=== PATIENT | male | born 1955 | race Caucasian/White ===

== ENCOUNTER 2016-11-02 09:16 | Emergency (ER) | payer BC, MEDICARE ==
[2016-11-02 09:35] VITALS: BP 202/107
[2016-11-02] MEDS ORDERED: Ondansetron 4 MG/2 ML SDV IVPUSH ONE (09:54)
[2016-11-02] MEDS ORDERED: HYDROmorphone 1 MG/ML Syringe IVPUSH ONE ×2 (09:54→10:55)
--- NOTE | 2016-11-02 09:55 | EDM.PDOC ---
ED HPI GENERAL MEDICAL PROBLEM - General Chief Complaint: Abdominal Pain Stated Complaint: PANCREATITIS Time Seen by Provider: 11/02/16 09:55 Source of Information: Reports: Patient, Family History Limitations: Reports: No Limitations - History of Present Illness INITIAL COMMENTS - FREE TEXT/NARRATIVE: 60-year-old male with chronic pancreatitis for the past 33 years just had a cholecystectomy 2 weeks ago and is still having persistent recurring abdominal pain and nausea. No fevers or chills. Location: Reports: Abdomen Severity: Moderate Worsens with: Reports: Other (Worsens when trying to eat) Associated Symptoms: Reports: Malaise, Nausea/Vomiting, Weakness, Other (Gets hypertensive when in pain) Abdomen Pain Score (Numeric/FACES): 10 - Related Data Allergies Allergy/AdvReac Type Severity Reaction Status Date / Time acetaminophen [From Tylenol] Allergy Rash Verified 11/02/16 09:59 erythromycin base Allergy Hives Verified 11/02/16 09:59 Home Meds: Home Meds Amylase/Lipase/Protease [Genia SANCHEZ 24,000 Unit] 1 tab PO TID 11/02/16 [History] Aspirin [Halfprin] 81 mg PO DAILY 11/02/16 [History] Dronabinol [Marinol] 2.5 mg PO QID 11/02/16 [History] Meperidine HCl [Meperidine] 50 mg PO Q6H PRN 11/02/16 [History] Ondansetron [Zofran ODT] 4 mg PO Q4H PRN 11/02/16 [History] Promethazine [Phenergan] 50 mg PO Q6H PRN 11/02/16 [History] Ranitidine HCl [Zantac] 150 mg PO BID 11/02/16 [History] ED ROS GENERAL - Review of Systems Review Of Systems: See Below Constitutional: Reports: Chills, Malaise. Denies: Fever HEENT: Reports: No Symptoms Respiratory: Denies: Shortness of Breath Cardiovascular: Denies: Chest Pain GI/Abdominal: Reports: Abdominal Pain, Nausea, Vomiting : Reports: No Symptoms Skin: Reports: No Symptoms Neurological: Denies: Headache ED EXAM, GI/ABD - Physical Exam Exam: See Below Exam Limited By: No Limitations General Appearance: Alert, Moderate Distress (Looks uncomfortable) Eyes: Bilateral: Normal Appearance ( no jaundice, hydration normal) Respiratory/Chest: No Respiratory Distress, Lungs Clear Cardiovascular: Regular Rate, Rhythm. No: Tachycardia GI/Abdominal: Tenderness (Diffusely tender across the upper abdomen) Course - Vital Signs Last Recorded V/S: Last Vital Signs Temp 97.7 F 11/02/16 10:07 Pulse 87 11/02/16 10:07 Resp 14 11/02/16 10:07 BP 202/107 H 11/02/16 10:07 Pulse Ox 97 11/02/16 10:07 - Orders/Labs/Meds Labs: Laboratory Tests 11/02/16 11/02/16 Range/Units 09:55 09:55 WBC 8.5 (4.5-11.0) K/uL RBC 5.05 (4.30-5.90) M/uL Hgb 15.8 H (12.0-15.0) g/dL Hct 44.9 (40.0-54.0) % MCV 89 (80-98) fL MCH 31 (27-31) pg MCHC 35 (32-36) % Plt Count 425 H (150-400) K/uL Neut % (Auto) 75 H (36-66) % Lymph % (Auto) 17 L (24-44) % Stewart % (Auto) 5 (2-6) % Eos % (Auto) 2 (2-4) % Baso % (Auto) 0 (0-1) % Sodium 136 L (140-148) mmol/L Potassium 3.4 L (3.6-5.2) mmol/L Chloride 99 L (100-108) mmol/L Carbon Dioxide 30 (21-32) mmol/L Anion Gap 10.4 (5.0-14.0) mmol/L BUN 20 H (7-18) mg/dL Creatinine 1.1 (0.8-1.3) mg/dL Est Cr Clr Drug Dosing 50.13 mL/min Estimated GFR (MDRD) > 60 (>60) Glucose 102 (74-106) mg/dL Calcium 8.8 (8.5-10.1) mg/dL Total Bilirubin 0.5 (0.2-1.0) mg/dL AST 24 (15-37) U/L ALT 26 (12-78) U/L Alkaline Phosphatase 87 (46-116) U/L Total Protein 7.5 (6.4-8.2) g/dL Albumin 3.8 (3.4-5.0) g/dL Globulin 3.7 H (2.3-3.5) g/dL Albumin/Globulin Ratio 1.0 L (1.2-2.2) Amylase 137 H (25-115) U/L Lipase 374 (73-393) U/L Meds: Medications Discontinued Medications Generic Name Dose Route Start Last Admin Trade Name Jasonq PRN Reason Stop Dose Admin Hydromorphone HCl 1 mg 11/02/16 09:54 11/02/16 10:02 Dilaudid IVPUSH 11/02/16 09:55 1 mg ONETIME ONE Administration Hydromorphone HCl 1 mg 11/02/16 10:55 11/02/16 11:02 Dilaudid IVPUSH 11/02/16 10:56 1 mg ONETIME ONE Administration Lactated Ringer's 1,000 mls @ 500 mls/hr 11/02/16 10:00 11/02/16 10:02 Ringers, Lactated IV 500 mls/hr ASDIRECTED CHARLES Administration Ondansetron HCl 4 mg 11/02/16 09:54 11/02/16 10:01 Zofran IVPUSH 11/02/16 09:55 4 mg ONETIME ONE Administration - Re-Assessments/Exams Free Text/Narrative Re-Assessment/Exam: 11/02/16 10:57 Lactated Ringer bolus of 1 L was given, 1 mg of Dilaudid IV and 4 mg of Zofran IV. CBC and CMP were obtained which were reassuring, amylase was slightly elevated. I discussed his condition and labs with his pancreatic surgeon and nurse practitioner, and they had no other recommendations other than moving his recheck appointment up. They will be calling him with the time. Patient will continue his regular medications. Departure - Departure Time of Disposition: 12:00 Disposition: Home, Self-Care 01 Condition: good Clinical Impression: Abdominal pain Qualifiers: Abdominal location: upper abdomen, unspecified Qualified Code(s): R10.10 - Upper abdominal pain, unspecified Pancreatitis Qualifiers: Chronicity: chronic Pancreatitis type: unspecified pancreatitis type Qualified Code(s): K86.1 - Other chronic pancreatitis - Discharge Information Instructions: Acute Pancreatitis, [id number], Abdominal Pain, Adult, Easy-to- Read Referrals: Wilson Melgoza PA [Primary Care Provider] - Forms: ED Department Discharge Care Plan Goals: Advance fluids and diet as tolerated and continue your regular medications. Return if needed.
[2016-11-02] MEDS ORDERED: Lactated Ringers 1,000 ML IV SCH (10:00)
== END 2016-11-02 12:00 | disposition home or self-care (01) ==
LOC: JP.ED 09:16
DX: K86.1 Other chronic pancreatitis (principal); K86.81 Exocrine pancreatic insufficiency; Z79.82 Long term (current) use of aspirin; Z88.8 Allergy status to other drugs, medicaments and biological substances; Z88.1 Allergy status to other antibiotic agents
CPT/HCPCS: 36415; 80053; 82150; 83690; 85025; 96361; 96374; 96375; 96376; 99284; J1170; J2405; J7120

== ENCOUNTER 2016-11-07 11:44 | Emergency (ER) | payer BC, MEDICARE ==
[2016-11-07] MEDS ORDERED: Sodium Chloride 0.9% 10 ML Syringe FLUSH PRN (12:12)
[2016-11-07] MEDS ORDERED: Morphine 4 MG/ML Syringe IVPUSH PRN (12:12)
[2016-11-07] MEDS: Nitroglycerin 0.4 MG Tab.SL SL PRN ×3 (12:24→12:39)
[2016-11-07] MEDS ORDERED: Prochlorperazine 10 MG/2 ML SDV IVPUSH ONE (12:25)
--- NOTE | 2016-11-07 12:28 | EDM.PDOC ---
ED HPI GENERAL MEDICAL PROBLEM - General Chief Complaint: Cardiovascular Problem Stated Complaint: BLOOD PRESSURE Time Seen by Provider: 11/07/16 11:57 Source of Information: Reports: Patient, Family, Old Records, RN Notes Reviewed History Limitations: Reports: No Limitations - History of Present Illness INITIAL COMMENTS - FREE TEXT/NARRATIVE: 60-year-old gentleman presents emergency department today with complaint of elevated blood pressure he states he's been feeling poorly over the last week does have a known history of hypertension however it is not been as high as this last week he does have a blood pressure cuff at home he has been measuring up systolic leak 200s on multiple occasions. Also has a known history of chronic pancreatitis which usually controls his pain with Demerol was recently admitted the hospital for combination pancreatitis cholecystitis underwent cholecystectomy. He states he still is having some ongoing abdominal pain which may be contributing to his blood pressure denies any fevers Upper Abdominal Pain Score (Numeric/FACES): 9 - Related Data Allergies Allergy/AdvReac Type Severity Reaction Status Date / Time acetaminophen [From Tylenol] Allergy Rash Verified 11/07/16 11:53 erythromycin base Allergy Hives Verified 11/07/16 11:53 Home Meds: Home Meds Aspirin [Halfprin] 81 mg PO DAILY 11/02/16 [History] Meperidine HCl [Meperidine] 50 mg PO Q6H PRN 11/02/16 [History] Ondansetron [Zofran ODT] 4 mg PO Q4H PRN 11/02/16 [History] Promethazine [Phenergan] 50 mg PO Q6H PRN 11/02/16 [History] Ranitidine HCl [Zantac] 150 mg PO BID 11/02/16 [History] Past Medical History HEENT History: Reports: Impaired Vision Cardiovascular History: Reports: Blood Clots/VTE/DVT, CAD, Hypertension, GA, Other (See Below) Other Cardiovascular History: iliac stents for possible clots Gastrointestinal History: Reports: Cholelithiasis, GERD, Pancreatitis Musculoskeletal History: Reports: Fracture Oncologic (Cancer) History: Reports: Other (See Below) Other Oncologic History: skin ca Dermatologic History: Reports: Other (See Below) Other Dermatologic History: basal cell ca - Infectious Disease History Infectious Disease History: Reports: Mumps - Past Surgical History GI Surgical History: Reports: Appendectomy, Cholecystectomy, Other (See Below) Other GI Surgeries/Procedures: exploratory lap for pancrease possilbe fruy procedure Social & Family History - Tobacco Use Smoking Status *Q: Never Smoker Second Hand Smoke Exposure: No - Caffeine Use Caffeine Use: Reports: Coffee - Recreational Drug Use Recreational Drug Use: No ED ROS GENERAL - Review of Systems Review Of Systems: See Below Constitutional: Reports: Decreased Appetite. Denies: Fever, Chills HEENT: Reports: No Symptoms Respiratory: Reports: No Symptoms Cardiovascular: Reports: Chest Pain GI/Abdominal: Reports: Abdominal Pain, Nausea : Reports: No Symptoms Musculoskeletal: Reports: No Symptoms Skin: Reports: No Symptoms ED EXAM, GENERAL - Physical Exam Exam: See Below Exam Limited By: No Limitations General Appearance: Alert, Mild Distress Eye Exam: Bilateral Eye: Normal Inspection Head: Atraumatic, Normocephalic Neck: Normal Inspection, Supple, Non-Tender, Full Range of Motion Respiratory/Chest: No Respiratory Distress, Lungs Clear, Normal Breath Sounds, No Accessory Muscle Use Cardiovascular: Normal Peripheral Pulses, Regular Rate, Rhythm, No Murmur GI/Abdominal: Normal Bowel Sounds, Tender (Generalized), Other (Surgical wounds clean dry and intact) Back Exam: Normal Inspection, Full Range of Motion. No: CVA Tenderness (R), CVA Tenderness (L) Extremities: Normal Inspection, Normal Range of Motion, Non-Tender, No Pedal Edema Course - Vital Signs Last Recorded V/S: Last Vital Signs Temp 98.2 F 11/07/16 12:09 Pulse 88 11/07/16 13:59 Resp 13 11/07/16 13:59 BP 138/82 11/07/16 13:59 Pulse Ox 93 L 11/07/16 13:59 - Orders/Labs/Meds Orders: Active Orders 24 hr Category Date Time Status Cardiac Monitoring [RC] .As Directed Care 11/07/16 12:13 Active EKG Documentation Completion [RC] ASDIRECTED Care 11/07/16 12:13 Active Peripheral IV Care [RC] . DIRECTED Care 11/07/16 12:13 Active Chest 2V [CR] Stat Exams 11/07/16 12:13 Taken UA W/MICROSCOPIC [URIN] Stat Lab 11/07/16 12:12 Uncollected Lactated Ringers [Ringers, Lactated] 1,000 ml Med 11/07/16 13:00 Active IV ASDIRECTED Morphine Med 11/07/16 12:12 Active 4 mg IVPUSH Q10M PRN Nitroglycerin [Nitrostat] Med 11/07/16 12:12 Active 0.4 mg SL Q5M PRN Sodium Chloride 0.9% [Saline Flush] Med 11/07/16 12:12 Active 10 ml FLUSH ASDIRECTED PRN Peripheral IV Insertion Adult [OM.PC] Stat Oth 11/07/16 12:12 Ordered Saline Lock Insert [OM.PC] Stat Oth 11/07/16 12:12 Ordered EKG 12 Lead [EK] Stat Ther 11/07/16 12:13 Ordered Medication Orders Lactated Ringer's (Ringers, Lactated) 1,000 mls @ 0 mls/hr IV ASDIRECTED CHARLES PRN Reason: KVO Last Admin: 11/07/16 13:34 Dose: 25 mls/hr Morphine Sulfate (Morphine) 4 mg IVPUSH Q10M PRN PRN Reason: Chest Pain Stop: 11/08/16 12:13 Last Admin: 11/07/16 12:24 Dose: 4 mg Nitroglycerin (Nitrostat) 0.4 mg SL Q5M PRN PRN Reason: Chest Pain Stop: 11/08/16 12:13 Last Admin: 11/07/16 12:39 Dose: 0.4 mg Admin: 11/07/16 12:33 Dose: 0.4 mg Admin: 11/07/16 12:24 Dose: 0.4 mg Sodium Chloride (Saline Flush) 10 ml FLUSH ASDIRECTED PRN PRN Reason: Keep Vein Open Last Admin: 11/07/16 12:28 Dose: 10 ml Labs: Laboratory Tests 11/07/16 11/07/16 Range/Units 11:23 11:23 WBC 9.7 (4.5-11.0) K/uL RBC 5.16 (4.30-5.90) M/uL Hgb 16.3 H (12.0-15.0) g/dL Hct 45.8 (40.0-54.0) % MCV 89 (80-98) fL MCH 32 H (27-31) pg MCHC 36 (32-36) % Plt Count 380 (150-400) K/uL Neut % (Auto) 77 H (36-66) % Lymph % (Auto) 16 L (24-44) % Howell % (Auto) 5 (2-6) % Eos % (Auto) 2 (2-4) % Baso % (Auto) 0 (0-1) % Sodium 139 L (140-148) mmol/L Potassium 3.8 (3.6-5.2) mmol/L Chloride 102 (100-108) mmol/L Carbon Dioxide 27 (21-32) mmol/L Anion Gap 13.8 (5.0-14.0) mmol/L BUN 11 (7-18) mg/dL Creatinine 0.9 (0.8-1.3) mg/dL Est Cr Clr Drug Dosing TNP Estimated GFR (MDRD) > 60 (>60) Glucose 101 (74-106) mg/dL Calcium 9.0 (8.5-10.1) mg/dL Total Bilirubin 0.4 (0.2-1.0) mg/dL AST 23 (15-37) U/L ALT 24 (12-78) U/L Alkaline Phosphatase 87 (46-116) U/L Troponin I < 0.017 (0.000-0.056) ng/mL Total Protein 7.5 (6.4-8.2) g/dL Albumin 3.7 (3.4-5.0) g/dL Globulin 3.8 H (2.3-3.5) g/dL Albumin/Globulin Ratio 1.0 L (1.2-2.2) Lipase 240 (73-393) U/L Meds: Medications Generic Name Dose Route Start Last Admin Trade Name Freq PRN Reason Stop Dose Admin Lactated Ringer's 1,000 mls @ 0 mls/hr 11/07/16 13:00 11/07/16 13:34 Ringers, Lactated IV 25 mls/hr ASDIRECTED CHARLES Administration KVO Morphine Sulfate 4 mg 11/07/16 12:12 11/07/16 12:24 Morphine IVPUSH 11/08/16 12:13 4 mg Q10M PRN Administration Chest Pain Nitroglycerin 0.4 mg 11/07/16 12:12 11/07/16 12:39 Nitrostat SL 11/08/16 12:13 0.4 mg Q5M PRN Administration Chest Pain Sodium Chloride 10 ml 11/07/16 12:12 11/07/16 12:28 Saline Flush FLUSH 10 ml ASDIRECTED PRN Administration Keep Vein Open Discontinued Medications Generic Name Dose Route Start Last Admin Trade Name Freq PRN Reason Stop Dose Admin Hydromorphone HCl 1 mg 11/07/16 12:51 11/07/16 13:08 Dilaudid IVPUSH 11/07/16 12:52 1 mg ONETIME ONE Administration Lorazepam 1 mg 11/07/16 12:51 11/07/16 13:08 Ativan IVPUSH 11/07/16 12:52 1 mg ONETIME ONE Administration Naloxone HCl 0.1 mg 11/07/16 12:54 Narcan IVPUSH 11/07/16 12:55 ONETIME PRN Sedation Prochlorperazine Edisylate 10 mg 11/07/16 12:25 11/07/16 12:30 Compazine IVPUSH 11/07/16 12:26 10 mg ONETIME ONE Administration Departure - Departure Time of Disposition: 14:30 Disposition: Home, Self-Care 01 Condition: Good Clinical Impression: Hypertensive urgency Forms: ED Department Discharge Additional Instructions: continue with regular medication use Ativan as needed, follow up with your regular Dr. in 5 to 7 days - My Orders Last 24 Hours: My Active Orders 11/07/16 12:12 UA W/MICROSCOPIC [URIN] Stat Morphine 4 mg IVPUSH Q10M PRN Nitroglycerin [Nitrostat] 0.4 mg SL Q5M PRN Sodium Chloride 0.9% [Saline Flush] 10 ml FLUSH ASDIRECTED PRN Peripheral IV Insertion Adult [OM.PC] Stat Saline Lock Insert [OM.PC] Stat 11/07/16 12:13 Cardiac Monitoring [RC] .As Directed EKG Documentation Completion [RC] ASDIRECTED Peripheral IV Care [RC] . DIRECTED Chest 2V [CR] Stat EKG 12 Lead [EK] Stat 11/07/16 13:00 Lactated Ringers [Ringers, Lactated] 1,000 ml IV ASDIRECTED - Assessment/Plan Last 24 Hours: My Active Orders 11/07/16 12:12 UA W/MICROSCOPIC [URIN] Stat Morphine 4 mg IVPUSH Q10M PRN Nitroglycerin [Nitrostat] 0.4 mg SL Q5M PRN Sodium Chloride 0.9% [Saline Flush] 10 ml FLUSH ASDIRECTED PRN Peripheral IV Insertion Adult [OM.PC] Stat Saline Lock Insert [OM.PC] Stat 11/07/16 12:13 Cardiac Monitoring [RC] .As Directed EKG Documentation Completion [RC] ASDIRECTED Peripheral IV Care [RC] . DIRECTED Chest 2V [CR] Stat EKG 12 Lead [EK] Stat 11/07/16 13:00 Lactated Ringers [Ringers, Lactated] 1,000 ml IV ASDIRECTED Plan: Assessment Acuity = acute Site and laterality = hypertensive urgency complicated patient with chronic pancreatitis and chronic pain Etiology = suspicious for anxiety, pain issues Manifestations = chest pressure now resolved Location of injury = home Lab values = CBC, CMP, troponin, chest x-ray , EKG all within normal limits Plan Initially tried combination of morphine and nitroglycerin no effect on his blood pressure second try combination Dilaudid and Ativan this did bring his blood pressure down systolic 1:30 range, plan is to follow-up with his primary care provider next week he will be discharged with the 10 Ativan to use as needed in combination with his Demerol democrat prescribed Patient was in agreement with the plan all questions were answered, they were instructed to return to the emergency department or call for worsening symptoms. This note was dictated using [employer] voice recognition software please call with any questions.
[2016-11-07] MEDS ORDERED: HYDROmorphone 1 MG/ML Syringe IVPUSH ONE (12:51)
[2016-11-07] MEDS ORDERED: LORazepam 2 MG/ML MDV IVPUSH ONE (12:51)
[2016-11-07] MEDS ORDERED: Naloxone 0.4 MG/ML SDV IVPUSH PRN (12:54)
[2016-11-07] MEDS ORDERED: Lactated Ringers 1,000 ML IV SCH (13:00)
[2016-11-07 14:52] VITALS: BP 146/80
--- NOTE | 2016-11-08 08:55 | CR ---
Chest 2V HISTORY: Chest Pain COMPARISON: None FINDINGS: Lungs appear clear and mildly hyperinflated. Cardiomediastinal silhouette is within normal limits. N o vascular redistribution or pleural fluid can be seen. Bony structures and soft tissues are unremar kable. IMPRESSION: Mild hyperinflation. No acute chest abnormality is identified.
== END 2016-11-07 14:55 | disposition home or self-care (01) ==
LOC: JP.ED 11:44
DX: I16.0 Hypertensive urgency (principal); H54.7 Unspecified visual loss; I10 Essential (primary) hypertension; I25.2 Old myocardial infarction; I25.10 Atherosclerotic heart disease of native coronary artery without angina pectoris; K21.9 Gastro-esophageal reflux disease without esophagitis; Z90.49 Acquired absence of other specified parts of digestive tract; Z88.8 Allergy status to other drugs, medicaments and biological substances; Z79.82 Long term (current) use of aspirin
CPT/HCPCS: 36415; 71020; 80053; 83690; 84484; 85025; 93005; 96374; 96375; 99284; A9270; J0780; J1170; J2060; J2270; J7050; J7120

== ENCOUNTER 2016-11-10 08:10 | Emergency (ER) | payer BC ==
[2016-11-10] MEDS ORDERED: Ondansetron 4 MG/2 ML SDV IVPUSH ONE (08:42)
[2016-11-10] MEDS ORDERED: HYDROmorphone 1 MG/ML Syringe IVPUSH ONE ×2 (08:42→09:40)
[2016-11-10] MEDS ORDERED: Sodium Chloride 0.9% 1,000 ML IV SCH ×2 (08:45→09:45)
--- NOTE | 2016-11-10 09:43 | EDM.PDOC ---
[id number]: PANCREATITIS Time Seen by Provider: 11/10/16 09:42 Source of Information: Reports: Patient, Family History Limitations: Reports: No Limitations - History of Present Illness INITIAL COMMENTS - FREE TEXT/NARRATIVE: pt arrived with a history of chronic pancreatitis. He has severe upper abdomnal pain. Onset: Gradual Duration: Day(s):, Other ( worse last 2 nites. ) Location: Reports: Abdomen Quality: Reports: Sharp, Stabbing Associated Symptoms: Reports: No Other Symptoms - Related Data Allergies Allergy/AdvReac Type Severity Reaction Status Date / Time acetaminophen [From Tylenol] Allergy Rash Verified 11/07/16 11:53 erythromycin base Allergy Hives Verified 11/07/16 11:53 Home Meds: Home Meds Aspirin [Halfprin] 81 mg PO DAILY 11/02/16 [History] Meperidine HCl [Meperidine] 50 mg PO Q6H PRN 11/02/16 [History] Ondansetron [Zofran ODT] 4 mg PO Q4H PRN 11/02/16 [History] Promethazine [Phenergan] 50 mg PO Q6H PRN 11/02/16 [History] Ranitidine HCl [Zantac] 150 mg PO BID 11/02/16 [History] LORazepam [Ativan] 1 mg PO ASDIRECTED PRN 11/10/16 [History] Past Medical History HEENT History: Reports: Impaired Vision Cardiovascular History: Reports: Blood Clots/VTE/DVT, CAD, Hypertension, [place], Other (See Below) Other Cardiovascular History: iliac stents for possible clots Gastrointestinal History: Reports: Cholelithiasis, GERD, Pancreatitis Musculoskeletal History: Reports: Fracture Oncologic (Cancer) History: Reports: Other (See Below) Other Oncologic History: skin ca Dermatologic History: Reports: Other (See Below) Other Dermatologic History: basal cell ca - Infectious Disease History Infectious Disease History: Reports: Mumps - Past Surgical History GI Surgical History: Reports: Appendectomy, Cholecystectomy, Other (See Below) Other GI Surgeries/Procedures: exploratory lap for pancrease possilbe fruy procedure Social & Family History - Tobacco Use Smoking Status *Q: Former Smoker Years of Tobacco use: 20 Used Tobacco, but Quit: No Tobacco Use Comment: quit 20 years ago Second Hand Smoke Exposure: No - Caffeine Use Caffeine Use: Reports: Coffee Other Caffeine Use: 4 cups - Recreational Drug Use Recreational Drug Use: No ED ROS GENERAL - Review of Systems Review Of Systems: See Below Constitutional: Reports: Decreased Appetite HEENT: Reports: No Symptoms Respiratory: Reports: No Symptoms Cardiovascular: Reports: No Symptoms Endocrine: Reports: No Symptoms GI/Abdominal: Reports: Abdominal Pain, Decreased Appetite, Nausea, Vomiting : Reports: No Symptoms Musculoskeletal: Reports: No Symptoms Skin: Reports: No Symptoms Neurological: Reports: No Symptoms ED EXAM, GI/ABD - Physical Exam Exam: See Below Text/Narrative:: pt arrived with pain in the epigastric area going to her back. Exam Limited By: No Limitations General Appearance: Alert, Anxious Eyes: Bilateral: Normal Appearance, EOMI Ears: Normal TMs Nose: Normal Inspection Throat/Mouth: Normal Inspection Head: Atraumatic Neck: Normal Inspection Respiratory/Chest: No Respiratory Distress Cardiovascular: Regular Rate, Rhythm GI/Abdominal: Other ( tender in the epigastric area. ) (Male) Exam: Deferred Rectal (Males) Exam: Deferred Back Exam: Normal Inspection Extremities: Normal Inspection Neurological: Alert, Oriented, Normal Cognition Psychiatric: Anxious Course - Vital Signs Last Recorded V/S: Last Vital Signs Temp 36.1 C 11/10/16 10:55 Pulse 77 11/10/16 10:55 Resp 14 11/10/16 10:55 BP 153/89 H 11/10/16 10:55 Pulse Ox 98 11/10/16 10:55 - Orders/Labs/Meds Labs: Laboratory Tests 11/10/16 11/10/16 11/10/16 Range/Units 08:52 08:52 08:52 WBC 10.4 (4.5-11.0) K/uL RBC 4.87 (4.30-5.90) M/uL Hgb 15.0 (12.0-15.0) g/dL Hct 43.6 (40.0-54.0) % MCV 90 (80-98) fL MCH 31 (27-31) pg MCHC 34 (32-36) % Plt Count 307 (150-400) K/uL Neut % (Auto) 78 H (36-66) % Lymph % (Auto) 16 L (24-44) % Collier % (Auto) 4 (2-6) % Eos % (Auto) 2 (2-4) % Baso % (Auto) 0 (0-1) % Sodium 137 L (140-148) mmol/L Potassium 3.7 (3.6-5.2) mmol/L Chloride 101 (100-108) mmol/L Carbon Dioxide 27 (21-32) mmol/L Anion Gap 12.7 (5.0-14.0) mmol/L BUN 13 (7-18) mg/dL Creatinine 0.9 (0.8-1.3) mg/dL Est Cr Clr Drug Dosing TNP Estimated GFR (MDRD) > 60 (>60) Glucose 96 (74-106) mg/dL Calcium 8.6 (8.5-10.1) mg/dL Total Bilirubin 0.2 (0.2-1.0) mg/dL AST 23 (15-37) U/L ALT 24 (12-78) U/L Alkaline Phosphatase 84 (46-116) U/L C-Reactive Protein 0.15 (0.0-0.3) mg/dL Total Protein 7.2 (6.4-8.2) g/dL Albumin 3.7 (3.4-5.0) g/dL Globulin 3.5 (2.3-3.5) g/dL Albumin/Globulin Ratio 1.1 L (1.2-2.2) Amylase 110 (25-115) U/L Lipase 259 (73-393) U/L Urine Color Urine Appearance Urine pH (4.5-8.0) Ur Specific Kell (1.008-1.030) Urine Protein (NEGATIVE) mg/dL Urine Glucose (UA) (NEGATIVE) mg/dL Urine Ketones (NEGATIVE) mg/dL Urine Occult Blood (NEGATIVE) Urine Nitrite (NEGAITVE) Urine Bilirubin (NEGATIVE) Urine Urobilinogen (NORMAL) mg/dL Ur Leukocyte Esterase (NEGATIVE) Urine RBC (0-5) Urine WBC (0-5) Ur Epithelial Cells Amorphous Sediment Urine Bacteria Urine Mucus 11/10/16 Range/Units 09:57 WBC (4.5-11.0) K/uL RBC (4.30-5.90) M/uL Hgb (12.0-15.0) g/dL Hct (40.0-54.0) % MCV (80-98) fL MCH (27-31) pg MCHC (32-36) % Plt Count (150-400) K/uL Neut % (Auto) (36-66) % Lymph % (Auto) (24-44) % Collier % (Auto) (2-6) % Eos % (Auto) (2-4) % Baso % (Auto) (0-1) % Sodium (140-148) mmol/L Potassium (3.6-5.2) mmol/L Chloride (100-108) mmol/L Carbon Dioxide (21-32) mmol/L Anion Gap (5.0-14.0) mmol/L BUN (7-18) mg/dL Creatinine (0.8-1.3) mg/dL Est Cr Clr Drug Dosing Estimated GFR (MDRD) (>60) Glucose (74-106) mg/dL Calcium (8.5-10.1) mg/dL Total Bilirubin (0.2-1.0) mg/dL AST (15-37) U/L ALT (12-78) U/L Alkaline Phosphatase (46-116) U/L C-Reactive Protein (0.0-0.3) mg/dL Total Protein (6.4-8.2) g/dL Albumin (3.4-5.0) g/dL Globulin (2.3-3.5) g/dL Albumin/Globulin Ratio (1.2-2.2) Amylase (25-115) U/L Lipase (73-393) U/L Urine Color Yellow Urine Appearance Clear Urine pH 7.0 (4.5-8.0) Ur Specific Kell 1.010 (1.008-1.030) Urine Protein Negative (NEGATIVE) mg/dL Urine Glucose (UA) Normal (NEGATIVE) mg/dL Urine Ketones Negative (NEGATIVE) mg/dL Urine Occult Blood Moderate (NEGATIVE) Urine Nitrite Negative (NEGAITVE) Urine Bilirubin Negative (NEGATIVE) Urine Urobilinogen Normal (NORMAL) mg/dL Ur Leukocyte Esterase Negative (NEGATIVE) Urine RBC 0-5 (0-5) Urine WBC Not seen (0-5) Ur Epithelial Cells Not seen Amorphous Sediment Rare Urine Bacteria Not seen Urine Mucus Not seen Meds: Medications Discontinued Medications Generic Name Dose Route Start Last Admin Trade Name Freq PRN Reason Stop Dose Admin Hydromorphone HCl 1 mg 11/10/16 08:42 11/10/16 09:00 Dilaudid IVPUSH 11/10/16 08:43 1 mg ONETIME ONE Administration Hydromorphone HCl 1 mg 11/10/16 09:40 11/10/16 09:44 Dilaudid IVPUSH 11/10/16 09:41 1 mg ONETIME ONE Administration Hydromorphone HCl 0.5 mg 11/10/16 12:10 11/10/16 12:21 Dilaudid IVPUSH 11/10/16 12:11 0.5 mg ONETIME ONE Administration Sodium Chloride 1,000 mls @ 999 mls/hr 11/10/16 08:45 11/10/16 09:08 Normal Saline IV 999 mls/hr ASDIRECTED CHARLES Administration Sodium Chloride 1,000 mls @ 400 mls/hr 11/10/16 09:45 11/10/16 10:53 Normal Saline IV 400 mls/hr ASDIRECTED CHARLES Administration Sodium Chloride 70 mls @ 3 mls/sec 11/10/16 09:48 11/10/16 10:07 Normal Saline IV 11/10/16 09:49 3 mls/sec ONETIME ONE Administration Iopamidol 100 ml 11/10/16 09:48 11/10/16 10:07 Isovue-300 (61%) IV 11/10/16 09:49 100 ml . DIRECTED PRN Administration RADIOLOGY EXAM Ondansetron HCl 4 mg 11/10/16 08:42 11/10/16 09:05 Zofran IVPUSH 11/10/16 08:43 4 mg ONETIME ONE Administration Sodium Chloride 10 ml 11/10/16 09:48 11/10/16 10:38 Normal Saline FLUSH 11/10/16 09:49 Not Given ONETIME ONE - Re-Assessments/Exams Free Text/Narrative Re-Assessment/Exam: 11/10/16 10:50 pt is having mid upper abdomanal pain. His lipase nd amylase were normal. His cat scan of the abdoman did not show acute findings. 11/10/16 12:06 pt will be iven 2 liters of fluid and he was given some broth to see if he could tolerate that. He plans to see his surgeon in the next few days. He had a recent bryson and since that time he has had more pain episodes. 11/11/16 19:29 Departure - Departure Time of Disposition: 12:08 Disposition: Home, Self-Care 01 Condition: Fair Clinical Impression: Abdominal pain, History of cholecystectomy - Discharge Information Instructions: Abdominal Pain, Adult, [id number] Referrals: Wilson Melgoza PA [Primary Care Provider] - Forms: ED Department Discharge Care Plan Goals: get appt with His surgeon in [place], clear liquids, cont demerol nd zoforan, rtc if further symptoms. Send copy of labs with the pt and a copy of his cat scan.
[2016-11-10] MEDS ORDERED: Iopamidol 612 MG/ML 100 ML Bottle IV PRN (09:48)
[2016-11-10] MEDS ORDERED: Sodium Chloride 0.9% 10 ML SDV FLUSH ONE (09:48)
--- NOTE | 2016-11-10 10:48 | CT ---
Abdomen Pelvis w Cont HISTORY: upper abdominal pain Axial spiral enhanced CT scan of the abdomen and pelvis was obtained using IV contrast only. Coronal reconstructions were obtained. There are no prior exams for comparison. FINDINGS: Heart size appears within normal limits. Lung bases are clear. There is no pleural fluid. No focal parenchymal abnormality seen in the liver or spleen. Gallbladder appears to be surgically a bsent. Intrahepatic and extrahepatic biliary ducts are slightly prominent. This is probably in keepi ng with the postcholecystectomy state. No pancreatic mass or abnormal fluid collections are seen. Pr oximal pancreatic duct is slightly prominent measuring about 4.5 mm in diameter adrenal glands are u nremarkable. There are small subcentimeter renal cysts bilaterally. No solid renal mass is seen. I see no hydrone phrosis or ureteral dilatation. No obvious renal or ureteral calculi can be seen. No pelvic mass or abnormal fluid collections are identified. There are diverticula can be seen in th e sigmoid colon. I see no definite evidence for acute diverticulitis. A very small amount of scatter ed free fluid is seen in the abdomen. No free intraperitoneal air is identified. Small bowel loops a re nondistended. No other colon abnormality can be seen. Appendix cannot be definitively identified. No inflammation or fluid is seen at the base of the cecum. I see no pelvic, retroperitoneal, or mes enteric adenopathy. Stomach is mildly distended and fluid-filled. Degenerative changes are noted along the lumbar spine, most prominent at L5-S1. I see no obvious lytic or blastic bony lesion. Endovascular stent graft ca n be seen in the right common iliac artery and in the left common iliac and external iliac arteries. Stents appear patent. IMPRESSION: 1. Exam is limited by lack of intra-abdominal body fat and lack of oral contrast. 2. Status post cholecystectomy. Slightly prominent biliary ducts are probably in keeping with the po stcholecystectomy state. Proximal pancreatic duct is also slightly prominent. 3. Probable small renal cysts bilaterally. 4. Mildly distended, fluid-filled stomach. 5. A very small amount of free fluid can be seen in the abdomen. No free air or loculated fluid khushbu ection can be seen. 6. Mild diverticulosis can be seen in the sigmoid colon. I see no definite evidence for acute divert iculitis. 7. Scattered atherosclerotic vascular calcification. Bilateral iliac stents appear patent. 8. No other acute intra-abdominal or pelvic abnormality can be identified. Total DLP 308 mGycm Report was called to Dr. Campuzano in the emergency department at 1040 hours.
[2016-11-10 10:56] VITALS: BP 153/89
[2016-11-10] MEDS ORDERED: HYDROmorphone 0.5 MG/0.5 ML Syringe IVPUSH ONE (12:10)
== END 2016-11-10 12:39 | disposition home or self-care (01) ==
LOC: JP.ED 08:10
DX: R10.10 Upper abdominal pain, unspecified (principal); I25.10 Atherosclerotic heart disease of native coronary artery without angina pectoris; I10 Essential (primary) hypertension; I25.2 Old myocardial infarction; K21.9 Gastro-esophageal reflux disease without esophagitis; Z90.49 Acquired absence of other specified parts of digestive tract; Z98.890 Other specified postprocedural states; Z87.891 Personal history of nicotine dependence; Z86.718 Personal history of other venous thrombosis and embolism; Z79.82 Long term (current) use of aspirin; Z88.1 Allergy status to other antibiotic agents; Z88.6 Allergy status to analgesic agent
CPT/HCPCS: 36415; 74177; 80053; 81001; 82150; 83690; 85025; 86140; 96361; 96374; 96375; 96376; 99284; J1170; J2405; J7030; J7040; Q9967

== ENCOUNTER 2016-11-24 11:54 | Emergency (ER) | payer BC ==
[2016-11-24] MEDS ORDERED: Sodium Chloride 0.9% 10 ML Syringe FLUSH PRN (12:48)
[2016-11-24] MEDS ORDERED: Ondansetron 4 MG/2 ML SDV IVPUSH ONE (12:49)
[2016-11-24] MEDS ORDERED: HYDROmorphone 1 MG/ML Syringe IVPUSH ONE ×3 (12:49→14:57)
[2016-11-24] MEDS ORDERED: Sodium Chloride 0.9% 1,000 ML IV SCH (13:00)
[2016-11-24 15:13] VITALS: BP 159/98
--- NOTE | 2016-11-24 15:20 | EDM.PDOC ---
ED HPI GENERAL MEDICAL PROBLEM - General Chief Complaint: Abdominal Pain Stated Complaint: PACREATITIS ATTACK Time Seen by Provider: 11/24/16 12:48 Source of Information: Reports: Patient History Limitations: Reports: No Limitations - History of Present Illness INITIAL COMMENTS - FREE TEXT/NARRATIVE: This gentleman has chronic recurrent pancreatitis. This is been going on for years. He is followed by a surgeon and senior infrastructure architect at the [facility]. They were going to do a Womack procedure in September but instead did a cholecystectomy instead. He's had more problems since then. They are talking now about doing a pancreatectomy and islet cell transplant into the liver. These haven't severe pain today. He said diet doesn't seem to matter anything will bring on and intact. He is using Demerol for pain. He said hydrocodone and oxycodone don't seem to help. He's never tried oral Dilaudid. He does get some relief with the IV Dilaudid were given today. Lower Abdominal Pain Score (Numeric/FACES): 10 - Related Data Allergies Allergy/AdvReac Type Severity Reaction Status Date / Time acetaminophen [From Tylenol] Allergy Rash Verified 11/24/16 12:26 erythromycin base Allergy Hives Verified 11/24/16 12:26 Home Meds: Home Meds Aspirin [Halfprin] 81 mg PO DAILY 11/02/16 [History] Meperidine HCl [Meperidine] 50 mg PO Q6H PRN 11/02/16 [History] Ondansetron [Zofran ODT] 4 mg PO Q4H PRN 11/02/16 [History] Promethazine [Phenergan] 50 mg PO Q6H PRN 11/02/16 [History] Ranitidine HCl [Zantac] 150 mg PO BID 11/02/16 [History] LORazepam [Ativan] 1 mg PO ASDIRECTED PRN 11/10/16 [History] Past Medical History HEENT History: Reports: Impaired Vision Cardiovascular History: Reports: Blood Clots/VTE/DVT, CAD, Hypertension, [place], Other (See Below) Other Cardiovascular History: iliac stents for possible clots Gastrointestinal History: Reports: Cholelithiasis, GERD, Pancreatitis Musculoskeletal History: Reports: Fracture Oncologic (Cancer) History: Reports: Other (See Below) Other Oncologic History: skin ca Dermatologic History: Reports: Other (See Below) Other Dermatologic History: basal cell ca - Infectious Disease History Infectious Disease History: Reports: Mumps - Past Surgical History GI Surgical History: Reports: Appendectomy, Cholecystectomy, Other (See Below) Other GI Surgeries/Procedures: exploratory lap for pancrease possilbe fruy procedure Social & Family History - Tobacco Use Smoking Status *Q: Never Smoker Years of Tobacco use: 20 Used Tobacco, but Quit: No Second Hand Smoke Exposure: No - Caffeine Use Caffeine Use: Reports: Coffee, Soda Other Caffeine Use: 4 cups - Recreational Drug Use Recreational Drug Use: No ED ROS GENERAL - Review of Systems Review Of Systems: ROS reveals no pertinent complaints other than HPI. ED EXAM, GI/ABD - Physical Exam Exam: See Below Exam Limited By: No Limitations General Appearance: Alert, Moderate Distress, Thin Eyes: Bilateral: Normal Appearance Throat/Mouth: Normal Inspection Respiratory/Chest: Lungs Clear Cardiovascular: Regular Rate, Rhythm GI/Abdominal: Normal Bowel Sounds, Soft, Other (Moderate upper abdominal tenderness) Extremities: Normal Inspection Neurological: Alert Course - Vital Signs Last Recorded V/S: Last Vital Signs Temp 36.6 C 11/24/16 15:13 Pulse 86 11/24/16 15:13 Resp 14 11/24/16 15:13 BP 159/98 H 11/24/16 15:13 Pulse Ox 95 11/24/16 15:13 - Orders/Labs/Meds Orders: Active Orders 24 hr Category Date Time Status Sodium Chloride 0.9% [Normal Saline] 1,000 ml Med 11/24/16 13:00 Active IV ASDIRECTED Sodium Chloride 0.9% [Saline Flush] Med 11/24/16 12:48 Active 10 ml FLUSH ASDIRECTED PRN Saline Lock Insert [OM.PC] Urgent Oth 11/24/16 12:48 Ordered Medication Orders Sodium Chloride (Normal Saline) 1,000 mls @ 999 mls/hr IV ASDIRECTED CHARLES Last Admin: 11/24/16 12:56 Dose: 999 mls/hr Sodium Chloride (Saline Flush) 10 ml FLUSH ASDIRECTED PRN PRN Reason: Keep Vein Open Last Admin: 11/24/16 12:57 Dose: 10 ml Labs: Laboratory Tests 11/24/16 11/24/16 11/24/16 Range/Units 13:05 13:05 13:05 WBC 12.5 H (4.5-11.0) K/uL RBC 5.34 (4.30-5.90) M/uL Hgb 16.5 H (12.0-15.0) g/dL Hct 47.9 (40.0-54.0) % MCV 90 (80-98) fL MCH 31 (27-31) pg MCHC 34 (32-36) % Plt Count 344 (150-400) K/uL Neut % (Auto) 86 H (36-66) % Lymph % (Auto) 10 L (24-44) % Bureau % (Auto) 3 (2-6) % Eos % (Auto) 1 L (2-4) % Baso % (Auto) 0 (0-1) % Sodium 140 (140-148) mmol/L Potassium 3.8 (3.6-5.2) mmol/L Chloride 103 (100-108) mmol/L Carbon Dioxide 29 (21-32) mmol/L Anion Gap 8.2 (5.0-14.0) mmol/L BUN 10 (7-18) mg/dL Creatinine 0.9 (0.8-1.3) mg/dL Est Cr Clr Drug Dosing 64.29 mL/min Estimated GFR (MDRD) > 60 (>60) Glucose 90 (74-106) mg/dL Calcium 8.5 (8.5-10.1) mg/dL Total Bilirubin 0.3 (0.2-1.0) mg/dL AST 34 (15-37) U/L ALT 37 (12-78) U/L Alkaline Phosphatase 92 (46-116) U/L Total Protein 8.1 (6.4-8.2) g/dL Albumin 3.7 (3.4-5.0) g/dL Globulin 4.4 H (2.3-3.5) g/dL Albumin/Globulin Ratio 0.8 L (1.2-2.2) Amylase 103 (25-115) U/L Lipase 129 (73-393) U/L Meds: Medications Generic Name Dose Route Start Last Admin Trade Name Freq PRN Reason Stop Dose Admin Sodium Chloride 1,000 mls @ 999 mls/hr 11/24/16 13:00 11/24/16 12:56 Normal Saline IV 999 mls/hr ASDIRECTED CHARLES Administration Sodium Chloride 10 ml 11/24/16 12:48 11/24/16 12:57 Saline Flush FLUSH 10 ml ASDIRECTED PRN Administration Keep Vein Open Discontinued Medications Generic Name Dose Route Start Last Admin Trade Name Melva PRN Reason Stop Dose Admin Hydromorphone HCl 1 mg 11/24/16 12:49 11/24/16 12:53 Dilaudid IVPUSH 11/24/16 12:50 1 mg ONETIME ONE Administration Hydromorphone HCl 1 mg 11/24/16 13:47 11/24/16 14:02 Dilaudid IVPUSH 11/24/16 13:48 1 mg ONETIME ONE Administration Hydromorphone HCl 1 mg 11/24/16 14:57 11/24/16 15:11 Dilaudid IVPUSH 11/24/16 14:58 1 mg ONETIME ONE Administration Ondansetron HCl 4 mg 11/24/16 12:49 11/24/16 12:53 Zofran IVPUSH 11/24/16 12:50 4 mg ONETIME ONE Administration - Re-Assessments/Exams Free Text/Narrative Re-Assessment/Exam: 11/24/16 15:19 An IV was established. He was given Dilaudid 1 mg IV and Dilaudid 4 mg. That gave him temporary pain relief. Labs have been reviewed. I discussed a clear liquid diet temporarily until his episode is Departure - Departure Time of Disposition: 15:20 Disposition: Home, Self-Care 01 Condition: Fair Clinical Impression: Chronic recurrent pancreatitis - Discharge Information Forms: ED Department Discharge Additional Instructions: Strict clear liquid diet until this episode is over with. For pain take Dilaudid 2 mg 1 or 2 every 4 hours as needed for pain. Prescribed #20 no refills. This medication can cause sedation and impaired driving so use with caution. - My Orders Last 24 Hours: My Active Orders 11/24/16 12:48 Sodium Chloride 0.9% [Saline Flush] 10 ml FLUSH ASDIRECTED PRN Saline Lock Insert [OM.PC] Urgent 11/24/16 13:00 Sodium Chloride 0.9% [Normal Saline] 1,000 ml IV ASDIRECTED - Assessment/Plan Last 24 Hours: My Active Orders 11/24/16 12:48 Sodium Chloride 0.9% [Saline Flush] 10 ml FLUSH ASDIRECTED PRN Saline Lock Insert [OM.PC] Urgent 11/24/16 13:00 Sodium Chloride 0.9% [Normal Saline] 1,000 ml IV ASDIRECTED
== END 2016-11-24 15:35 | disposition home or self-care (01) ==
LOC: JP.ED 11:54
DX: K86.1 Other chronic pancreatitis (principal); I25.10 Atherosclerotic heart disease of native coronary artery without angina pectoris; I10 Essential (primary) hypertension; I25.2 Old myocardial infarction; K21.9 Gastro-esophageal reflux disease without esophagitis; Z90.49 Acquired absence of other specified parts of digestive tract; Z86.718 Personal history of other venous thrombosis and embolism; Z79.82 Long term (current) use of aspirin; Z79.899 Other long term (current) drug therapy; Z88.1 Allergy status to other antibiotic agents; Z88.6 Allergy status to analgesic agent
CPT/HCPCS: 36415; 80053; 82150; 83690; 85025; 96374; 96375; 96376; 99284; J1170; J2405; J7040; J7050

== ENCOUNTER 2017-03-20 10:12 | Emergency (ER) | payer BC ==
[2017-03-20] MEDS ORDERED: HYDROmorphone 1 MG/ML Syringe IVPUSH ONE ×2 (10:43→12:10)
[2017-03-20] MEDS ORDERED: Ketorolac 30 MG/ML SDV IVPUSH ONE (10:43)
[2017-03-20] MEDS ORDERED: Lactated Ringers 1,000 ML IV SCH (10:45)
[2017-03-20 11:05] VITALS: BP 200/109
--- NOTE | 2017-03-20 11:17 | EDM.PDOC ---
ED HPI GENERAL MEDICAL PROBLEM - General Chief Complaint: Abdominal Pain Stated Complaint: PANCREATITUS ATTACH Time Seen by Provider: 03/20/17 10:25 Source of Information: Reports: Patient, Family History Limitations: Reports: No Limitations - History of Present Illness INITIAL COMMENTS - FREE TEXT/NARRATIVE: 61-year-old male with chronic recurring pancreatitis who tends to get flareups every month to 2 months is usually controlled by home oral Dilaudid. He had a flare 3 days ago, he did suppress the this with pain medication but it flared up again, he has nausea and his usual meds aren't helping. He blames "fatty food " last night. He has an internal medicine physician monitoring his progress [facility], labs tend to be normal and he does not run fevers. Severity: Moderate Associated Symptoms: Reports: Loss of Appetite, Nausea/Vomiting. Denies: Fever/ Chills, Shortness of Breath Abdominal Pain Score (Numeric/FACES): 10 - Related Data Allergies Allergy/AdvReac Type Severity Reaction Status Date / Time acetaminophen [From Tylenol] Allergy Rash Verified 11/24/16 12:26 erythromycin base Allergy Hives Verified 11/24/16 12:26 Home Meds: Home Meds Aspirin [Halfprin] 81 mg PO DAILY 11/02/16 [History] Meperidine HCl [Meperidine] 50 mg PO Q6H PRN 11/02/16 [History] Ondansetron [Zofran ODT] 4 mg PO Q4H PRN 11/02/16 [History] Promethazine [Phenergan] 50 mg PO Q6H PRN 11/02/16 [History] Ranitidine HCl [Zantac] 150 mg PO BID 11/02/16 [History] LORazepam [Ativan] 1 mg PO ASDIRECTED PRN 11/10/16 [History] HYDROmorphone [Dilaudid] 2 mg PO Q4HR 03/20/17 [History] Past Medical History HEENT History: Reports: Impaired Vision Cardiovascular History: Reports: Blood Clots/VTE/DVT, CAD, Hypertension, [place], Other (See Below) Other Cardiovascular History: iliac stents for possible clots Gastrointestinal History: Reports: Cholelithiasis, GERD, Pancreatitis Musculoskeletal History: Reports: Fracture Oncologic (Cancer) History: Reports: Other (See Below) Other Oncologic History: skin ca Dermatologic History: Reports: Other (See Below) Other Dermatologic History: basal cell ca - Infectious Disease History Infectious Disease History: Reports: Mumps - Past Surgical History GI Surgical History: Reports: Appendectomy, Cholecystectomy, Other (See Below) Other GI Surgeries/Procedures: exploratory lap for pancrease possilbe fruy procedure Social & Family History - Tobacco Use Smoking Status *Q: Current Every Day Smoker Years of Tobacco use: 20 Packs/Tins Daily: 1 Used Tobacco, but Quit: No Second Hand Smoke Exposure: No - Caffeine Use Caffeine Use: Reports: Coffee, Soda Other Caffeine Use: 4 cups - Recreational Drug Use Recreational Drug Use: No ED ROS GENERAL - Review of Systems Review Of Systems: See Below Constitutional: Reports: Malaise, Weakness. Denies: Fever, Chills HEENT: Reports: No Symptoms Respiratory: Denies: Shortness of Breath GI/Abdominal: Reports: Abdominal Pain, Nausea, Vomiting : Reports: No Symptoms Skin: Reports: No Symptoms ED EXAM, GI/ABD - Physical Exam Exam: See Below Exam Limited By: No Limitations General Appearance: Alert, Mild Distress Eyes: Bilateral: Normal Appearance (No jaundice) Respiratory/Chest: No Respiratory Distress, Lungs Clear GI/Abdominal Exam: Normal Bowel Sounds, Tender (Patient has diffuse tenderness to palpation across the abdomen, no guarding) Course - Vital Signs Last Recorded V/S: Last Vital Signs Temp 96.6 F 03/20/17 10:19 Pulse 92 03/20/17 10:19 Resp 16 03/20/17 10:19 BP 200/109 H 03/20/17 10:19 Pulse Ox 96 03/20/17 10:19 - Orders/Labs/Meds Meds: Medications Discontinued Medications Generic Name Dose Route Start Last Admin Trade Name Freq PRN Reason Stop Dose Admin Hydromorphone HCl 1 mg 03/20/17 10:43 03/20/17 11:23 Dilaudid IVPUSH 03/20/17 10:44 1 mg ONETIME ONE Administration Hydromorphone HCl 2 mg 03/20/17 12:10 03/20/17 12:14 Dilaudid IVPUSH 03/20/17 12:11 2 mg ONETIME ONE Administration Lactated Ringer's 1,000 mls @ 1,000 mls/hr 03/20/17 10:45 03/20/17 11:29 Ringers, Lactated IV 1,000 mls/hr ASDIRECTED CHARLES Administration Ketorolac Tromethamine 30 mg 03/20/17 10:43 03/20/17 11:29 Toradol IVPUSH 03/20/17 10:44 30 mg ONETIME ONE Administration Ondansetron HCl Confirm 03/20/17 11:27 Zofran Administered 03/20/17 11:28 Dose 4 mg .ROUTE .STK-MED ONE Ondansetron HCl 4 mg 03/20/17 11:30 03/20/17 11:32 Zofran IVPUSH 03/20/17 11:31 4 mg ONETIME ONE Administration Ondansetron HCl 4 mg 03/20/17 12:02 03/20/17 12:14 Zofran IVPUSH 03/20/17 12:03 4 mg ONETIME ONE Administration - Re-Assessments/Exams Free Text/Narrative Re-Assessment/Exam: 03/20/17 11:17 An IV was started, the patient was given a bolus of lactated Ringer's, 30 mg of Toradol and 1 mg of Dilaudid IV. 03/20/17 12:23 Symptoms were controlled for about 20-30 minutes but then returned including nausea. He was given 2 mg of Dilaudid IV along with 4 mg of IV Zofran and he felt much better after the LR was done. He was discharged home and can return if symptoms recur. Departure - Departure Time of Disposition: 12:42 Disposition: Home, Self-Care 01 Condition: Fair Clinical Impression: Chronic recurrent pancreatitis - Discharge Information Instructions: Acute Pancreatitis, [id number] Referrals: PCP,None [Primary Care Provider] - Forms: ED Department Discharge Care Plan Goals: Continue your current medications as directed. Advance diet slowly, avoid fatty foods and return anytime if worsening or concerns.
[2017-03-20] MEDS ORDERED: Ondansetron 4 MG/2 ML SDV ONE (11:27)
[2017-03-20] MEDS ORDERED: Ondansetron 4 MG/2 ML SDV IVPUSH ONE ×2 (11:30→12:02)
[2017-03-20] MEDS ORDERED: HYDROmorphone 1 MG/ML Syringe IM ONE (12:02)
== END 2017-03-20 12:43 | disposition home or self-care (01) ==
LOC: JP.ED 10:12
DX: K86.1 Other chronic pancreatitis (principal); I10 Essential (primary) hypertension; I25.10 Atherosclerotic heart disease of native coronary artery without angina pectoris; K21.9 Gastro-esophageal reflux disease without esophagitis; F17.210 Nicotine dependence, cigarettes, uncomplicated; Z90.49 Acquired absence of other specified parts of digestive tract; Z86.718 Personal history of other venous thrombosis and embolism; Z79.82 Long term (current) use of aspirin; Z79.899 Other long term (current) drug therapy; Z88.1 Allergy status to other antibiotic agents; Z88.6 Allergy status to analgesic agent
CPT/HCPCS: 96361; 96374; 96375; 96376; 99284; J1170; J1885; J2405; J7120

== ENCOUNTER 2017-04-03 10:20 | Emergency (ER) | payer BC ==
[2017-04-03] MEDS ORDERED: HYDROmorphone 1 MG/ML Syringe IVPUSH ONE (11:31)
[2017-04-03] MEDS ORDERED: Ondansetron 4 MG/2 ML SDV IVPUSH ONE (11:34)
--- NOTE | 2017-04-03 11:36 | EDM.PDOC ---
ED HPI GENERAL MEDICAL PROBLEM - General Chief Complaint: Abdominal Pain Stated Complaint: PANCREATITIS ATTACK? Time Seen by Provider: 04/03/17 11:26 Source of Information: Reports: Patient, RN Notes Reviewed History Limitations: Reports: No Limitations - History of Present Illness INITIAL COMMENTS - FREE TEXT/NARRATIVE: 61-year-old gentleman presents emergency department day complaint of abdominal pain he has a known history of chronic pancreatitis states this pain is similar to the pain is have the past was actually in here one week ago for similar complaints was treated with fluids and Dilaudid declined hospital admission at that time I was trying to treat his disease at home returns today with ongoing abdominal pain and nausea Abdominal Pain Score (Numeric/FACES): 10 - Related Data Allergies Allergy/AdvReac Type Severity Reaction Status Date / Time acetaminophen [From Tylenol] Allergy Rash Verified 04/03/17 10:45 erythromycin base Allergy Hives Verified 04/03/17 10:45 Home Meds: Home Meds Aspirin [Halfprin] 81 mg PO DAILY 11/02/16 [History] Meperidine HCl [Meperidine] 50 mg PO Q6H PRN 11/02/16 [History] Ondansetron [Zofran ODT] 4 mg PO Q4H PRN 11/02/16 [History] Promethazine [Phenergan] 50 mg PO Q6H PRN 11/02/16 [History] Ranitidine HCl [Zantac] 150 mg PO BID 11/02/16 [History] LORazepam [Ativan] 1 mg PO ASDIRECTED PRN 11/10/16 [History] HYDROmorphone [Dilaudid] 2 mg PO Q4HR 03/20/17 [History] Past Medical History HEENT History: Reports: Impaired Vision Cardiovascular History: Reports: Blood Clots/VTE/DVT, CAD, Hypertension, [place], Other (See Below) Other Cardiovascular History: iliac stents for possible clots Gastrointestinal History: Reports: Cholelithiasis, GERD, Pancreatitis Musculoskeletal History: Reports: Fracture Oncologic (Cancer) History: Reports: Other (See Below) Other Oncologic History: skin ca Dermatologic History: Reports: Other (See Below) Other Dermatologic History: basal cell ca - Infectious Disease History Infectious Disease History: Reports: Mumps - Past Surgical History GI Surgical History: Reports: Appendectomy, Cholecystectomy, Other (See Below) Other GI Surgeries/Procedures: exploratory lap for pancrease possilbe fruy procedure Social & Family History - Tobacco Use Smoking Status *Q: Current Every Day Smoker Years of Tobacco use: 20 Packs/Tins Daily: 1 Used Tobacco, but Quit: No Second Hand Smoke Exposure: No - Caffeine Use Caffeine Use: Reports: Coffee, Soda Other Caffeine Use: 4 cups - Recreational Drug Use Recreational Drug Use: No ED ROS GENERAL - Review of Systems Review Of Systems: See Below Constitutional: Reports: No Symptoms HEENT: Reports: No Symptoms Respiratory: Reports: No Symptoms Cardiovascular: Reports: No Symptoms GI/Abdominal: Reports: Abdominal Pain, Nausea : Reports: No Symptoms Musculoskeletal: Reports: No Symptoms Skin: Reports: No Symptoms ED EXAM, GI/ABD - Physical Exam Exam: See Below Text/Narrative:: General: Male, moderate discomfort secondary to abdominal pain, alert and oriented x3 HEENT: head is atraumatic normocephalic, eyes pupils equal round reactive to light, sclera clear no conjunctivitis appreciated. Ears tympanic membranes clear and romo landmarks and light reflex are present bilaterally canals are clear. Nose no septal deviation, nares are clear, no blood present. Mouth mucosa is moist and pink no erythema or exudate noted in soft palate, tongue is midline uvula is midline, dentition is intact. Neck: Supple no thyromegaly no tracheal deviation. Nodes: Cervical nodes subclavicular nodes nontender no palpable lymphadenopathy noted. Lungs: clear to auscultation bilaterally with symmetrical respirations, no adventitious noise appreciated. CV: Regular rate and rhythm S1 and S2 appreciated no murmurs rubs or gallops noted. Abdomen: Soft, tender left upper quadrant, no palpable masses or organomegaly appreciated, no distention no guarding bowel sounds are present, . Neuro: Cranial nerves II through XII grossly intact Skin: Warm and dry, intact Extremities: No lower extremity edema appreciated, Course - Vital Signs Last Recorded V/S: Last Vital Signs Temp 97.5 F 04/03/17 10:40 Pulse 84 04/03/17 13:30 Resp 16 04/03/17 13:30 BP 148/95 H 04/03/17 13:30 Pulse Ox 99 04/03/17 13:30 - Orders/Labs/Meds Orders: Active Orders 24 hr Category Date Time Status Sodium Chloride 0.9% [Normal Saline] 1,000 ml Med 04/03/17 11:45 Active IV ASDIRECTED Medication Orders Sodium Chloride (Normal Saline) 1,000 mls @ 1,000 mls/hr IV ASDIRECTED CHARLES Last Admin: 04/03/17 11:39 Dose: 1,000 mls/hr Labs: Laboratory Tests 04/03/17 04/03/17 04/03/17 Range/Units 11:35 11:35 11:35 WBC 10.3 (4.5-11.0) K/uL RBC 5.03 (4.30-5.90) M/uL Hgb 15.7 H (12.0-15.0) g/dL Hct 45.7 (40.0-54.0) % MCV 91 (80-98) fL MCH 31 (27-31) pg MCHC 34 (32-36) % Plt Count 356 (150-400) K/uL Neut % (Auto) 72 H (36-66) % Lymph % (Auto) 21 L (24-44) % Izard % (Auto) 6 (2-6) % Eos % (Auto) 1 L (2-4) % Baso % (Auto) 0 (0-1) % Sodium 142 (140-148) mmol/L Potassium 3.7 (3.6-5.2) mmol/L Chloride 103 (100-108) mmol/L Carbon Dioxide 28 (21-32) mmol/L Anion Gap 10.9 (5.0-14.0) mmol/L BUN 9 (7-18) mg/dL Creatinine 0.9 (0.8-1.3) mg/dL Est Cr Clr Drug Dosing TNP Estimated GFR (MDRD) > 60 (>60) Glucose 106 (74-106) mg/dL Lactic Acid 1.3 (0.4-2.0) mmol/L Calcium 8.9 (8.5-10.1) mg/dL Total Bilirubin 0.4 (0.2-1.0) mg/dL AST 27 (15-37) U/L ALT 24 (12-78) U/L Alkaline Phosphatase 98 (46-116) U/L Total Protein 7.7 (6.4-8.2) g/dL Albumin 3.9 (3.4-5.0) g/dL Globulin 3.8 H (2.3-3.5) g/dL Albumin/Globulin Ratio 1.0 L (1.2-2.2) Lipase 147 (73-393) U/L Urine Color Urine Appearance Urine pH (4.5-8.0) Ur Specific F[place] (1.008-1.030) Urine Protein (NEGATIVE) mg/dL Urine Glucose (UA) (NEGATIVE) mg/dL Urine Ketones (NEGATIVE) mg/dL Urine Occult Blood (NEGATIVE) Urine Nitrite (NEGAITVE) Urine Bilirubin (NEGATIVE) Urine Urobilinogen (NORMAL) mg/dL Ur Leukocyte Esterase (NEGATIVE) Urine RBC (0-5) Urine WBC (0-5) Ur Epithelial Cells Amorphous Sediment Urine Bacteria Urine Mucus 04/03/17 Range/Units 13:17 WBC (4.5-11.0) K/uL RBC (4.30-5.90) M/uL Hgb (12.0-15.0) g/dL Hct (40.0-54.0) % MCV (80-98) fL MCH (27-31) pg MCHC (32-36) % Plt Count (150-400) K/uL Neut % (Auto) (36-66) % Lymph % (Auto) (24-44) % Izard % (Auto) (2-6) % Eos % (Auto) (2-4) % Baso % (Auto) (0-1) % Sodium (140-148) mmol/L Potassium (3.6-5.2) mmol/L Chloride (100-108) mmol/L Carbon Dioxide (21-32) mmol/L Anion Gap (5.0-14.0) mmol/L BUN (7-18) mg/dL Creatinine (0.8-1.3) mg/dL Est Cr Clr Drug Dosing Estimated GFR (MDRD) (>60) Glucose (74-106) mg/dL Lactic Acid (0.4-2.0) mmol/L Calcium (8.5-10.1) mg/dL Total Bilirubin (0.2-1.0) mg/dL AST (15-37) U/L ALT (12-78) U/L Alkaline Phosphatase (46-116) U/L Total Protein (6.4-8.2) g/dL Albumin (3.4-5.0) g/dL Globulin (2.3-3.5) g/dL Albumin/Globulin Ratio (1.2-2.2) Lipase (73-393) U/L Urine Color Yellow Urine Appearance Clear Urine pH 9.0 H (4.5-8.0) Ur Specific [place] 1.015 (1.008-1.030) Urine Protein Negative (NEGATIVE) mg/dL Urine Glucose (UA) Normal (NEGATIVE) mg/dL Urine Ketones Negative (NEGATIVE) mg/dL Urine Occult Blood Moderate (NEGATIVE) Urine Nitrite Negative (NEGAITVE) Urine Bilirubin Negative (NEGATIVE) Urine Urobilinogen Normal (NORMAL) mg/dL Ur Leukocyte Esterase Negative (NEGATIVE) Urine RBC 5-10 H (0-5) Urine WBC 0-5 (0-5) Ur Epithelial Cells Few Amorphous Sediment Not seen Urine Bacteria Few Urine Mucus Not seen Meds: Medications Generic Name Dose Route Start Last Admin Trade Name Freq PRN Reason Stop Dose Admin Sodium Chloride 1,000 mls @ 1,000 mls/hr 04/03/17 11:45 04/03/17 11:39 Normal Saline IV 1,000 mls/hr ASDIRECTED CHARLES Administration Discontinued Medications Generic Name Dose Route Start Last Admin Trade Name Freq PRN Reason Stop Dose Admin Fentanyl 100 mcg 04/03/17 12:23 04/03/17 12:33 Sublimaze IVPUSH 04/03/17 12:24 100 mcg ONETIME ONE Administration Hydromorphone HCl 1 mg 04/03/17 11:31 04/03/17 11:44 Dilaudid IVPUSH 04/03/17 11:32 1 mg ONETIME ONE Administration Ondansetron HCl 4 mg 04/03/17 11:34 04/03/17 11:41 Zofran IVPUSH 04/03/17 11:35 4 mg ONETIME ONE Administration Prochlorperazine Edisylate 5 mg 04/03/17 12:23 04/03/17 12:31 Compazine IVPUSH 04/03/17 12:24 5 mg ONETIME ONE Administration Departure - Departure Time of Disposition: 14:08 Disposition: Home, Self-Care 01 Condition: Fair Clinical Impression: Chronic recurrent pancreatitis - Discharge Information Referrals: Wilson Melgoza PA [Primary Care Provider] - Forms: ED Department Discharge Additional Instructions: Keep your appointment with your specialists continue your regular medications - My Orders Last 24 Hours: My Active Orders 11/12/17 11:45 Sodium Chloride 0.9% [Normal Saline] 1,000 ml IV ASDIRECTED - Assessment/Plan Last 24 Hours: My Active Orders 04/03/17 11:45 Sodium Chloride 0.9% [Normal Saline] 1,000 ml IV ASDIRECTED Plan: Assessment Acuity = acute on chronic Site and laterality = pancreatitis Etiology = probably related to fatty food Manifestations = none Location of injury = Home Lab values = CBC, CMP unremarkable urinalysis reveals 5-10 rbc's consistent hematuria Plan He did admit that he had fatty food last night, he had good relief with fluids Dilaudid fentanyl and Compazine, plan is to discharge to home I did discuss hospital admission with him he declined he has both pentagram, Zofran Demerol and Dilaudid at home he has a follow-up with his GI specialist the of this month Patient was in agreement with the plan all questions were answered, they were instructed to return to the emergency department or call for worsening symptoms. This note was dictated using [employer] voice recognition software please call with any questions.
[2017-04-03] MEDS ORDERED: Sodium Chloride 0.9% 1,000 ML IV SCH (11:45)
[2017-04-03] MEDS ORDERED: Prochlorperazine 10 MG/2 ML SDV IVPUSH ONE (12:23)
[2017-04-03] MEDS ORDERED: fentaNYL 100 MCG/2 ML SDV IVPUSH ONE (12:23)
[2017-04-03 13:31] VITALS: BP 148/95
== END 2017-04-03 14:25 | disposition home or self-care (01) ==
LOC: JP.ED 10:20
DX: K86.1 Other chronic pancreatitis (principal); Z88.1 Allergy status to other antibiotic agents; Z88.6 Allergy status to analgesic agent; Z79.82 Long term (current) use of aspirin; F17.210 Nicotine dependence, cigarettes, uncomplicated
CPT/HCPCS: 36415; 80053; 81001; 83605; 83690; 85025; 96361; 96374; 96375; 99284; J0780; J1170; J2405; J3010; J7040

== ENCOUNTER 2017-04-05 07:04 | Emergency (ER) | payer BC ==
[2017-04-05] MEDS ORDERED: HYDROmorphone 1 MG/ML Syringe IVPUSH ONE (07:34)
[2017-04-05] MEDS ORDERED: Lactated Ringers 1,000 ML IV ONE (07:34)
[2017-04-05] MEDS ORDERED: Ondansetron 4 MG/2 ML SDV IVPUSH ONE (07:34)
--- NOTE | 2017-04-05 07:40 | EDM.PDOC ---
ED HPI GENERAL MEDICAL PROBLEM - General Chief Complaint: Abdominal Pain Stated Complaint: PANCREATITIS ATTACK Time Seen by Provider: 04/05/17 07:33 Source of Information: Reports: Patient, RN Notes Reviewed History Limitations: Reports: No Limitations - History of Present Illness INITIAL COMMENTS - FREE TEXT/NARRATIVE: 61-year-old gentleman presents emergency department day with abdominal pain left upper quadrant I had the opportunity to evaluate him 2 days prior lab work was unremarkable he does have a history of recurrent pancreatitis his lipase is normal he did admit to consuming fatty foods which she felt that was exacerbating factor for this particular event. He did not do bowel rest which was recommended he has eaten solid food and he returns again with nausea and abdominal pain Abdominal Pain Score (Numeric/FACES): 10 - Related Data Allergies Allergy/AdvReac Type Severity Reaction Status Date / Time acetaminophen [From Tylenol] Allergy Rash Verified 04/05/17 07:20 erythromycin base Allergy Hives Verified 04/05/17 07:20 Home Meds: Home Meds Aspirin [Halfprin] 81 mg PO DAILY 11/02/16 [History] Meperidine HCl [Meperidine] 50 mg PO Q6H PRN 11/02/16 [History] Ondansetron [Zofran ODT] 4 mg PO Q4H PRN 11/02/16 [History] Promethazine [Phenergan] 50 mg PO Q6H PRN 11/02/16 [History] Ranitidine HCl [Zantac] 150 mg PO BID 11/02/16 [History] LORazepam [Ativan] 1 mg PO ASDIRECTED PRN 11/10/16 [History] HYDROmorphone [Dilaudid] 2 mg PO Q4HR 03/20/17 [History] Past Medical History HEENT History: Reports: Impaired Vision Cardiovascular History: Reports: Blood Clots/VTE/DVT, CAD, Hypertension, [place], Other (See Below) Other Cardiovascular History: iliac stents for possible clots Gastrointestinal History: Reports: Cholelithiasis, GERD, Pancreatitis Musculoskeletal History: Reports: Fracture Oncologic (Cancer) History: Reports: Other (See Below) Other Oncologic History: skin ca Dermatologic History: Reports: Other (See Below) Other Dermatologic History: basal cell ca - Infectious Disease History Infectious Disease History: Reports: Mumps - Past Surgical History GI Surgical History: Reports: Appendectomy, Cholecystectomy, Other (See Below) Other GI Surgeries/Procedures: exploratory lap for pancrease possilbe fruy procedure Social & Family History - Tobacco Use Smoking Status *Q: Current Every Day Smoker Years of Tobacco use: 20 Packs/Tins Daily: 1 Used Tobacco, but Quit: No Second Hand Smoke Exposure: No - Caffeine Use Caffeine Use: Reports: Coffee, Soda Other Caffeine Use: 4 cups - Recreational Drug Use Recreational Drug Use: No ED ROS GENERAL - Review of Systems Review Of Systems: See Below Constitutional: Reports: No Symptoms HEENT: Reports: No Symptoms Respiratory: Reports: No Symptoms Cardiovascular: Reports: No Symptoms GI/Abdominal: Reports: Abdominal Pain, Nausea. Denies: Vomiting : Reports: No Symptoms Musculoskeletal: Reports: No Symptoms Skin: Reports: No Symptoms ED EXAM, GI/ABD - Physical Exam Exam: See Below Exam Limited By: No Limitations General Appearance: Alert, Mild Distress Respiratory/Chest: No Respiratory Distress GI/Abdominal Exam: Soft, Guarding, Tender (Left upper quadrant). No: Rebound Course - Vital Signs Last Recorded V/S: Last Vital Signs Temp 96.3 F 04/05/17 07:20 Pulse 82 04/05/17 09:14 Resp 16 04/05/17 09:14 BP 139/83 04/05/17 09:14 Pulse Ox 96 04/05/17 09:14 - Orders/Labs/Meds Meds: Medications Discontinued Medications Generic Name Dose Route Start Last Admin Trade Name Melva PRN Reason Stop Dose Admin Fentanyl 100 mcg 04/05/17 08:30 04/05/17 08:44 Sublimaze IVPUSH 04/05/17 08:31 100 mcg ONETIME ONE Administration Hydromorphone HCl 1 mg 04/05/17 07:34 04/05/17 07:52 Dilaudid IVPUSH 04/05/17 07:35 1 mg ONETIME ONE Administration Lactated Ringer's 1,000 mls @ 999 mls/hr 04/05/17 07:34 04/05/17 07:50 Ringers, Lactated IV 04/05/17 08:34 999 mls/hr BOLUS ONE Administration Ondansetron HCl 4 mg 04/05/17 07:34 04/05/17 07:51 Zofran IVPUSH 04/05/17 07:35 4 mg ONETIME ONE Administration Prochlorperazine Edisylate 5 mg 04/05/17 08:30 04/05/17 08:41 Compazine IVPUSH 04/05/17 08:31 5 mg ONETIME ONE Administration Departure - Departure Time of Disposition: 11:27 Disposition: Home, Self-Care 01 Condition: Fair Clinical Impression: Chronic recurrent pancreatitis - Discharge Information Referrals: Wilson Melgoza PA [Primary Care Provider] - Forms: ED Department Discharge Additional Instructions: Take your regular medications, Please followup with your primary care provider in 3-5 days if not better, please call return to the emergency department with worsening of symptoms. - Assessment/Plan Plan: Assessment Acuity = chronic Site and laterality = pancreatitis Etiology = unclear etiology Manifestations = none Location of injury = Home Lab values = none Plan Good improvement 1 mg Dilaudid, 100 g fentanyl 4 mg Compazine, again offered him hospitalization admission he declined he is going to be nothing by mouth for the next couple of days and slowly advance his diet, keep his follow-up appointment with gastroenterology in the this month Patient was in agreement with the plan all questions were answered, they were instructed to return to the emergency department or call for worsening symptoms. This note was dictated using [employer] voice recognition software please call with any questions.
[2017-04-05] MEDS ORDERED: fentaNYL 100 MCG/2 ML SDV IVPUSH ONE (08:30)
[2017-04-05] MEDS ORDERED: Prochlorperazine 10 MG/2 ML SDV IVPUSH ONE (08:30)
[2017-04-05 11:28] VITALS: BP 142/85
== END 2017-04-05 11:39 | disposition home or self-care (01) ==
LOC: JP.ED 07:04
DX: K86.1 Other chronic pancreatitis (principal); F17.210 Nicotine dependence, cigarettes, uncomplicated; I10 Essential (primary) hypertension; I25.10 Atherosclerotic heart disease of native coronary artery without angina pectoris; Z79.82 Long term (current) use of aspirin; Z79.899 Other long term (current) drug therapy; Z88.1 Allergy status to other antibiotic agents; Z88.6 Allergy status to analgesic agent
CPT/HCPCS: 96361; 96374; 96375; 99284; J0780; J1170; J2405; J3010; J7120

== ENCOUNTER 2017-05-29 08:46 | Emergency (ER) | payer BC ==
[2017-05-29] MEDS ORDERED: Metoclopramide 10 MG/2 ML SDV IVPUSH ONE (09:20)
[2017-05-29] MEDS ORDERED: HYDROmorphone 1 MG/ML Syringe IVPUSH ONE (09:20)
[2017-05-29] MEDS ORDERED: LORazepam 2 MG/ML SDV IVPUSH ONE (09:22)
--- NOTE | 2017-05-29 09:25 | EDM.PDOC ---
ED HPI GENERAL MEDICAL PROBLEM - General Chief Complaint: Abdominal Pain Stated Complaint: PANCREATITIS ATTACK Time Seen by Provider: 05/29/17 09:00 Source of Information: Reports: Patient, Family History Limitations: Reports: No Limitations - History of Present Illness INITIAL COMMENTS - FREE TEXT/NARRATIVE: 61-year-old male with chronic pancreatitis presents with an acute exacerbation since this morning. Nausea and vomiting, unable to take his normal pain medications. No fevers, no abdominal distention. He recently had a recheck with his plate roller in the [facility] and he recommended a nerve block but the patient is not ready to have the procedure yet. He wants to try medical marijuana and is trying to get approved. He is very uncomfortable and actively nauseated with occasional retching. Onset: Sudden (Onset fairly sudden this morning) Severity: Moderate Associated Symptoms: Reports: Nausea/Vomiting Abdominal Pain Score (Numeric/FACES): 10 - Related Data Allergies Allergy/AdvReac Type Severity Reaction Status Date / Time acetaminophen [From Tylenol] Allergy Rash Verified 05/29/17 08:51 erythromycin base Allergy Hives Verified 05/29/17 08:51 Home Meds: Home Meds Aspirin [Halfprin] 81 mg PO DAILY 11/02/16 [History] Meperidine HCl [Meperidine] 50 mg PO Q6H PRN 11/02/16 [History] Ondansetron [Zofran ODT] 4 mg PO Q4H PRN 11/02/16 [History] Promethazine [Phenergan] 50 mg PO Q6H PRN 11/02/16 [History] HYDROmorphone [Dilaudid] 2 mg PO Q4HR 03/20/17 [History] Past Medical History HEENT History: Reports: Impaired Vision Cardiovascular History: Reports: Blood Clots/VTE/DVT, CAD, Hypertension, [place], Other (See Below) Other Cardiovascular History: iliac stents for possible clots Gastrointestinal History: Reports: Cholelithiasis, GERD, Pancreatitis Musculoskeletal History: Reports: Fracture Oncologic (Cancer) History: Reports: Other (See Below) Other Oncologic History: skin ca Dermatologic History: Reports: Other (See Below) Other Dermatologic History: basal cell ca - Infectious Disease History Infectious Disease History: Reports: Chicken Pox - Past Surgical History GI Surgical History: Reports: Appendectomy, Cholecystectomy, Other (See Below) Other GI Surgeries/Procedures: exploratory lap for pancrease possilbe fruy procedure Social & Family History - Tobacco Use Smoking Status *Q: Current Every Day Smoker Years of Tobacco use: 20 Packs/Tins Daily: 1 Used Tobacco, but Quit: No Second Hand Smoke Exposure: No - Caffeine Use Caffeine Use: Reports: Coffee, Soda Other Caffeine Use: 4 cups - Recreational Drug Use Recreational Drug Use: No ED ROS GENERAL - Review of Systems Review Of Systems: See Below Constitutional: Reports: Chills, Malaise. Denies: Fever Respiratory: Denies: Shortness of Breath Cardiovascular: Denies: Chest Pain GI/Abdominal: Reports: Abdominal Pain, Nausea, Vomiting : Reports: No Symptoms Skin: Reports: No Symptoms ED EXAM, GI/ABD - Physical Exam Exam: See Below Exam Limited By: No Limitations General Appearance: Alert, Moderate Distress Eyes: Bilateral: Normal Appearance (No jaundice) Respiratory/Chest: No Respiratory Distress, Lungs Clear Cardiovascular: Regular Rate, Rhythm GI/Abdominal Exam: Tender (Tender across the upper abdomen, more so on the right side with slight guarding) Neurological: Alert, Oriented Psychiatric: Anxious Skin Exam: Warm, Dry Course - Vital Signs Last Recorded V/S: Last Vital Signs Temp 96.1 F 05/29/17 11:30 Pulse 81 05/29/17 11:30 Resp 16 05/29/17 11:30 BP 140/66 05/29/17 11:30 Pulse Ox 94 L 05/29/17 11:30 - Orders/Labs/Meds Meds: Medications Discontinued Medications Generic Name Dose Route Start Last Admin Trade Name Melva PRN Reason Stop Dose Admin Hydromorphone HCl 2 mg 05/29/17 09:20 05/29/17 09:50 Dilaudid IVPUSH 05/29/17 09:21 2 mg ONETIME ONE Administration Hydromorphone HCl Confirm 05/29/17 09:45 05/29/17 09:52 Dilaudid Administered 05/29/17 09:46 Not Given Dose 1 mg .ROUTE .STK-MED ONE Hydromorphone HCl 2 mg 05/29/17 11:30 05/29/17 11:01 Dilaudid IV 05/29/17 11:31 2 mg ONETIME ONE Administration Lactated Ringer's 1,000 mls @ 1,000 mls/hr 05/29/17 09:30 05/29/17 09:51 Ringers, Lactated IV 1,000 mls/hr ASDIRECTED CHARLES Administration Lactated Ringer's 1,000 mls @ 1,000 mls/hr 05/29/17 11:00 05/29/17 11:00 Ringers, Lactated IV 1,000 mls/hr ASDIRECTED CHARLES Administration Lorazepam 1 mg 05/29/17 09:22 05/29/17 09:40 Ativan IVPUSH 05/29/17 09:23 1 mg ONETIME ONE Administration Metoclopramide HCl 10 mg 05/29/17 09:20 05/29/17 09:42 Reglan IVPUSH 05/29/17 09:21 10 mg ONETIME ONE Administration - Re-Assessments/Exams Free Text/Narrative Re-Assessment/Exam: 05/29/17 09:24 Patient will be given 1000 mL of lactated Ringer's, 10 mg of IV Reglan, 2 mg of IV Dilaudid and 1 mg of IV Ativan. He is recurring ER visits in the past heavily responded to medications, labs typically are fairly normal. 05/29/17 11:27 Patient responded fairly well to the initial medications but still had some pain. An additional 2 mg of IV Dilaudid were given and a second bag of lactated Ringer's which improved the patient's condition enough to go home. He will continue on his regular medications. Departure - Departure Time of Disposition: 11:35 Disposition: Home, Self-Care 01 Condition: Fair Clinical Impression: Chronic recurrent pancreatitis - Discharge Information Instructions: Abdominal Pain, Adult, [id number] Referrals: Wilson Melgoza PA [Primary Care Provider] - Forms: ED Department Discharge Care Plan Goals: Rest, continue your regular medications as needed and increase fluids and diet as tolerated.
[2017-05-29] MEDS ORDERED: Lactated Ringers 1,000 ML IV SCH ×2 (09:30→11:00)
[2017-05-29] MEDS ORDERED: HYDROmorphone 1 MG/ML Syringe ONE (09:45)
[2017-05-29] MEDS ORDERED: HYDROmorphone 1 MG/ML Syringe IM ONE (10:53)
[2017-05-29] MEDS ORDERED: HYDROmorphone 1 MG/ML Syringe IV ONE (11:30)
[2017-05-29 11:47] VITALS: BP 140/66
== END 2017-05-29 11:35 | disposition home or self-care (01) ==
LOC: JP.ED 08:46
DX: K86.1 Other chronic pancreatitis (principal); Z88.1 Allergy status to other antibiotic agents; Z79.82 Long term (current) use of aspirin; F17.210 Nicotine dependence, cigarettes, uncomplicated
CPT/HCPCS: 96361; 96374; 96375; 96376; 99284; J1170; J2060; J2765; J7120

== ENCOUNTER 2017-06-12 09:25 | Emergency (ER) | payer BC ==
[2017-06-12 09:59] VITALS: BP 250/135
[2017-06-12] MEDS ORDERED: Lactated Ringers 1,000 ML IV ONE (10:16)
[2017-06-12] MEDS ORDERED: Ondansetron 4 MG/2 ML SDV IVPUSH ONE (10:41)
[2017-06-12] MEDS ORDERED: HYDROmorphone 1 MG/ML Syringe IVPUSH ONE ×2 (10:41→11:26)
--- NOTE | 2017-06-12 10:47 | EDM.PDOC ---
ED HPI GENERAL MEDICAL PROBLEM - General Chief Complaint: Abdominal Pain Stated Complaint: PANCREATITIS/ABD PAIN Time Seen by Provider: 06/12/17 10:25 Source of Information: Reports: Patient, Old Records, RN History Limitations: Reports: No Limitations - History of Present Illness INITIAL COMMENTS - FREE TEXT/NARRATIVE: 61 yo male presents with onset this morning of epigastric pain he feels is due to his recurrent pancreatitis. Saw his doctor last 2 days ago to discuss this problem, but was not having the pain at that time. Says only IV Dilaudid will alleviate this pain. Has some nausea without vomiting. No fever. Has not identified any triggers for the pain. Onset: Today Onset Date: 06/12/17 Duration: Hour(s):, Constant Location: Reports: Abdomen Quality: Reports: Ache Severity: Severe Improves with: Reports: Medication Worsens with: Reports: Other (unknown) Context: Reports: Other (Recurrent pancreatitis) Associated Symptoms: Reports: Loss of Appetite, Nausea/Vomiting (no vomiting). 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) Abdomen Pain Score (Numeric/FACES): 10 - Related Data Allergies Allergy/AdvReac Type Severity Reaction Status Date / Time acetaminophen [From Tylenol] Allergy Rash Verified 05/29/17 08:51 erythromycin base Allergy Hives Verified 05/29/17 08:51 Home Meds: Home Meds Aspirin [Halfprin] 81 mg PO DAILY 11/02/16 [History] Meperidine HCl [Meperidine] 50 mg PO Q6H PRN 11/02/16 [History] Ondansetron [Zofran ODT] 4 mg PO Q4H PRN 11/02/16 [History] Promethazine [Phenergan] 50 mg PO Q6H PRN 11/02/16 [History] HYDROmorphone [Dilaudid] 2 mg PO Q4HR 03/20/17 [History] Past Medical History HEENT History: Reports: Impaired Vision Cardiovascular History: Reports: Blood Clots/VTE/DVT, CAD, Hypertension, [place], Other (See Below) Other Cardiovascular History: iliac stents for possible clots Gastrointestinal History: Reports: Cholelithiasis, GERD, Pancreatitis Musculoskeletal History: Reports: Fracture Oncologic (Cancer) History: Reports: Other (See Below) Other Oncologic History: skin ca Dermatologic History: Reports: Other (See Below) Other Dermatologic History: basal cell ca - Infectious Disease History Infectious Disease History: Reports: Chicken Pox - Past Surgical History GI Surgical History: Reports: Appendectomy, Cholecystectomy, Other (See Below) Other GI Surgeries/Procedures: exploratory lap for pancrease possilbe fruy procedure Social & Family History - Tobacco Use Smoking Status *Q: Unknown Ever Smoked Years of Tobacco use: 20 Packs/Tins Daily: 1 Used Tobacco, but Quit: No Second Hand Smoke Exposure: No - Caffeine Use Caffeine Use: Reports: Coffee Other Caffeine Use: 4 cups - Recreational Drug Use Recreational Drug Use: No ED ROS GENERAL - Review of Systems Review Of Systems: See Below Constitutional: Reports: No Symptoms HEENT: Reports: No Symptoms Respiratory: Reports: No Symptoms Cardiovascular: Reports: No Symptoms Endocrine: Reports: No Symptoms GI/Abdominal: Reports: Abdominal Pain, Nausea. Denies: Black Stool, Bloody Stool, Constipation, Diarrhea, Distension, Flatus, Hematemesis, Hematochezia, Melena, Vomiting, Other : Reports: No Symptoms Musculoskeletal: Reports: No Symptoms Skin: Reports: No Symptoms Neurological: Reports: No Symptoms ED EXAM, GI/ABD - Physical Exam Exam: See Below Exam Limited By: No Limitations General Appearance: Alert, WD/WN, No Apparent Distress, Other (Looks older than his stated age.) Eyes: Bilateral: Normal Appearance Ears: Normal External Exam, Normal Canal, Hearing Grossly Normal Nose: Normal Inspection, Normal Mucosa, No Blood Throat/Mouth: Normal Inspection, Normal Lips, Normal Oropharynx, Normal Voice, No Airway Compromise Head: Atraumatic, Normocephalic Neck: Normal Inspection, Supple, Non-Tender Respiratory/Chest: No Respiratory Distress, Lungs Clear, Normal Breath Sounds, No Accessory Muscle Use Cardiovascular: Regular Rate, Rhythm, No Edema GI/Abdominal Exam: No Distention, Tender (epigastrium), Abnormal Bowel Sounds ( decreased). No: Non-Tender, Distended, Guarding, Rigid, Rebound Back Exam: Normal Inspection Extremities: Normal Inspection, Normal Range of Motion, Non-Tender, Redness Neurological: Alert, Oriented, CN II-XII Intact, No Motor/Sensory Deficits, Sensory/Motor Deficit Psychiatric: Normal Mood Skin Exam: Warm, Dry, Intact, Normal Color, No Rash Lymphatic: No Adenopathy Course - Vital Signs Text/Narrative:: LR 1000 ml IV, Zofran 4 mg IV, Dilaudid 2 mg IV x 2-improved after this. Last Recorded V/S: Last Vital Signs Temp 35.4 C 06/12/17 09:58 Pulse 87 06/12/17 09:58 Resp 20 06/12/17 09:58 BP 250/135 H 06/12/17 09:58 Pulse Ox 97 06/12/17 09:58 - Orders/Labs/Meds Orders: Active Orders 24 hr Category Date Time Status HYDROmorphone [Dilaudid] Med 06/12/17 11:26 Once 2 mg IVPUSH ONETIME ONE Labs: Laboratory Tests 06/12/17 06/12/17 Range/Units 10:31 10:31 WBC 12.6 H (4.5-11.0) K/uL RBC 5.45 (4.30-5.90) M/uL Hgb 16.5 H (12.0-15.0) g/dL Hct 48.4 (40.0-54.0) % MCV 89 (80-98) fL MCH 30 (27-31) pg MCHC 34 (32-36) % Plt Count 322 (150-400) K/uL Sodium 141 (140-148) mmol/L Potassium 3.8 (3.6-5.2) mmol/L Chloride 103 (100-108) mmol/L Carbon Dioxide 27 (21-32) mmol/L Anion Gap 11.4 (5.0-14.0) mmol/L BUN 13 (7-18) mg/dL Creatinine 0.9 (0.8-1.3) mg/dL Est Cr Clr Drug Dosing 64.68 mL/min Estimated GFR (MDRD) > 60 (>60) Glucose 148 H (74-106) mg/dL Calcium 8.8 (8.5-10.1) mg/dL Total Bilirubin 0.5 (0.2-1.0) mg/dL AST 29 (15-37) U/L ALT 31 (12-78) U/L Alkaline Phosphatase 104 (46-116) U/L Total Protein 7.2 (6.4-8.2) g/dL Albumin 3.8 (3.4-5.0) g/dL Globulin 3.4 (2.3-3.5) g/dL Albumin/Globulin Ratio 1.1 L (1.2-2.2) Lipase 111 (73-393) U/L Meds: Medications Discontinued Medications Generic Name Dose Route Start Last Admin Trade Name Melva PRN Reason Stop Dose Admin Hydromorphone HCl 2 mg 06/12/17 10:41 06/12/17 10:46 Dilaudid IVPUSH 06/12/17 10:42 2 mg ONETIME ONE Administration Lactated Ringer's 1,000 mls @ 1,000 mls/hr 06/12/17 10:16 06/12/17 10:24 Ringers, Lactated IV 06/12/17 11:15 1,000 mls/hr BOLUS ONE Administration Ondansetron HCl 4 mg 06/12/17 10:41 06/12/17 10:50 Zofran IVPUSH 06/12/17 10:42 4 mg ONETIME ONE Administration Departure - Departure Time of Disposition: 11:45 Disposition: Home, Self-Care 01 Condition: Fair Clinical Impression: Epigastric pain Chronic pancreatitis Qualifiers: Pancreatitis type: unspecified pancreatitis type Qualified Code(s): K86.1 - Other chronic pancreatitis - Discharge Information Referrals: Wilson Melgoza PA [Primary Care Provider] - Forms: ED Department Discharge - My Orders Last 24 Hours: My Active Orders 06/12/17 11:26 HYDROmorphone [Dilaudid] 2 mg IVPUSH ONETIME ONE - Assessment/Plan Last 24 Hours: My Active Orders 06/12/17 11:26 HYDROmorphone [Dilaudid] 2 mg IVPUSH ONETIME ONE
== END 2017-06-12 12:17 | disposition home or self-care (01) ==
LOC: JP.ED 09:25
DX: K86.1 Other chronic pancreatitis (principal); I10 Essential (primary) hypertension; Z88.1 Allergy status to other antibiotic agents; Z88.8 Allergy status to other drugs, medicaments and biological substances; Z79.82 Long term (current) use of aspirin; Z79.899 Other long term (current) drug therapy; Z90.49 Acquired absence of other specified parts of digestive tract
CPT/HCPCS: 36415; 80053; 83690; 85027; 96361; 96374; 96375; 96376; 99284; J1170; J2405; J7120

== ENCOUNTER 2017-06-26 08:02 | Emergency (ER) | payer BC ==
[2017-06-26] MEDS ORDERED: HYDROmorphone 1 MG/ML Syringe IVPUSH ONE ×2 (08:17→09:05)
[2017-06-26] MEDS ORDERED: Lactated Ringers 1,000 ML IV ONE (08:17)
[2017-06-26] MEDS ORDERED: Ondansetron 4 MG/2 ML SDV IVPUSH ONE (08:18)
--- NOTE | 2017-06-26 08:27 | EDM.PDOC ---
ED HPI GENERAL MEDICAL PROBLEM - General Chief Complaint: Abdominal Pain Stated Complaint: PANCREATITIS ATTACK Time Seen by Provider: 06/26/17 08:15 Source of Information: Reports: Patient, Old Records, RN History Limitations: Reports: No Limitations - History of Present Illness INITIAL COMMENTS - FREE TEXT/NARRATIVE: 61 yo male with chronic pancreatitis presents with onset early this morning of severe epigastric pain and to a lesser extent diffuse abdominal pain. Has mild nausea without vomiting. No change in stools. No fever. Pain feels exactly like prior attacks. Has not eaten anything this morning. Slept well last night. Since his last visit he alleges that he followed up with his primary and discussed a nerve block vs. pacreatectomy. A final decision on this has not been made. His BP always spikes with this pain, but generally comes down when he is more comfortable. States his BP usually runs in the 130's. Onset: Today Onset Date: 06/26/17 Onset Time: 07:00 Duration: Minutes:, Constant Location: Reports: Abdomen Quality: Reports: Ache Severity: Severe Improves with: Reports: Medication Worsens with: Reports: Other (unknown) Context: Reports: Other (hx of chronic pancreatitis) Associated Symptoms: Reports: Loss of Appetite, Nausea/Vomiting (no vomting so far). 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) Abdominal Pain Score (Numeric/FACES): 10 - Related Data Allergies Allergy/AdvReac Type Severity Reaction Status Date / Time acetaminophen [From Tylenol] Allergy Rash Verified 06/26/17 08:10 erythromycin base Allergy Hives Verified 06/26/17 08:10 Home Meds: Home Meds Aspirin [Halfprin] 81 mg PO DAILY 11/02/16 [History] Meperidine HCl [Meperidine] 50 mg PO Q6H PRN 11/02/16 [History] Ondansetron [Zofran ODT] 4 mg PO Q4H PRN 11/02/16 [History] Promethazine [Phenergan] 50 mg PO Q6H PRN 11/02/16 [History] HYDROmorphone [Dilaudid] 2 mg PO Q4HR 03/20/17 [History] Past Medical History HEENT History: Reports: Impaired Vision Cardiovascular History: Reports: Blood Clots/VTE/DVT, CAD, Hypertension, [place], Other (See Below) Other Cardiovascular History: iliac stents for possible clots Gastrointestinal History: Reports: Cholelithiasis, GERD, Pancreatitis Musculoskeletal History: Reports: Fracture Oncologic (Cancer) History: Reports: Other (See Below) Other Oncologic History: skin ca Dermatologic History: Reports: Other (See Below) Other Dermatologic History: basal cell ca - Infectious Disease History Infectious Disease History: Reports: Chicken Pox - Past Surgical History GI Surgical History: Reports: Appendectomy, Cholecystectomy, Other (See Below) Other GI Surgeries/Procedures: exploratory lap for pancrease possilbe fruy procedure Social & Family History - Tobacco Use Smoking Status *Q: Unknown Ever Smoked Years of Tobacco use: 20 Packs/Tins Daily: 1 Used Tobacco, but Quit: No Second Hand Smoke Exposure: No - Caffeine Use Caffeine Use: Reports: Coffee Other Caffeine Use: 4 cups - Recreational Drug Use Recreational Drug Use: No ED ROS GENERAL - Review of Systems Review Of Systems: See Below Constitutional: Reports: Decreased Appetite HEENT: Reports: No Symptoms Respiratory: Reports: No Symptoms Cardiovascular: Reports: No Symptoms Endocrine: Reports: No Symptoms GI/Abdominal: Reports: Abdominal Pain, Decreased Appetite, Nausea. Denies: Black Stool, Bloody Stool, Constipation, Diarrhea, Distension, Flatus, Hematemesis, Hematochezia, Melena, Vomiting : Reports: No Symptoms Musculoskeletal: Reports: No Symptoms Skin: Reports: No Symptoms Neurological: Reports: No Symptoms ED EXAM, GI/ABD - Physical Exam Exam: See Below Exam Limited By: No Limitations General Appearance: Alert, WD/WN, Mild Distress, Other (Looks older than his stated age.) Eyes: Bilateral: Normal Appearance Ears: Normal External Exam, Normal Canal, Hearing Grossly Normal Nose: Normal Inspection, Normal Mucosa, No Blood Throat/Mouth: Normal Inspection, Normal Lips, Normal Oropharynx, Normal Voice, No Airway Compromise Head: Atraumatic, Normocephalic Neck: Normal Inspection Respiratory/Chest: No Respiratory Distress, Lungs Clear, Normal Breath Sounds, No Accessory Muscle Use Cardiovascular: Regular Rate, Rhythm, No Edema GI/Abdominal Exam: Soft, No Distention, Tender (salinas. in the epigastrium), Abnormal Bowel Sounds (decreased). No: Distended, Guarding, Rigid, Rebound Extremities: Normal Inspection, Normal Range of Motion, Non-Tender, No Pedal Edema Neurological: Alert, Oriented, CN II-XII Intact, Normal Cognition, No Motor/ Sensory Deficits, Other (Walked independently, but slowly into the ER.) Psychiatric: Normal Affect, Normal Mood Skin Exam: Warm, Dry, Intact, Normal Color, No Rash Course - Vital Signs Text/Narrative:: pain markedly reduced, nausea gone, feeling better after tx. Last Recorded V/S: Last Vital Signs Temp 35.0 C L 06/26/17 09:10 Pulse 88 06/26/17 08:08 Resp 16 06/26/17 08:08 BP 254/129 H 06/26/17 08:08 Pulse Ox 99 06/26/17 08:08 - Orders/Labs/Meds Labs: Laboratory Tests 06/26/17 Range/Units 08:18 Lipase 172 (73-393) U/L Meds: Medications Discontinued Medications Generic Name Dose Route Start Last Admin Trade Name Freq PRN Reason Stop Dose Admin Hydromorphone HCl 2 mg 06/26/17 08:17 06/26/17 08:33 Dilaudid IVPUSH 06/26/17 08:18 2 mg ONETIME ONE Administration Hydromorphone HCl 1.5 mg 06/26/17 09:05 06/26/17 09:14 Dilaudid IVPUSH 06/26/17 09:06 1.5 mg ONETIME ONE Administration Lactated Ringer's 1,000 mls @ 1,000 mls/hr 06/26/17 08:17 06/26/17 08:33 Ringers, Lactated IV 06/26/17 09:16 1,000 mls/hr BOLUS ONE Administration Ondansetron HCl 4 mg 06/26/17 08:18 06/26/17 08:33 Zofran IVPUSH 06/26/17 08:19 4 mg ONETIME ONE Administration Departure - Departure Time of Disposition: 09:25 Disposition: Home, Self-Care 01 Condition: Fair Clinical Impression: Epigastric pain Chronic pancreatitis Qualifiers: Pancreatitis type: unspecified pancreatitis type Qualified Code(s): K86.1 - Other chronic pancreatitis - Discharge Information Referrals: Wilson Melgoza PA [Primary Care Provider] - Forms: ED Department Discharge
[2017-06-26 09:36] VITALS: BP 231/127
== END 2017-06-26 09:36 | disposition home or self-care (01) ==
LOC: JP.ED 08:02
DX: K86.1 Other chronic pancreatitis (principal); I10 Essential (primary) hypertension; I25.10 Atherosclerotic heart disease of native coronary artery without angina pectoris; Z98.890 Other specified postprocedural states; Z79.82 Long term (current) use of aspirin; Z88.1 Allergy status to other antibiotic agents; Z88.6 Allergy status to analgesic agent
CPT/HCPCS: 36415; 83690; 96361; 96374; 96375; 99284; J1170; J2405; J7120

== ENCOUNTER 2017-06-28 10:25 | Observation (INO) | payer BC ==
[2017-06-28] MEDS ORDERED: Sodium Chloride 0.9% 10 ML Syringe FLUSH PRN ×2 (11:24→17:50)
[2017-06-28] MEDS ORDERED: HYDROmorphone 1 MG/ML Syringe IVPUSH ONE ×2 (11:26→12:18)
[2017-06-28] MEDS ORDERED: Ondansetron 4 MG/2 ML SDV IVPUSH ONE ×2 (11:26→12:10)
[2017-06-28] MEDS ORDERED: Sodium Chloride 0.9% 1,000 ML IV SCH ×2 (11:30→13:00)
--- NOTE | 2017-06-28 12:12 | EDM.PDOC ---
ED HPI GENERAL MEDICAL PROBLEM - General Chief Complaint: Abdominal Pain Stated Complaint: PANCREATITIS ATTACK Time Seen by Provider: 06/28/17 11:35 Source of Information: Reports: Patient History Limitations: Reports: No Limitations - History of Present Illness INITIAL COMMENTS - FREE TEXT/NARRATIVE: pt arrived with severe pain in the upper abdoman. He has a history of chronic pancreatitis. He had a cat scan of the abdoman 1 mon ago in [place] and that was neg. He had a abdomanal series here today. He appears very anxious. Onset: Gradual Duration: Day(s):, Getting Worse Location: Reports: Abdomen Associated Symptoms: Reports: Nausea/Vomiting Abdominal Pain Score (Numeric/FACES): 7 - Related Data Allergies Allergy/AdvReac Type Severity Reaction Status Date / Time acetaminophen [From Tylenol] Allergy Rash Verified 06/26/17 08:10 erythromycin base Allergy Hives Verified 06/26/17 08:10 Home Meds: Home Meds Aspirin [Halfprin] 81 mg PO DAILY 11/02/16 [History] Meperidine HCl [Meperidine] 50 mg PO Q6H PRN 11/02/16 [History] Ondansetron [Zofran ODT] 4 mg PO Q4H PRN 11/02/16 [History] Promethazine [Phenergan] 50 mg PO Q6H PRN 11/02/16 [History] HYDROmorphone [Dilaudid] 2 mg PO Q4HR 03/20/17 [History] Past Medical History HEENT History: Reports: Impaired Vision Cardiovascular History: Reports: Blood Clots/VTE/DVT, CAD, Hypertension, CT, Other (See Below) Other Cardiovascular History: iliac stents for possible clots Gastrointestinal History: Reports: Cholelithiasis, GERD, Pancreatitis Musculoskeletal History: Reports: Fracture Oncologic (Cancer) History: Reports: Other (See Below) Other Oncologic History: skin ca Dermatologic History: Reports: Other (See Below) Other Dermatologic History: basal cell ca - Infectious Disease History Infectious Disease History: Reports: Chicken Pox - Past Surgical History GI Surgical History: Reports: Appendectomy, Cholecystectomy, Other (See Below) Other GI Surgeries/Procedures: exploratory lap for pancrease possilbe fruy procedure Social & Family History - Tobacco Use Smoking Status *Q: Current Every Day Smoker Years of Tobacco use: 20 Packs/Tins Daily: 1 Used Tobacco, but Quit: No Second Hand Smoke Exposure: No - Caffeine Use Caffeine Use: Reports: Coffee Other Caffeine Use: 4 cups - Recreational Drug Use Recreational Drug Use: No ED ROS GENERAL - Review of Systems Review Of Systems: See Below Constitutional: Reports: No Symptoms HEENT: Reports: No Symptoms Respiratory: Reports: No Symptoms Cardiovascular: Reports: No Symptoms Endocrine: Reports: No Symptoms GI/Abdominal: Reports: Abdominal Pain, Other (Pain in the epigastric area. Pt has not been able to eat much in the last 2-3 days. ) : Reports: No Symptoms Musculoskeletal: Reports: Hand Pain Skin: Reports: No Symptoms ED EXAM, GI/ABD - Physical Exam Exam: See Below Text/Narrative:: Pt arrived with pain in the epigastric . He feels like he has pancreatitis. He has been wretching and has been very uncomfortable. When he first arrived his pain was very severe. Exam Limited By: No Limitations General Appearance: Alert, Anxious, Moderate Distress Ears: Normal TMs Nose: Normal Inspection Throat/Mouth: Normal Inspection Head: Atraumatic Neck: Normal Inspection Respiratory/Chest: No Respiratory Distress Cardiovascular: Regular Rate, Rhythm GI/Abdominal Exam: Tender, Other (pt has tenderness in the epigastric area. ) (Male) Exam: Deferred Rectal (Males) Exam: Deferred Back Exam: Normal Inspection Course - Vital Signs Last Recorded V/S: Last Vital Signs Temp 35.7 C 06/28/17 12:01 Pulse 93 06/28/17 15:51 Resp 18 06/28/17 15:51 BP 210/109 H 06/28/17 15:51 Pulse Ox 95 06/28/17 15:51 - Orders/Labs/Meds Orders: Active Orders 24 hr Category Date Time Status Abdomen Pelvis w Cont [CT] Stat Exams 06/28/17 15:16 Taken Iopamidol [Isovue-300 (61%)] Med 06/28/17 15:45 Active 87 ml IV . DIRECTED Sodium Chloride 0.9% [Normal Saline] 1,000 ml Med 06/28/17 11:30 Active IV ASDIRECTED Sodium Chloride 0.9% [Normal Saline] 1,000 ml Med 06/28/17 13:00 Active IV ASDIRECTED Sodium Chloride 0.9% [Normal Saline] 80 ml Med 06/28/17 15:45 Active IV ASDIRECTED Sodium Chloride 0.9% [Saline Flush] Med 06/28/17 11:24 Active 10 ml FLUSH ASDIRECTED PRN Saline Lock Insert [OM.PC] Routine Oth 06/28/17 11:24 Ordered Medication Orders Sodium Chloride (Normal Saline) 1,000 mls @ 999 mls/hr IV ASDIRECTED CHARLES Last Admin: 06/28/17 11:41 Dose: 999 mls/hr Sodium Chloride (Normal Saline) 1,000 mls @ 999 mls/hr IV ASDIRECTED CHARLES Last Admin: 06/28/17 12:49 Dose: 999 mls/hr Sodium Chloride (Normal Saline) 80 mls @ 3 mls/sec IV ASDIRECTED CHARLES Last Admin: 06/28/17 15:45 Dose: 3 mls/sec Iopamidol (Isovue-300 (61%)) 87 ml IV . DIRECTED CHARLES Last Admin: 06/28/17 15:45 Dose: 87 ml Sodium Chloride (Saline Flush) 10 ml FLUSH ASDIRECTED PRN PRN Reason: Keep Vein Open Last Admin: 06/28/17 15:39 Dose: 10 ml Labs: Laboratory Tests 06/28/17 06/28/17 06/28/17 Range/Units 11:27 11:27 11:27 WBC 11.7 H (4.5-11.0) K/uL RBC 5.18 (4.30-5.90) M/uL Hgb 16.1 H (12.0-15.0) g/dL Hct 46.5 (40.0-54.0) % MCV 90 (80-98) fL MCH 31 (27-31) pg MCHC 35 (32-36) % Plt Count 316 (150-400) K/uL Neut % (Auto) 80 H (36-66) % Lymph % (Auto) 14 L (24-44) % Sullivan % (Auto) 5 (2-6) % Eos % (Auto) 1 L (2-4) % Baso % (Auto) 0 (0-1) % Sodium 137 L (140-148) mmol/L Potassium 3.8 (3.6-5.2) mmol/L Chloride 101 (100-108) mmol/L Carbon Dioxide 27 (21-32) mmol/L Anion Gap 12.8 (5.0-14.0) mmol/L BUN 13 (7-18) mg/dL Creatinine 1.0 (0.8-1.3) mg/dL Est Cr Clr Drug Dosing 61.81 mL/min Estimated GFR (MDRD) > 60 (>60) Glucose 115 H (74-106) mg/dL Calcium 8.8 (8.5-10.1) mg/dL Total Bilirubin 0.4 (0.2-1.0) mg/dL AST 25 (15-37) U/L ALT 27 (12-78) U/L Alkaline Phosphatase 95 (46-116) U/L C-Reactive Protein (0.0-0.3) mg/dL Total Protein 7.3 (6.4-8.2) g/dL Albumin 4.0 (3.4-5.0) g/dL Globulin 3.3 (2.3-3.5) g/dL Albumin/Globulin Ratio 1.2 (1.2-2.2) Amylase (25-115) U/L Lipase 132 (73-393) U/L Urine Color Urine Appearance Urine pH (4.5-8.0) Ur Specific [place] (1.008-1.030) Urine Protein (NEGATIVE) mg/dL Urine Glucose (UA) (NEGATIVE) mg/dL Urine Ketones (NEGATIVE) mg/dL Urine Occult Blood (NEGATIVE) Urine Nitrite (NEGAITVE) Urine Bilirubin (NEGATIVE) Urine Urobilinogen (NORMAL) mg/dL Ur Leukocyte Esterase (NEGATIVE) Urine RBC (0-5) Urine WBC (0-5) Ur Epithelial Cells Amorphous Sediment Urine Bacteria Urine Mucus 06/28/17 06/28/17 06/28/17 Range/Units 11:27 12:23 15:54 WBC (4.5-11.0) K/uL RBC (4.30-5.90) M/uL Hgb (12.0-15.0) g/dL Hct (40.0-54.0) % MCV (80-98) fL MCH (27-31) pg MCHC (32-36) % Plt Count (150-400) K/uL Neut % (Auto) (36-66) % Lymph % (Auto) (24-44) % Sullivan % (Auto) (2-6) % Eos % (Auto) (2-4) % Baso % (Auto) (0-1) % Sodium (140-148) mmol/L Potassium (3.6-5.2) mmol/L Chloride (100-108) mmol/L Carbon Dioxide (21-32) mmol/L Anion Gap (5.0-14.0) mmol/L BUN (7-18) mg/dL Creatinine (0.8-1.3) mg/dL Est Cr Clr Drug Dosing mL/min Estimated GFR (MDRD) (>60) Glucose (74-106) mg/dL Calcium (8.5-10.1) mg/dL Total Bilirubin (0.2-1.0) mg/dL AST (15-37) U/L ALT (12-78) U/L Alkaline Phosphatase (46-116) U/L C-Reactive Protein 0.07 (0.0-0.3) mg/dL Total Protein (6.4-8.2) g/dL Albumin (3.4-5.0) g/dL Globulin (2.3-3.5) g/dL Albumin/Globulin Ratio (1.2-2.2) Amylase 102 (25-115) U/L Lipase (73-393) U/L Urine Color Yellow Urine Appearance Clear Urine pH 8.0 (4.5-8.0) Ur Specific [place] 1.015 (1.008-1.030) Urine Protein Trace (NEGATIVE) mg/dL Urine Glucose (UA) Normal (NEGATIVE) mg/dL Urine Ketones Negative (NEGATIVE) mg/dL Urine Occult Blood Large (NEGATIVE) Urine Nitrite Negative (NEGAITVE) Urine Bilirubin Negative (NEGATIVE) Urine Urobilinogen Normal (NORMAL) mg/dL Ur Leukocyte Esterase Negative (NEGATIVE) Urine RBC 20-30 H (0-5) Urine WBC 5-10 H (0-5) Ur Epithelial Cells Rare Amorphous Sediment Not seen Urine Bacteria Not seen Urine Mucus Not seen Meds: Medications Generic Name Dose Route Start Last Admin Trade Name Freq PRN Reason Stop Dose Admin Sodium Chloride 1,000 mls @ 999 mls/hr 06/28/17 11:30 06/28/17 11:41 Normal Saline IV 999 mls/hr ASDIRECTED CHARLES Administration Sodium Chloride 1,000 mls @ 999 mls/hr 06/28/17 13:00 06/28/17 12:49 Normal Saline IV 999 mls/hr ASDIRECTED CHARLES Administration Sodium Chloride 80 mls @ 3 mls/sec 06/28/17 15:45 06/28/17 15:45 Normal Saline IV 3 mls/sec ASDIRECTED CHARLES Administration Iopamidol 87 ml 06/28/17 15:45 06/28/17 15:45 Isovue-300 (61%) IV 87 ml . DIRECTED CHARLES Administration Sodium Chloride 10 ml 06/28/17 11:24 06/28/17 15:39 Saline Flush FLUSH 10 ml ASDIRECTED PRN Administration Keep Vein Open Discontinued Medications Generic Name Dose Route Start Last Admin Trade Name Freq PRN Reason Stop Dose Admin Al Hydroxide/Mg Hydroxide 15 0 ml 06/28/17 15:57 06/28/17 16:13 ml/ Lidocaine HCl 15 ml PO 06/28/17 15:58 30 ml ONETIME ONE Administration Hydromorphone HCl 1 mg 06/28/17 11:26 06/28/17 11:45 Dilaudid IVPUSH 06/28/17 11:27 1 mg ONETIME ONE Administration Hydromorphone HCl 1 mg 06/28/17 12:18 06/28/17 12:30 Dilaudid IVPUSH 06/28/17 12:19 1 mg ONETIME ONE Administration Lorazepam 0.5 mg 06/28/17 13:28 06/28/17 13:48 Ativan IVPUSH 06/28/17 13:29 0.5 mg ONETIME ONE Administration Ondansetron HCl 4 mg 06/28/17 11:26 06/28/17 11:42 Zofran IVPUSH 06/28/17 11:27 4 mg ONETIME ONE Administration Ondansetron HCl 4 mg 06/28/17 12:10 06/28/17 12:27 Zofran IVPUSH 06/28/17 12:11 4 mg ONETIME ONE Administration - Re-Assessments/Exams Free Text/Narrative Re-Assessment/Exam: 06/28/17 16:56 pt had normal lab work. His crp is not markedly elevated. He had a cat scan of the abdoman which revealed some thickening of the cecum. He had calcification in the pancreas. He has some widening of the pancreatic duct. Departure - Departure Time of Disposition: 16:58 Disposition: Admitted As Inpatient 64 Condition: Fair Clinical Impression: Upper abdominal pain Chronic pancreatitis Qualifiers: Pancreatitis type: unspecified pancreatitis type Qualified Code(s): K86.1 - Other chronic pancreatitis - Discharge Information Referrals: Wilson Melgoza PA [Primary Care Provider] - Forms: ED Department Discharge Care Plan Goals: admit to Dr reich - My Orders Last 24 Hours: My Active Orders 06/28/17 11:24 Sodium Chloride 0.9% [Saline Flush] 10 ml FLUSH ASDIRECTED PRN Saline Lock Insert [OM.PC] Routine 06/28/17 11:30 Sodium Chloride 0.9% [Normal Saline] 1,000 ml IV ASDIRECTED 06/28/17 13:00 Sodium Chloride 0.9% [Normal Saline] 1,000 ml IV ASDIRECTED 06/28/17 15:16 Abdomen Pelvis w Cont [CT] Stat 06/28/17 15:45 Iopamidol [Isovue-300 (61%)] 87 ml IV . DIRECTED Sodium Chloride 0.9% [Normal Saline] 80 ml IV ASDIRECTED - Assessment/Plan Last 24 Hours: My Active Orders 06/28/17 11:24 Sodium Chloride 0.9% [Saline Flush] 10 ml FLUSH ASDIRECTED PRN Saline Lock Insert [OM.PC] Routine 06/28/17 11:30 Sodium Chloride 0.9% [Normal Saline] 1,000 ml IV ASDIRECTED 06/28/17 13:00 Sodium Chloride 0.9% [Normal Saline] 1,000 ml IV ASDIRECTED 06/28/17 15:16 Abdomen Pelvis w Cont [CT] Stat 06/28/17 15:45 Iopamidol [Isovue-300 (61%)] 87 ml IV . DIRECTED Sodium Chloride 0.9% [Normal Saline] 80 ml IV ASDIRECTED
[2017-06-28] MEDS ORDERED: LORazepam 2 MG/ML MDV IVPUSH ONE (13:28)
--- NOTE | 2017-06-28 13:30 | CR ---
Heart size within normal limits. Emphysematous change. No focal consolidation. Pleural vasculature wi thin normal limits. No gross evidence for free air. Air-fluid level which is nonspecific within the right lower quadrant. This may be chronic in origin and is not definitively dilated. Scattered small bowel gas.
[2017-06-28] MEDS ORDERED: Iopamidol 612 MG/ML 100 ML Bottle IV SCH (15:45)
[2017-06-28] MEDS ORDERED: Sodium Chloride 0.9% 80 ML IV SCH (15:45)
[2017-06-28] MEDS ORDERED: Alum Hydrox/Mag Hydrox/Simeth 15 ML, Lidocaine 2% 15 ML PO ONE ×2 (15:57)
[2017-06-28] MEDS ORDERED: HYDROmorphone 0.5 MG/0.5 ML Syringe IVPUSH ONE (17:11)
[2017-06-28] MEDS ORDERED: HYDROmorphone 0.5 MG/0.5 ML Syringe ONE (17:21)
[2017-06-28] MEDS ORDERED: Enoxaparin 40 MG/0.4 ML Syringe SUBCUT SCH (17:50)
[2017-06-28] MEDS ORDERED: Polyethylene Glycol 3350 Powder 17 GM Packet PO PRN (17:50)
[2017-06-28] MEDS ORDERED: HYDROmorphone 1 MG/ML Syringe IVPUSH PRN (17:50)
[2017-06-28] MEDS ORDERED: Ondansetron 4 MG/2 ML SDV IV PRN (17:50)
[2017-06-28] MEDS ORDERED: LORazepam 2 MG/ML MDV IV PRN (17:50)
[2017-06-28] MEDS ORDERED: oxyCODONE 5 MG Tab PO PRN (17:50)
[2017-06-28] MEDS ORDERED: Magnesium Hydroxide 400 MG/5 ML Susp 30 ML Cup PO PRN (17:50)
--- NOTE | 2017-06-28 17:52 | PCM.HP ---
H&P History of Present Illness - General Date of Service: 06/28/17 Admit Problem/Dx: Source of Information: Patient, Old Records, Provider, RN Notes Reviewed History Limitations: Reports: No Limitations - History of Present Illness Initial Comments - Free Text/Narative: Mr. Pineda is a 61-year-old gentleman who presented to the emergency department with upper abdominal pain, nausea, and vomiting. He has had a long-standing history of abdominal pain which he thinks dates back at least 25 years. He is been diagnosed with chronic pancreatitis in the past. Over the past 25 has had multiple diagnostic studies including CT scans, EGDs, and ERCPs. His last EGD he estimates was approximately 2 months ago and it was found to be again unremarkable. To this point he's never gained any significant improvement in symptoms with use of proton pump inhibitors. He reports that he was recently seen in the department of gastroenterology at the [facility], was recommended that he consider total pancreatectomy with hepatic islet cell transplant. He's had several recent visits to the emergency department, during all of these visits lipase level has been found to be within normal range. On evaluation today he has a modest elevation in white blood cell count, normal lipase level, and CT scan with no evidence of acute pancreatitis or chronic active pancreatitis. Despite antiemetic therapy and pain meds he continues to have symptoms and is not felt to be able to manage at home. Abdominal Pain Score (Numeric/FACES): 7 - Related Data Allergies/Adverse Reactions: Allergies Allergy/AdvReac Type Severity Reaction Status Date / Time acetaminophen [From Tylenol] Allergy Rash Verified 06/26/17 08:10 erythromycin base Allergy Hives Verified 06/26/17 08:10 Home Medications: Home Meds Aspirin [Halfprin] 81 mg PO DAILY 11/02/16 [History] Meperidine HCl [Meperidine] 50 mg PO Q6H PRN 11/02/16 [History] Ondansetron [Zofran ODT] 4 mg PO Q4H PRN 11/02/16 [History] Promethazine [Phenergan] 50 mg PO Q6H PRN 11/02/16 [History] HYDROmorphone [Dilaudid] 2 mg PO Q4HR 03/20/17 [History] Past Medical History HEENT History: Reports: Impaired Vision Cardiovascular History: Reports: Blood Clots/VTE/DVT, CAD, Hypertension, [place], Other (See Below) Other Cardiovascular History: iliac stents for possible clots Gastrointestinal History: Reports: Cholelithiasis, GERD, Pancreatitis Musculoskeletal History: Reports: Fracture Oncologic (Cancer) History: Reports: Other (See Below) Other Oncologic History: skin ca Dermatologic History: Reports: Other (See Below) Other Dermatologic History: basal cell ca - Infectious Disease History Infectious Disease History: Reports: Chicken Pox - Past Surgical History GI Surgical History: Reports: Appendectomy, Cholecystectomy, Other (See Below) Other GI Surgeries/Procedures: exploratory lap for pancrease possilbe fruy procedure Social & Family History - Tobacco Use Smoking Status *Q: Current Every Day Smoker Years of Tobacco use: 20 Packs/Tins Daily: 1 Used Tobacco, but Quit: No Second Hand Smoke Exposure: No - Caffeine Use Caffeine Use: Reports: Coffee Other Caffeine Use: 4 cups - Recreational Drug Use Recreational Drug Use: No H&P Review of Systems - Review of Systems: Review Of Systems: See Below General: Reports: Decreased Appetite. Denies: Fever, Chills, Weakness, Diaphoresis HEENT: Reports: No Symptoms Pulmonary: Reports: No Symptoms Cardiovascular: Reports: No Symptoms Gastrointestinal: Reports: Abdominal Pain, Decreased Appetite, Distension, Nausea, Vomiting. Denies: Black Stool, Bloody Stool, Constipation, Diarrhea, Difficulty Swallowing Genitourinary: Reports: No Symptoms Musculoskeletal: Reports: No Symptoms Skin: Reports: No Symptoms Psychiatric: Reports: No Symptoms Neurological: Reports: No Symptoms Hematologic/Lymphatic: Reports: No Symptoms Immunologic: Reports: No Symptoms Exam - Exam Exam: See Below - Vital Signs Vital Signs: Last Vital Signs Temp 98.8 F 06/28/17 17:11 Pulse 94 06/28/17 17:11 Resp 16 06/28/17 17:11 BP 208/108 H 06/28/17 17:11 Pulse Ox 94 L 06/28/17 17:11 Weight: 127 lb 6.835 oz - Exam Quality Assessment: DVT Prophylaxis General: Alert, Oriented, Cooperative, Moderate Distress HEENT: Conjunctiva Clear, Hearing Intact, Mucosa Moist & [place], Normal Nasal Septum, Posterior Pharynx Clear, Pupils Equal Neck: Supple, Trachea Midline, +2 Carotid Pulse wo Bruit Lungs: Clear to Auscultation, Normal Respiratory Effort Cardiovascular: Regular Rate, Regular Rhythm, Normal S1, Normal S2 GI/Abdominal Exam: Soft, No Organomegaly, Distended, Tender. No: Guarding, Rigid, Rebound Back Exam: Normal Inspection, Full Range of Motion Extremities: Non-Tender, No Pedal Edema Skin: Warm, Dry, Intact Neurological: Cranial Nerves Intact, Strength Equal Bilateral, Normal Speech, Normal Tone, Sensation Intact. No: Focal Deficit Neuro Extensive - Mental Status: Alert, Oriented x3, Normal Mood/Affect, Normal Cognition, Memory Intact - Patient Data Result Diagrams: 06/28/17 11:27 06/28/17 11:27 *Q Meaningful Use (ADM) - VTE *Q VTE Criteria *Q: - VTE Risk Assess *Q Each Risk Factor Represents 2 Points: Age 60 - 74 Years Total Score 2 Point Risk Factors: 2 Each Risk Factor Represents 3 Points: None Total Score 3 Point Risk Factors: 0 Each Risk Factor Represents 5 Points: None Total Score 5 Point Risk Factors: 0 - Stroke *Q Stroke Criteria *Q: - AMI *Q AMI Criteria *Q: Problem List Initiated/Reviewed/Updated: Yes Orders Last 24hrs: Active Orders 24 hr Category Date Time Status Resuscitation Status Routine Resus Stat 06/28/17 17:13 Ordered Medication Orders Sodium Chloride (Normal Saline) 1,000 mls @ 999 mls/hr IV ASDIRECTED [facility] Last Admin: 06/28/17 12:49 Dose: 999 mls/hr Sodium Chloride (Normal Saline) 80 mls @ 3 mls/sec IV ASDIRECTED [facility] Stop: 06/28/17 23:59 Last Admin: 06/28/17 15:45 Dose: 3 mls/sec Iopamidol (Isovue-300 (61%)) 87 ml IV . DIRECTED [facility] Stop: 06/28/17 23:00 Last Admin: 06/28/17 15:45 Dose: 87 ml Sodium Chloride (Saline Flush) 10 ml FLUSH ASDIRECTED PRN PRN Reason: Keep Vein Open Stop: 06/28/17 23:00 Last Admin: 06/28/17 15:39 Dose: 10 ml Assessment/Plan Comment:: ASSESSMENT AND PLAN ACUTE ON CHRONIC ABDOMINAL PAIN WITH NAUSEA AND VOMITING-history of chronic pancreatitis, normal lipase level with no evidence of acute on chronic pancreatitis at this time. He's had multiple previous evaluations with no other specific etiology identified as to the cause of his pain. -Observation admission -IV fluids for hydration -Pain and anti-emetic therapy as needed -Protonix 40 mg IV every 12 hours -Repeat labs in a.m. MAINTENANCE ISSUES -DVT prophylaxis; Lovenox 40 mg subcutaneous daily -GI prophylaxis; Protonix as above -Lopez catheter; not indicated -Nutrition; clear liquid diet -Nicotine dependence; not required CODE STATUS-FULL CODE ADMISSION STATUS-this patient will be admitted to observation status, expect no more than a one night hospital stay for evaluation and management of problems as outlined above. DISPOSITION-anticipate discharge to home after the hospital stay. PRIMARY CARE PROVIDER-Wilson Melgoza
[2017-06-28] MEDS: Pantoprazole 40 MG Vial IV SCH (18:31)
[2017-06-28] MEDS: Sodium Chloride 0.9% 1,000 ML IV SCH (18:31)
[2017-06-29] MEDS: Sodium Chloride 0.9% 1,000 ML IV SCH (02:23)
[2017-06-29] MEDS: Pantoprazole 40 MG Vial IV SCH (05:58)
[2017-06-29] MEDS ORDERED: Aspirin 81 MG Tab.EC PO SCH (09:00)
--- NOTE | 2017-06-29 10:50 | PCM.DCSUM1 ---
Discharge Summary - Hospital Course Brief History: 61-year-old male with history of chronic pancreatitis who presented with acute abdominal pain and was admitted for observation and pain control. - Discharge Data Discharge Date: 06/29/17 Discharge Disposition: Home, Self-Care 01 Condition: Fair - Discharge Diagnosis/Problem(s) (1) Chronic pancreatitis SNOMED Code(s): 892857813 ICD Code: K86.1 - OTHER CHRONIC PANCREATITIS Status: Acute Qualifiers: Pancreatitis type: unspecified pancreatitis type Qualified Code(s): K86.1 - Other chronic pancreatitis - Patient Summary/Data Hospital Course: Kishan presented to the emergency room with acute on chronic epigastric abdominal pain. Workup in the emergency room was reassuring with a CT scan that did not show evidence for acute pathology and his lipase level was normal. Given the severity of his pain and his history of acute episodes with his chronic pancreatitis he was admitted to the hospital for further management. There were no issues overnight and his pain was well-controlled. In fact he did not require supplemental pain management after his admission to the hospital. His pain has not resolved but has improved a fair amount the morning after admission. He does not think the pain is bad enough to use any pain medication at this time. His lipase level did increase to more than 500 the morning after admission but symptomatically he feels much better. He has not had any nausea or fevers. He feels well enough to go home at this time. He has had an extensive workup and multiple specialty referrals in the past and I don't believe additional workup is necessary at this time. He will be following up with his regular providers as scheduled. - Patient Instructions Diet: Usual Diet as Tolerated (low fat) Activity: As Tolerated Showering/Bathing: May Shower Notify Provider of: Fever, Increased Pain, Nausea and/or Vomiting Other/Special Instructions: 1. You were in the hospital for management of acute on chronic pancreatitis. Your pain control has improved with IV fluids and management during the emergency room and hospital stay. Please continue your usual medications at home and continue your usual diet to manage chronic pancreatitis. 2. Please seek medical attention if you develop severe abdominal pain, persistent vomiting or if you develop a fever greater than 101. - Discharge Plan Home Medications: Home Meds Aspirin [Halfprin] 81 mg PO DAILY 11/02/16 [History] Meperidine HCl [Meperidine] 50 mg PO Q6H PRN 11/02/16 [History] Ondansetron [Zofran ODT] 4 mg PO Q4H PRN 11/02/16 [History] Promethazine [Phenergan] 50 mg PO Q6H PRN 11/02/16 [History] HYDROmorphone [Dilaudid] 2 mg PO Q4HR 03/20/17 [History] Patient Handouts: Low-Fat Diet for Pancreatitis or Gallbladder Conditions Referrals: Wilson Melgoza PA [Primary Care Provider] - (Follow up appt: 07/07/17, 2:30 pm ) - Discharge Summary/Plan Comment DC Time >30 min.: No (25) - Patient Data Vitals - Most Recent: Last Vital Signs Temp 36.8 C 06/29/17 07:14 Pulse 77 06/29/17 07:14 Resp 16 06/29/17 07:14 BP 163/86 H 06/29/17 07:14 Pulse Ox 98 06/29/17 07:14 Weight - Most Recent: 55.61 kg I&O - Last 24 hours: Intake & Output 06/28/17 06/29/17 06/29/17 22:59 06:59 14:59 Intake Total 635 1408 760 Balance 635 1408 760 Lab Results - Last 24 hrs: Laboratory Results - last 24 hr 06/29/17 06/29/17 06/29/17 Range/Units 05:55 05:55 05:55 WBC 8.3 (4.5-11.0) K/uL RBC 4.72 (4.30-5.90) M/uL Hgb 14.2 (12.0-15.0) g/dL Hct 42.3 (40.0-54.0) % MCV 90 (80-98) fL MCH 30 (27-31) pg MCHC 34 (32-36) % Plt Count 279 (150-400) K/uL Neut % (Auto) 59 (36-66) % Lymph % (Auto) 32 (24-44) % [place] % (Auto) 8 H (2-6) % Eos % (Auto) 1 L (2-4) % Baso % (Auto) 0 (0-1) % Sodium 139 L (140-148) mmol/L Potassium 3.8 (3.6-5.2) mmol/L Chloride 106 (100-108) mmol/L Carbon Dioxide 25 (21-32) mmol/L Anion Gap 11.8 (5.0-14.0) mmol/L BUN 9 (7-18) mg/dL Creatinine 0.9 (0.8-1.3) mg/dL Est Cr Clr Drug Dosing 68.68 mL/min Estimated GFR (MDRD) > 60 (>60) Glucose 96 (74-106) mg/dL Calcium 8.2 L (8.5-10.1) mg/dL Total Bilirubin 0.5 (0.2-1.0) mg/dL Direct Bilirubin 0.10 (0.0-0.2) mg/dL Indirect Bilirubin 0.40 AST 18 (15-37) U/L ALT 22 (12-78) U/L Alkaline Phosphatase 74 (46-116) U/L Total Protein 5.6 L (6.4-8.2) g/dL Albumin 2.9 L (3.4-5.0) g/dL Globulin 2.7 (2.3-3.5) g/dL Albumin/Globulin Ratio 1.1 L (1.2-2.2) Lipase 591 H (73-393) U/L Med Orders - Current: Current Medications Aspirin (Halfprin) 81 mg PO DAILY [facility] Last Admin: 06/29/17 09:31 Dose: 81 mg Enoxaparin Sodium (Lovenox) 40 mg SUBCUT QPM [facility] Hydromorphone HCl (Dilaudid) 1 mg IVPUSH Q2H PRN PRN Reason: Pain Sodium Chloride (Normal Saline) 1,000 mls @ 125 mls/hr IV ASDIRECTED [facility] Last Admin: 06/29/17 02:23 Dose: 125 mls/hr Lorazepam (Ativan) 0.5 mg IV Q2H PRN PRN Reason: Nausea/Vomiting Magnesium Hydroxide (Milk Of Magnesia) 30 ml PO Q12H PRN PRN Reason: Constipation Ondansetron HCl (Zofran) 4 mg IV Q4H PRN PRN Reason: Nausea/Vomiting Oxycodone HCl (Oxycodone) 5 mg PO Q4H PRN PRN Reason: Pain (moderate 4-6) Pantoprazole Sodium (Protonix Iv) 40 mg IV Q12H [facility] Last Admin: 06/29/17 05:58 Dose: 40 mg Polyethylene Glycol (Miralax) 17 gm PO DAILY PRN PRN Reason: Constipation Senna/Docusate Sodium (Senna Plus) 1 tab PO BID PRN PRN Reason: Constipation Sodium Chloride (Saline Flush) 10 ml FLUSH ASDIRECTED PRN PRN Reason: Keep Vein Open Discontinued Medications Al Hydroxide/Mg Hydroxide 15 (ml/ Lidocaine HCl 15 ml) 0 ml PO ONETIME ONE Stop: 06/28/17 15:58 Last Admin: 06/28/17 16:13 Dose: 30 ml Enoxaparin Sodium (Lovenox) 40 mg SUBCUT DAILY [facility] Last Admin: 06/28/17 18:31 Dose: 40 mg Hydromorphone HCl (Dilaudid) 1 mg IVPUSH ONETIME ONE Stop: 06/28/17 11:27 Last Admin: 06/28/17 11:45 Dose: 1 mg Hydromorphone HCl (Dilaudid) 1 mg IVPUSH ONETIME ONE Stop: 06/28/17 12:19 Last Admin: 06/28/17 12:30 Dose: 1 mg Hydromorphone HCl (Dilaudid) 0.5 mg IVPUSH ONETIME ONE Stop: 06/28/17 17:12 Last Admin: 06/28/17 17:23 Dose: 0.5 mg Hydromorphone HCl (Dilaudid) Confirm Administered Dose 0.5 mg .ROUTE .STK-MED ONE Stop: 06/28/17 17:22 Last Admin: 06/28/17 18:34 Dose: Not Given Sodium Chloride (Normal Saline) 1,000 mls @ 999 mls/hr IV ASDIRECTED [facility] Last Admin: 06/28/17 11:41 Dose: 999 mls/hr Sodium Chloride (Normal Saline) 1,000 mls @ 999 mls/hr IV ASDIRECTED [facility] Last Admin: 06/28/17 12:49 Dose: 999 mls/hr Sodium Chloride (Normal Saline) 80 mls @ 3 mls/sec IV ASDIRECTED [facility] Stop: 06/28/17 23:59 Last Admin: 06/28/17 15:45 Dose: 3 mls/sec Iopamidol (Isovue-300 (61%)) 87 ml IV . DIRECTED [facility] Stop: 06/28/17 23:00 Last Admin: 06/28/17 15:45 Dose: 87 ml Lorazepam (Ativan) 0.5 mg IVPUSH ONETIME ONE Stop: 06/28/17 13:29 Last Admin: 06/28/17 13:48 Dose: 0.5 mg Ondansetron HCl (Zofran) 4 mg IVPUSH ONETIME ONE Stop: 06/28/17 11:27 Last Admin: 06/28/17 11:42 Dose: 4 mg Ondansetron HCl (Zofran) 4 mg IVPUSH ONETIME ONE Stop: 06/28/17 12:11 Last Admin: 06/28/17 12:27 Dose: 4 mg Sodium Chloride (Saline Flush) 10 ml FLUSH ASDIRECTED PRN PRN Reason: Keep Vein Open Stop: 06/28/17 23:00 Last Admin: 06/28/17 15:39 Dose: 10 ml - Exam Quality Assessment: Denies: Supplemental Oxygen General: Reports: Alert, Oriented, Cooperative, No Acute Distress Lungs: Reports: Normal Respiratory Effort GI/Abdominal Exam: No Distention Extremities: No Pedal Edema Psy/Mental Status: Reports: Alert, Normal Affect *Q Meaningful Use (DIS) - VTE *Q VTE Criteria *Q: - Stroke *Q Stroke Criteria *Q: - AMI *Q AMI Criteria *Q:
[2017-06-29 11:07] VITALS: BP 163/83
[2017-06-29] MEDS ORDERED: Enoxaparin 40 MG/0.4 ML Syringe SUBCUT SCH (17:00)
== END 2017-06-29 11:54 | disposition home or self-care (01) ==
LOC: JP.ED 10:25 → JP.MS 17:12
PROVIDERS: ADMIT Hospitalist; ATTEND Hospitalist
DX: K86.1 Other chronic pancreatitis (principal); I25.10 Atherosclerotic heart disease of native coronary artery without angina pectoris; I10 Essential (primary) hypertension; K21.9 Gastro-esophageal reflux disease without esophagitis; I25.2 Old myocardial infarction; F17.210 Nicotine dependence, cigarettes, uncomplicated; Z79.82 Long term (current) use of aspirin; Z79.899 Other long term (current) drug therapy; Z88.1 Allergy status to other antibiotic agents; Z88.8 Allergy status to other drugs, medicaments and biological substances
CPT/HCPCS: 36415; 74022; 74177; 80048; 80053; 80076; 81001; 82150; 83690; 85025; 86140; 96361; 96374; 96375; 96376; 99285; A9270; C9113; J1170; J1650; J2060; J2405; J7030; J7040; J7050; Q9967; 96372; G0378

== ENCOUNTER 2017-07-15 07:32 | Emergency (ER) | payer BC ==
[2017-07-15 07:58] VITALS: BP 243/148
[2017-07-15] MEDS ORDERED: Ondansetron 4 MG/2 ML SDV IVPUSH ONE (08:23)
[2017-07-15] MEDS ORDERED: HYDROmorphone 1 MG/ML Syringe IVPUSH ONE ×2 (08:24→09:22)
[2017-07-15] MEDS ORDERED: Sodium Chloride 0.9% 1,000 ML IV SCH ×2 (08:30→09:00)
--- NOTE | 2017-07-15 08:31 | EDM.PDOC ---
ED HPI GENERAL MEDICAL PROBLEM - General Chief Complaint: Abdominal Pain Stated Complaint: STOMACH PAIN Time Seen by Provider: 07/15/17 08:00 Source of Information: Reports: Patient, Family History Limitations: Reports: No Limitations - History of Present Illness INITIAL COMMENTS - FREE TEXT/NARRATIVE: pt arrived with pain in the midabdoman. Hr has a history of chronic pancratitis. He has [facility] the [facility] regarding possibly having his pancreas removed. He is thinking about this. Onset: Today, Other (started at 4 am. ) Duration: Hour(s): Location: Reports: Abdomen Associated Symptoms: Reports: Nausea/Vomiting, Other ( severe abdomanal pain. ) - Related Data Allergies Allergy/AdvReac Type Severity Reaction Status Date / Time acetaminophen [From Tylenol] Allergy Rash Verified 06/26/17 08:10 erythromycin base Allergy Hives Verified 06/26/17 08:10 metoclopramide [From Reglan] Allergy Agitation Verified 07/15/17 08:08 Home Meds: Home Meds Aspirin [Halfprin] 81 mg PO DAILY 11/02/16 [History] Meperidine HCl [Meperidine] 50 mg PO Q6H PRN 11/02/16 [History] Ondansetron [Zofran ODT] 4 mg PO Q4H PRN 11/02/16 [History] Promethazine [Phenergan] 50 mg PO Q6H PRN 11/02/16 [History] HYDROmorphone [Dilaudid] 2 mg PO Q4HR 03/20/17 [History] Past Medical History HEENT History: Reports: Impaired Vision Cardiovascular History: Reports: Blood Clots/VTE/DVT, CAD, Hypertension, [place], Other (See Below) Other Cardiovascular History: iliac stents for possible clots Gastrointestinal History: Reports: Cholelithiasis, GERD, Pancreatitis Musculoskeletal History: Reports: Fracture Oncologic (Cancer) History: Reports: Other (See Below) Other Oncologic History: skin ca Dermatologic History: Reports: Other (See Below) Other Dermatologic History: basal cell ca - Infectious Disease History Infectious Disease History: Reports: Chicken Pox - Past Surgical History GI Surgical History: Reports: Appendectomy, Cholecystectomy, Other (See Below) Other GI Surgeries/Procedures: exploratory lap for pancrease possilbe fruy procedure Social & Family History - Family History Family Medical History: Noncontributory HEENT: Reports: Cataract Cardiac: Reports: Bypass Endocrine/Metabolic: Reports: Diabetes, type II Oncologic: Reports: Prostate - Tobacco Use Smoking Status *Q: Never Smoker Years of Tobacco use: 20 Packs/Tins Daily: 1 Used Tobacco, but Quit: No Month Tobacco Last Used: 25 yrs ago Second Hand Smoke Exposure: No - Caffeine Use Caffeine Use: Reports: Coffee Other Caffeine Use: 4 cups - Recreational Drug Use Recreational Drug Use: No ED ROS GENERAL - Review of Systems Review Of Systems: See Below Constitutional: Reports: No Symptoms HEENT: Reports: No Symptoms Respiratory: Reports: No Symptoms Cardiovascular: Reports: No Symptoms Endocrine: Reports: No Symptoms GI/Abdominal: Reports: Abdominal Pain, Nausea, Vomiting : Reports: No Symptoms Musculoskeletal: Reports: No Symptoms Skin: Reports: No Symptoms ED EXAM, GI/ABD - Physical Exam Exam: See Below Text/Narrative:: pt arrived with pain in the epigastric area and marked vomiting. He has a history of chronic pancreatitis. Exam Limited By: No Limitations General Appearance: Alert, Severe Distress, Other (actively vomiting. ) Ears: Normal TMs Nose: Normal Inspection Throat/Mouth: Normal Inspection Head: Atraumatic Neck: Normal Inspection Respiratory/Chest: No Respiratory Distress Cardiovascular: Regular Rate, Rhythm GI/Abdominal Exam: Other ( tender in the epigastric area. ) (Male) Exam: Deferred Rectal (Males) Exam: Deferred Back Exam: Normal Inspection Extremities: Normal Inspection Neurological: Alert, Oriented, Normal Cognition Psychiatric: Anxious Course - Vital Signs Last Recorded V/S: Last Vital Signs Temp 35.5 C 07/15/17 08:13 Pulse 80 07/15/17 08:13 Resp 18 07/15/17 08:13 BP 243/148 H 07/15/17 08:13 Pulse Ox 96 07/15/17 08:13 - Orders/Labs/Meds Labs: Laboratory Tests 07/15/17 07/15/17 07/15/17 Range/Units 08:27 08:30 08:34 WBC 13.9 H (4.5-11.0) K/uL RBC 5.38 (4.30-5.90) M/uL Hgb 16.5 H D (12.0-15.0) g/dL Hct 48.1 (40.0-54.0) % MCV 89 (80-98) fL MCH 31 (27-31) pg MCHC 34 (32-36) % Plt Count 344 (150-400) K/uL Neut % (Auto) 83 H (36-66) % Lymph % (Auto) 12 L (24-44) % Day % (Auto) 3 (2-6) % Eos % (Auto) 1 L (2-4) % Baso % (Auto) 0 (0-1) % Sodium (140-148) mmol/L Potassium (3.6-5.2) mmol/L Chloride (100-108) mmol/L Carbon Dioxide (21-32) mmol/L Anion Gap (5.0-14.0) mmol/L BUN (7-18) mg/dL Creatinine (0.8-1.3) mg/dL Est Cr Clr Drug Dosing mL/min Estimated GFR (MDRD) (>60) Glucose (74-106) mg/dL Calcium (8.5-10.1) mg/dL Total Bilirubin (0.2-1.0) mg/dL AST (15-37) U/L ALT (12-78) U/L Alkaline Phosphatase (46-116) U/L C-Reactive Protein 0.12 (0.0-0.3) mg/dL Total Protein (6.4-8.2) g/dL Albumin (3.4-5.0) g/dL Globulin (2.3-3.5) g/dL Albumin/Globulin Ratio (1.2-2.2) Amylase (25-115) U/L Lipase (73-393) U/L Urine Color Yellow Urine Appearance Slightly cloudy Urine pH 8.0 (4.5-8.0) Ur Specific [place] 1.015 (1.008-1.030) Urine Protein 30 H (NEGATIVE) mg/dL Urine Glucose (UA) Normal (NEGATIVE) mg/dL Urine Ketones Negative (NEGATIVE) mg/dL Urine Occult Blood Large (NEGATIVE) Urine Nitrite Negative (NEGAITVE) Urine Bilirubin Negative (NEGATIVE) Urine Urobilinogen Normal (NORMAL) mg/dL Ur Leukocyte Esterase Negative (NEGATIVE) Urine RBC 20-30 H (0-5) Urine WBC 0-5 (0-5) Ur Epithelial Cells Few Amorphous Sediment Not seen Urine Bacteria Few Urine Mucus Not seen 07/15/17 07/15/17 07/15/17 Range/Units 08:34 08:34 08:34 WBC (4.5-11.0) K/uL RBC (4.30-5.90) M/uL Hgb (12.0-15.0) g/dL Hct (40.0-54.0) % MCV (80-98) fL MCH (27-31) pg MCHC (32-36) % Plt Count (150-400) K/uL Neut % (Auto) (36-66) % Lymph % (Auto) (24-44) % Day % (Auto) (2-6) % Eos % (Auto) (2-4) % Baso % (Auto) (0-1) % Sodium 139 L (140-148) mmol/L Potassium 3.8 (3.6-5.2) mmol/L Chloride 102 (100-108) mmol/L Carbon Dioxide 26 (21-32) mmol/L Anion Gap 14.8 H (5.0-14.0) mmol/L BUN 12 (7-18) mg/dL Creatinine 1.0 (0.8-1.3) mg/dL Est Cr Clr Drug Dosing 62.13 mL/min Estimated GFR (MDRD) > 60 (>60) Glucose 133 H (74-106) mg/dL Calcium 8.8 (8.5-10.1) mg/dL Total Bilirubin 0.3 (0.2-1.0) mg/dL AST 24 (15-37) U/L ALT 26 (12-78) U/L Alkaline Phosphatase 100 (46-116) U/L C-Reactive Protein (0.0-0.3) mg/dL Total Protein 7.3 (6.4-8.2) g/dL Albumin 3.9 (3.4-5.0) g/dL Globulin 3.4 (2.3-3.5) g/dL Albumin/Globulin Ratio 1.1 L (1.2-2.2) Amylase 121 H (25-115) U/L Lipase 275 (73-393) U/L Urine Color Urine Appearance Urine pH (4.5-8.0) Ur Specific [place] (1.008-1.030) Urine Protein (NEGATIVE) mg/dL Urine Glucose (UA) (NEGATIVE) mg/dL Urine Ketones (NEGATIVE) mg/dL Urine Occult Blood (NEGATIVE) Urine Nitrite (NEGAITVE) Urine Bilirubin (NEGATIVE) Urine Urobilinogen (NORMAL) mg/dL Ur Leukocyte Esterase (NEGATIVE) Urine RBC (0-5) Urine WBC (0-5) Ur Epithelial Cells Amorphous Sediment Urine Bacteria Urine Mucus Meds: Medications Discontinued Medications Generic Name Dose Route Start Last Admin Trade Name Freq PRN Reason Stop Dose Admin Hydromorphone HCl 1 mg 07/15/17 08:24 07/15/17 08:37 Dilaudid IVPUSH 07/15/17 08:25 1 mg ONETIME ONE Administration Hydromorphone HCl 1 mg 07/15/17 09:22 07/15/17 09:28 Dilaudid IVPUSH 07/15/17 09:23 1 mg ONETIME ONE Administration Sodium Chloride 1,000 mls @ 999 mls/hr 07/15/17 08:30 07/15/17 08:36 Normal Saline IV 999 mls/hr ASDIRECTED [facility] Administration Sodium Chloride 1,000 mls @ 500 mls/hr 07/15/17 09:00 07/15/17 09:28 Normal Saline IV 500 mls/hr ASDIRECTED [facility] Administration Ondansetron HCl 4 mg 07/15/17 08:23 07/15/17 08:36 Zofran IVPUSH 07/15/17 08:24 4 mg ONETIME ONE Administration Prochlorperazine Edisylate 10 mg 07/15/17 09:21 07/15/17 09:28 Compazine IVPUSH 07/15/17 09:22 10 mg ONETIME ONE Administration - Re-Assessments/Exams Free Text/Narrative Re-Assessment/Exam: 07/15/17 10:43 pt was given a 1 mg dose of dilaudid and zoforan which did not turn ther nausea around. 07/15/17 10:47 he was then given another mg of dilaudid and compazine 10mg and he is doing much better. Departure - Departure Time of Disposition: 10:44 Disposition: Home, Self-Care 01 Condition: Fair Clinical Impression: Chronic abdominal pain Chronic pancreatitis Qualifiers: Pancreatitis type: unspecified pancreatitis type Qualified Code(s): K86.1 - Other chronic pancreatitis - Discharge Information Instructions: Chronic Pancreatitis, Abdominal Pain, Adult, [id number] Referrals: Mjelde,Wilson S, PA [Primary Care Provider] - Forms: ED Department Discharge Care Plan Goals: follow gastropares diet, compazine 10mg q4-6h as needed for nausea.
[2017-07-15] MEDS ORDERED: Prochlorperazine 10 MG/2 ML SDV IVPUSH ONE (09:21)
== END 2017-07-15 11:10 | disposition home or self-care (01) ==
LOC: JP.ED 07:32
DX: K86.1 Other chronic pancreatitis (principal); Z88.1 Allergy status to other antibiotic agents; Z88.6 Allergy status to analgesic agent; Z88.8 Allergy status to other drugs, medicaments and biological substances; Z79.82 Long term (current) use of aspirin
CPT/HCPCS: 36415; 80053; 81001; 82150; 83690; 85025; 86140; 96361; 96374; 96375; 96376; 99284; J0780; J1170; J2405; J7040

== ENCOUNTER 2017-08-17 06:37 | Emergency (ER) | payer BC ==
[2017-08-17] MEDS ORDERED: Lactated Ringers 1,000 ML IV ONE (07:18)
[2017-08-17] MEDS ORDERED: Prochlorperazine 10 MG/2 ML SDV IVPUSH ONE (07:18)
[2017-08-17] MEDS ORDERED: diphenhydrAMINE 50 MG/ML SDV IVPUSH ONE (07:19)
[2017-08-17] MEDS ORDERED: Acetaminophen 1,000 MG in Premix Bag 1 BAG IV ONE (07:19)
[2017-08-17] MEDS ORDERED: LORazepam 2 MG/ML SDV IVPUSH ONE (07:27)
--- NOTE | 2017-08-17 07:28 | EDM.PDOC ---
ED HPI GENERAL MEDICAL PROBLEM - General Chief Complaint: Gastrointestinal Problem Stated Complaint: PANCREATITIS Time Seen by Provider: 08/17/17 07:10 Source of Information: Reports: Patient, Old Records, RN History Limitations: Reports: No Limitations - History of Present Illness INITIAL COMMENTS - FREE TEXT/NARRATIVE: 61 yo male here with a complaint of abdominal pain with nausea and no vomiting. Has been here multiple times for presumed chronic pancreatitis. Usually his lipase and amylase levels are unremarkable. Today he had just left home to go to [facility] to see a specialist regarding this ongoing problem and says he got only [address] and had to turn around and come here due to an increase in his pain. He says this same thing happened the [facility] He can not identify any triggers for his pain today or most days when he comes in for this pain. The pain is typical today for him. 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) Abdomen Pain Score (Numeric/FACES): 10 - Related Data Allergies Allergy/AdvReac Type Severity Reaction Status Date / Time acetaminophen [From Tylenol] Allergy Rash Verified 08/17/17 07:01 erythromycin base Allergy Hives Verified 08/17/17 07:01 metoclopramide [From Reglan] Allergy Agitation Verified 08/17/17 07:01 Home Meds: Home Meds Aspirin [Halfprin] 81 mg PO DAILY 11/02/16 [History] Meperidine HCl [Meperidine] 50 mg PO Q6H PRN 11/02/16 [History] Ondansetron [Zofran ODT] 4 mg PO Q4H PRN 11/02/16 [History] Promethazine [Phenergan] 50 mg PO Q6H PRN 11/02/16 [History] HYDROmorphone [Dilaudid] 2 mg PO Q4HR 03/20/17 [History] Past Medical History HEENT History: Reports: Impaired Vision Cardiovascular History: Reports: Blood Clots/VTE/DVT, CAD, Hypertension, [place], Other (See Below) Other Cardiovascular History: iliac stents for possible clots Gastrointestinal History: Reports: Cholelithiasis, GERD, Pancreatitis Musculoskeletal History: Reports: Fracture Oncologic (Cancer) History: Reports: Other (See Below) Other Oncologic History: skin ca Dermatologic History: Reports: Other (See Below) Other Dermatologic History: basal cell ca - Infectious Disease History Infectious Disease History: Reports: Chicken Pox - Past Surgical History GI Surgical History: Reports: Appendectomy, Cholecystectomy, Other (See Below) Other GI Surgeries/Procedures: exploratory lap for pancrease possilbe fruy procedure Social & Family History - Family History Family Medical History: Noncontributory HEENT: Reports: Cataract Cardiac: Reports: Bypass Endocrine/Metabolic: Reports: Diabetes, type II Oncologic: Reports: Prostate - Tobacco Use Smoking Status *Q: Unknown Ever Smoked Years of Tobacco use: 20 Packs/Tins Daily: 1 Used Tobacco, but Quit: No Month/Year Tobacco Last Used: 25 yrs ago Second Hand Smoke Exposure: No - Caffeine Use Caffeine Use: Reports: Coffee Other Caffeine Use: 4 cups - Recreational Drug Use Recreational Drug Use: No ED ROS GENERAL - Review of Systems Review Of Systems: See Below Constitutional: Reports: No Symptoms HEENT: Reports: No Symptoms Respiratory: Reports: No Symptoms Cardiovascular: Reports: No Symptoms Endocrine: Reports: No Symptoms GI/Abdominal: Reports: Abdominal Pain, Nausea. Denies: Anorexia, Black Stool, Bloody Stool, Constipation, Diarrhea, Distension, Flatus, Hematemesis, Melena, Vomiting : Reports: No Symptoms Musculoskeletal: Reports: No Symptoms Skin: Reports: No Symptoms Neurological: Reports: No Symptoms Psychiatric: Reports: No Symptoms ED EXAM, GI/ABD - Physical Exam Exam: See Below Exam Limited By: No Limitations General Appearance: Alert, WD/WN, No Apparent Distress, Thin Eyes: Bilateral: Normal Appearance, EOMI Ears: Normal External Exam, Normal Canal, Hearing Grossly Normal, Normal TMs Nose: Normal Inspection, Normal Mucosa, No Blood Throat/Mouth: Normal Inspection, Normal Lips, Normal Oropharynx, Normal Voice, No Airway Compromise Head: Atraumatic, Normocephalic Neck: Normal Inspection, Supple, Non-Tender Respiratory/Chest: No Respiratory Distress, Lungs Clear, Normal Breath Sounds, No Accessory Muscle Use Cardiovascular: Regular Rate, Rhythm, No Edema GI/Abdominal Exam: Normal Bowel Sounds, Soft, Tender (mid to epigastrium) Back Exam: Normal Inspection. No: CVA Tenderness (R), CVA Tenderness (L) Extremities: Normal Inspection, Normal Range of Motion, Non-Tender, No Pedal Edema Neurological: Alert, Oriented, CN II-XII Intact, Normal Cognition, No Motor/ Sensory Deficits Psychiatric: Normal Affect, Normal Mood Skin Exam: Warm, Dry, Intact, Normal Color, No Rash Lymphatic: No Adenopathy Course - Vital Signs Text/Narrative:: Feeling much better after today's treatments. OK with going home. Last Recorded V/S: Last Vital Signs Temp 35.4 C 08/17/17 07:01 Pulse 75 08/17/17 07:01 Resp 15 08/17/17 07:01 BP 259/131 H 08/17/17 07:01 Pulse Ox 94 L 08/17/17 06:53 - Orders/Labs/Meds Labs: Laboratory Tests 08/17/17 Range/Units 07:42 Amylase 132 H (25-115) U/L Meds: Medications Discontinued Medications Generic Name Dose Route Start Last Admin Trade Name Melva PRN Reason Stop Dose Admin Diphenhydramine HCl 25 mg 08/17/17 07:19 08/17/17 07:46 Benadryl IVPUSH 08/17/17 07:20 25 mg ONETIME ONE Administration Hydromorphone HCl 1 mg 08/17/17 08:42 08/17/17 10:55 Dilaudid IVPUSH 08/17/17 08:43 1 mg ONETIME ONE Administration Acetaminophen 1,000 mg/ Premix 100 mls @ 400 mls/hr 08/17/17 07:19 IV 08/17/17 07:33 NOW ONE Lactated Ringer's 1,000 mls @ 1,000 mls/hr 08/17/17 07:18 08/17/17 07:45 Ringers, Lactated IV 08/17/17 08:17 1,000 mls/hr BOLUS ONE Administration Lorazepam 1 mg 08/17/17 07:27 08/17/17 07:45 Ativan IVPUSH 08/17/17 07:28 1 mg ONETIME ONE Administration Ondansetron HCl 4 mg 08/17/17 10:06 08/17/17 10:54 Zofran IVPUSH 08/17/17 10:07 4 mg ONETIME ONE Administration Prochlorperazine Edisylate 10 mg 08/17/17 07:18 08/17/17 07:46 Compazine IVPUSH 08/17/17 07:19 10 mg ONETIME ONE Administration Departure - Departure Time of Disposition: 11:40 Disposition: Home, Self-Care 01 Condition: Fair Clinical Impression: Nausea Chronic pancreatitis Qualifiers: Pancreatitis type: unspecified pancreatitis type Qualified Code(s): K86.1 - Other chronic pancreatitis - Discharge Information Referrals: Wilson Melgoza PA [Primary Care Provider] - Forms: ED Department Discharge
[2017-08-17] MEDS ORDERED: HYDROmorphone 1 MG/ML Syringe IVPUSH ONE (08:42)
[2017-08-17] MEDS ORDERED: Ondansetron 4 MG/2 ML SDV IVPUSH ONE (10:06)
[2017-08-17 11:58] VITALS: BP 109/79
== END 2017-08-17 12:01 | disposition home or self-care (01) ==
LOC: JP.ED 06:37
DX: K86.1 Other chronic pancreatitis (principal); R11.0 Nausea; I10 Essential (primary) hypertension; I25.2 Old myocardial infarction; Z79.82 Long term (current) use of aspirin; Z88.6 Allergy status to analgesic agent; Z88.1 Allergy status to other antibiotic agents; Z88.8 Allergy status to other drugs, medicaments and biological substances
CPT/HCPCS: 36415; 82150; 96361; 96374; 96375; 99285; J0780; J1170; J1200; J2060; J2405; J7120

== ENCOUNTER 2017-08-22 08:07 | Emergency (ER) | payer BC ==
[2017-08-22] MEDS ORDERED: LORazepam 2 MG/ML SDV IVPUSH ONE (08:31)
[2017-08-22] MEDS ORDERED: HYDROmorphone 1 MG/ML Syringe IVPUSH ONE ×2 (08:31→08:37)
[2017-08-22] MEDS ORDERED: Lactated Ringers 1,000 ML IV SCH (08:45)
--- NOTE | 2017-08-22 08:50 | EDM.PDOC ---
ED HPI GENERAL MEDICAL PROBLEM - General Chief Complaint: General Stated Complaint: PANCREATITIS Time Seen by Provider: 08/22/17 08:35 Source of Information: Reports: Patient History Limitations: Reports: No Limitations - History of Present Illness INITIAL COMMENTS - FREE TEXT/NARRATIVE: 61-year-old male with ongoing chronic pancreatitis was heading down to the [facility] for a consultation very similar to his last visit several days ago but he could not tolerate the trip because of the discomfort. He came into the emergency room for treatment. His blood pressure is high, he is very uncomfortable, and he has diffuse abdominal pain with nausea. Only a small amount of emesis, no fever or chills. This is his seventh ER visit this year. He has already missed 3 consultations at the [facility] because he is unable to make the trip. Location: Reports: Abdomen Severity: Severe Associated Symptoms: Reports: Loss of Appetite, Malaise, Nausea/Vomiting. Denies: Chest Pain, Fever/Chills, Shortness of Breath Right Upper Abdominal Pain Score (Numeric/FACES): 10 - Related Data Allergies Allergy/AdvReac Type Severity Reaction Status Date / Time acetaminophen [From Tylenol] Allergy Rash Verified 08/17/17 07:01 erythromycin base Allergy Hives Verified 08/17/17 07:01 metoclopramide [From Reglan] Allergy Agitation Verified 08/17/17 07:01 Home Meds: Home Meds Aspirin [Halfprin] 81 mg PO DAILY 11/02/16 [History] Meperidine HCl [Meperidine] 50 mg PO Q6H PRN 11/02/16 [History] Ondansetron [Zofran ODT] 4 mg PO Q4H PRN 11/02/16 [History] Promethazine [Phenergan] 50 mg PO Q6H PRN 11/02/16 [History] HYDROmorphone [Dilaudid] 2 mg PO Q4HR 03/20/17 [History] Past Medical History HEENT History: Reports: Impaired Vision Cardiovascular History: Reports: Blood Clots/VTE/DVT, CAD, Hypertension, [place], Other (See Below) Other Cardiovascular History: iliac stents for possible clots Gastrointestinal History: Reports: Cholelithiasis, GERD, Pancreatitis Musculoskeletal History: Reports: Fracture Oncologic (Cancer) History: Reports: Other (See Below) Other Oncologic History: skin ca Dermatologic History: Reports: Other (See Below) Other Dermatologic History: basal cell ca - Infectious Disease History Infectious Disease History: Reports: Chicken Pox, Mumps - Past Surgical History GI Surgical History: Reports: Appendectomy, Cholecystectomy, Other (See Below) Other GI Surgeries/Procedures: exploratory lap for pancrease possilbe fruy procedure Social & Family History - Family History Family Medical History: Noncontributory HEENT: Reports: Cataract Cardiac: Reports: Bypass Endocrine/Metabolic: Reports: Diabetes, type II Oncologic: Reports: Prostate - Tobacco Use Smoking Status *Q: Former Smoker Years of Tobacco use: 20 Packs/Tins Daily: 1 Used Tobacco, but Quit: Yes Month/Year Tobacco Last Used: years ago Second Hand Smoke Exposure: No - Caffeine Use Caffeine Use: Reports: Coffee Other Caffeine Use: 4 cups - Recreational Drug Use Recreational Drug Use: No ED ROS GENERAL - Review of Systems Review Of Systems: See Below Constitutional: Reports: Chills, Malaise, Weakness. Denies: Fever Respiratory: Denies: Shortness of Breath Cardiovascular: Denies: Chest Pain GI/Abdominal: Reports: Abdominal Pain, Nausea, Vomiting. Denies: Diarrhea : Reports: No Symptoms Skin: Reports: No Symptoms (No jaundice) Neurological: Denies: Headache Psychiatric: Reports: No Symptoms ED EXAM, GENERAL - Physical Exam Exam: See Below Exam Limited By: No Limitations General Appearance: Alert, Moderate Distress (Appears very uncomfortable) Eye Exam: Bilateral Eye: EOMI, Normal Inspection (No jaundice) Respiratory/Chest: No Respiratory Distress, Lungs Clear Cardiovascular: Regular Rate, Rhythm, Other (Patient's initial blood pressure was 257/128). No: Tachycardia GI/Abdominal: Guarding (Diffusely guarding, bowel sounds are present) Neurological: Alert, Oriented Psychiatric: Anxious (Extremely anxious) Skin Exam: Warm, Dry Course - Vital Signs Last Recorded V/S: Last Vital Signs Temp 96.3 F 08/22/17 08:21 Pulse 82 08/22/17 08:59 Resp 18 08/22/17 08:59 BP 260/130 H 08/22/17 08:59 Pulse Ox 93 L 08/22/17 08:59 - Orders/Labs/Meds Labs: Laboratory Tests 08/22/17 08/22/17 Range/Units 08:30 08:30 WBC 8.3 (4.5-11.0) K/uL RBC 5.61 (4.30-5.90) M/uL Hgb 17.1 H (12.0-15.0) g/dL Hct 49.4 (40.0-54.0) % MCV 88 (80-98) fL MCH 31 (27-31) pg MCHC 35 (32-36) % Plt Count 329 (150-400) K/uL Neut % (Auto) 71 H (36-66) % Lymph % (Auto) 22 L (24-44) % Yell % (Auto) 5 (2-6) % Eos % (Auto) 2 (2-4) % Baso % (Auto) 0 (0-1) % Sodium 138 L (140-148) mmol/L Potassium 3.7 (3.6-5.2) mmol/L Chloride 102 (100-108) mmol/L Carbon Dioxide 25 (21-32) mmol/L Anion Gap 14.7 H (5.0-14.0) mmol/L BUN 10 (7-18) mg/dL Creatinine 0.9 (0.8-1.3) mg/dL Est Cr Clr Drug Dosing 64.68 mL/min Estimated GFR (MDRD) > 60 (>60) Glucose 123 H (74-106) mg/dL Calcium 9.0 (8.5-10.1) mg/dL Amylase 92 (25-115) U/L Lipase 129 (73-393) U/L Meds: Medications Discontinued Medications Generic Name Dose Route Start Last Admin Trade Name Freq PRN Reason Stop Dose Admin Hydromorphone HCl 2 mg 08/22/17 08:37 08/22/17 08:55 Dilaudid IVPUSH 08/22/17 08:38 2 mg ONETIME ONE Administration Hydromorphone HCl Confirm 08/22/17 08:54 08/22/17 08:58 Dilaudid Administered 08/22/17 08:55 Not Given Dose 1 mg .ROUTE .STK-MED ONE Lactated Ringer's 1,000 mls @ 1,000 mls/hr 08/22/17 08:45 08/22/17 08:52 Ringers, Lactated IV 1,000 mls/hr ASDIRECTED CHARLES Administration Lorazepam 1 mg 08/22/17 08:31 08/22/17 08:52 Ativan IVPUSH 08/22/17 08:32 1 mg ONETIME ONE Administration - Re-Assessments/Exams Free Text/Narrative Re-Assessment/Exam: 08/22/17 08:51 Patient was given 1 L of lactated Ringer, 1 mg of Ativan and 2 mg of IV Dilaudid. CBC BMP amylase and lipase were obtained. His blood pressure usually normalizes after medications are given, we will hold on blood pressure treatment until after the initial pain medication is given. I need to talk to the [facility] to discuss getting this patient down there for an evaluation 08/22/17 09:35 30 minutes after the meds were given the patient was sleeping, his blood pressure was 137/65. Records were faxed to the [facility] to complete a consultation with gastroenterology or internal medicine. 08/22/17 10:48 Phone consultations with gastroenterology, his pancreatic specialist and internal medicine at the [facility] just recommend and setting him up for outpatient treatment at the infusion center. The patient was feeling much better and was discharged. His primary provider was attempted to be contacted but is unavailable today, I will try again tomorrow. His labs again were reassuring, amylase and lipase were normal. White count was normal. Departure - Departure Time of Disposition: 11:26 Disposition: Home, Self-Care 01 Condition: Good Clinical Impression: Chronic pancreatitis Qualifiers: Pancreatitis type: unspecified pancreatitis type Qualified Code(s): K86.1 - Other chronic pancreatitis - Discharge Information Instructions: Chronic Pancreatitis Referrals: Wilson Melgoza PA [Primary Care Provider] - Forms: ED Department Discharge Care Plan Goals: Resuming your regular medications, and call the clinic to schedule an appointment if possible with Wilson Mason sometime this week.
[2017-08-22] MEDS ORDERED: HYDROmorphone 1 MG/ML Syringe ONE (08:54)
[2017-08-22 09:00] VITALS: BP 260/130
== END 2017-08-22 11:20 | disposition home or self-care (01) ==
LOC: JP.ED 08:07
DX: K86.1 Other chronic pancreatitis (principal); I10 Essential (primary) hypertension; I25.2 Old myocardial infarction; I25.10 Atherosclerotic heart disease of native coronary artery without angina pectoris; K21.9 Gastro-esophageal reflux disease without esophagitis; Z90.49 Acquired absence of other specified parts of digestive tract; Z88.1 Allergy status to other antibiotic agents; Z88.6 Allergy status to analgesic agent; Z79.82 Long term (current) use of aspirin; Z79.899 Other long term (current) drug therapy; Z87.891 Personal history of nicotine dependence; Z88.8 Allergy status to other drugs, medicaments and biological substances
CPT/HCPCS: 36415; 80048; 82150; 83690; 85025; 96361; 96374; 96375; 99284; J1170; J2060; J7120

== ENCOUNTER 2017-08-31 07:18 | Emergency (ER) | payer BC ==
[2017-08-31] MEDS ORDERED: HYDROmorphone 1 MG/ML Syringe IVPUSH ONE ×2 (07:46→08:27)
[2017-08-31] MEDS ORDERED: Ondansetron 4 MG/2 ML SDV IVPUSH ONE (07:46)
--- NOTE | 2017-08-31 07:55 | EDM.PDOC ---
ED HPI GENERAL MEDICAL PROBLEM - General Chief Complaint: General Stated Complaint: STOMACH PAINS Time Seen by Provider: 08/31/17 07:50 Source of Information: Reports: Patient History Limitations: Reports: No Limitations - History of Present Illness INITIAL COMMENTS - FREE TEXT/NARRATIVE: pt has a history chronic pancreatits. He has times when his pain flares and is very severe. He has presently been approved for medical [employer]. He is just waiting for the state to set this up for him. Onset: Today, Other ( started this am after having a bm. ) Duration: Hour(s):, Other ( This is a chronic recurrent problem. ) Location: Reports: Abdomen, Other (pt is very nauseated with this. ) Quality: Reports: Sharp, Stabbing Improves with: Reports: None Worsens with: Reports: None Associated Symptoms: Reports: Malaise, Nausea/Vomiting Abdomen Pain Score (Numeric/FACES): 10 - Related Data Allergies Allergy/AdvReac Type Severity Reaction Status Date / Time acetaminophen [From Tylenol] Allergy Rash Verified 08/31/17 07:30 erythromycin base Allergy Hives Verified 08/31/17 07:30 metoclopramide [From Reglan] AdvReac Agitation Verified 09/01/17 10:48 Home Meds: Home Meds Aspirin [Halfprin] 81 mg PO DAILY 11/02/16 [History] Meperidine HCl [Meperidine] 50 mg PO Q6H PRN 11/02/16 [History] Ondansetron [Zofran ODT] 4 mg PO Q4H PRN 11/02/16 [History] Promethazine [Phenergan] 50 mg PO Q6H PRN 11/02/16 [History] HYDROmorphone [Dilaudid] 2 mg PO Q4HR 03/20/17 [History] Past Medical History HEENT History: Reports: Impaired Vision Cardiovascular History: Reports: Blood Clots/VTE/DVT, CAD, Hypertension, [place], Other (See Below) Other Cardiovascular History: iliac stents for possible clots Gastrointestinal History: Reports: Cholelithiasis, GERD, Pancreatitis Musculoskeletal History: Reports: Fracture Oncologic (Cancer) History: Reports: Other (See Below) Other Oncologic History: skin ca Dermatologic History: Reports: Other (See Below) Other Dermatologic History: basal cell ca - Infectious Disease History Infectious Disease History: Reports: Chicken Pox, Mumps - Past Surgical History GI Surgical History: Reports: Appendectomy, Cholecystectomy, Other (See Below) Other GI Surgeries/Procedures: exploratory lap for pancrease possilbe fruy procedure Social & Family History - Family History Family Medical History: Noncontributory HEENT: Reports: Cataract Cardiac: Reports: Bypass Endocrine/Metabolic: Reports: Diabetes, type II Oncologic: Reports: Prostate - Tobacco Use Smoking Status *Q: Never Smoker Years of Tobacco use: 20 Packs/Tins Daily: 1 Used Tobacco, but Quit: Yes Month/Year Tobacco Last Used: years ago Second Hand Smoke Exposure: No - Caffeine Use Caffeine Use: Reports: Coffee Other Caffeine Use: 4 cups - Recreational Drug Use Recreational Drug Use: No ED ROS GENERAL - Review of Systems Review Of Systems: See Below Constitutional: Reports: No Symptoms HEENT: Reports: No Symptoms Respiratory: Reports: No Symptoms Cardiovascular: Reports: No Symptoms Endocrine: Reports: No Symptoms GI/Abdominal: Reports: Abdominal Pain, Nausea, Vomiting : Reports: No Symptoms Musculoskeletal: Reports: No Symptoms Skin: Reports: No Symptoms Neurological: Reports: No Symptoms Psychiatric: Reports: No Symptoms ED EXAM, GENERAL - Physical Exam Exam: See Below Free Text/Narrative:: pt has epigastric pin. He has a history of chronic pancreatitis. Exam Limited By: No Limitations General Appearance: Alert, Anxious, Severe Distress Ears: Normal TMs Nose: Normal Inspection Throat/Mouth: Normal Inspection Head: Atraumatic Neck: Normal Inspection Respiratory/Chest: No Respiratory Distress Cardiovascular: Regular Rate, Rhythm GI/Abdominal: Tender, Other (pt is tender in the epigastric area. Abdoman is not distended. ) (Male) Exam: Deferred Rectal (Males) Exam: Deferred Back Exam: Normal Inspection Extremities: Normal Inspection Neurological: Alert, Oriented, Normal Cognition Psychiatric: Normal Affect Course - Vital Signs Last Recorded V/S: Last Vital Signs Temp 36.1 C 08/31/17 07:31 Pulse 82 08/31/17 09:58 Resp 14 08/31/17 09:58 BP 155/81 H 08/31/17 09:58 Pulse Ox 95 08/31/17 09:58 - Orders/Labs/Meds Labs: Laboratory Tests 08/31/17 08/31/17 08/31/17 Range/Units 07:45 07:45 07:45 WBC 9.6 (4.5-11.0) K/uL RBC 5.61 (4.30-5.90) M/uL Hgb 17.6 H (12.0-15.0) g/dL Hct 49.9 (40.0-54.0) % MCV 89 (80-98) fL MCH 31 (27-31) pg MCHC 35 (32-36) % Plt Count 333 (150-400) K/uL Neut % (Auto) 60 (36-66) % Lymph % (Auto) 31 (24-44) % Hyde % (Auto) 6 (2-6) % Eos % (Auto) 3 (2-4) % Baso % (Auto) 0 (0-1) % Sodium 142 (140-148) mmol/L Potassium 3.7 (3.6-5.2) mmol/L Chloride 104 (100-108) mmol/L Carbon Dioxide 27 (21-32) mmol/L Anion Gap 10.9 (5.0-14.0) mmol/L BUN 11 (7-18) mg/dL Creatinine 1.0 (0.8-1.3) mg/dL Est Cr Clr Drug Dosing 61.07 mL/min Estimated GFR (MDRD) > 60 (>60) Glucose 118 H (74-106) mg/dL Calcium 8.6 (8.5-10.1) mg/dL Total Bilirubin 0.3 (0.2-1.0) mg/dL AST 25 (15-37) U/L ALT 28 (12-78) U/L Alkaline Phosphatase 109 (46-116) U/L C-Reactive Protein (0.0-0.3) mg/dL Total Protein 7.9 (6.4-8.2) g/dL Albumin 4.0 (3.4-5.0) g/dL Globulin 3.9 H (2.3-3.5) g/dL Albumin/Globulin Ratio 1.0 L (1.2-2.2) Amylase (25-115) U/L Lipase 332 (73-393) U/L Urine Color Urine Appearance Urine pH (4.5-8.0) Ur Specific [place] (1.008-1.030) Urine Protein (NEGATIVE) mg/dL Urine Glucose (UA) (NEGATIVE) mg/dL Urine Ketones (NEGATIVE) mg/dL Urine Occult Blood (NEGATIVE) Urine Nitrite (NEGAITVE) Urine Bilirubin (NEGATIVE) Urine Urobilinogen (NORMAL) mg/dL Ur Leukocyte Esterase (NEGATIVE) Urine RBC (0-5) Urine WBC (0-5) Ur Epithelial Cells Amorphous Sediment Urine Bacteria Urine Mucus 08/31/17 08/31/17 Range/Units 07:45 09:16 WBC (4.5-11.0) K/uL RBC (4.30-5.90) M/uL Hgb (12.0-15.0) g/dL Hct (40.0-54.0) % MCV (80-98) fL MCH (27-31) pg MCHC (32-36) % Plt Count (150-400) K/uL Neut % (Auto) (36-66) % Lymph % (Auto) (24-44) % Hyde % (Auto) (2-6) % Eos % (Auto) (2-4) % Baso % (Auto) (0-1) % Sodium (140-148) mmol/L Potassium (3.6-5.2) mmol/L Chloride (100-108) mmol/L Carbon Dioxide (21-32) mmol/L Anion Gap (5.0-14.0) mmol/L BUN (7-18) mg/dL Creatinine (0.8-1.3) mg/dL Est Cr Clr Drug Dosing mL/min Estimated GFR (MDRD) (>60) Glucose (74-106) mg/dL Calcium (8.5-10.1) mg/dL Total Bilirubin (0.2-1.0) mg/dL AST (15-37) U/L ALT (12-78) U/L Alkaline Phosphatase (46-116) U/L C-Reactive Protein 0.13 (0.0-0.3) mg/dL Total Protein (6.4-8.2) g/dL Albumin (3.4-5.0) g/dL Globulin (2.3-3.5) g/dL Albumin/Globulin Ratio (1.2-2.2) Amylase 152 H D (25-115) U/L Lipase (73-393) U/L Urine Color Yellow Urine Appearance Clear Urine pH 8.0 (4.5-8.0) Ur Specific [place] 1.010 (1.008-1.030) Urine Protein Trace (NEGATIVE) mg/dL Urine Glucose (UA) Normal (NEGATIVE) mg/dL Urine Ketones Negative (NEGATIVE) mg/dL Urine Occult Blood Moderate (NEGATIVE) Urine Nitrite Negative (NEGAITVE) Urine Bilirubin Negative (NEGATIVE) Urine Urobilinogen Normal (NORMAL) mg/dL Ur Leukocyte Esterase Negative (NEGATIVE) Urine RBC 10-20 H (0-5) Urine WBC Not seen (0-5) Ur Epithelial Cells Not seen Amorphous Sediment Not seen Urine Bacteria Not seen Urine Mucus Not seen Meds: Medications Discontinued Medications Generic Name Dose Route Start Last Admin Trade Name Freq PRN Reason Stop Dose Admin Hydromorphone HCl 1 mg 08/31/17 07:46 08/31/17 07:51 Dilaudid IVPUSH 08/31/17 07:47 1 mg ONETIME ONE Administration Hydromorphone HCl 1 mg 08/31/17 08:27 08/31/17 08:39 Dilaudid IVPUSH 08/31/17 08:28 1 mg ONETIME ONE Administration Sodium Chloride 1,000 mls @ 999 mls/hr 08/31/17 08:15 08/31/17 08:06 Normal Saline IV 999 mls/hr ASDIRECTED CHARLES Administration Sodium Chloride 1,000 mls @ 999 mls/hr 08/31/17 08:30 08/31/17 09:13 Normal Saline IV 999 mls/hr ASDIRECTED CHARLES Administration Ondansetron HCl 4 mg 08/31/17 07:46 08/31/17 07:55 Zofran IVPUSH 08/31/17 07:47 4 mg ONETIME ONE Administration - Re-Assessments/Exams Free Text/Narrative Re-Assessment/Exam: 08/31/17 10:06 pt had dilaudid 1.5 and zoforan plus 2 liters of fluid He is feeling much better. He is in the process of getting medical [place]. Departure - Departure Time of Disposition: 10:06 Disposition: Home, Self-Care 01 Condition: Fair Clinical Impression: Dehydration Chronic pancreatitis Qualifiers: Pancreatitis type: unspecified pancreatitis type Qualified Code(s): K86.1 - Other chronic pancreatitis - Discharge Information Instructions: Chronic Pancreatitis, Dehydration, Adult, [id number] Referrals: PCP,None [Primary Care Provider] - Forms: ED Department Discharge Care Plan Goals: cont same meds, continue to work to get the medical maryohan[place].
[2017-08-31] MEDS ORDERED: Sodium Chloride 0.9% 1,000 ML IV SCH ×2 (08:15→08:30)
[2017-08-31 09:59] VITALS: BP 155/81
== END 2017-08-31 10:21 | disposition home or self-care (01) ==
LOC: JP.ED 07:18
DX: K86.1 Other chronic pancreatitis (principal); E86.0 Dehydration; Z88.1 Allergy status to other antibiotic agents; Z88.8 Allergy status to other drugs, medicaments and biological substances; Z79.82 Long term (current) use of aspirin; I25.2 Old myocardial infarction; I10 Essential (primary) hypertension; Z87.891 Personal history of nicotine dependence
CPT/HCPCS: 36415; 80053; 81001; 82150; 83690; 85025; 86140; 96361; 96374; 96375; 96376; 99284; J1170; J2405; J7040

== ENCOUNTER 2018-08-24 04:08 | Inpatient (IN) | payer BC ==
[2018-08-24] MEDS ORDERED: Lactated Ringers 1,000 ML IV ONE (04:40)
[2018-08-24] MEDS ORDERED: Ondansetron 4 MG/2 ML SDV IVPUSH ONE (04:41)
[2018-08-24] MEDS ORDERED: HYDROmorphone 1 MG/ML Syringe IVPUSH ONE (04:41)
[2018-08-24] MEDS ORDERED: LORazepam 2 MG/ML SDV IVPUSH ONE (04:44)
--- NOTE | 2018-08-24 04:50 | EDM.PDOC ---
ED HPI GENERAL MEDICAL PROBLEM - General Chief Complaint: Abdominal Pain Stated Complaint: ABD PAIN Time Seen by Provider: 08/24/18 04:30 Source of Information: Reports: Patient, Old Records, RN History Limitations: Reports: No Limitations - History of Present Illness INITIAL COMMENTS - FREE TEXT/NARRATIVE: 62 yo male here with abdominal pain and nausea from his reported "chronic pancreatitis". States he awoke with the pain. Has no idea what brings on his attacks. Usually his amylase and lipase levels when tested are normal. Drove himself to the ER, but states he can get a ride home if he needs one. If he gets an attack during business hrs he is able to go straight to infusion therapy and get tx'd per a standing order from his provider, "Richard". He states he's had a couple attacks since he was last in the ER that he didn't come in for , says that they are self-limiting also without tx but last longer, up to 8 hrs. Is now on medical marijuana which he thinks helps him. Onset: Today Onset Date: 08/24/18 Onset Time: 03:30 Duration: Minutes:, Constant Location: Reports: Abdomen Quality: Reports: Ache Severity: Severe Improves with: Reports: None Worsens with: Reports: Other (unknown) Context: Reports: Other (See HPI) Associated Symptoms: Reports: Nausea/Vomiting. 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 METAL MIXER: Reports: Other (see below) (none) Abdominal Pain Score (Numeric/FACES): 10 - Related Data Allergies Allergy/AdvReac Type Severity Reaction Status Date / Time acetaminophen [From Tylenol] Allergy Rash Verified 08/24/18 04:22 erythromycin base Allergy Hives Verified 08/24/18 04:22 metoclopramide [From Reglan] AdvReac Agitation Verified 08/24/18 04:22 Home Meds: Home Meds Aspirin [Halfprin] 81 mg PO DAILY 11/02/16 [History] Ondansetron [Zofran ODT] 4 mg PO Q4H PRN 11/02/16 [History] Promethazine [Phenergan] 50 mg PO Q6H PRN 11/02/16 [History] Pravastatin [Pravachol] 40 mg PO DAILY 08/24/18 [History] Past Medical History HEENT History: Reports: Impaired Vision Cardiovascular History: Reports: Blood Clots/VTE/DVT, CAD, Hypertension, [place], Other (See Below) Other Cardiovascular History: iliac stents for possible clots Gastrointestinal History: Reports: Cholelithiasis, GERD, Pancreatitis, Other ( See Below) Other Gastrointestinal History: pancreatitis Musculoskeletal History: Reports: Fracture Oncologic (Cancer) History: Reports: Other (See Below) Other Oncologic History: skin ca Dermatologic History: Reports: Other (See Below) Other Dermatologic History: basal cell ca - Infectious Disease History Infectious Disease History: Reports: Chicken Pox, Mumps - Past Surgical History GI Surgical History: Reports: Appendectomy, Cholecystectomy, Other (See Below) Other GI Surgeries/Procedures: exploratory lap for pancrease possilbe fruy procedure Social & Family History - Family History Family Medical History: Noncontributory HEENT: Reports: Cataract Cardiac: Reports: Bypass Endocrine/Metabolic: Reports: Diabetes, type II Oncologic: Reports: Prostate - Tobacco Use Smoking Status *Q: Never Smoker - Caffeine Use Caffeine Use: Reports: Coffee Other Caffeine Use: 4 cups - Recreational Drug Use Recreational Drug Use: No ED ROS GENERAL - Review of Systems Review Of Systems: See Below Constitutional: Reports: No Symptoms HEENT: Reports: No Symptoms Respiratory: Reports: No Symptoms Cardiovascular: Reports: No Symptoms Endocrine: Reports: No Symptoms GI/Abdominal: Reports: Abdominal Pain, Nausea, Vomiting. Denies: Black Stool, Bloody Stool, Constipation, Diarrhea, Distension, Flatus, Hematemesis, Hematochezia, Melena : Reports: No Symptoms Musculoskeletal: Reports: No Symptoms Skin: Reports: No Symptoms Neurological: Reports: No Symptoms Psychiatric: Reports: No Symptoms ED EXAM, GI/ABD - Physical Exam Exam: See Below Exam Limited By: No Limitations General Appearance: Alert, WD/WN, No Apparent Distress Eyes: Bilateral: Normal Appearance Ears: Normal External Exam, Normal Canal, Hearing Grossly Normal, Normal TMs Nose: Normal Inspection, Normal Mucosa, No Blood Throat/Mouth: Normal Inspection, Normal Lips, Normal Oropharynx, Normal Voice, No Airway Compromise Head: Atraumatic, Normocephalic Neck: Normal Inspection Respiratory/Chest: No Respiratory Distress, Lungs Clear, Normal Breath Sounds, No Accessory Muscle Use Cardiovascular: Regular Rate, Rhythm, No Edema GI/Abdominal Exam: No Distention, Guarding, Tender, Abnormal Bowel Sounds ( decreased). No: Non-Tender, Distended Back Exam: Normal Inspection. No: CVA Tenderness (R), CVA Tenderness (L) Extremities: Normal Inspection, Normal Range of Motion, Non-Tender, No Pedal Edema Neurological: Alert, Oriented, CN II-XII Intact, Normal Cognition, No Motor/ Sensory Deficits Psychiatric: Normal Affect, Normal Mood Skin Exam: Warm, Dry, Intact, Normal Color, No Rash Course - Vital Signs Text/Narrative:: Dr. Lilly called @ 0654h Last Recorded V/S: Last Vital Signs Temp 35.2 C L 08/24/18 04:20 Pulse 72 08/24/18 06:38 Resp 14 08/24/18 06:38 BP 215/125 H 08/24/18 06:38 Pulse Ox 99 08/24/18 06:38 - Orders/Labs/Meds Labs: Laboratory Tests 08/24/18 08/24/18 Range/Units 04:50 06:13 Sodium 141 (140-148) mmol/L Potassium 3.3 L (3.6-5.2) mmol/L Chloride 104 (100-108) mmol/L Carbon Dioxide 25 (21-32) mmol/L Anion Gap 15.3 H (5.0-14.0) mmol/L BUN 12 (7-18) mg/dL Creatinine 1.1 (0.8-1.3) mg/dL Est Cr Clr Drug Dosing 56.90 mL/min Estimated GFR (MDRD) > 60 (>60) Glucose 141 H (74-106) mg/dL Calcium 8.7 (8.5-10.1) mg/dL Lipase 847 H (73-393) U/L Meds: Medications Discontinued Medications Generic Name Dose Route Start Last Admin Trade Name Freq PRN Reason Stop Dose Admin Hydromorphone HCl 1 mg 08/24/18 04:41 08/24/18 04:59 Dilaudid IVPUSH 08/24/18 04:42 1 mg ONETIME ONE Administration Lactated Ringer's 1,000 mls @ 1,000 mls/hr 08/24/18 04:40 08/24/18 04:56 Ringers, Lactated IV 08/24/18 05:39 1,000 mls/hr BOLUS ONE Administration Acetaminophen 1,000 mg/ Premix 100 mls @ 400 mls/hr 08/24/18 05:52 08/24/18 06:10 IV 08/24/18 06:06 400 mls/hr NOW ONE Administration Labetalol HCl 20 mg 08/24/18 05:51 08/24/18 06:16 Normodyne IVPUSH 08/24/18 05:52 Not Given ONETIME ONE Protocol Labetalol HCl 20 mg 08/24/18 06:04 08/24/18 06:12 Normodyne IVPUSH 08/24/18 06:05 20 mg NOW ONE Administration Protocol Labetalol HCl 40 mg 08/24/18 06:45 Normodyne IVPUSH 08/24/18 06:46 NOW ONE Protocol Lorazepam 1 mg 08/24/18 04:44 08/24/18 05:04 Ativan IVPUSH 08/24/18 04:45 1 mg ONETIME ONE Administration Ondansetron HCl 4 mg 08/24/18 04:41 08/24/18 04:58 Zofran IVPUSH 08/24/18 04:42 4 mg ONETIME ONE Administration Departure - Departure Time of Disposition: 07:00 Disposition: Admitted As Inpatient 64 Condition: Fair Clinical Impression: Acute on chronic pancreatitis, Hypokalemia HTN (hypertension) Qualifiers: Hypertension type: unspecified Qualified Code(s): I10 - Essential (primary) hypertension - Discharge Information *PRESCRIPTION DRUG MONITORING PROGRAM REVIEWED*: No *COPY OF PRESCRIPTION DRUG MONITORING REPORT IN PATIENT APRIL: No Referrals: PCP,None [Primary Care Provider] - Forms: ED Department Discharge
[2018-08-24] MEDS ORDERED: Labetalol 100 MG/20 ML MDV IVPUSH ONE (05:51)
[2018-08-24] MEDS ORDERED: Acetaminophen 1,000 MG in Premix Bag 1 BAG IV ONE (05:52)
[2018-08-24] MEDS ORDERED: Labetalol 20 MG/4 ML Syringe IVPUSH ONE ×2 (06:04→06:45)
[2018-08-24] MEDS ORDERED: NS + KCl 20mEq/L 1,000 ML IV SCH (07:00)
[2018-08-24] MEDS ORDERED: hydrALAZINE 20 MG/ML SDV IVPUSH ONE (08:30)
--- NOTE | 2018-08-24 08:54 | PCM.HP ---
H&P History of Present Illness - General Date of Service: 08/24/18 Admit Problem/Dx: Admission Diagnosis/Problem Admission Diagnosis/Problem Pancreatitis Source of Information: Patient, Old Records, Provider, RN Notes Reviewed History Limitations: Reports: No Limitations - History of Present Illness Initial Comments - Free Text/Narative: Mr. Pineda is a 61-year-old gentleman who presented to the emergency department with upper abdominal pain, nausea, and vomiting. He has had a long-standing history of abdominal pain which he thinks dates back at least 25 years. He is been diagnosed with chronic pancreatitis in the past. Over the past 25 has had multiple diagnostic studies including CT scans, EGDs, and ERCPs. He's had several visits to the emergency department, during all of these visits lipase level has been found to be within normal range. On evaluation today he has a modest elevation in white blood cell count and a mild elevation in lipase level. Despite antiemetic therapy and pain meds he continues to have symptoms and is not felt to be able to manage at home. Blood pressures been noted to be elevated in the emergency department and needs received IV labetalol as well as hydralazine. Abdominal Pain Score (Numeric/FACES): 7 - Related Data Allergies/Adverse Reactions: Allergies Allergy/AdvReac Type Severity Reaction Status Date / Time acetaminophen [From Tylenol] Allergy Rash Verified 08/24/18 04:22 erythromycin base Allergy Hives Verified 08/24/18 04:22 metoclopramide [From Reglan] AdvReac Agitation Verified 08/24/18 04:22 Home Medications: Home Meds Aspirin [Halfprin] 81 mg PO DAILY 11/02/16 [History] Ondansetron [Zofran ODT] 4 mg PO Q4H PRN 11/02/16 [History] Promethazine [Phenergan] 50 mg PO Q6H PRN 11/02/16 [History] Pravastatin [Pravachol] 40 mg PO DAILY 08/24/18 [History] Past Medical History HEENT History: Reports: Impaired Vision Cardiovascular History: Reports: Blood Clots/VTE/DVT, CAD, Hypertension, [place], Other (See Below) Other Cardiovascular History: iliac stents for possible clots Gastrointestinal History: Reports: Cholelithiasis, GERD, Pancreatitis, Other ( See Below) Other Gastrointestinal History: pancreatitis Musculoskeletal History: Reports: Fracture Oncologic (Cancer) History: Reports: Other (See Below) Other Oncologic History: skin ca Dermatologic History: Reports: Other (See Below) Other Dermatologic History: basal cell ca - Infectious Disease History Infectious Disease History: Reports: Chicken Pox, Mumps - Past Surgical History GI Surgical History: Reports: Appendectomy, Cholecystectomy, Other (See Below) Other GI Surgeries/Procedures: exploratory lap for pancrease possilbe fruy procedure Social & Family History - Family History Family Medical History: Noncontributory HEENT: Reports: Cataract Cardiac: Reports: Bypass Endocrine/Metabolic: Reports: Diabetes, type II Oncologic: Reports: Prostate - Tobacco Use Smoking Status *Q: Never Smoker - Caffeine Use Caffeine Use: Reports: Coffee Other Caffeine Use: 4 cups - Recreational Drug Use Recreational Drug Use: No H&P Review of Systems - Review of Systems: Review Of Systems: See Below General: Reports: No Symptoms HEENT: Reports: No Symptoms Pulmonary: Reports: No Symptoms Cardiovascular: Reports: No Symptoms Gastrointestinal: Reports: Abdominal Pain, Distension, Nausea, Vomiting. Denies : Black Stool, Bloody Stool, Difficulty Swallowing Genitourinary: Reports: No Symptoms Musculoskeletal: Reports: No Symptoms Skin: Reports: No Symptoms Psychiatric: Reports: No Symptoms Neurological: Reports: No Symptoms Hematologic/Lymphatic: Reports: No Symptoms Immunologic: Reports: No Symptoms Exam - Exam Exam: See Below - Vital Signs Vital Signs: Last Vital Signs Temp 96.3 F 08/24/18 08:33 Pulse 77 08/24/18 08:42 Resp 14 08/24/18 08:42 BP 187/103 H 08/24/18 08:42 Pulse Ox 97 08/24/18 08:42 Weight: 130 lb 11.746 oz - Exam Quality Assessment: DVT Prophylaxis General: Alert, Oriented, Cooperative, Moderate Distress HEENT: Conjunctiva Clear, Hearing Intact, Mucosa Moist & [place], Normal Nasal Septum, Posterior Pharynx Clear, Pupils Equal Neck: Supple, Trachea Midline, +2 Carotid Pulse wo Bruit Lungs: Clear to Auscultation, Normal Respiratory Effort Cardiovascular: Regular Rate, Regular Rhythm, Normal S1, Normal S2. No: Systolic Murmur, Diastolic Murmur GI/Abdominal Exam: Soft, No Organomegaly, Distended, Tender. No: Guarding, Rigid, Rebound Extremities: Normal Inspection, Non-Tender, No Pedal Edema Skin: Warm, Dry, Intact Neurological: Cranial Nerves Intact, Strength Equal Bilateral, Normal Speech, Normal Tone, Sensation Intact. No: Focal Deficit Neuro Extensive - Mental Status: Alert, Oriented x3, Normal Mood/Affect, Normal Cognition, Memory Intact - Patient Data Lab Results Last 24 hrs: Laboratory Results - last 24 hr 08/24/18 08/24/18 08/24/18 Range/Units 04:50 06:13 06:51 WBC (4.5-11.0) K/uL RBC (4.30-5.90) M/uL Hgb (12.0-15.0) g/dL Hct (40.0-54.0) % MCV (80-98) fL MCH (27-31) pg MCHC (32-36) % Plt Count (150-400) K/uL Neut % (Auto) (36-66) % Lymph % (Auto) (24-44) % [place] % (Auto) (2-6) % Eos % (Auto) (2-4) % Baso % (Auto) (0-1) % Sodium 141 (140-148) mmol/L Potassium 3.3 L (3.6-5.2) mmol/L Chloride 104 (100-108) mmol/L Carbon Dioxide 25 (21-32) mmol/L Anion Gap 15.3 H (5.0-14.0) mmol/L BUN 12 (7-18) mg/dL Creatinine 1.1 (0.8-1.3) mg/dL Est Cr Clr Drug Dosing 56.90 mL/min Estimated GFR (MDRD) > 60 (>60) Glucose 141 H (74-106) mg/dL Calcium 8.7 (8.5-10.1) mg/dL Magnesium 1.7 L (1.8-2.4) mg/dL Total Bilirubin (0.2-1.0) mg/dL Direct Bilirubin (0.0-0.2) mg/dL Indirect Bilirubin AST (15-37) U/L ALT (12-78) U/L Alkaline Phosphatase (46-116) U/L Total Protein (6.4-8.2) g/dL Albumin (3.4-5.0) g/dL Globulin (2.3-3.5) g/dL Albumin/Globulin Ratio (1.2-2.2) Lipase 847 H (73-393) U/L 08/24/18 08/24/18 Range/Units 08:21 08:22 WBC 11.9 H (4.5-11.0) K/uL RBC 5.52 (4.30-5.90) M/uL Hgb 16.4 H (12.0-15.0) g/dL Hct 50.2 (40.0-54.0) % MCV 91 (80-98) fL MCH 30 (27-31) pg MCHC 33 (32-36) % Plt Count 320 (150-400) K/uL Neut % (Auto) 67 H (36-66) % Lymph % (Auto) 25 (24-44) % [place] % (Auto) 5 (2-6) % Eos % (Auto) 2 (2-4) % Baso % (Auto) 0 (0-1) % Sodium (140-148) mmol/L Potassium (3.6-5.2) mmol/L Chloride (100-108) mmol/L Carbon Dioxide (21-32) mmol/L Anion Gap (5.0-14.0) mmol/L BUN (7-18) mg/dL Creatinine (0.8-1.3) mg/dL Est Cr Clr Drug Dosing mL/min Estimated GFR (MDRD) (>60) Glucose (74-106) mg/dL Calcium (8.5-10.1) mg/dL Magnesium (1.8-2.4) mg/dL Total Bilirubin 0.2 (0.2-1.0) mg/dL Direct Bilirubin 0.08 (0.0-0.2) mg/dL Indirect Bilirubin TNP AST 28 (15-37) U/L ALT 26 (12-78) U/L Alkaline Phosphatase 89 (46-116) U/L Total Protein 7.5 (6.4-8.2) g/dL Albumin 3.7 (3.4-5.0) g/dL Globulin 3.8 H (2.3-3.5) g/dL Albumin/Globulin Ratio 1.0 L (1.2-2.2) Lipase (73-393) U/L Result Diagrams: 08/24/18 08:22 08/24/18 06:13 *Q Meaningful Use (ADM) - VTE Risk Assess *Q Each Risk Factor Represents 1 Point: None Total Score 1 Point Risk Factors: 0 Each Risk Factor Represents 2 Points: Age 60 - 74 Years Total Score 2 Point Risk Factors: 2 Each Risk Factor Represents 3 Points: None Total Score 3 Point Risk Factors: 0 Each Risk Factor Represents 5 Points: None Total Score 5 Point Risk Factors: 0 Venous Thromboembolism Risk Factor Score *Q: 2 Problem List Initiated/Reviewed/Updated: Yes Orders Last 24hrs: Active Orders 24 hr Category Date Time Status Patient Status Manage Transfer [TRANSFER] Routine ADT 08/24/18 08:25 Active NS + KCl 20mEq/L [Normal Saline with 20 mEq KCl] 1,000 Med 08/24/18 07:00 Active ml IV ASDIRECTED Resuscitation Status Routine Resus Stat 08/24/18 08:26 Ordered Medication Orders Potassium Chloride/Sodium Chloride (Normal Saline With 20 Meq Kcl) 1,000 mls @ 250 mls/hr IV ASDIRECTED CHARLES Last Admin: 08/24/18 07:02 Dose: 250 mls/hr Assessment/Plan Comment:: ASSESSMENT AND PLAN ACUTE RECURRENT PANCREATITIS-history of chronic pancreatitis, mild elevation in lipase level. He's had multiple previous evaluations, no other specific etiology of his pain has been identified. He is been evaluated at the [facility] last year and they did recommend consideration of pancreatectomy with islet cell transplant. -IV fluids for hydration -Pain and anti-emetic therapy as needed -Nothing by mouth -Repeat labs in a.m. HYPERTENSION-present in the emergency department, likely related to ongoing pain and symptoms -Continue to monitor blood pressure after admission MAINTENANCE ISSUES -DVT prophylaxis; Lovenox 40 mg subcutaneous daily -GI prophylaxis; not indicated -Lopez catheter; not indicated -Nutrition; nothing by mouth -Nicotine dependence; not required CODE STATUS-FULL CODE ADMISSION STATUS-this patient will be admitted to observation status, expect no more than a one night hospital stay for evaluation and management of problems as outlined above. DISPOSITION-anticipate discharge to home after the hospital stay. PRIMARY CARE PROVIDER-Wilson Melgoza Additional CC's: Wilson Melgoza
[2018-08-24] MEDS ORDERED: HYDROmorphone 0.5 MG/0.5 ML Syringe IVPUSH PRN (10:01)
[2018-08-24] MEDS ORDERED: Sodium Chloride 0.9% 10 ML Syringe FLUSH PRN (10:01)
[2018-08-24] MEDS ORDERED: Ondansetron 4 MG/2 ML SDV IV PRN (10:01)
[2018-08-24] MEDS: Lactated Ringers 1,000 ML IV SCH ×2 (11:18→19:24)
[2018-08-24] MEDS: Enoxaparin 40 MG/0.4 ML Syringe SUBCUT SCH (11:19)
[2018-08-24] MEDS: Aspirin 81 MG Tab.EC PO SCH (11:19)
[2018-08-24] MEDS: Pravastatin 20 MG Tab PO SCH (11:19)
[2018-08-24] MEDS ORDERED: Aluminum Hydroxide/Magnesium Hydroxide/Simethicone Susp 30 ML Cup PO PRN (12:02)
[2018-08-24] MEDS: Pantoprazole 40 MG Vial IVPUSH SCH (12:31)
[2018-08-24] MEDS ORDERED: Calcium Carbonate 500 MG Tab.Chew PO PRN (14:08)
[2018-08-25] MEDS: Pantoprazole 40 MG Vial IVPUSH SCH ×2 (00:36→13:17)
[2018-08-25] MEDS: Lactated Ringers 1,000 ML IV SCH (03:24)
[2018-08-25] MEDS: Enoxaparin 40 MG/0.4 ML Syringe SUBCUT SCH (08:20)
[2018-08-25] MEDS: Aspirin 81 MG Tab.EC PO SCH (08:20)
[2018-08-25] MEDS: Pravastatin 20 MG Tab PO SCH (08:20)
[2018-08-25 10:51] VITALS: BP 179/85
--- NOTE | 2018-08-25 12:40 | PCM.DCSUM1 ---
Discharge Summary - Hospital Course Brief History: Mr. Pineda is a 62-year-old gentleman who was admitted through the emergency department with abdominal pain and nausea secondary to acute on chronic pancreatitis. - Discharge Data Discharge Date: 08/25/18 Discharge Disposition: Home, Self-Care 01 Condition: Fair - Discharge Diagnosis/Problem(s) (1) Acute on chronic pancreatitis SNOMED Code(s): 935941731 ICD Code: K85.90 - ACUTE PANCREATITIS WITHOUT NECROSIS OR INFECTION, UNSP; K86.1 - OTHER CHRONIC PANCREATITIS Status: Acute Current Visit: Yes (2) HTN (hypertension) SNOMED Code(s): 54412494 ICD Code: I10 - ESSENTIAL (PRIMARY) HYPERTENSION Status: Chronic Current Visit: Yes Qualifiers: Hypertension type: unspecified Qualified Code(s): I10 - Essential (primary ) hypertension - Patient Summary/Data Hospital Course: Mr. Pineda is a 61-year-old gentleman who presented to the emergency department with upper abdominal pain, nausea, and vomiting. He has had a long-standing history of abdominal pain which he thinks dates back at least 25 years. He is been diagnosed with chronic pancreatitis in the past. Over the past 25 years he has had multiple diagnostic studies including CT scans, EGDs, and ERCPs. He's had several visits to the emergency department, during all of these visits lipase level has been found to be within normal range. On evaluation today he has a modest elevation in white blood cell count and a mild elevation in lipase level. Despite antiemetic therapy and pain meds he continues to have symptoms and is not felt to be able to manage at home. Blood pressures been noted to be elevated in the emergency department and he has received IV labetalol as well as hydralazine. On admission he was given IV fluids for hydration as well as medication for pain and nausea. By the following morning he was feeling significantly improved with resolution of his symptoms. He had been admitted to inpatient status as it was expected that he would require at least a 2 night hospital stay for management of his recurrent pancreatitis. He was discharged home after only one night of admission because his symptoms had resolved sooner than expected. Activity will be as tolerated and he will resume a low-fat diet. Follow-up appointment will be scheduled with his primary care provider within one week. - Patient Instructions Diet, Other: Low fat diet Activity: As Tolerated Other/Special Instructions: Please schedule follow-up appointment with primary care provider within one week. - Discharge Plan *PRESCRIPTION DRUG MONITORING PROGRAM REVIEWED*: No *COPY OF PRESCRIPTION DRUG MONITORING REPORT IN PATIENT APRIL: No Home Medications: Home Meds Aspirin [Halfprin] 81 mg PO DAILY 11/02/16 [History] Ondansetron [Zofran ODT] 4 mg PO Q4H PRN 11/02/16 [History] Promethazine [Phenergan] 50 mg PO Q6H PRN 11/02/16 [History] Pravastatin [Pravachol] 40 mg PO DAILY 08/24/18 [History] Referrals: Wilson Melgoza PA [Physician Corporate Development Intern] - - Discharge Summary/Plan Comment DC Time >30 min.: No - Patient Data Vitals - Most Recent: Last Vital Signs Temp 97.7 F 08/25/18 10:50 Pulse 72 08/25/18 10:50 Resp 16 08/25/18 10:50 BP 179/85 H 08/25/18 10:50 Pulse Ox 96 08/25/18 10:50 Weight - Most Recent: 126 lb 3.999 oz I&O - Last 24 hours: Intake & Output 08/24/18 08/25/18 08/25/18 22:59 06:59 14:59 Intake Total 1795 1479 1067 Output Total 1450 525 400 Balance 345 954 667 Lab Results - Last 24 hrs: Laboratory Results - last 24 hr 08/25/18 08/25/18 08/25/18 Range/Units 05:00 05:00 05:00 WBC 10.0 (4.5-11.0) K/uL RBC 4.99 (4.30-5.90) M/uL Hgb 14.9 (12.0-15.0) g/dL Hct 45.6 (40.0-54.0) % MCV 91 (80-98) fL MCH 30 (27-31) pg MCHC 33 (32-36) % Plt Count 261 (150-400) K/uL Sodium 139 L (140-148) mmol/L Potassium 4.3 (3.6-5.2) mmol/L Chloride 107 (100-108) mmol/L Carbon Dioxide 25 (21-32) mmol/L Anion Gap 11.3 (5.0-14.0) mmol/L BUN 12 (7-18) mg/dL Creatinine 0.8 (0.8-1.3) mg/dL Est Cr Clr Drug Dosing 75.56 mL/min Estimated GFR (MDRD) > 60 (>60) Glucose 92 (74-106) mg/dL Calcium 8.6 (8.5-10.1) mg/dL Total Bilirubin 0.4 D (0.2-1.0) mg/dL AST 22 (15-37) U/L ALT 20 (12-78) U/L Alkaline Phosphatase 71 (46-116) U/L Total Protein 6.1 L (6.4-8.2) g/dL Albumin 2.9 L (3.4-5.0) g/dL Globulin 3.2 (2.3-3.5) g/dL Albumin/Globulin Ratio 0.9 L (1.2-2.2) Lipase 123 (73-393) U/L Med Orders - Current: Current Medications Aspirin (Halfprin) 81 mg PO DAILY [facility] Last Admin: 08/25/18 08:20 Dose: 81 mg Calcium Carbonate/Glycine (Tums) 1,000 mg PO Q2H PRN PRN Reason: Indigestion Last Admin: 08/24/18 14:25 Dose: 1,000 mg Enoxaparin Sodium (Lovenox) 40 mg SUBCUT DAILY [facility] Last Admin: 08/25/18 08:20 Dose: Not Given Hydromorphone HCl (Dilaudid) 0.5 mg IVPUSH Q2H PRN PRN Reason: Pain Last Admin: 08/24/18 10:24 Dose: 0.5 mg Lactated Ringer's (Ringers, Lactated) 1,000 mls @ 125 mls/hr IV ASDIRECTED [facility] Last Admin: 08/25/18 03:24 Dose: 125 mls/hr Ondansetron HCl (Zofran) 4 mg IV Q4H PRN PRN Reason: Nausea/Vomiting Pantoprazole Sodium (Protonix Iv) 40 mg IVPUSH Q12H [facility] Last Admin: 08/25/18 00:36 Dose: 40 mg Pravastatin Sodium (Pravachol) 40 mg PO DAILY [facility] Last Admin: 08/25/18 08:20 Dose: 40 mg Senna/Docusate Sodium (Senna Plus) 1 tab PO BID PRN PRN Reason: Constipation Sodium Chloride (Saline Flush) 10 ml FLUSH ASDIRECTED PRN PRN Reason: Keep Vein Open Last Admin: 08/24/18 10:24 Dose: 10 ml Discontinued Medications Al Hydroxide/Mg Hydroxide (Mag-Al Plus) 30 ml PO Q4H PRN PRN Reason: Heartburn Last Admin: 08/24/18 12:30 Dose: 30 ml Hydralazine HCl (Apresoline) 10 mg IVPUSH ONETIME ONE Stop: 08/24/18 08:31 Last Admin: 08/24/18 08:30 Dose: 10 mg Hydromorphone HCl (Dilaudid) 1 mg IVPUSH ONETIME ONE Stop: 08/24/18 04:42 Last Admin: 08/24/18 04:59 Dose: 1 mg Lactated Ringer's (Ringers, Lactated) 1,000 mls @ 1,000 mls/hr IV BOLUS ONE Stop: 08/24/18 05:39 Last Admin: 08/24/18 04:56 Dose: 1,000 mls/hr Acetaminophen 1,000 mg/ Premix 100 mls @ 400 mls/hr IV NOW ONE Stop: 08/24/18 06:06 Last Admin: 08/24/18 06:10 Dose: 400 mls/hr Potassium Chloride/Sodium Chloride (Normal Saline With 20 Meq Kcl) 1,000 mls @ 250 mls/hr IV ASDIRECTED CHARLES Last Admin: 08/24/18 07:02 Dose: 250 mls/hr Labetalol HCl (Normodyne) 20 mg IVPUSH ONETIME ONE; Protocol Stop: 08/24/18 05:52 Last Admin: 08/24/18 06:16 Dose: Not Given Labetalol HCl (Normodyne) 20 mg IVPUSH NOW ONE; Protocol Stop: 08/24/18 06:05 Last Admin: 08/24/18 06:12 Dose: 20 mg Labetalol HCl (Normodyne) 40 mg IVPUSH NOW ONE; Protocol Stop: 08/24/18 06:46 Last Admin: 08/24/18 06:52 Dose: 40 mg Lorazepam (Ativan) 1 mg IVPUSH ONETIME ONE Stop: 08/24/18 04:45 Last Admin: 08/24/18 05:04 Dose: 1 mg Ondansetron HCl (Zofran) 4 mg IVPUSH ONETIME ONE Stop: 08/24/18 04:42 Last Admin: 08/24/18 04:58 Dose: 4 mg - Exam General: Reports: Alert, Oriented, Cooperative, No Acute Distress Lungs: Reports: Clear to Auscultation, Normal Respiratory Effort Cardiovascular: Reports: Regular Rate, Regular Rhythm, No Murmurs GI/Abdominal Exam: Soft, Non-Tender, No Organomegaly, No Distention
== END 2018-08-25 13:52 | disposition home or self-care (01) | DRG 282 ==
LOC: JP.ED 04:08 → JP.MS 08:25
PROVIDERS: ADMIT Hospitalist; ATTEND Hospitalist
DX: K85.90 Acute pancreatitis without necrosis or infection, unspecified (principal); K86.1 Other chronic pancreatitis; E87.6 Hypokalemia; I10 Essential (primary) hypertension; I25.10 Atherosclerotic heart disease of native coronary artery without angina pectoris; I25.2 Old myocardial infarction; K21.9 Gastro-esophageal reflux disease without esophagitis; Z86.718 Personal history of other venous thrombosis and embolism; Z85.828 Personal history of other malignant neoplasm of skin; H54.7 Unspecified visual loss; Z79.82 Long term (current) use of aspirin; Z88.1 Allergy status to other antibiotic agents; Z88.8 Allergy status to other drugs, medicaments and biological substances; F12.90 Cannabis use, unspecified, uncomplicated
CPT/HCPCS: 36415; 80048; 80053; 80076; 83690; 83735; 85025; 85027; 94762; 96361; 96374; 96375; 96376; 99284-25; A9270-GY; C9113; J0131; J0360; J1170; J1650; J2060; J2405; J3480; J3490; J7120

== ENCOUNTER 2018-08-30 13:02 | Outpatient (CLI) | payer BC, MEDICARE ==
[2018-08-30] MEDS: Lactated Ringers 1,000 ML IV PRN ×2 (13:15→14:09)
[2018-08-30] MEDS ORDERED: HYDROmorphone 1 MG/ML Syringe IVPUSH ONE ×3 (13:17→14:50)
[2018-08-30] MEDS ORDERED: Ondansetron 4 MG/2 ML SDV IVPUSH ONE (13:20)
[2018-08-30 15:22] VITALS: BP 168/97; PULSE 90
== END 2018-08-30 15:24 | disposition home or self-care (01) ==
LOC: JP.ACU 13:02
PROVIDERS: ATTEND Physician Assistant
DX: K86.1 Other chronic pancreatitis (principal)
CPT/HCPCS: J1170; J2405; J7120; 96361; 96374; 96375; 96376

== ENCOUNTER 2018-11-14 04:41 | Emergency (ER) | payer BC, MEDICARE ==
[2018-11-14] MEDS ORDERED: Lactated Ringers 1,000 ML IV ONE ×2 (05:03→06:05)
[2018-11-14] MEDS ORDERED: HYDROmorphone 1 MG/ML Syringe IVPUSH ONE (05:04)
[2018-11-14] MEDS ORDERED: Metoclopramide 10 MG/2 ML SDV IVPUSH ONE (05:12)
--- NOTE | 2018-11-14 05:18 | EDM.PDOC ---
ED HPI GENERAL MEDICAL PROBLEM - General Chief Complaint: Abdominal Pain Stated Complaint: ABD PAIN Time Seen by Provider: 11/14/18 05:05 Source of Information: Reports: Patient, Old Records, RN History Limitations: Reports: No Limitations - History of Present Illness INITIAL COMMENTS - FREE TEXT/NARRATIVE: 63 yo male here with epigastric pain. Has recurring pancreatitis and this feels similar. Has vomiting x 2. No fever. No hematemesis. Is not sure what triggered this. Awoke about 0230h this morning with the pain. Onset: Today Onset Date: 11/14/18 Onset Time: 02:30 Duration: Hour(s): (2+), Constant Location: Reports: Abdomen Quality: Reports: Ache Severity: Moderate Improves with: Reports: Medication Worsens with: Reports: Other (uncertain) Context: Reports: Other (chronic pancreatitis) Associated Symptoms: Reports: Nausea/Vomiting. 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: Other (see below) (none) Middle Abdomen Pain Score (Numeric/FACES): 10 - Related Data Allergies Allergy/AdvReac Type Severity Reaction Status Date / Time acetaminophen [From Tylenol] Allergy Rash Verified 08/30/18 13:19 erythromycin base Allergy Hives Verified 08/30/18 13:19 metoclopramide [From Reglan] AdvReac Agitation Verified 08/30/18 13:19 Home Meds: Home Meds Ondansetron [Zofran ODT] 4 mg PO Q4H PRN 11/02/16 [History] Promethazine [Phenergan] 50 mg PO Q6H PRN 11/02/16 [History] Pravastatin [Pravachol] 40 mg PO DAILY 08/24/18 [History] Past Medical History HEENT History: Reports: Impaired Vision Cardiovascular History: Reports: Blood Clots/VTE/DVT, CAD, Hypertension, [place], Other (See Below) Other Cardiovascular History: iliac stents for possible clots Gastrointestinal History: Reports: Cholelithiasis, GERD, Pancreatitis, Other ( See Below) Other Gastrointestinal History: pancreatitis Musculoskeletal History: Reports: Fracture Oncologic (Cancer) History: Reports: Other (See Below) Other Oncologic History: skin ca Dermatologic History: Reports: Other (See Below) Other Dermatologic History: basal cell ca - Infectious Disease History Infectious Disease History: Reports: Chicken Pox, Mumps - Past Surgical History GI Surgical History: Reports: Appendectomy, Cholecystectomy, Other (See Below) Other GI Surgeries/Procedures: exploratory lap for pancrease possilbe fruy procedure Social & Family History - Family History Family Medical History: Noncontributory HEENT: Reports: Cataract Cardiac: Reports: Bypass Endocrine/Metabolic: Reports: Diabetes, type II Oncologic: Reports: Prostate - Tobacco Use Smoking Status *Q: Never Smoker - Caffeine Use Caffeine Use: Reports: Coffee Other Caffeine Use: 4 cups - Recreational Drug Use Recreational Drug Use: No ED ROS GENERAL - Review of Systems Review Of Systems: See Below Constitutional: Reports: No Symptoms HEENT: Reports: No Symptoms Respiratory: Reports: No Symptoms Cardiovascular: Reports: No Symptoms Endocrine: Reports: No Symptoms GI/Abdominal: Reports: Abdominal Pain (epigastric), Nausea, Vomiting. Denies: Anorexia, Black Stool, Bloody Stool, Constipation, Diarrhea, Distension, Flatus , Hematemesis, Hematochezia, Melena : Reports: No Symptoms Musculoskeletal: Reports: No Symptoms Skin: Reports: No Symptoms Neurological: Reports: No Symptoms Psychiatric: Reports: No Symptoms ED EXAM, GI/ABD - Physical Exam Exam: See Below Exam Limited By: No Limitations General Appearance: Alert, WD/WN, No Apparent Distress Eyes: Bilateral: Normal Appearance Ears: Normal External Exam, Normal Canal, Hearing Grossly Normal Nose: Normal Inspection, No Blood Throat/Mouth: Normal Inspection, Normal Lips, Normal Oropharynx, Normal Voice, No Airway Compromise Head: Atraumatic, Normocephalic Neck: Normal Inspection Respiratory/Chest: No Respiratory Distress, Lungs Clear, Normal Breath Sounds, No Accessory Muscle Use Cardiovascular: Regular Rate, Rhythm, No Edema GI/Abdominal Exam: Soft, No Distention, Tender (epigastric). No: Distended, Guarding, Rigid, Rebound Back Exam: Normal Inspection. No: CVA Tenderness (R), CVA Tenderness (L) Extremities: Normal Inspection, Normal Range of Motion, Non-Tender, No Pedal Edema Neurological: Alert, Oriented, CN II-XII Intact, Normal Cognition, No Motor/ Sensory Deficits Psychiatric: Normal Affect, Normal Mood Skin Exam: Warm, Dry, Intact, Normal Color, No Rash Course - Vital Signs Last Recorded V/S: Last Vital Signs Temp 36.1 C 11/14/18 04:50 Pulse 87 11/14/18 05:57 Resp 18 11/14/18 04:50 BP 201/102 H 11/14/18 05:57 Pulse Ox 97 11/14/18 04:50 - Orders/Labs/Meds Orders: Active Orders 24 hr Category Date Time Status Lactated Ringers [Ringers, Lactated] 1,000 ml Med 11/14/18 06:05 Active IV BOLUS Medication Orders Lactated Ringer's (Ringers, Lactated) 1,000 mls @ 1,000 mls/hr IV BOLUS ONE Stop: 11/14/18 07:04 Last Admin: 11/14/18 06:30 Dose: 1,000 mls/hr Labs: Laboratory Tests 11/14/18 11/14/18 Range/Units 05:21 05:21 WBC 16.8 H (4.5-11.0) K/uL RBC 5.51 (4.30-5.90) M/uL Hgb 16.5 H (12.0-15.0) g/dL Hct 49.2 (40.0-54.0) % MCV 89 (80-98) fL MCH 30 (27-31) pg MCHC 34 (32-36) % Plt Count 274 (150-400) K/uL Sodium 140 (140-148) mmol/L Potassium 3.4 L (3.6-5.2) mmol/L Chloride 101 (100-108) mmol/L Carbon Dioxide 28 (21-32) mmol/L Anion Gap 14.4 H (5.0-14.0) mmol/L BUN 13 (7-18) mg/dL Creatinine 0.9 (0.8-1.3) mg/dL Est Cr Clr Drug Dosing 66.32 mL/min Estimated GFR (MDRD) > 60 (>60) Glucose 161 H (74-106) mg/dL Calcium 9.1 (8.5-10.1) mg/dL Lipase 122 (73-393) U/L Meds: Medications Generic Name Dose Route Start Last Admin Trade Name Freq PRN Reason Stop Dose Admin Lactated Ringer's 1,000 mls @ 1,000 mls/hr 11/14/18 06:05 11/14/18 06:30 Ringers, Lactated IV 11/14/18 07:04 1,000 mls/hr BOLUS ONE Administration Discontinued Medications Generic Name Dose Route Start Last Admin Trade Name Freq PRN Reason Stop Dose Admin Hydromorphone HCl 1 mg 11/14/18 05:04 11/14/18 05:19 Dilaudid IVPUSH 11/14/18 05:05 1 mg ONETIME ONE Administration Hydromorphone HCl 0.5 mg 11/14/18 06:06 11/14/18 06:13 Dilaudid IVPUSH 11/14/18 06:07 0.5 mg ONETIME ONE Administration Lactated Ringer's 1,000 mls @ 1,000 mls/hr 11/14/18 05:03 11/14/18 05:24 Ringers, Lactated IV 11/14/18 06:02 1,000 mls/hr BOLUS ONE Administration Metoclopramide HCl 10 mg 11/14/18 05:12 11/14/18 05:24 Reglan IVPUSH 11/14/18 05:13 Not Given ONETIME ONE Ondansetron HCl 4 mg 11/14/18 05:25 11/14/18 05:32 Zofran IVPUSH 11/14/18 05:26 4 mg ONETIME ONE Administration Departure - Departure Time of Disposition: 07:40 Disposition: Home, Self-Care 01 Condition: Fair Clinical Impression: Chronic pancreatitis Qualifiers: Pancreatitis type: unspecified pancreatitis type Qualified Code(s): K86.1 - Other chronic pancreatitis - Discharge Information *PRESCRIPTION DRUG MONITORING PROGRAM REVIEWED*: No *COPY OF PRESCRIPTION DRUG MONITORING REPORT IN PATIENT APRIL: No Referrals: PCP,None [Primary Care Provider] - Forms: ED Department Discharge Additional Instructions: NPO until about noon today, then clear liquids only today. Advance your diet slowly as tolerated. Zofran as needed for nausea and Dilaudid as needed or pain relief. F/U with your provider as needed. - My Orders Last 24 Hours: My Active Orders 11/14/18 06:05 Lactated Ringers [Ringers, Lactated] 1,000 ml IV BOLUS - Assessment/Plan Last 24 Hours: My Active Orders 11/14/18 06:05 Lactated Ringers [Ringers, Lactated] 1,000 ml IV BOLUS
[2018-11-14] MEDS ORDERED: Ondansetron 4 MG/2 ML SDV IVPUSH ONE (05:25)
[2018-11-14] MEDS ORDERED: HYDROmorphone 0.5 MG/0.5 ML Syringe IVPUSH ONE (06:06)
[2018-11-14 07:37] VITALS: BP 217/104
== END 2018-11-14 08:18 | disposition home or self-care (01) ==
LOC: JP.ED 04:41
DX: K86.1 Other chronic pancreatitis (principal); I10 Essential (primary) hypertension; I25.10 Atherosclerotic heart disease of native coronary artery without angina pectoris; K21.9 Gastro-esophageal reflux disease without esophagitis; Z79.899 Other long term (current) drug therapy; Z88.1 Allergy status to other antibiotic agents; Z88.8 Allergy status to other drugs, medicaments and biological substances; Z88.6 Allergy status to analgesic agent
CPT/HCPCS: 36415; 80048; 83690; 85027; 96361; 96374; 96375; 96376; 99284; J1170; J2405; J7120

== ENCOUNTER 2018-11-16 05:48 | Emergency (ER) | payer BC, MEDICARE ==
[2018-11-16] MEDS ORDERED: Sodium Chloride 0.9% 10 ML Syringe FLUSH PRN (06:29)
[2018-11-16] MEDS ORDERED: Lactated Ringers 1,000 ML IV SCH (06:30)
[2018-11-16] MEDS ORDERED: HYDROmorphone 1 MG/ML Syringe IVPUSH ONE (06:31)
[2018-11-16] MEDS ORDERED: Ondansetron 4 MG/2 ML SDV IVPUSH ONE (06:31)
--- NOTE | 2018-11-16 06:34 | EDM.PDOC ---
<OfficerBaron - Last Filed: 11/16/18 06:32> ED HPI GENERAL MEDICAL PROBLEM - General Chief Complaint: Abdominal Pain Stated Complaint: ABD PAIN Time Seen by Provider: 11/16/18 06:27 Source of Information: Reports: Patient, Old Records, RN Notes Reviewed History Limitations: Reports: No Limitations - History of Present Illness INITIAL COMMENTS - FREE TEXT/NARRATIVE: 63-year-old gentleman presents emergency department complaint of abdominal pain. He does have a history of chronic pancreatitis was evaluated in the emergency department 2 days prior for the same complaints at which time he was given IV fluids and narcotic pain medication was instructed to remain nothing by mouth. He states he did follow that plan unfortunately the pain has persisted he has nausea and vomiting no fever no shortness of breath or chest pain abd Pain Score (Numeric/FACES): 10 - Related Data Allergies Allergy/AdvReac Type Severity Reaction Status Date / Time acetaminophen [From Tylenol] Allergy Rash Verified 11/16/18 06:12 erythromycin base Allergy Hives Verified 11/16/18 06:12 metoclopramide [From Reglan] AdvReac Agitation Verified 11/16/18 06:12 Home Meds: Home Meds Ondansetron [Zofran ODT] 4 mg PO Q4H PRN 11/02/16 [History] Promethazine [Phenergan] 50 mg PO Q6H PRN 11/02/16 [History] raNITIdine HCl [Zantac] 150 mg PO DAILY 11/16/18 [History] Past Medical History HEENT History: Reports: Impaired Vision Cardiovascular History: Reports: Blood Clots/VTE/DVT, CAD, Hypertension, [place], Other (See Below) Other Cardiovascular History: iliac stents for possible clots Gastrointestinal History: Reports: Cholelithiasis, GERD, Pancreatitis, Other ( See Below) Other Gastrointestinal History: pancreatitis Musculoskeletal History: Reports: Fracture Oncologic (Cancer) History: Reports: Other (See Below) Other Oncologic History: skin ca Dermatologic History: Reports: Other (See Below) Other Dermatologic History: basal cell ca - Infectious Disease History Infectious Disease History: Reports: Chicken Pox, Mumps - Past Surgical History GI Surgical History: Reports: Appendectomy, Cholecystectomy, Other (See Below) Other GI Surgeries/Procedures: exploratory lap for pancrease possilbe fruy procedure Social & Family History - Family History Family Medical History: Noncontributory HEENT: Reports: Cataract Cardiac: Reports: Bypass Endocrine/Metabolic: Reports: Diabetes, type II Oncologic: Reports: Prostate - Tobacco Use Smoking Status *Q: Never Smoker - Caffeine Use Caffeine Use: Reports: Coffee Other Caffeine Use: 4 cups - Recreational Drug Use Recreational Drug Use: No ED ROS GENERAL - Review of Systems Review Of Systems: See Below Constitutional: Reports: No Symptoms HEENT: Reports: No Symptoms Respiratory: Reports: No Symptoms Cardiovascular: Reports: Dyspnea on Exertion GI/Abdominal: Reports: Abdominal Pain, Flatus, Nausea, Vomiting. Denies: Constipation, Diarrhea : Reports: No Symptoms Musculoskeletal: Reports: No Symptoms Skin: Reports: No Symptoms Neurological: Reports: No Symptoms ED EXAM, GI/ABD - Physical Exam Exam: See Below Exam Limited By: No Limitations General Appearance: Alert, Mild Distress Head: Atraumatic, Normocephalic Neck: Normal Inspection, Supple, Non-Tender, Full Range of Motion Respiratory/Chest: No Respiratory Distress, Lungs Clear, Normal Breath Sounds, No Accessory Muscle Use, Chest Non-Tender Cardiovascular: Regular Rate, Rhythm, No Murmur GI/Abdominal Exam: Soft, Guarding, Tender (Left upper quadrant). No: Rigid Course - Vital Signs Last Recorded V/S: Last Vital Signs Temp 96.6 F 11/16/18 08:06 Pulse 80 11/16/18 09:20 Resp 15 11/16/18 09:20 BP 147/91 H 11/16/18 09:20 Pulse Ox 94 L 11/16/18 09:20 - Orders/Labs/Meds Orders: Active Orders 24 hr Category Date Time Status Cardiac Monitoring [RC] .As Directed Care 11/16/18 06:29 Active Peripheral IV Care [RC] . DIRECTED Care 11/16/18 06:29 Active Peripheral IV Insertion Adult [OM.PC] Stat Oth 11/16/18 06:29 Ordered Labs: Laboratory Tests 11/16/18 11/16/18 11/16/18 Range/Units 06:15 06:15 06:15 WBC 15.5 H (4.5-11.0) K/uL RBC 5.86 (4.30-5.90) M/uL Hgb 17.9 H (12.0-15.0) g/dL Hct 52.0 (40.0-54.0) % MCV 89 (80-98) fL MCH 31 (27-31) pg MCHC 34 (32-36) % Plt Count 302 (150-400) K/uL Neut % (Auto) 79 H (36-66) % Lymph % (Auto) 15 L (24-44) % Posey % (Auto) 6 (2-6) % Eos % (Auto) 0 L (2-4) % Baso % (Auto) 0 (0-1) % PT 12.6 H (9.5-12.0) sec INR 1.15 (0.80-1.20) Sodium 136 L (140-148) mmol/L Potassium 3.2 L (3.6-5.2) mmol/L Chloride 91 L (100-108) mmol/L Carbon Dioxide 34 H (21-32) mmol/L Anion Gap 14.2 H (5.0-14.0) mmol/L BUN 34 H D (7-18) mg/dL Creatinine 1.4 H D (0.8-1.3) mg/dL Est Cr Clr Drug Dosing 41.59 mL/min Estimated GFR (MDRD) 51 L (>60) Glucose 131 H (74-106) mg/dL Lactic Acid (0.4-2.0) mmol/L Calcium 9.9 (8.5-10.1) mg/dL Total Bilirubin 0.8 D (0.2-1.0) mg/dL AST 27 (15-37) U/L ALT 30 (12-78) U/L Alkaline Phosphatase 99 (46-116) U/L Troponin I < 0.017 (0.000-0.056) ng/mL Total Protein 8.4 H (6.4-8.2) g/dL Albumin 4.1 (3.4-5.0) g/dL Globulin 4.3 H (2.3-3.5) g/dL Albumin/Globulin Ratio 1.0 L (1.2-2.2) Lipase 106 (73-393) U/L Urine Color Urine Appearance Urine pH (4.5-8.0) Ur Specific [place] (1.008-1.030) Urine Protein (NEGATIVE) mg/dL Urine Glucose (UA) (NEGATIVE) mg/dL Urine Ketones (NEGATIVE) mg/dL Urine Occult Blood (NEGATIVE) Urine Nitrite (NEGAITVE) Urine Bilirubin (NEGATIVE) Urine Urobilinogen (NORMAL) mg/dL Ur Leukocyte Esterase (NEGATIVE) Urine RBC (0-5) Urine WBC (0-5) Ur Epithelial Cells Amorphous Sediment Urine Bacteria Urine Mucus Urine Opiates Screen (NEGATIVE) Ur Oxycodone Screen (NEGATIVE) Urine Methadone Screen (NEGATIVE) Ur Propoxyphene Screen (NEGATIVE) Ur Barbiturates Screen (NEGATIVE) Ur Tricyclics Screen (NEGATIVE) Ur Phencyclidine Scrn (NEGATIVE) Ur Amphetamine Screen (NEGATIVE) U Methamphetamines Scrn (NEGATIVE) Urine MDMA Screen (NEGATIVE) U Benzodiazepines Scrn (NEGATIVE) U Cocaine Metab Screen (NEGATIVE) U Marijuana (THC) Screen (NEGATIVE) Ethyl Alcohol mg/dL 11/16/18 11/16/18 11/16/18 Range/Units 06:15 06:15 07:10 WBC (4.5-11.0) K/uL RBC (4.30-5.90) M/uL Hgb (12.0-15.0) g/dL Hct (40.0-54.0) % MCV (80-98) fL MCH (27-31) pg MCHC (32-36) % Plt Count (150-400) K/uL Neut % (Auto) (36-66) % Lymph % (Auto) (24-44) % Posey % (Auto) (2-6) % Eos % (Auto) (2-4) % Baso % (Auto) (0-1) % PT (9.5-12.0) sec INR (0.80-1.20) Sodium (140-148) mmol/L Potassium (3.6-5.2) mmol/L Chloride (100-108) mmol/L Carbon Dioxide (21-32) mmol/L Anion Gap (5.0-14.0) mmol/L BUN (7-18) mg/dL Creatinine (0.8-1.3) mg/dL Est Cr Clr Drug Dosing mL/min Estimated GFR (MDRD) (>60) Glucose (74-106) mg/dL Lactic Acid 2.5 H (0.4-2.0) mmol/L Calcium (8.5-10.1) mg/dL Total Bilirubin (0.2-1.0) mg/dL AST (15-37) U/L ALT (12-78) U/L Alkaline Phosphatase (46-116) U/L Troponin I (0.000-0.056) ng/mL Total Protein (6.4-8.2) g/dL Albumin (3.4-5.0) g/dL Globulin (2.3-3.5) g/dL Albumin/Globulin Ratio (1.2-2.2) Lipase (73-393) U/L Urine Color Yellow Urine Appearance Clear Urine pH 7.0 (4.5-8.0) Ur Specific [place] 1.010 (1.008-1.030) Urine Protein Negative (NEGATIVE) mg/dL Urine Glucose (UA) Normal (NEGATIVE) mg/dL Urine Ketones Negative (NEGATIVE) mg/dL Urine Occult Blood Moderate (NEGATIVE) Urine Nitrite Negative (NEGAITVE) Urine Bilirubin Negative (NEGATIVE) Urine Urobilinogen Normal (NORMAL) mg/dL Ur Leukocyte Esterase Negative (NEGATIVE) Urine RBC 0-5 (0-5) Urine WBC 0-5 (0-5) Ur Epithelial Cells Moderate Amorphous Sediment Not seen Urine Bacteria Not seen Urine Mucus Few Urine Opiates Screen (NEGATIVE) Ur Oxycodone Screen (NEGATIVE) Urine Methadone Screen (NEGATIVE) Ur Propoxyphene Screen (NEGATIVE) Ur Barbiturates Screen (NEGATIVE) Ur Tricyclics Screen (NEGATIVE) Ur Phencyclidine Scrn (NEGATIVE) Ur Amphetamine Screen (NEGATIVE) U Methamphetamines Scrn (NEGATIVE) Urine MDMA Screen (NEGATIVE) U Benzodiazepines Scrn (NEGATIVE) U Cocaine Metab Screen (NEGATIVE) U Marijuana (THC) Screen (NEGATIVE) Ethyl Alcohol 2 mg/dL 11/16/18 Range/Units 07:10 WBC (4.5-11.0) K/uL RBC (4.30-5.90) M/uL Hgb (12.0-15.0) g/dL Hct (40.0-54.0) % MCV (80-98) fL MCH (27-31) pg MCHC (32-36) % Plt Count (150-400) K/uL Neut % (Auto) (36-66) % Lymph % (Auto) (24-44) % P[place]y % (Auto) (2-6) % Eos % (Auto) (2-4) % Baso % (Auto) (0-1) % PT (9.5-12.0) sec INR (0.80-1.20) Sodium (140-148) mmol/L Potassium (3.6-5.2) mmol/L Chloride (100-108) mmol/L Carbon Dioxide (21-32) mmol/L Anion Gap (5.0-14.0) mmol/L BUN (7-18) mg/dL Creatinine (0.8-1.3) mg/dL Est Cr Clr Drug Dosing mL/min Estimated GFR (MDRD) (>60) Glucose (74-106) mg/dL Lactic Acid (0.4-2.0) mmol/L Calcium (8.5-10.1) mg/dL Total Bilirubin (0.2-1.0) mg/dL AST (15-37) U/L ALT (12-78) U/L Alkaline Phosphatase (46-116) U/L Troponin I (0.000-0.056) ng/mL Total Protein (6.4-8.2) g/dL Albumin (3.4-5.0) g/dL Globulin (2.3-3.5) g/dL Albumin/Globulin Ratio (1.2-2.2) Lipase (73-393) U/L Urine Color Urine Appearance Urine pH (4.5-8.0) Ur Specific [place] (1.008-1.030) Urine Protein (NEGATIVE) mg/dL Urine Glucose (UA) (NEGATIVE) mg/dL Urine Ketones (NEGATIVE) mg/dL Urine Occult Blood (NEGATIVE) Urine Nitrite (NEGAITVE) Urine Bilirubin (NEGATIVE) Urine Urobilinogen (NORMAL) mg/dL Ur Leukocyte Esterase (NEGATIVE) Urine RBC (0-5) Urine WBC (0-5) Ur Epithelial Cells Amorphous Sediment Urine Bacteria Urine Mucus Urine Opiates Screen Presumptive positive H (NEGATIVE) Ur Oxycodone Screen Negative (NEGATIVE) Urine Methadone Screen Negative (NEGATIVE) Ur Propoxyphene Screen Negative (NEGATIVE) Ur Barbiturates Screen Negative (NEGATIVE) Ur Tricyclics Screen Negative (NEGATIVE) Ur Phencyclidine Scrn Negative (NEGATIVE) Ur Amphetamine Screen Negative (NEGATIVE) U Methamphetamines Scrn Negative (NEGATIVE) Urine MDMA Screen Negative (NEGATIVE) U Benzodiazepines Scrn Negative (NEGATIVE) U Cocaine Metab Screen Negative (NEGATIVE) U Marijuana (THC) Screen Presumptive positive H (NEGATIVE) Ethyl Alcohol mg/dL Meds: Medications Discontinued Medications Generic Name Dose Route Start Last Admin Trade Name Melva PRN Reason Stop Dose Admin Hydromorphone HCl 1 mg 11/16/18 06:31 11/16/18 06:38 Dilaudid IVPUSH 11/16/18 06:32 1 mg ONETIME ONE Administration Lactated Ringer's 1,000 mls @ 999 mls/hr 11/16/18 06:30 11/16/18 06:39 Ringers, Lactated IV 999 mls/hr .BOLUS CHARLES Administration Sodium Chloride 100 mls @ 3 mls/sec 11/16/18 06:40 11/16/18 07:01 Normal Saline IV 11/16/18 06:41 3 mls/sec ONETIME ONE Administration Iopamidol 10,088 ml 11/16/18 06:45 11/16/18 07:01 Isovue-300 (61%) IV 88 ml . DIRECTED CHARLES Administration Ondansetron HCl 4 mg 11/16/18 06:31 11/16/18 06:37 Zofran IVPUSH 11/16/18 06:32 4 mg ONETIME ONE Administration Sodium Chloride 10 ml 11/16/18 06:29 11/16/18 06:40 Saline Flush FLUSH 10 ml ASDIRECTED PRN Administration Keep Vein Open Sodium Chloride 10 ml 11/16/18 06:39 11/16/18 07:01 Saline Flush FLUSH 11/16/18 06:40 10 ml ONETIME ONE Administration Departure - Departure Disposition: Home, Self-Care 01 Clinical Impression: Acute on chronic pancreatitis Nausea & vomiting Qualifiers: Vomiting type: unspecified Vomiting Intractability: non-intractable Qualified Code(s): R11.2 - Nausea with vomiting, unspecified - Discharge Information Instructions: Nausea and Vomiting, Adult Referrals: PCP,None [Primary Care Provider] - Forms: ED Department Discharge Care Plan Goals: Rest today, resume regular medications and increase diet and activity as tolerated. Return if worsening or you develop other concerns. <Edwardo Swan - Last Filed: 11/16/18 11:08> Course - Re-Assessments/Exams Free Text/Narrative Re-Assessment/Exam: 11/16/18 10:36 Care turned over from Officer pending CT report and response to labs. CT the abdomen and pelvis was unremarkable other than chronic findings, and the patient rested quietly for the next 3 hours and was ready for discharge. He had some persistent problems with hiccups but otherwise no vomiting and felt he was ready to try to go home and resume his regular medications. Departure - Departure Time of Disposition: 10:49
[2018-11-16] MEDS ORDERED: Sodium Chloride 0.9% 10 ML Syringe FLUSH ONE (06:39)
[2018-11-16] MEDS ORDERED: Sodium Chloride 0.9% 100 ML IV ONE (06:40)
[2018-11-16] MEDS ORDERED: Iopamidol 612 MG/ML 100 ML Bottle IV SCH (06:45)
--- NOTE | 2018-11-16 07:45 | CRLCT ---
INDICATION: LUQ ABD PAIN, 88CC OF ISOVUE 300 USEDPRIOR STUDY DONE 06-28-17 HISTORY: Left upper quadrant abdominal pain. COMPARISON: 06/28/2017. TECHNIQUE: CT of the abdomen and pelvis. 80 cc of Isovue-300 IV. Coronal/sagittal reconstruction images. FINDINGS: Lung bases: There is no pleural or pericardial effusion. The heart size is normal. There is no acute airspace disease or basilar pneumothorax. Abdomen/pelvis: Biliary dilatation, and dilation of the main pancreatic duct, stable findings when compared with previous. No common bile duct stone or mass. No pancreatic mass. Pancreatic parenchymal calcifications are stable. No fat stranding in the anterior para renal space. No adrenal mass. Spleen size is normal. There are symmetric nephrograms. There is no solid renal mass. Hepatic morphology is normal. No solid hepatic mass. Prostate and urinary bladder within normal limits. There is colonic diverticulosis. There is no evidence for diverticulitis. There is no pneumatosis. There is no portal venous gas. Heavily atherosclerotic plaque in the abdominal aorta and its branches. No abdominal or pelvic lymphadenopathy by size criteria. The bone windows demonstrate no lytic or blastic bone lesions. There are stents present in both common iliac arteries, which extends to the left external iliac artery. On sagittal reconstruction images, discogenic sclerosis and disc height loss at the lumbosacral junction. IMPRESSION: 1. There are no acute findings seen to explain the patient`s symptoms. 2. Pancreatic parenchymal calcifications, with a dilated main pancreatic duct, and dilation of intrahepatic biliary radicals, unchanged. No underlying mass is seen on single phase CT. 3. No abdominal or pelvic lymphadenopathy. 4. No fat stranding or fluid collection in the anterior para renal space. Dictated by Willis Escudero MD @ 11/16/2018 7:44:29 AM Please note that all CT scans at this facility use dose modulation, iterative reconstruction, and/or weight-based dosing when appropriate to reduce radiation dose to as low as reasonably achievable. Dictated by: Willis Escudero MD @ 11/16/2018 07:44:53 (Electronically Signed)
[2018-11-16 09:21] VITALS: BP 147/91
== END 2018-11-16 10:47 | disposition home or self-care (01) ==
LOC: JP.ED 05:48
DX: K85.90 Acute pancreatitis without necrosis or infection, unspecified (principal); K86.1 Other chronic pancreatitis; I25.10 Atherosclerotic heart disease of native coronary artery without angina pectoris; I10 Essential (primary) hypertension; I25.2 Old myocardial infarction; Z88.1 Allergy status to other antibiotic agents; Z88.8 Allergy status to other drugs, medicaments and biological substances
CPT/HCPCS: 36415; 74177; 80053; 80305; 81001; 83605; 83690; 84484; 85025; 85610; 96361; 96374; 96375; 99284; G0480; J1170; J2405; J7030; J7120; Q9967

== ENCOUNTER 2018-11-17 05:31 | Observation (INO) | payer BC, MEDICARE ==
[2018-11-17] MEDS ORDERED: Ondansetron 4 MG/2 ML SDV IVPUSH ONE (06:10)
[2018-11-17] MEDS ORDERED: HYDROmorphone 1 MG/ML Syringe IVPUSH ONE ×2 (06:10→09:00)
--- NOTE | 2018-11-17 06:14 | EDM.PDOC ---
ED HPI GENERAL MEDICAL PROBLEM - General Chief Complaint: Abdominal Pain Stated Complaint: STOMACH PAIN BEEN HERE FOR SAME THING LAST TWO DAY Time Seen by Provider: 11/17/18 06:11 Source of Information: Reports: Patient History Limitations: Reports: No Limitations - History of Present Illness INITIAL COMMENTS - FREE TEXT/NARRATIVE: pt has a long history of chronic pancreatits. He has had markedly increased pain and this will be his third visit to the er in 3 days. he has been vomiting during thease 3 days and he has not been holding much down. He has pain mainly in the epigastric area. He did have a stool yesterday. When he was seen yesterday he did have a lactic acid of 2.5. Onset: Gradual, Other (pT HAS HAD INCREASED PROBLEMS FOR THE PAST 3 DAYS. ) Duration: Hour(s): Location: Reports: Abdomen Associated Symptoms: Reports: Nausea/Vomiting, Weakness Abdominal Pain Score (Numeric/FACES): 10 - Related Data Allergies Allergy/AdvReac Type Severity Reaction Status Date / Time acetaminophen [From Tylenol] Allergy Rash Verified 11/16/18 06:12 erythromycin base Allergy Hives Verified 11/16/18 06:12 metoclopramide [From Reglan] AdvReac Agitation Verified 11/16/18 06:12 Home Meds: Home Meds Ondansetron [Zofran ODT] 4 mg PO Q4H PRN 11/02/16 [History] Promethazine [Phenergan] 50 mg PO Q6H PRN 11/02/16 [History] raNITIdine HCl [Zantac] 150 mg PO DAILY 11/16/18 [History] Past Medical History HEENT History: Reports: Impaired Vision Cardiovascular History: Reports: Blood Clots/VTE/DVT, CAD, Hypertension, [place], Other (See Below) Other Cardiovascular History: iliac stents for possible clots Gastrointestinal History: Reports: Cholelithiasis, GERD, Pancreatitis, Other ( See Below) Other Gastrointestinal History: pancreatitis Musculoskeletal History: Reports: Fracture Oncologic (Cancer) History: Reports: Other (See Below) Other Oncologic History: skin ca Dermatologic History: Reports: Other (See Below) Other Dermatologic History: basal cell ca - Infectious Disease History Infectious Disease History: Reports: Chicken Pox, Mumps - Past Surgical History GI Surgical History: Reports: Appendectomy, Cholecystectomy, Other (See Below) Other GI Surgeries/Procedures: exploratory lap for pancrease possilbe fruy procedure Social & Family History - Family History Family Medical History: Noncontributory HEENT: Reports: Cataract Cardiac: Reports: Bypass Endocrine/Metabolic: Reports: Diabetes, type II Oncologic: Reports: Prostate - Tobacco Use Smoking Status *Q: Never Smoker - Caffeine Use Caffeine Use: Reports: Coffee Other Caffeine Use: 4 cups ED ROS GENERAL - Review of Systems Review Of Systems: See Below Constitutional: Reports: Chills, Malaise, Decreased Appetite, Other (PT HAS BEEN VOMITING. ) HEENT: Reports: No Symptoms Respiratory: Reports: No Symptoms Cardiovascular: Reports: No Symptoms Endocrine: Reports: No Symptoms GI/Abdominal: Reports: Abdominal Pain, Other (PT HAS UPPER ABDOMANAL PAIN) : Reports: No Symptoms Musculoskeletal: Reports: No Symptoms Skin: Reports: No Symptoms ED EXAM, GI/ABD - Physical Exam Exam: See Below Text/Narrative:: PT HAS HAD INCREASED ABDOMANAL PAIN IN THE EPIGASTRIC AREA. hE HAS NOT HAD A FEVER. hE HAS BEEN VOMITING AND NOT HOLDING FLUIDS DOWN. Exam Limited By: No Limitations General Appearance: Alert, Anxious, Severe Distress, Other (PUPILS ARE EQUAL AND REACTIVE. ) Ears: Normal TMs Nose: Normal Inspection Throat/Mouth: Normal Inspection Head: Atraumatic Neck: Normal Inspection Respiratory/Chest: No Respiratory Distress Cardiovascular: Regular Rate, Rhythm GI/Abdominal Exam: Tender, Other (PT HS TENDERNESS IN THE EPIGASTRIC AREA. ) (Male) Exam: Deferred Rectal (Males) Exam: Normal Exam Back Exam: Normal Inspection Extremities: Normal Inspection Neurological: Alert, Oriented, Normal Cognition Psychiatric: Normal Mood Course - Vital Signs Last Recorded V/S: Last Vital Signs Temp 35.7 C 11/18/18 07:17 Pulse 81 11/18/18 07:17 Resp 16 11/18/18 07:17 BP 154/81 H 11/18/18 07:17 Pulse Ox 95 11/18/18 07:17 - Orders/Labs/Meds Labs: Laboratory Tests 11/17/18 11/17/18 11/17/18 Range/Units 05:42 05:46 05:46 WBC 12.7 H (4.5-11.0) K/uL RBC 6.04 H (4.30-5.90) M/uL Hgb 17.8 H (12.0-15.0) g/dL Hct 54.3 H (40.0-54.0) % MCV 90 (80-98) fL MCH 30 (27-31) pg MCHC 33 (32-36) % Plt Count 290 (150-400) K/uL Neut % (Auto) 79 H (36-66) % Lymph % (Auto) 14 L (24-44) % [place] % (Auto) 7 H (2-6) % Eos % (Auto) 0 L (2-4) % Baso % (Auto) 0 (0-1) % Sodium 140 (140-148) mmol/L Potassium 3.8 (3.6-5.2) mmol/L Chloride 99 L (100-108) mmol/L Carbon Dioxide 35 H (21-32) mmol/L Anion Gap 9.8 (5.0-14.0) mmol/L BUN 25 H (7-18) mg/dL Creatinine 1.2 (0.8-1.3) mg/dL Est Cr Clr Drug Dosing 47.74 mL/min Estimated GFR (MDRD) > 60 (>60) Glucose 124 H (74-106) mg/dL Lactic Acid 1.8 (0.4-2.0) mmol/L Calcium 9.4 (8.5-10.1) mg/dL Total Bilirubin 0.8 (0.2-1.0) mg/dL AST 27 (15-37) U/L ALT 29 (12-78) U/L Alkaline Phosphatase 92 (46-116) U/L C-Reactive Protein (0.0-0.3) mg/dL Total Protein 7.8 (6.4-8.2) g/dL Albumin 3.8 (3.4-5.0) g/dL Globulin 4.0 H (2.3-3.5) g/dL Albumin/Globulin Ratio 1.0 L (1.2-2.2) Amylase (25-115) U/L Lipase (73-393) U/L Urine Color Urine Appearance Urine pH (4.5-8.0) Ur Specific [place] (1.008-1.030) Urine Protein (NEGATIVE) mg/dL Urine Glucose (UA) (NEGATIVE) mg/dL Urine Ketones (NEGATIVE) mg/dL Urine Occult Blood (NEGATIVE) Urine Nitrite (NEGAITVE) Urine Bilirubin (NEGATIVE) Urine Urobilinogen (NORMAL) mg/dL Ur Leukocyte Esterase (NEGATIVE) Urine RBC (0-5) Urine WBC (0-5) Ur Epithelial Cells Amorphous Sediment Urine Bacteria Urine Mucus 11/17/18 11/17/18 11/17/18 Range/Units 05:46 05:46 06:18 WBC (4.5-11.0) K/uL RBC (4.30-5.90) M/uL Hgb (12.0-15.0) g/dL Hct (40.0-54.0) % MCV (80-98) fL MCH (27-31) pg MCHC (32-36) % Plt Count (150-400) K/uL Neut % (Auto) (36-66) % Lymph % (Auto) (24-44) % [place] % (Auto) (2-6) % Eos % (Auto) (2-4) % Baso % (Auto) (0-1) % Sodium (140-148) mmol/L Potassium (3.6-5.2) mmol/L Chloride (100-108) mmol/L Carbon Dioxide (21-32) mmol/L Anion Gap (5.0-14.0) mmol/L BUN (7-18) mg/dL Creatinine (0.8-1.3) mg/dL Est Cr Clr Drug Dosing mL/min Estimated GFR (MDRD) (>60) Glucose (74-106) mg/dL Lactic Acid (0.4-2.0) mmol/L Calcium (8.5-10.1) mg/dL Total Bilirubin (0.2-1.0) mg/dL AST (15-37) U/L ALT (12-78) U/L Alkaline Phosphatase (46-116) U/L C-Reactive Protein 0.38 H (0.0-0.3) mg/dL Total Protein (6.4-8.2) g/dL Albumin (3.4-5.0) g/dL Globulin (2.3-3.5) g/dL Albumin/Globulin Ratio (1.2-2.2) Amylase 299 H D (25-115) U/L Lipase 997 H (73-393) U/L Urine Color Yellow Urine Appearance Slightly cloudy Urine pH 6.0 (4.5-8.0) Ur Specific [place] 1.015 (1.008-1.030) Urine Protein Trace (NEGATIVE) mg/dL Urine Glucose (UA) Normal (NEGATIVE) mg/dL Urine Ketones 50 H (NEGATIVE) mg/dL Urine Occult Blood Moderate (NEGATIVE) Urine Nitrite Negative (NEGAITVE) Urine Bilirubin Negative (NEGATIVE) Urine Urobilinogen Normal (NORMAL) mg/dL Ur Leukocyte Esterase Negative (NEGATIVE) Urine RBC 5-10 H (0-5) Urine WBC Not seen (0-5) Ur Epithelial Cells Not seen Amorphous Sediment Few Urine Bacteria Not seen Urine Mucus Not seen Meds: Medications Discontinued Medications Generic Name Dose Route Start Last Admin Trade Name Freq PRN Reason Stop Dose Admin Enoxaparin Sodium 40 mg 11/17/18 09:00 11/17/18 11:14 Lovenox SUBCUT 40 mg DAILY CHARLES Administration Hydromorphone HCl 1 mg 11/17/18 06:10 11/17/18 06:17 Dilaudid IVPUSH 11/17/18 06:11 1 mg ONETIME ONE Administration Hydromorphone HCl 1 mg 11/17/18 09:00 11/17/18 09:03 Dilaudid IVPUSH 11/17/18 09:01 1 mg ONETIME ONE Administration Hydromorphone HCl 1 mg 11/17/18 10:45 11/17/18 14:28 Dilaudid IVPUSH 1 mg Q2H PRN Administration Pain Sodium Chloride 1,000 mls @ 999 mls/hr 11/17/18 06:15 11/17/18 06:19 Normal Saline IV 999 mls/hr ASDIRECTED CHARLES Administration Sodium Chloride 1,000 mls @ 125 mls/hr 11/17/18 08:48 11/17/18 16:24 Normal Saline IV 125 mls/hr ASDIRECTED CHARLES Administration Ondansetron HCl 4 mg 11/17/18 06:10 11/17/18 06:18 Zofran IVPUSH 11/17/18 06:11 4 mg ONETIME ONE Administration Ondansetron HCl 4 mg 11/17/18 08:48 Zofran IV Q4H PRN Nausea/Vomiting Pantoprazole Sodium 40 mg 11/17/18 09:00 11/17/18 21:21 Protonix Iv IV 40 mg Q12H CHARLES Administration Polyethylene Glycol 17 gm 11/17/18 08:48 Miralax PO DAILY PRN Constipation Sodium Chloride 10 ml 11/17/18 08:48 Saline Flush FLUSH ASDIRECTED PRN Keep Vein Open - Re-Assessments/Exams Free Text/Narrative Re-Assessment/Exam: 11/17/18 06:27 PT WAS FOUND TO HAVE A ELEVATED LIPASE OVER 900 AND IT WAS 106 YESTERDAY. hE HAS HAD INCREASED PAIN AND HE HAS BEEN DOING ALOT OF VOMITING FOR THE PAST 3 DAYS. Departure - Departure Time of Disposition: 07:25 Disposition: Admitted As Inpatient 64 Condition: Fair Clinical Impression: Acute pancreatitis, Dehydration Chronic pancreatitis Qualifiers: Pancreatitis type: unspecified pancreatitis type Qualified Code(s): K86.1 - Other chronic pancreatitis - Discharge Information
[2018-11-17] MEDS ORDERED: Sodium Chloride 0.9% 1,000 ML IV SCH (06:15)
--- NOTE | 2018-11-17 08:32 | PCM.HP ---
H&P History of Present Illness - General Date of Service: 11/17/18 Admit Problem/Dx: Admission Diagnosis/Problem Admission Diagnosis/Problem Pancreatitis Source of Information: Patient, Old Records, Provider, RN Notes Reviewed History Limitations: Reports: No Limitations - History of Present Illness Initial Comments - Free Text/Narative: Mr. Pineda is a 63-year-old gentleman who was admitted through the emergency department to observation status for further management of acute on chronic pancreatitis. He is had recurrent difficulty with pancreatitis over many years. He has been seen and evaluated at the [facility], but has not returned for follow-up there over the past few years. This week is had recurrent difficulty with pancreatitis including pain with nausea vomiting, resulting in dehydration. This is his third visit to the emergency department in the past few days. Abdominal Pain Score (Numeric/FACES): 10 - Related Data Allergies/Adverse Reactions: Allergies Allergy/AdvReac Type Severity Reaction Status Date / Time acetaminophen [From Tylenol] Allergy Rash Verified 11/16/18 06:12 erythromycin base Allergy Hives Verified 11/16/18 06:12 metoclopramide [From Reglan] AdvReac Agitation Verified 11/16/18 06:12 Home Medications: Home Meds Ondansetron [Zofran ODT] 4 mg PO Q4H PRN 11/02/16 [History] Promethazine [Phenergan] 50 mg PO Q6H PRN 11/02/16 [History] raNITIdine HCl [Zantac] 150 mg PO DAILY 11/16/18 [History] Past Medical History HEENT History: Reports: Impaired Vision Cardiovascular History: Reports: Blood Clots/VTE/DVT, CAD, Hypertension, [place], Other (See Below) Other Cardiovascular History: iliac stents for possible clots Gastrointestinal History: Reports: Cholelithiasis, GERD, Pancreatitis, Other ( See Below) Other Gastrointestinal History: pancreatitis Musculoskeletal History: Reports: Fracture Oncologic (Cancer) History: Reports: Other (See Below) Other Oncologic History: skin ca Dermatologic History: Reports: Other (See Below) Other Dermatologic History: basal cell ca - Infectious Disease History Infectious Disease History: Reports: Chicken Pox, Mumps - Past Surgical History GI Surgical History: Reports: Appendectomy, Cholecystectomy, Other (See Below) Other GI Surgeries/Procedures: exploratory lap for pancrease possilbe fruy procedure Social & Family History - Family History Family Medical History: Noncontributory HEENT: Reports: Cataract Cardiac: Reports: Bypass Endocrine/Metabolic: Reports: Diabetes, type II Oncologic: Reports: Prostate - Tobacco Use Smoking Status *Q: Never Smoker - Caffeine Use Caffeine Use: Reports: Coffee Other Caffeine Use: 4 cups H&P Review of Systems - Review of Systems: Review Of Systems: See Below General: Reports: Weakness, Fatigue, Diaphoresis, Decreased Appetite. Denies: Fever, Chills HEENT: Reports: No Symptoms Pulmonary: Reports: No Symptoms Cardiovascular: Reports: No Symptoms Gastrointestinal: Reports: Abdominal Pain, Anorexia, Distension, Nausea, Vomiting. Denies: Black Stool, Bloody Stool, Constipation, Diarrhea, Difficulty Swallowing Genitourinary: Reports: No Symptoms Musculoskeletal: Reports: No Symptoms Skin: Reports: No Symptoms Psychiatric: Reports: No Symptoms Neurological: Reports: No Symptoms Hematologic/Lymphatic: Reports: No Symptoms Immunologic: Reports: No Symptoms Exam - Exam Exam: See Below - Vital Signs Vital Signs: Last Vital Signs Temp 95.8 F 11/17/18 07:09 Pulse 82 11/17/18 07:09 Resp 18 11/17/18 05:49 BP 199/104 H 11/17/18 07:09 Pulse Ox 97 11/17/18 07:09 Weight: 121 lb 4.068 oz - Exam Quality Assessment: DVT Prophylaxis General: Alert, Oriented, Cooperative, Moderate Distress HEENT: Conjunctiva Clear, Hearing Intact, Normal Nasal Septum, Posterior Pharynx Clear, Pupils Equal. No: Mucosa Moist & [place] Neck: Supple, Trachea Midline, +2 Carotid Pulse wo Bruit Lungs: Clear to Auscultation, Normal Respiratory Effort Cardiovascular: Regular Rate, Regular Rhythm, Normal S1, Normal S2. No: Systolic Murmur, Diastolic Murmur GI/Abdominal Exam: Soft, No Organomegaly, Distended, Tender. No: Guarding, Rigid, Rebound Extremities: Non-Tender, No Pedal Edema Skin: Warm, Dry, Intact Neurological: Cranial Nerves Intact, Strength Equal Bilateral, Normal Speech, Normal Tone, Sensation Intact. No: Focal Deficit Neuro Extensive - Mental Status: Alert, Oriented x3, Normal Mood/Affect, Normal Cognition, Memory Intact - Patient Data Lab Results Last 24 hrs: Laboratory Results - last 24 hr 11/17/18 11/17/18 11/17/18 Range/Units 05:42 05:46 05:46 WBC 12.7 H (4.5-11.0) K/uL RBC 6.04 H (4.30-5.90) M/uL Hgb 17.8 H (12.0-15.0) g/dL Hct 54.3 H (40.0-54.0) % MCV 90 (80-98) fL MCH 30 (27-31) pg MCHC 33 (32-36) % Plt Count 290 (150-400) K/uL Neut % (Auto) 79 H (36-66) % Lymph % (Auto) 14 L (24-44) % [place] % (Auto) 7 H (2-6) % Eos % (Auto) 0 L (2-4) % Baso % (Auto) 0 (0-1) % Sodium 140 (140-148) mmol/L Potassium 3.8 (3.6-5.2) mmol/L Chloride 99 L (100-108) mmol/L Carbon Dioxide 35 H (21-32) mmol/L Anion Gap 9.8 (5.0-14.0) mmol/L BUN 25 H (7-18) mg/dL Creatinine 1.2 (0.8-1.3) mg/dL Est Cr Clr Drug Dosing 47.74 mL/min Estimated GFR (MDRD) > 60 (>60) Glucose 124 H (74-106) mg/dL Lactic Acid 1.8 (0.4-2.0) mmol/L Calcium 9.4 (8.5-10.1) mg/dL Total Bilirubin 0.8 (0.2-1.0) mg/dL AST 27 (15-37) U/L ALT 29 (12-78) U/L Alkaline Phosphatase 92 (46-116) U/L C-Reactive Protein (0.0-0.3) mg/dL Total Protein 7.8 (6.4-8.2) g/dL Albumin 3.8 (3.4-5.0) g/dL Globulin 4.0 H (2.3-3.5) g/dL Albumin/Globulin Ratio 1.0 L (1.2-2.2) Amylase (25-115) U/L Lipase (73-393) U/L Urine Color Urine Appearance Urine pH (4.5-8.0) Ur Specific [place] (1.008-1.030) Urine Protein (NEGATIVE) mg/dL Urine Glucose (UA) (NEGATIVE) mg/dL Urine Ketones (NEGATIVE) mg/dL Urine Occult Blood (NEGATIVE) Urine Nitrite (NEGAITVE) Urine Bilirubin (NEGATIVE) Urine Urobilinogen (NORMAL) mg/dL Ur Leukocyte Esterase (NEGATIVE) Urine RBC (0-5) Urine WBC (0-5) Ur Epithelial Cells Amorphous Sediment Urine Bacteria Urine Mucus 11/17/18 11/17/18 11/17/18 Range/Units 05:46 05:46 06:18 WBC (4.5-11.0) K/uL RBC (4.30-5.90) M/uL Hgb (12.0-15.0) g/dL Hct (40.0-54.0) % MCV (80-98) fL MCH (27-31) pg MCHC (32-36) % Plt Count (150-400) K/uL Neut % (Auto) (36-66) % Lymph % (Auto) (24-44) % [place] % (Auto) (2-6) % Eos % (Auto) (2-4) % Baso % (Auto) (0-1) % Sodium (140-148) mmol/L Potassium (3.6-5.2) mmol/L Chloride (100-108) mmol/L Carbon Dioxide (21-32) mmol/L Anion Gap (5.0-14.0) mmol/L BUN (7-18) mg/dL Creatinine (0.8-1.3) mg/dL Est Cr Clr Drug Dosing mL/min Estimated GFR (MDRD) (>60) Glucose (74-106) mg/dL Lactic Acid (0.4-2.0) mmol/L Calcium (8.5-10.1) mg/dL Total Bilirubin (0.2-1.0) mg/dL AST (15-37) U/L ALT (12-78) U/L Alkaline Phosphatase (46-116) U/L C-Reactive Protein 0.38 H (0.0-0.3) mg/dL Total Protein (6.4-8.2) g/dL Albumin (3.4-5.0) g/dL Globulin (2.3-3.5) g/dL Albumin/Globulin Ratio (1.2-2.2) Amylase 299 H D (25-115) U/L Lipase 997 H (73-393) U/L Urine Color Yellow Urine Appearance Slightly cloudy Urine pH 6.0 (4.5-8.0) Ur Specific [place] 1.015 (1.008-1.030) Urine Protein Trace (NEGATIVE) mg/dL Urine Glucose (UA) Normal (NEGATIVE) mg/dL Urine Ketones 50 H (NEGATIVE) mg/dL Urine Occult Blood Moderate (NEGATIVE) Urine Nitrite Negative (NEGAITVE) Urine Bilirubin Negative (NEGATIVE) Urine Urobilinogen Normal (NORMAL) mg/dL Ur Leukocyte Esterase Negative (NEGATIVE) Urine RBC 5-10 H (0-5) Urine WBC Not seen (0-5) Ur Epithelial Cells Not seen Amorphous Sediment Few Urine Bacteria Not seen Urine Mucus Not seen Result Diagrams: 11/17/18 05:46 11/17/18 05:46 *Q Meaningful Use (ADM) - VTE Risk Assess *Q Each Risk Factor Represents 1 Point: Medical Patient Currently on Bedrest Total Score 1 Point Risk Factors: 1 Each Risk Factor Represents 2 Points: Age 60 - 74 Years Total Score 2 Point Risk Factors: 2 Each Risk Factor Represents 3 Points: None Total Score 3 Point Risk Factors: 0 Each Risk Factor Represents 5 Points: None Total Score 5 Point Risk Factors: 0 Venous Thromboembolism Risk Factor Score *Q: 3 Problem List Initiated/Reviewed/Updated: Yes Orders Last 24hrs: Active Orders 24 hr Category Date Time Status Patient Status Manage Transfer [TRANSFER] Routine ADT 11/17/18 08:19 Active HYDROmorphone [Dilaudid] Med 11/17/18 08:19 Once 1 mg IVPUSH ONETIME ONE Sodium Chloride 0.9% [Normal Saline] 1,000 ml Med 11/17/18 06:15 Active IV ASDIRECTED Resuscitation Status Routine Resus Stat 11/17/18 08:20 Ordered Medication Orders Hydromorphone HCl (Dilaudid) 1 mg IVPUSH ONETIME ONE Stop: 11/17/18 08:20 Sodium Chloride (Normal Saline) 1,000 mls @ 999 mls/hr IV ASDIRECTED CHARLES Last Admin: 11/17/18 06:19 Dose: 999 mls/hr Assessment/Plan Comment:: ASSESSMENT AND PLAN ACUTE ON CHRONIC PANCREATITIS-history of recurrent episodes over many years. He has done somewhat better over the last 2 years since undergoing cholecystectomy at the [facility]. Recurrent symptoms now this week, failed outpatient management with persistent pain, nausea, and vomiting, resulting in dehydration. -IV fluids for hydration -Pain and nausea medication -Clear liquid diet -Protonix 40 mg IV every 12 hours -Reassess labs in a.m. -Plan for outpatient follow-up at the [facility] MAINTENANCE ISSUES -DVT prophylaxis; Lovenox 40 mg subcutaneous daily -GI prophylaxis; Protonix as above -Lopez catheter; not indicated -Nutrition; clear liquid diet -Nicotine dependence; not required CODE STATUS-FULL CODE ADMISSION STATUS-this patient will be admitted to observation status, expect no more than a one night hospital stay for evaluation and management of problems as outlined above. DISPOSITION-anticipate discharge to home after the hospital stay. PRIMARY CARE PROVIDER-Richardson Agudelo
[2018-11-17] MEDS ORDERED: Ondansetron 4 MG/2 ML SDV IV PRN (08:48)
[2018-11-17] MEDS ORDERED: Sodium Chloride 0.9% 10 ML Syringe FLUSH PRN (08:48)
[2018-11-17] MEDS ORDERED: Polyethylene Glycol 3350 Powder 17 GM Packet PO PRN (08:48)
[2018-11-17] MEDS: Sodium Chloride 0.9% 1,000 ML IV SCH ×2 (08:57→16:24)
[2018-11-17] MEDS ORDERED: Enoxaparin 40 MG/0.4 ML Syringe SUBCUT SCH (09:00)
[2018-11-17] MEDS: Pantoprazole 40 MG Vial IV SCH ×2 (11:14→21:21)
[2018-11-17] MEDS: HYDROmorphone 1 MG/ML Syringe IVPUSH PRN ×2 (11:23→14:28)
[2018-11-18 07:19] VITALS: BP 154/81
--- NOTE | 2018-11-18 09:40 | PCM.DCSUM1 ---
Discharge Summary - Hospital Course Brief History: Mr. Pineda is a 63-year-old gentleman who was admitted to observation status for management of nausea, vomiting, abdominal pain, secondary to acute on chronic pancreatitis. - Discharge Data Discharge Date: 11/18/18 Discharge Disposition: Home, Self-Care 01 Condition: Fair - Discharge Diagnosis/Problem(s) (1) Nausea & vomiting SNOMED Code(s): 34338369 ICD Code: R11.2 - NAUSEA WITH VOMITING, UNSPECIFIED Status: Acute Current Visit: No Qualifiers: Vomiting type: unspecified Vomiting Intractability: non-intractable Qualified Code(s): R11.2 - Nausea with vomiting, unspecified (2) Acute on chronic pancreatitis SNOMED Code(s): 498082315 ICD Code: K85.90 - ACUTE PANCREATITIS WITHOUT NECROSIS OR INFECTION, UNSP; K86.1 - OTHER CHRONIC PANCREATITIS Status: Acute Current Visit: No (3) Hypokalemia SNOMED Code(s): 28259736 ICD Code: E87.6 - HYPOKALEMIA Status: Acute Current Visit: No - Patient Summary/Data Hospital Course: Mr. Pineda is a 63-year-old gentleman who was admitted through the emergency department to observation status for further management of acute on chronic pancreatitis. He is had recurrent difficulty with pancreatitis over many years. He has been seen and evaluated at the [facility], but has not returned for follow-up there over the past few years. This week has had recurrent difficulty with pancreatitis including pain with nausea vomiting, resulting in dehydration. This is his third visit to the emergency department in the past few days. On admission he was given IV fluids for hydration as well as medication as needed for nausea and pain. He was started on a clear liquid diet which he tolerated and this was advanced to a regular diet which she tolerated prior to discharge. Nausea and abdominal pain resolved. He will be discharged to home, activity will be as tolerated and he will resume his usual diet. Follow-up appointment will be scheduled with his primary care provider within one week. He is also planning on scheduling appointment for follow-up with [facility] concerning his recurrent symptoms. - Patient Instructions Diet: Usual Diet as Tolerated Activity: As Tolerated Other/Special Instructions: Please schedule follow-up appointment with primary care provider within one week. - Discharge Plan *PRESCRIPTION DRUG MONITORING PROGRAM REVIEWED*: Not Applicable *COPY OF PRESCRIPTION DRUG MONITORING REPORT IN PATIENT APRIL: Not Applicable Home Medications: Home Meds Ondansetron [Zofran ODT] 4 mg PO Q4H PRN 11/02/16 [History] Promethazine [Phenergan] 50 mg PO Q6H PRN 11/02/16 [History] raNITIdine HCl [Zantac] 150 mg PO DAILY 11/16/18 [History] Referrals: Richardson Lamb, ASSISTANT ATTORNEY GENERAL [Primary Care Provider] - - Discharge Summary/Plan Comment DC Time >30 min.: No - Patient Data Vitals - Most Recent: Last Vital Signs Temp 96.2 F 11/18/18 07:17 Pulse 81 11/18/18 07:17 Resp 16 11/18/18 07:17 BP 154/81 H 11/18/18 07:17 Pulse Ox 95 11/18/18 07:17 Weight - Most Recent: 121 lb I&O - Last 24 hours: Intake & Output 11/17/18 11/18/18 11/18/18 22:59 06:59 14:59 Intake Total 2216 2100 Output Total 307 955 2529 Balance 1791 1700 -2400 Lab Results - Last 24 hrs: Laboratory Results - last 24 hr 11/18/18 11/18/18 11/18/18 Range/Units 05:00 05:11 05:11 WBC 7.9 (4.5-11.0) K/uL RBC 4.58 (4.30-5.90) M/uL Hgb 13.8 D (12.0-15.0) g/dL Hct 42.4 (40.0-54.0) % MCV 93 (80-98) fL MCH 30 (27-31) pg MCHC 33 (32-36) % Plt Count 230 (150-400) K/uL Neut % (Auto) 52 (36-66) % Lymph % (Auto) 37 (24-44) % Stephens % (Auto) 8 H (2-6) % Eos % (Auto) 3 (2-4) % Baso % (Auto) 0 (0-1) % Sodium 142 (140-148) mmol/L Potassium 3.8 (3.6-5.2) mmol/L Chloride 108 (100-108) mmol/L Carbon Dioxide 29 (21-32) mmol/L Anion Gap 4.7 L (5.0-14.0) mmol/L BUN 12 D (7-18) mg/dL Creatinine 0.8 (0.8-1.3) mg/dL Est Cr Clr Drug Dosing 71.46 mL/min Estimated GFR (MDRD) > 60 (>60) Glucose 88 (74-106) mg/dL Calcium 7.8 L D (8.5-10.1) mg/dL Total Bilirubin 0.7 (0.2-1.0) mg/dL AST 16 (15-37) U/L ALT 21 (12-78) U/L Alkaline Phosphatase 63 (46-116) U/L Total Protein 5.2 L (6.4-8.2) g/dL Albumin 2.5 L (3.4-5.0) g/dL Globulin 2.7 (2.3-3.5) g/dL Albumin/Globulin Ratio 0.9 L (1.2-2.2) Amylase 101 D (25-115) U/L Lipase 163 (73-393) U/L Med Orders - Current: Current Medications Enoxaparin Sodium (Lovenox) 40 mg SUBCUT DAILY [facility] Last Admin: 11/17/18 11:14 Dose: 40 mg Hydromorphone HCl (Dilaudid) 1 mg IVPUSH Q2H PRN PRN Reason: Pain Last Admin: 11/17/18 14:28 Dose: 1 mg Sodium Chloride (Normal Saline) 1,000 mls @ 125 mls/hr IV ASDIRECTED [facility] Last Admin: 11/17/18 16:24 Dose: 125 mls/hr Ondansetron HCl (Zofran) 4 mg IV Q4H PRN PRN Reason: Nausea/Vomiting Pantoprazole Sodium (Protonix Iv) 40 mg IV Q12H [facility] Last Admin: 11/17/18 21:21 Dose: 40 mg Polyethylene Glycol (Miralax) 17 gm PO DAILY PRN PRN Reason: Constipation Sodium Chloride (Saline Flush) 10 ml FLUSH ASDIRECTED PRN PRN Reason: Keep Vein Open Discontinued Medications Hydromorphone HCl (Dilaudid) 1 mg IVPUSH ONETIME ONE Stop: 11/17/18 06:11 Last Admin: 11/17/18 06:17 Dose: 1 mg Hydromorphone HCl (Dilaudid) 1 mg IVPUSH ONETIME ONE Stop: 11/17/18 09:01 Last Admin: 11/17/18 09:03 Dose: 1 mg Sodium Chloride (Normal Saline) 1,000 mls @ 999 mls/hr IV ASDIRECTED [facility] Last Admin: 11/17/18 06:19 Dose: 999 mls/hr Ondansetron HCl (Zofran) 4 mg IVPUSH ONETIME ONE Stop: 11/17/18 06:11 Last Admin: 11/17/18 06:18 Dose: 4 mg - Exam Quality Assessment: Reports: DVT Prophylaxis General: Reports: Alert, Oriented, Cooperative, No Acute Distress Lungs: Reports: Clear to Auscultation, Normal Respiratory Effort Cardiovascular: Reports: Regular Rate, Regular Rhythm, No Murmurs GI/Abdominal Exam: Soft, Non-Tender, No Organomegaly, No Distention Extremities: Non-Tender, No Pedal Edema
== END 2018-11-18 09:45 | disposition home or self-care (01) ==
LOC: JP.ED 05:31 → JP.MS 08:19
PROVIDERS: ADMIT Hospitalist; ATTEND Hospitalist
DX: K85.90 Acute pancreatitis without necrosis or infection, unspecified (principal); K86.1 Other chronic pancreatitis; E87.6 Hypokalemia; E86.0 Dehydration; I25.10 Atherosclerotic heart disease of native coronary artery without angina pectoris; I10 Essential (primary) hypertension; I25.2 Old myocardial infarction; Z88.1 Allergy status to other antibiotic agents; Z88.8 Allergy status to other drugs, medicaments and biological substances; Z90.49 Acquired absence of other specified parts of digestive tract; Z79.899 Other long term (current) drug therapy
CPT/HCPCS: 36415; 80053; 81001; 82150; 83605; 83690; 85025; 86140; 94762; 96361; 96374; 96375; 99284; C9113; J1170; J1650; J2405; J7030; 96372; 96376; G0378

== ENCOUNTER 2018-12-19 10:32 | Emergency (ER) | payer BC, MEDICARE ==
[2018-12-19] MEDS ORDERED: HYDROmorphone 1 MG/ML Syringe IVPUSH ONE ×2 (11:17→12:59)
[2018-12-19] MEDS ORDERED: Sodium Chloride 0.9% 1,000 ML IV ONE ×2 (11:17→12:59)
[2018-12-19] MEDS ORDERED: Ondansetron 4 MG/2 ML SDV IVPUSH ONE (11:17)
[2018-12-19] MEDS ORDERED: Sodium Chloride 0.9% 10 ML Syringe FLUSH PRN (11:17)
[2018-12-19 12:55] VITALS: BP 211/111; PULSE 83
--- NOTE | 2018-12-19 14:23 | EDM.PDOC ---
ED HPI GENERAL MEDICAL PROBLEM - General Chief Complaint: Abdominal Pain Stated Complaint: PANCREATITIS Time Seen by Provider: 12/19/18 11:05 Source of Information: Reports: Patient History Limitations: Reports: No Limitations - History of Present Illness INITIAL COMMENTS - FREE TEXT/NARRATIVE: This gentleman comes in here for vomiting and abdominal pain. He's had pancreatitis multiple times. He's been sick for one day. He has Zofran and Phenergan at home also has Dilaudid but he's not using it. He recounts a long history of problems with her pancreas and gallbladder. abdominal Pain Score (Numeric/FACES): 10 - Related Data Allergies Allergy/AdvReac Type Severity Reaction Status Date / Time acetaminophen [From Tylenol] Allergy Rash Verified 12/19/18 10:54 erythromycin base Allergy Hives Verified 12/19/18 10:54 metoclopramide [From Reglan] AdvReac Agitation Verified 12/19/18 10:54 Home Meds: Home Meds Ondansetron [Zofran ODT] 4 mg PO Q4H PRN 11/02/16 [History] Promethazine [Phenergan] 50 mg PO Q6H PRN 11/02/16 [History] raNITIdine HCl [Zantac] 150 mg PO DAILY 11/16/18 [History] Past Medical History HEENT History: Reports: Impaired Vision Cardiovascular History: Reports: Blood Clots/VTE/DVT, CAD, Hypertension, [place], Other (See Below) Other Cardiovascular History: iliac stents for possible clots Gastrointestinal History: Reports: Cholelithiasis, GERD, Pancreatitis, Other ( See Below) Other Gastrointestinal History: pancreatitis Musculoskeletal History: Reports: Fracture Oncologic (Cancer) History: Reports: Other (See Below) Other Oncologic History: skin ca Dermatologic History: Reports: Other (See Below) Other Dermatologic History: basal cell ca - Infectious Disease History Infectious Disease History: Reports: Chicken Pox, Mumps - Past Surgical History GI Surgical History: Reports: Appendectomy, Cholecystectomy, Other (See Below) Other GI Surgeries/Procedures: exploratory lap for pancrease possilbe fruy procedure Social & Family History - Family History Family Medical History: Noncontributory HEENT: Reports: Cataract Cardiac: Reports: Bypass Endocrine/Metabolic: Reports: Diabetes, type II Oncologic: Reports: Prostate - Tobacco Use Smoking Status *Q: Never Smoker - Caffeine Use Caffeine Use: Reports: Coffee Other Caffeine Use: 4 cups - Recreational Drug Use Recreational Drug Use: No ED ROS GENERAL - Review of Systems Review Of Systems: ROS reveals no pertinent complaints other than HPI. ED EXAM, GI/ABD - Physical Exam Exam: See Below Exam Limited By: No Limitations General Appearance: Alert, Moderate Distress, Thin Eyes: Bilateral: Normal Appearance Throat/Mouth: Normal Inspection Head: Atraumatic Neck: Normal Inspection Respiratory/Chest: No Respiratory Distress, Lungs Clear Cardiovascular: Regular Rate, Rhythm GI/Abdominal Exam: Normal Bowel Sounds, Soft, Other (Severe epigastric tenderness) Extremities: Normal Inspection Neurological: Alert, Oriented Psychiatric: Normal Affect Skin Exam: Warm, Dry Course - Vital Signs Last Recorded V/S: Last Vital Signs Temp 36.3 C 12/19/18 10:52 Pulse 83 12/19/18 12:42 Resp 17 12/19/18 10:52 BP 211/111 H 12/19/18 12:42 Pulse Ox 96 12/19/18 12:42 - Orders/Labs/Meds Orders: Active Orders 24 hr Category Date Time Status Sodium Chloride 0.9% [Saline Flush] Med 12/19/18 11:17 Active 10 ml FLUSH ASDIRECTED PRN Saline Lock Insert [OM.PC] Urgent Oth 12/19/18 11:17 Ordered Medication Orders Sodium Chloride (Saline Flush) 10 ml FLUSH ASDIRECTED PRN PRN Reason: Keep Vein Open Last Admin: 12/19/18 11:40 Dose: 10 ml Labs: Laboratory Tests 12/19/18 12/19/18 12/19/18 Range/Units 11:22 11:22 11:22 WBC 10.7 (4.5-11.0) K/uL RBC 5.30 (4.30-5.90) M/uL Hgb 16.1 H D (12.0-15.0) g/dL Hct 47.6 (40.0-54.0) % MCV 90 (80-98) fL MCH 30 (27-31) pg MCHC 34 (32-36) % Plt Count 241 (150-400) K/uL Neut % (Auto) 70 H (36-66) % Lymph % (Auto) 23 L (24-44) % Dukes % (Auto) 4 (2-6) % Eos % (Auto) 2 (2-4) % Baso % (Auto) 0 (0-1) % Sodium 140 (140-148) mmol/L Potassium 3.5 L (3.6-5.2) mmol/L Chloride 102 (100-108) mmol/L Carbon Dioxide 27 (21-32) mmol/L Anion Gap 14.5 H (5.0-14.0) mmol/L BUN 12 (7-18) mg/dL Creatinine 0.8 (0.8-1.3) mg/dL Est Cr Clr Drug Dosing 74.87 mL/min Estimated GFR (MDRD) > 60 (>60) Glucose 135 H (74-106) mg/dL Calcium 8.8 (8.5-10.1) mg/dL Total Bilirubin 0.4 (0.2-1.0) mg/dL AST 21 (15-37) U/L ALT 25 (12-78) U/L Alkaline Phosphatase 85 (46-116) U/L Total Protein 7.6 (6.4-8.2) g/dL Albumin 3.9 (3.4-5.0) g/dL Globulin 3.7 H (2.3-3.5) g/dL Albumin/Globulin Ratio 1.1 L (1.2-2.2) Amylase 97 (25-115) U/L Lipase 133 (73-393) U/L Meds: Medications Generic Name Dose Route Start Last Admin Trade Name Freq PRN Reason Stop Dose Admin Sodium Chloride 10 ml 12/19/18 11:17 12/19/18 11:40 Saline Flush FLUSH 10 ml ASDIRECTED PRN Administration Keep Vein Open Discontinued Medications Generic Name Dose Route Start Last Admin Trade Name Freq PRN Reason Stop Dose Admin Hydromorphone HCl 1 mg 12/19/18 11:17 12/19/18 11:40 Dilaudid IVPUSH 12/19/18 11:18 1 mg ONETIME ONE Administration Hydromorphone HCl 1 mg 12/19/18 12:59 12/19/18 13:06 Dilaudid IVPUSH 12/19/18 13:00 1 mg ONETIME ONE Administration Sodium Chloride 1,000 mls @ 999 mls/hr 12/19/18 11:17 12/19/18 11:40 Normal Saline IV 12/19/18 12:17 999 mls/hr .BOLUS ONE Administration Sodium Chloride 1,000 mls @ 999 mls/hr 12/19/18 12:59 12/19/18 13:06 Normal Saline IV 12/19/18 13:59 999 mls/hr .BOLUS ONE Administration Ondansetron HCl 4 mg 12/19/18 11:17 12/19/18 11:40 Zofran IVPUSH 12/19/18 11:18 4 mg ONETIME ONE Administration - Re-Assessments/Exams Free Text/Narrative Re-Assessment/Exam: 12/19/18 14:20 An IV was established this patient received a total of 2 L IV normal saline. He also received IV Dilaudid and Zofran. At the time of discharge he feels like he is pain-free and feels quite a bit better and ready to go home. Departure - Departure Time of Disposition: 14:21 Disposition: Home, Self-Care 01 Clinical Impression: Acute pancreatitis - Discharge Information Referrals: Richardson Lamb, WEATHER REPORTER [Primary Care Provider] - Additional Instructions: Strict clear liquid diet for the next 24-48 hours. Use your own nausea medications as needed. For pain use your own Dilaudid if needed. When you go back to eating solid start with something very bland. Follow-up with your DrRosa lofton. Return to the ER at any time if needed. - My Orders Last 24 Hours: My Active Orders 12/19/18 11:17 Sodium Chloride 0.9% [Saline Flush] 10 ml FLUSH ASDIRECTED PRN Saline Lock Insert [OM.PC] Urgent - Assessment/Plan Last 24 Hours: My Active Orders 12/19/18 11:17 Sodium Chloride 0.9% [Saline Flush] 10 ml FLUSH ASDIRECTED PRN Saline Lock Insert [OM.PC] Urgent
== END 2018-12-19 14:39 | disposition home or self-care (01) ==
LOC: JP.ED 10:32
DX: K85.90 Acute pancreatitis without necrosis or infection, unspecified (principal); I25.10 Atherosclerotic heart disease of native coronary artery without angina pectoris; I10 Essential (primary) hypertension; I25.2 Old myocardial infarction; K21.9 Gastro-esophageal reflux disease without esophagitis; Z88.6 Allergy status to analgesic agent; Z88.1 Allergy status to other antibiotic agents; Z88.8 Allergy status to other drugs, medicaments and biological substances; Z79.899 Other long term (current) drug therapy; Z86.73 Personal history of transient ischemic attack (TIA), and cerebral infarction without residual deficits; Z85.828 Personal history of other malignant neoplasm of skin
CPT/HCPCS: 36415; 80053; 82150; 83690; 85025; 96361; 96374; 96375; 96376; 99284; J1170; J2405; J7030; 99283

== ENCOUNTER 2018-12-21 03:59 | Emergency (ER) | payer BC, MEDICARE ==
[2018-12-21] MEDS ORDERED: Ondansetron 4 MG/2 ML SDV IVPUSH ONE (04:45)
[2018-12-21] MEDS ORDERED: HYDROmorphone 1 MG/ML Syringe IVPUSH ONE ×2 (04:45→05:43)
[2018-12-21] MEDS ORDERED: Sodium Chloride 0.9% 10 ML Syringe FLUSH PRN (04:45)
[2018-12-21] MEDS ORDERED: Lactated Ringers 1,000 ML IV ONE (04:45)
--- NOTE | 2018-12-21 04:48 | EDM.PDOC ---
ED HPI GENERAL MEDICAL PROBLEM - General Chief Complaint: Gastrointestinal Problem Stated Complaint: ABD PAIN Time Seen by Provider: 12/21/18 04:41 Source of Information: Reports: Patient, Old Records, RN Notes Reviewed History Limitations: Reports: No Limitations - History of Present Illness INITIAL COMMENTS - FREE TEXT/NARRATIVE: 54-year-old gentleman presents emergency department today complaint of abdominal pain, he is known history of chronic pancreatitis was the emergency department, 2 days prior work up at that time lab work was unrevealing lipase was within normal limits plan was to pain control and clear liquids. 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: Reports: Other (see below) Other Treatments PARCEL POST TRUCK DRIVER: none abdomen Pain Score (Numeric/FACES): 9 - Related Data Allergies Allergy/AdvReac Type Severity Reaction Status Date / Time acetaminophen [From Tylenol] Allergy Rash Verified 12/21/18 04:30 erythromycin base Allergy Hives Verified 12/21/18 04:30 metoclopramide [From Reglan] AdvReac Agitation Verified 12/21/18 04:30 Home Meds: Home Meds Ondansetron [Zofran ODT] 4 mg PO Q4H PRN 11/02/16 [History] Promethazine [Phenergan] 50 mg PO Q6H PRN 11/02/16 [History] raNITIdine HCl [Zantac] 150 mg PO DAILY 11/16/18 [History] Past Medical History HEENT History: Reports: Impaired Vision Cardiovascular History: Reports: Blood Clots/VTE/DVT, CAD, Hypertension, [place], Other (See Below) Other Cardiovascular History: iliac stents for possible clots Gastrointestinal History: Reports: Cholelithiasis, GERD, Pancreatitis, Other ( See Below) Other Gastrointestinal History: pancreatitis Musculoskeletal History: Reports: Fracture Oncologic (Cancer) History: Reports: Other (See Below) Other Oncologic History: skin ca Dermatologic History: Reports: Other (See Below) Other Dermatologic History: basal cell ca - Infectious Disease History Infectious Disease History: Reports: Chicken Pox, Mumps - Past Surgical History GI Surgical History: Reports: Appendectomy, Cholecystectomy, Other (See Below) Other GI Surgeries/Procedures: exploratory lap for pancrease possilbe fruy procedure Social & Family History - Family History Family Medical History: Noncontributory HEENT: Reports: Cataract Cardiac: Reports: Bypass Endocrine/Metabolic: Reports: Diabetes, type II Oncologic: Reports: Prostate - Tobacco Use Smoking Status *Q: Never Smoker - Caffeine Use Caffeine Use: Reports: Coffee Other Caffeine Use: 4 cups - Recreational Drug Use Recreational Drug Use: No ED ROS GENERAL - Review of Systems Review Of Systems: See Below Constitutional: Reports: No Symptoms HEENT: Reports: No Symptoms Respiratory: Reports: No Symptoms Cardiovascular: Reports: No Symptoms GI/Abdominal: Reports: Abdominal Pain, Nausea, Vomiting ED EXAM, GI/ABD - Physical Exam Exam: See Below Exam Limited By: No Limitations General Appearance: Alert, Mild Distress Respiratory/Chest: No Respiratory Distress, Lungs Clear, Normal Breath Sounds, No Accessory Muscle Use, Chest Non-Tender Cardiovascular: Regular Rate, Rhythm, No Murmur GI/Abdominal Exam: Soft, Tender (Left upper quadrant) Course - Vital Signs Last Recorded V/S: Last Vital Signs Temp 96.8 F 12/21/18 04:33 Pulse 83 12/21/18 06:41 Resp 12 12/21/18 06:41 BP 159/86 H 12/21/18 06:41 Pulse Ox 98 12/21/18 06:41 - Orders/Labs/Meds Orders: Active Orders 24 hr Category Date Time Status Peripheral IV Care [RC] . DIRECTED Care 12/21/18 04:45 Active Sodium Chloride 0.9% [Saline Flush] Med 12/21/18 04:45 Active 10 ml FLUSH ASDIRECTED PRN Peripheral IV Insertion Adult [OM.PC] Urgent Oth 12/21/18 04:45 Ordered Medication Orders Sodium Chloride (Saline Flush) 10 ml FLUSH ASDIRECTED PRN PRN Reason: Keep Vein Open Last Admin: 12/21/18 04:53 Dose: 10 ml Meds: Medications Generic Name Dose Route Start Last Admin Trade Name Freq PRN Reason Stop Dose Admin Sodium Chloride 10 ml 12/21/18 04:45 12/21/18 04:53 Saline Flush FLUSH 10 ml ASDIRECTED PRN Administration Keep Vein Open Discontinued Medications Generic Name Dose Route Start Last Admin Trade Name Freq PRN Reason Stop Dose Admin Hydromorphone HCl 1 mg 12/21/18 04:45 12/21/18 04:53 Dilaudid IVPUSH 12/21/18 04:46 1 mg ONETIME ONE Administration Hydromorphone HCl 1 mg 12/21/18 05:43 12/21/18 05:52 Dilaudid IVPUSH 12/21/18 05:44 1 mg ONETIME ONE Administration Lactated Ringer's 1,000 mls @ 999 mls/hr 12/21/18 04:45 12/21/18 04:51 Ringers, Lactated IV 12/21/18 05:45 999 mls/hr BOLUS ONE Administration Ondansetron HCl 4 mg 12/21/18 04:45 12/21/18 04:52 Zofran IVPUSH 12/21/18 04:46 4 mg ONETIME ONE Administration Departure - Departure Time of Disposition: 07:07 Disposition: Home, Self-Care 01 Condition: Fair Clinical Impression: Chronic pancreatitis Qualifiers: Pancreatitis type: unspecified pancreatitis type Qualified Code(s): K86.1 - Other chronic pancreatitis - Discharge Information Referrals: Richardson Lamb, HOG DRIVER [Primary Care Provider] - Forms: ED Department Discharge Additional Instructions: continue your regular medications, follow up with your PCP in 3-5 days if not better - My Orders Last 24 Hours: My Active Orders 12/21/18 04:45 Peripheral IV Care [RC] . DIRECTED Sodium Chloride 0.9% [Saline Flush] 10 ml FLUSH ASDIRECTED PRN Peripheral IV Insertion Adult [OM.PC] Urgent - Assessment/Plan Last 24 Hours: My Active Orders 12/21/18 04:45 Peripheral IV Care [RC] . DIRECTED Sodium Chloride 0.9% [Saline Flush] 10 ml FLUSH ASDIRECTED PRN Peripheral IV Insertion Adult [OM.PC] Urgent Plan: Assessment Acuity = acute on chronic Site and laterality = chronic pancreatitis Etiology = unknown Manifestations = abdominal pain Location of injury = Home Lab values = none Plan wants to go home and try his normal pain control This note was dictated using [employer] voice recognition software please call with any questions on syntax or grammar.
[2018-12-21 06:41] VITALS: BP 159/86; PULSE 83
== END 2018-12-21 07:25 | disposition home or self-care (01) ==
LOC: JP.ED 03:59
DX: K86.1 Other chronic pancreatitis (principal); I25.2 Old myocardial infarction; I25.10 Atherosclerotic heart disease of native coronary artery without angina pectoris; I10 Essential (primary) hypertension; K21.9 Gastro-esophageal reflux disease without esophagitis; Z88.1 Allergy status to other antibiotic agents; Z88.6 Allergy status to analgesic agent; Z88.8 Allergy status to other drugs, medicaments and biological substances; Z79.899 Other long term (current) drug therapy; Z86.718 Personal history of other venous thrombosis and embolism; Z85.828 Personal history of other malignant neoplasm of skin
CPT/HCPCS: 96361; 96374; 96375; 96376; 99283; J1170; J2405; J7120

== ENCOUNTER 2019-01-13 18:17 | Inpatient (IN) | payer BC, MEDICARE ==
[2019-01-13] MEDS ORDERED: Lactated Ringers 1,000 ML IV ONE (19:03)
[2019-01-13] MEDS ORDERED: HYDROmorphone 0.5 MG/0.5 ML Syringe IVPUSH ONE ×2 (19:04→20:02)
[2019-01-13] MEDS ORDERED: Ondansetron 4 MG/2 ML SDV IVPUSH ONE (19:07)
--- NOTE | 2019-01-13 19:11 | EDM.PDOC ---
ED HPI GENERAL MEDICAL PROBLEM - General Chief Complaint: Gastrointestinal Problem Stated Complaint: PANCREATITIS Time Seen by Provider: 01/13/19 18:55 Source of Information: Reports: Patient, Old Records History Limitations: Reports: No Limitations - History of Present Illness INITIAL COMMENTS - FREE TEXT/NARRATIVE: 63 yo male with chronic pancreatitis presents with abrupt onset of epigastric pain and nausea/vomiting after eating dinner tonight. Had a chicken sandwich. Onset: Today, Sudden Onset Date: 01/13/19 Onset Time: 18:00 Duration: Hour(s): (1+), Constant Location: Reports: Abdomen Quality: Reports: Stabbing Severity: Severe Improves with: Reports: None Worsens with: Reports: Eating Context: Reports: Other (See HPI) Associated Symptoms: Reports: Nausea/Vomiting. 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 BREAKER TENDER: Reports: Other (see below) (none) Abdomen Pain Score (Numeric/FACES): 10 - Related Data Allergies Allergy/AdvReac Type Severity Reaction Status Date / Time acetaminophen [From Tylenol] Allergy Rash Verified 01/13/19 19:23 erythromycin base Allergy Hives Verified 01/13/19 19:23 metoclopramide [From Reglan] AdvReac Agitation Verified 01/13/19 19:23 Home Meds: Home Meds Ondansetron [Zofran ODT] 4 mg PO Q4H PRN 11/02/16 [History] Promethazine [Phenergan] 50 mg PO Q6H PRN 11/02/16 [History] raNITIdine HCl [Zantac] 150 mg PO DAILY 11/16/18 [History] HYDROmorphone [Dilaudid] 2 mg PO Q8H PRN 01/04/19 [History] Medical Marijuana 1 inh INH DAILY 01/04/19 [History] Past Medical History HEENT History: Reports: Impaired Vision Cardiovascular History: Reports: Blood Clots/VTE/DVT, CAD, Hypertension, [place], Other (See Below) Other Cardiovascular History: iliac stents for possible clots Gastrointestinal History: Reports: Cholelithiasis, GERD, Pancreatitis, Other ( See Below) Other Gastrointestinal History: pancreatitis Musculoskeletal History: Reports: Fracture Oncologic (Cancer) History: Reports: Other (See Below) Other Oncologic History: skin ca Dermatologic History: Reports: Other (See Below) Other Dermatologic History: basal cell ca - Infectious Disease History Infectious Disease History: Reports: Chicken Pox, Mumps - Past Surgical History GI Surgical History: Reports: Appendectomy, Cholecystectomy, Other (See Below) Other GI Surgeries/Procedures: exploratory lap for pancrease possilbe fruy procedure Social & Family History - Family History Family Medical History: Noncontributory HEENT: Reports: Cataract Cardiac: Reports: Bypass Endocrine/Metabolic: Reports: Diabetes, type II Oncologic: Reports: Prostate - Caffeine Use Caffeine Use: Reports: Coffee Other Caffeine Use: 4 cups ED ROS GENERAL - Review of Systems Review Of Systems: See Below Constitutional: Reports: No Symptoms HEENT: Reports: No Symptoms Respiratory: Reports: No Symptoms Cardiovascular: Reports: No Symptoms GI/Abdominal: Reports: Abdominal Pain, Nausea, Vomiting. Denies: Black Stool, Bloody Stool, Constipation, Distension, Flatus, Hematemesis, Hematochezia, Melena : Reports: No Symptoms Musculoskeletal: Reports: No Symptoms Skin: Reports: No Symptoms Neurological: Reports: No Symptoms Psychiatric: Reports: No Symptoms Hematologic/Lymphatic: Reports: No Symptoms ED EXAM, GI/ABD - Physical Exam Exam: See Below Exam Limited By: No Limitations General Appearance: Alert, WD/WN, Moderate Distress Eyes: Bilateral: Normal Appearance Ears: Normal External Exam, Normal Canal, Hearing Grossly Normal, Normal TMs Nose: Normal Inspection, No Blood Throat/Mouth: Normal Inspection, Normal Lips, Normal Oropharynx, Normal Voice, No Airway Compromise Head: Atraumatic, Normocephalic Neck: Normal Inspection, Non-Tender Respiratory/Chest: No Respiratory Distress, Lungs Clear, Normal Breath Sounds, No Accessory Muscle Use Cardiovascular: Regular Rate, Rhythm, No Edema GI/Abdominal Exam: Soft, No Distention, Tender. No: Distended, Guarding, Rigid , Rebound Back Exam: Normal Inspection. No: CVA Tenderness (R), CVA Tenderness (L) Extremities: Normal Inspection, Normal Range of Motion, Non-Tender, No Pedal Edema Neurological: Alert, Oriented, CN II-XII Intact, Normal Cognition, No Motor/ Sensory Deficits Psychiatric: Normal Affect, Normal Mood Skin Exam: Warm, Dry, Intact, Normal Color, No Rash Course - Vital Signs Text/Narrative:: Shainakarlee Arangoer called @ 2000h Last Recorded V/S: Last Vital Signs Temp 35.9 C 01/13/19 19:52 Pulse 95 01/13/19 19:52 Resp 16 01/13/19 19:52 BP 223/108 H 01/13/19 19:52 Pulse Ox 90 L 01/13/19 19:52 - Orders/Labs/Meds Orders: Active Orders 24 hr Category Date Time Status Lactated Ringers [Ringers, Lactated] 1,000 ml Med 01/13/19 19:03 Active IV BOLUS Medication Orders Lactated Ringer's (Ringers, Lactated) 1,000 mls @ 1,000 mls/hr IV BOLUS ONE Stop: 01/13/19 20:02 Last Admin: 01/13/19 19:43 Dose: 1,000 mls/hr Labs: Laboratory Tests 01/13/19 01/13/19 01/13/19 Range/Units 19:17 19:17 19:17 WBC 10.9 (4.5-11.0) K/uL RBC 5.28 (4.30-5.90) M/uL Hgb 16.0 H (12.0-15.0) g/dL Hct 47.2 (40.0-54.0) % MCV 89 (80-98) fL MCH 30 (27-31) pg MCHC 34 (32-36) % Plt Count 293 (150-400) K/uL Sodium 136 L (140-148) mmol/L Potassium 4.0 (3.6-5.2) mmol/L Chloride 98 L (100-108) mmol/L Carbon Dioxide 29 (21-32) mmol/L Anion Gap 13.0 (5.0-14.0) mmol/L BUN 16 (7-18) mg/dL Creatinine 0.9 (0.8-1.3) mg/dL Est Cr Clr Drug Dosing 68.17 mL/min Estimated GFR (MDRD) > 60 (>60) Glucose 112 H (74-106) mg/dL Calcium 9.1 (8.5-10.1) mg/dL Amylase 146 H D (25-115) U/L Lipase 647 H (73-393) U/L Meds: Medications Generic Name Dose Route Start Last Admin Trade Name Freq PRN Reason Stop Dose Admin Lactated Ringer's 1,000 mls @ 1,000 mls/hr 01/13/19 19:03 01/13/19 19:43 Ringers, Lactated IV 01/13/19 20:02 1,000 mls/hr BOLUS ONE Administration Discontinued Medications Generic Name Dose Route Start Last Admin Trade Name Melva PRN Reason Stop Dose Admin Hydromorphone HCl 0.5 mg 01/13/19 19:04 01/13/19 19:35 Dilaudid IVPUSH 01/13/19 19:05 0.5 mg ONETIME ONE Administration Ondansetron HCl 8 mg 01/13/19 19:07 01/13/19 19:36 Zofran IVPUSH 01/13/19 19:08 8 mg ONETIME ONE Administration Departure - Departure Time of Disposition: 20:10 Disposition: Refer to Observation Condition: Fair Clinical Impression: Acute on chronic pancreatitis - Discharge Information *PRESCRIPTION DRUG MONITORING PROGRAM REVIEWED*: No *COPY OF PRESCRIPTION DRUG MONITORING REPORT IN PATIENT APRIL: No Referrals: Richardson Lamb, DIRECT SUPPORT STAFF MEMBER [Primary Care Provider] - Forms: ED Department Discharge - My Orders Last 24 Hours: My Active Orders 01/13/19 19:03 Lactated Ringers [Ringers, Lactated] 1,000 ml IV BOLUS - Assessment/Plan Last 24 Hours: My Active Orders 01/13/19 19:03 Lactated Ringers [Ringers, Lactated] 1,000 ml IV BOLUS
[2019-01-13] MEDS ORDERED: HYDROmorphone 1 MG/ML Syringe IVPUSH ONE (20:43)
[2019-01-13] MEDS ORDERED: Promethazine 12.5 MG in Sodium Chloride 0.9% 50 ML IV PRN (21:31)
[2019-01-13] MEDS ORDERED: Docusate Sodium 100 MG Cap PO PRN (21:31)
[2019-01-13] MEDS ORDERED: Albuterol 0.083% 2.5 MG/3 ML Neb Soln NEB PRN (21:31)
[2019-01-13] MEDS ORDERED: Ondansetron 4 MG Tab.DIS PO PRN (21:31)
--- NOTE | 2019-01-13 21:35 | PCM.HP.2 ---
H&P History of Present Illness - General Date of Service: 01/13/19 Admit Problem/Dx: Admission Diagnosis/Problem Admission Diagnosis/Problem Pancreatitis Source of Information: Patient History Limitations: Reports: No Limitations - History of Present Illness Initial Comments - Free Text/Narative: chief complaint: Pancreatitis flare up. This is a 63 year old male presents to the ER for sudden onset of acute abdominal pain after eating a fast food meal of grilled chicken at 5:30 pm this evening. He has acute vomiting, nausea, bowel movement. Unable to controlled pain came to ER. Prior to this evening's episode of acute abdominal pain he has been at home doing well.denies any recent illness or other concerns. Lives with his Vicky and their only child a 11 year old son. Onset of Symptoms: Reports: Sudden Symptom Onset Date: 01/13/19 Symptom Onset Time: 17:30 Duration of Symptoms: Reports: Constant Location: Reports: Abdomen Quality: Reports: Same as Previous Episode, Sharp (feelings like his abdomen is being grabbed and holding on to his gut.) Worsens with: Reports: Eating (reports doing well all day til he ate fast food) Context: Reports: Other (acute on chronic abdominal pain, 20 year history of Pancreatitis.) Associated Symptoms: Reports: Nausea/Vomiting Abdomen Pain Score (Numeric/FACES): 10 - Related Data Allergies/Adverse Reactions: Allergies Allergy/AdvReac Type Severity Reaction Status Date / Time acetaminophen [From Tylenol] Allergy Rash Verified 01/13/19 19:23 erythromycin base Allergy Hives Verified 01/13/19 19:23 metoclopramide [From Reglan] AdvReac Agitation Verified 01/13/19 19:23 Home Medications: Home Meds Ondansetron [Zofran ODT] 4 mg PO Q4H PRN 11/02/16 [History] Promethazine [Phenergan] 50 mg PO Q6H PRN 11/02/16 [History] raNITIdine HCl [Zantac] 150 mg PO DAILY 11/16/18 [History] HYDROmorphone [Dilaudid] 2 mg PO Q8H PRN 01/04/19 [History] Medical Marijuana 1 inh INH DAILY 01/04/19 [History] Calcium Carbonate [Tums] 2 tab PO Q6HR PRN 01/13/19 [History] Past Medical History HEENT History: Reports: Impaired Vision Cardiovascular History: Reports: Blood Clots/VTE/DVT, CAD, Hypertension, [place], Other (See Below) Other Cardiovascular History: iliac stents for possible clots Gastrointestinal History: Reports: Cholelithiasis, GERD, Pancreatitis, Other ( See Below) Other Gastrointestinal History: pancreatitis Musculoskeletal History: Reports: Fracture Oncologic (Cancer) History: Reports: Other (See Below) Other Oncologic History: skin ca Dermatologic History: Reports: Other (See Below) Other Dermatologic History: basal cell ca - Infectious Disease History Infectious Disease History: Reports: Chicken Pox, Mumps - Past Surgical History GI Surgical History: Reports: Appendectomy, Cholecystectomy, Other (See Below) Other GI Surgeries/Procedures: exploratory lap for pancrease possilbe fruy procedure Social & Family History - Family History Family Medical History: Noncontributory HEENT: Reports: Cataract Cardiac: Reports: Bypass Endocrine/Metabolic: Reports: Diabetes, type II Oncologic: Reports: Prostate - Tobacco Use Smoking Status *Q: Never Smoker Second Hand Smoke Exposure: No - Caffeine Use Caffeine Use: Reports: Coffee Other Caffeine Use: 4 cups - Recreational Drug Use Recreational Drug Use: No - Living Situation & Occupation Living situation: Reports: Occupation: Retired (lives with and 11 year old son in [place], [place].) H&P Review of Systems - Review of Systems: Review Of Systems: See Below General: Reports: Decreased Appetite HEENT: Reports: Glasses Pulmonary: Reports: No Symptoms Cardiovascular: Reports: No Symptoms Gastrointestinal: Reports: Abdominal Pain, Nausea, Vomiting Genitourinary: Reports: No Symptoms Musculoskeletal: Reports: No Symptoms Skin: Reports: No Symptoms Psychiatric: Reports: No Symptoms Neurological: Reports: No Symptoms Hematologic/Lymphatic: Reports: No Symptoms Immunologic: Reports: No Symptoms Exam - Exam Exam: See Below - Vital Signs Vital Signs: Last Vital Signs Temp 35.9 C 01/13/19 19:52 Pulse 89 01/13/19 21:00 Resp 16 01/13/19 19:52 BP 176/95 H 01/13/19 21:00 Pulse Ox 90 L 01/13/19 19:52 Weight: 58.9 kg - Exam Quality Assessment: DVT Prophylaxis General: Alert, Oriented, Cooperative, Moderate Distress HEENT: PERRLA, Conjunctiva Clear, EOMI, Hearing Intact, Mucosa Moist & [place], Glasses Neck: Supple, Trachea Midline Lungs: Clear to Auscultation, Normal Respiratory Effort Cardiovascular: Regular Rate, Regular Rhythm, Normal S1, Normal S2 GI/Abdominal Exam: Normal Bowel Sounds, Soft, Tender (generalized abdominal pain , more intense epigastric area.) (Male) Exam: Deferred Rectal (Males) Exam: Deferred Back Exam: Normal Inspection, Full Range of Motion, Other Extremities: Normal Inspection, Normal Range of Motion, No Pedal Edema, Normal Capillary Refill Skin: Warm, Dry, Intact Neurological: Reflexes Equal Bilateral, Strength Equal Bilateral Neuro Extensive - Mental Status: Alert, Oriented x3, Normal Mood/Affect, Normal Cognition Psychiatric: Alert, Normal Affect, Normal Mood - Patient Data Lab Results Last 24 hrs: Laboratory Results - last 24 hr 01/13/19 01/13/19 01/13/19 Range/Units 19:17 19: 19:17 WBC 10.9 (4.5-11.0) K/uL RBC 5.28 (4.30-5.90) M/uL Hgb 16.0 H (12.0-15.0) g/dL Hct 47.2 (40.0-54.0) % MCV 89 (80-98) fL MCH 30 (27-31) pg MCHC 34 (32-36) % Plt Count 293 (150-400) K/uL Sodium 136 L (140-148) mmol/L Potassium 4.0 (3.6-5.2) mmol/L Chloride 98 L (100-108) mmol/L Carbon Dioxide 29 (21-32) mmol/L Anion Gap 13.0 (5.0-14.0) mmol/L BUN 16 (7-18) mg/dL Creatinine 0.9 (0.8-1.3) mg/dL Est Cr Clr Drug Dosing 68.17 mL/min Estimated GFR (MDRD) > 60 (>60) Glucose 112 H (74-106) mg/dL Calcium 9.1 (8.5-10.1) mg/dL Amylase 146 H D (25-115) U/L Lipase 647 H (73-393) U/L Result Diagrams: 01/13/19 19:17 01/13/19 19:17 - Problem List (1) Acute on chronic pancreatitis SNOMED Code(s): 919360379 ICD Code: K85.90 - ACUTE PANCREATITIS WITHOUT NECROSIS OR INFECTION, UNSP; K86.1 - OTHER CHRONIC PANCREATITIS Status: Acute Priority: High Current Visit: Yes Problem List Initiated/Reviewed/Updated: Yes Orders Last 24hrs: Active Orders 24 hr Category Date Time Status Patient Status Manage Transfer [TRANSFER] Routine ADT 01/13/19 20:59 Active Resuscitation Status Routine Resus Stat 01/13/19 21:01 Ordered Assessment/Plan Comment:: ASSESSMENT / PLAN chief complaint: Pancreatitis flare up. This is a 63 year old male presents to the ER for sudden onset of acute abdominal pain after eating a fast food meal of grilled chicken at 5:30 pm this evening. He has acute vomiting, nausea, bowel movement. Unable to controlled pain came to ER. Prior to this evening's episode of acute abdominal pain he has been at home doing well. denies any recent illness or other concerns. reports has had Pancreatitis for the past 20 years, once the pain is under controlled he will be ready to go home. Pancreatitis -Admit Observation to [address] [place] [address] for further monitoring -clear liquids advance to regular meal in am -IV Fluids Normal Saline at 125 mL per hour -IV Dilaudid 1 mg every 2 hours for pain control -anti nausea medication ordered -Advise to notify nurses of any fever or worsen pain -And a.m. labs: CBC, BMP, amylase, lipase History of Gastric Bypass -monitor Maintenance issues -home meds on hold -Nutrition: clear liquid advance as tolerated -Lopez catheter not indicated at this time -DVT: Lovenox 40 mg subcut -PPI; IV Protonix 40mg daily CODE STATUS: FULL Admission status: Admit to Observation [address] [place] [address] -I expect this patient to stay less than 24 hours, not to exceed 96 hours for evaluation and management of this problem. Disposition: home Primary care provider: Richardson Lamb NP Hospitalist: Dr. Lilly - Mortality Measure Prognosis:: Good
[2019-01-13] MEDS: HYDROmorphone 1 MG/ML Syringe IVPUSH PRN (23:03)
[2019-01-14] MEDS: Sodium Chloride 0.9% 1,000 ML IV SCH ×2 (03:55→12:00)
[2019-01-14] MEDS ORDERED: Calcium Carbonate 500 MG Tab.Chew PO ONE (03:57)
[2019-01-14] MEDS: Enoxaparin 40 MG/0.4 ML Syringe SUBCUT SCH (08:30)
[2019-01-14] MEDS: HYDROmorphone 1 MG/ML Syringe IVPUSH PRN (11:59)
--- NOTE | 2019-01-14 12:17 | PCM.PN ---
- General Info Date of Service: 01/14/19 Subjective Update: Mr. Pineda is a 63-year-old gentleman with a known history of chronic calcified pancreatitis. He was admitted through the emergency department last night observation status with acute exacerbation of this pancreatitis including pain, nausea, vomiting. Lipase level was approximately 1000 on admission and did increased to greater than 4000 this morning. He is feeling somewhat better with less pain and has been tolerating a clear liquid diet. Functional Status: Reports: Pain Controlled, Tolerating Diet, Ambulating, Urinating - Review of Systems General: Reports: Weakness. Denies: Fever, Chills Pulmonary: Reports: No Symptoms Cardiovascular: Reports: No Symptoms Gastrointestinal: Reports: Abdominal Pain, Decreased Appetite. Denies: Difficulty Swallowing, Nausea, Vomiting - Patient Data Vitals - Most Recent: Last Vital Signs Temp 95.5 F 01/13/19 21:31 Pulse 70 01/14/19 03:00 Resp 16 01/14/19 03:00 BP 165/80 H 01/14/19 03:00 Pulse Ox 95 01/14/19 03:00 Weight - Most Recent: 129 lb 13.636 oz I&O - Last 24 Hours: Intake & Output 01/13/19 01/14/19 01/14/19 22:59 06:59 14:59 Intake Total 2000 Output Total 650 Balance -650 2000 Lab Results Last 24 Hours: Laboratory Results - last 24 hr 01/13/19 01/13/19 01/13/19 Range/Units 19:17 19:17 19:17 WBC 10.9 (4.5-11.0) K/uL RBC 5.28 (4.30-5.90) M/uL Hgb 16.0 H (12.0-15.0) g/dL Hct 47.2 (40.0-54.0) % MCV 89 (80-98) fL MCH 30 (27-31) pg MCHC 34 (32-36) % Plt Count 293 (150-400) K/uL Neut % (Auto) (36-66) % Lymph % (Auto) (24-44) % Glenn % (Auto) (2-6) % Eos % (Auto) (2-4) % Baso % (Auto) (0-1) % Sodium 136 L (140-148) mmol/L Potassium 4.0 (3.6-5.2) mmol/L Chloride 98 L (100-108) mmol/L Carbon Dioxide 29 (21-32) mmol/L Anion Gap 13.0 (5.0-14.0) mmol/L BUN 16 (7-18) mg/dL Creatinine 0.9 (0.8-1.3) mg/dL Est Cr Clr Drug Dosing 68.17 mL/min Estimated GFR (MDRD) > 60 (>60) Glucose 112 H (74-106) mg/dL Calcium 9.1 (8.5-10.1) mg/dL Amylase 146 H D (25-115) U/L Lipase 647 H (73-393) U/L 01/14/19 01/14/19 01/14/19 Range/Units 04:53 04:53 04:53 WBC 11.1 H (4.5-11.0) K/uL RBC 5.04 (4.30-5.90) M/uL Hgb 15.2 H (12.0-15.0) g/dL Hct 45.7 (40.0-54.0) % MCV 91 (80-98) fL MCH 30 (27-31) pg MCHC 33 (32-36) % Plt Count 260 (150-400) K/uL Neut % (Auto) 78 H (36-66) % Lymph % (Auto) 14 L (24-44) % Glenn % (Auto) 7 H (2-6) % Eos % (Auto) 1 L (2-4) % Baso % (Auto) 0 (0-1) % Sodium 140 (140-148) mmol/L Potassium 4.0 (3.6-5.2) mmol/L Chloride 106 (100-108) mmol/L Carbon Dioxide 28 (21-32) mmol/L Anion Gap 6.2 (5.0-14.0) mmol/L BUN 12 (7-18) mg/dL Creatinine 0.8 (0.8-1.3) mg/dL Est Cr Clr Drug Dosing 76.69 mL/min Estimated GFR (MDRD) > 60 (>60) Glucose 102 (74-106) mg/dL Calcium 8.4 L (8.5-10.1) mg/dL Amylase 467 H D (25-115) U/L Lipase 4830 H (73-393) U/L Med Orders - Current: Current Medications Albuterol (Proventil Neb Soln) 2.5 mg NEB Q4H PRN PRN Reason: Shortness Of Breath/wheezing Docusate Sodium (Colace) 100 mg PO BID PRN PRN Reason: Constipation Enoxaparin Sodium (Lovenox) 40 mg SUBCUT DAILY CHARLES Last Admin: 01/14/19 08:30 Dose: 40 mg Hydromorphone HCl (Dilaudid) 1 mg IVPUSH Q2H PRN PRN Reason: Pain Last Admin: 01/14/19 11:59 Dose: 1 mg Promethazine HCl 12.5 mg/ (Sodium Chloride) 50.5 mls @ 200 mls/hr IV Q6H PRN PRN Reason: Nausea/Vomiting Last Admin: 01/13/19 23:11 Dose: 200 mls/hr Ondansetron HCl (Zofran Odt) 8 mg PO Q6H PRN PRN Reason: Nausea able to take PO Discontinued Medications Calcium Carbonate/Glycine (Tums) 1,000 mg PO ONETIME ONE Stop: 01/14/19 03:58 Last Admin: 01/14/19 04:43 Dose: 1,000 mg Hydromorphone HCl (Dilaudid) 0.5 mg IVPUSH ONETIME ONE Stop: 01/13/19 19:05 Last Admin: 01/13/19 19:35 Dose: 0.5 mg Hydromorphone HCl (Dilaudid) 0.5 mg IVPUSH ONETIME ONE Stop: 01/13/19 20:03 Last Admin: 01/13/19 20:12 Dose: 0.5 mg Hydromorphone HCl (Dilaudid) 1 mg IVPUSH ONETIME ONE Stop: 01/13/19 20:44 Last Admin: 01/13/19 20:57 Dose: 1 mg Lactated Ringer's (Ringers, Lactated) 1,000 mls @ 1,000 mls/hr IV BOLUS ONE Stop: 01/13/19 20:02 Last Admin: 01/13/19 19:43 Dose: 1,000 mls/hr Sodium Chloride (Normal Saline) 1,000 mls @ 125 mls/hr IV [facility] Last Admin: 01/14/19 12:00 Dose: 125 mls/hr Ondansetron HCl (Zofran) 8 mg IVPUSH ONETIME ONE Stop: 01/13/19 19:08 Last Admin: 01/13/19 19:36 Dose: 8 mg - Exam Quality Assessment: DVT Prophylaxis General: Alert, Oriented, Cooperative, Mild Distress Lungs: Clear to Auscultation, Normal Respiratory Effort Cardiovascular: Regular Rate, Regular Rhythm, No Murmurs GI/Abdominal Exam: Soft, No Organomegaly, Tender. No: Distended, Guarding, Rigid, Rebound Extremities: Non-Tender, No Pedal Edema - Problem List Review Problem List Initiated/Reviewed/Updated: Yes - My Orders Last 24 Hours: My Active Orders 01/14/19 12:07 Convert IV to Saline Lock [OM.PC] Routine 01/14/19 Lunch Regular Diet [DIET] 01/15/19 05:00 LIPASE [CHEM] Timed - Plan Plan:: ASSESSMENT / PLAN Acute on Chronic Pancreatitis-exacerbation of long-standing problem, worse than his usual exacerbations. Evidently improved from admission, continues to experience some pain and lipase level significantly elevated. Nausea and vomiting have resolved -Advance to regular diet -Saline lock IV -IV Dilaudid 1 mg every 2 hours for pain control -anti nausea medication ordered -Recheck lipase level in a.m. -Consider outpatient follow-up with his pumper gauger at the [facility] History of Gastric Bypass -monitor Maintenance issues -home meds on hold -Nutrition: clear liquid advance as tolerated -Loepz catheter not indicated at this time -DVT: Lovenox 40 mg subcut -PPI; IV Protonix 40mg daily CODE STATUS: FULL Admission status: Admit to [address] -I expect this patient to stay less than 24 hours, not to exceed 96 hours for evaluation and management of this problem. Disposition: home tomorrow Primary care provider: Richardson Lamb NP Hospitalist: Dr. Lilly
[2019-01-15 07:46] VITALS: BP 184/99
[2019-01-15] MEDS: Enoxaparin 40 MG/0.4 ML Syringe SUBCUT SCH (08:40)
--- NOTE | 2019-01-15 10:21 | PCM.DCSUM1 ---
Discharge Summary - Hospital Course Brief History: 63-year-old male with history of recurrent pancreatitis who presented with acute onset of abdominal pain with nausea and vomiting. He was admitted for management of an episode of recurrent pancreatitis. Diagnosis: Stroke: No - Discharge Data Discharge Date: 01/15/19 Discharge Disposition: Home, Self-Care 01 Condition: Good - Discharge Diagnosis/Problem(s) (1) Acute on chronic pancreatitis SNOMED Code(s): 057879318 ICD Code: K85.90 - ACUTE PANCREATITIS WITHOUT NECROSIS OR INFECTION, UNSP; K86.1 - OTHER CHRONIC PANCREATITIS Status: Acute Priority: High - Patient Summary/Data Hospital Course: Kishan presented to the emergency room with acute abdominal pain with nausea and vomiting. He was suspicious this was a recurrence of his pancreatitis based on symptoms. Laboratory studies in the emergency room included a lipase that was elevated at more than 1000. He was admitted to the hospital for pain management as well as IV fluids and further management. Overnight following admission he did have a fair amount of improvement in the abdominal pain but not resolution. His nausea and vomiting resolved fairly quickly. His lipase level however did rise up to 4000 the morning after admission. Because his pain had improved so dramatically we did elect to start him on clear liquids. Combination of oral and IV pain control was continued. By the second morning of hospitalization he is feeling much better. His pain has essentially resolved. He did tolerate a regular diet last night and this morning without an increase in his pain and he did not have any nausea. He feels back to his usual self at this time. He did have significant hypertension at the time of presentation but this has trended down during the hospital stay. He reports this is his usual trend and it does not come down until his pain has resolved. Blood pressures are normal as noted patient and he is not interested in the antihypertensive therapy. Since he is back to his usual self he will be discharged home today. We did discuss some dietary issues and in particular foods to avoid such as fatty foods and rich foods. He does admit that he has not been as compliant with his diet recently because of increased stress. 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 - Patient Instructions Diet: Usual Diet as Tolerated Activity: As Tolerated Driving: May Drive Today Showering/Bathing: May Shower Notify Provider of: Fever, Increased Pain, Nausea and/or Vomiting - Discharge Plan *PRESCRIPTION DRUG MONITORING PROGRAM REVIEWED*: No *COPY OF PRESCRIPTION DRUG MONITORING REPORT IN PATIENT APRIL: No Home Medications: Home Meds Ondansetron [Zofran ODT] 4 mg PO Q4H PRN 11/02/16 [History] Promethazine [Phenergan] 50 mg PO Q6H PRN 11/02/16 [History] raNITIdine HCl [Zantac] 150 mg PO DAILY 11/16/18 [History] HYDROmorphone [Dilaudid] 2 mg PO Q8H PRN 01/04/19 [History] Medical Marijuana 1 inh INH DAILY 01/04/19 [History] Calcium Carbonate [Tums] 2 tab PO Q6HR PRN 01/13/19 [History] Oxygen Therapy Mode: Room Air Patient Handouts: Acute Pancreatitis, [id number] Referrals: Richardson Lamb, RECYCLING MANAGER [Primary Care Provider] - (f/u as needed ) - Discharge Summary/Plan Comment DC Time >30 min.: No - Patient Data Vitals - Most Recent: Last Vital Signs Temp 35.8 C 01/15/19 07:42 Pulse 82 01/15/19 07:42 Resp 15 01/15/19 07:42 BP 184/99 H 01/15/19 07:42 Pulse Ox 97 01/15/19 07:42 Weight - Most Recent: 58.9 kg I&O - Last 24 hours: Intake & Output 01/14/19 01/15/19 01/15/19 22:59 06:59 14:59 Intake Total 1680 700 480 Balance 1680 700 480 Lab Results - Last 24 hrs: Laboratory Results - last 24 hr 01/15/19 01/15/19 Range/Units 04:30 04:30 Amylase 170 H D (25-115) U/L Lipase 340 (73-393) U/L Med Orders - Current: Current Medications Albuterol (Proventil Neb Soln) 2.5 mg NEB Q4H PRN PRN Reason: Shortness Of Breath/wheezing Docusate Sodium (Colace) 100 mg PO BID PRN PRN Reason: Constipation Enoxaparin Sodium (Lovenox) 40 mg SUBCUT DAILY CHARLES Last Admin: 01/15/19 08:40 Dose: 40 mg Hydromorphone HCl (Dilaudid) 1 mg IVPUSH Q2H PRN PRN Reason: Pain Last Admin: 01/14/19 11:59 Dose: 1 mg Promethazine HCl 12.5 mg/ (Sodium Chloride) 50.5 mls @ 200 mls/hr IV Q6H PRN PRN Reason: Nausea/Vomiting Last Admin: 01/13/19 23:11 Dose: 200 mls/hr Ondansetron HCl (Zofran Odt) 8 mg PO Q6H PRN PRN Reason: Nausea able to take PO Discontinued Medications Calcium Carbonate/Glycine (Tums) 1,000 mg PO ONETIME ONE Stop: 01/14/19 03:58 Last Admin: 01/14/19 04:43 Dose: 1,000 mg Hydromorphone HCl (Dilaudid) 0.5 mg IVPUSH ONETIME ONE Stop: 01/13/19 19:05 Last Admin: 01/13/19 19:35 Dose: 0.5 mg Hydromorphone HCl (Dilaudid) 0.5 mg IVPUSH ONETIME ONE Stop: 01/13/19 20:03 Last Admin: 01/13/19 20:12 Dose: 0.5 mg Hydromorphone HCl (Dilaudid) 1 mg IVPUSH ONETIME ONE Stop: 01/13/19 20:44 Last Admin: 01/13/19 20:57 Dose: 1 mg Lactated Ringer's (Ringers, Lactated) 1,000 mls @ 1,000 mls/hr IV BOLUS ONE Stop: 01/13/19 20:02 Last Admin: 01/13/19 19:43 Dose: 1,000 mls/hr Sodium Chloride (Normal Saline) 1,000 mls @ 125 mls/hr IV ASDIRECTED [facility] Last Admin: 01/14/19 12:00 Dose: 125 mls/hr Ondansetron HCl (Zofran) 8 mg IVPUSH ONETIME ONE Stop: 01/13/19 19:08 Last Admin: 01/13/19 19:36 Dose: 8 mg - Exam Quality Assessment: Denies: Supplemental Oxygen General: Reports: Alert, Oriented, Cooperative, No Acute Distress Lungs: Reports: Normal Respiratory Effort GI/Abdominal Exam: Soft, No Distention Extremities: No Pedal Edema Psy/Mental Status: Reports: Alert, Normal Affect
== END 2019-01-15 11:30 | disposition home or self-care (01) | DRG 282 ==
LOC: JP.ED 18:17 → JP.MS 20:59
PROVIDERS: ADMIT Hospitalist; ATTEND Internal Medicine
DX: K85.90 Acute pancreatitis without necrosis or infection, unspecified (principal); K86.1 Other chronic pancreatitis; H54.7 Unspecified visual loss; I25.10 Atherosclerotic heart disease of native coronary artery without angina pectoris; E11.9 Type 2 diabetes mellitus without complications; I10 Essential (primary) hypertension; K21.9 Gastro-esophageal reflux disease without esophagitis; I25.2 Old myocardial infarction; Z90.49 Acquired absence of other specified parts of digestive tract; Z95.1 Presence of aortocoronary bypass graft; Z98.49 Cataract extraction status, unspecified eye; Z98.84 Bariatric surgery status; Z79.899 Other long term (current) drug therapy; Z88.1 Allergy status to other antibiotic agents; Z88.8 Allergy status to other drugs, medicaments and biological substances
CPT/HCPCS: 36415; 80048; 82150; 83690; 85025; 85027; 96374; 96375; 99284-25; A9270-GY; J1170; J1650; J2405; J2550; J7030; J7050; J7120

== ENCOUNTER 2019-02-19 06:29 | Emergency (ER) | payer BC, MEDICARE ==
[2019-02-19] MEDS ORDERED: HYDROmorphone 1 MG/ML Syringe IVPUSH ONE ×2 (06:52→08:00)
[2019-02-19] MEDS ORDERED: Ondansetron 4 MG/2 ML SDV IVPUSH ONE (06:52)
--- NOTE | 2019-02-19 06:54 | EDM.PDOC ---
<OfficerBaron - Last Filed: 02/19/19 06:52> ED HPI GENERAL MEDICAL PROBLEM - General Chief Complaint: Abdominal Pain Stated Complaint: STOMACH PAIN Time Seen by Provider: 02/19/19 06:48 Source of Information: Reports: Patient, Old Records, RN Notes Reviewed History Limitations: Reports: No Limitations - History of Present Illness INITIAL COMMENTS - FREE TEXT/NARRATIVE: 63-year-old gentleman presents to the emergency department today complaint of abdominal pain, he has a known history of chronic pancreatitis he feels this is the same thing he states he did have spaghetti last night which may have been a trigger awoke about an hour prior abdominal Pain Score (Numeric/FACES): 10 - Related Data Allergies Allergy/AdvReac Type Severity Reaction Status Date / Time acetaminophen [From Tylenol] Allergy Rash Verified 02/19/19 06:42 erythromycin base Allergy Hives Verified 02/19/19 06:42 metoclopramide [From Reglan] AdvReac Agitation Verified 02/19/19 06:42 Home Meds: Home Meds Ondansetron [Zofran ODT] 4 mg PO Q4H PRN 11/02/16 [History] Promethazine [Phenergan] 50 mg PO Q6H PRN 11/02/16 [History] HYDROmorphone [Dilaudid] 2 mg PO Q8H PRN 01/04/19 [History] Medical Marijuana 1 inh INH DAILY 01/04/19 [History] Calcium Carbonate [Tums] 2 tab PO Q6HR PRN 01/13/19 [History] Past Medical History HEENT History: Reports: Impaired Vision Cardiovascular History: Reports: Blood Clots/VTE/DVT, CAD, Hypertension, NM, Other (See Below) Other Cardiovascular History: iliac stents for possible clots Gastrointestinal History: Reports: Cholelithiasis, GERD, Pancreatitis, Other ( See Below) Other Gastrointestinal History: pancreatitis Musculoskeletal History: Reports: Fracture Oncologic (Cancer) History: Reports: Other (See Below) Other Oncologic History: skin ca Dermatologic History: Reports: Other (See Below) Other Dermatologic History: basal cell ca - Infectious Disease History Infectious Disease History: Reports: Chicken Pox, Mumps - Past Surgical History Head Surgeries/Procedures: Reports: None GI Surgical History: Reports: Appendectomy, Cholecystectomy, Other (See Below) Other GI Surgeries/Procedures: exploratory lap for pancrease possilbe fruy procedure Social & Family History - Family History Family Medical History: Noncontributory HEENT: Reports: Cataract Cardiac: Reports: Bypass Endocrine/Metabolic: Reports: Diabetes, type II Oncologic: Reports: Prostate - Caffeine Use Caffeine Use: Reports: Coffee Other Caffeine Use: 4 cups - Living Situation & Occupation Living situation: Reports: Occupation: Retired (lives with and 11 year old son in [facility]) ED ROS GENERAL - Review of Systems Review Of Systems: See Below Constitutional: Reports: No Symptoms Respiratory: Reports: No Symptoms Cardiovascular: Reports: No Symptoms GI/Abdominal: Reports: Abdominal Pain, Nausea. Denies: Vomiting : Reports: No Symptoms ED EXAM, GI/ABD - Physical Exam Exam: See Below Exam Limited By: No Limitations General Appearance: Alert, WD/WN, No Apparent Distress Respiratory/Chest: No Respiratory Distress, Lungs Clear, Normal Breath Sounds, No Accessory Muscle Use, Chest Non-Tender Cardiovascular: Regular Rate, Rhythm, No Murmur GI/Abdominal Exam: Soft, Tender (Left upper quadrant) Course - Vital Signs Last Recorded V/S: Last Vital Signs Temp 36.3 C 02/19/19 07:56 Pulse 87 02/19/19 09:54 Resp 18 02/19/19 09:54 BP 146/82 H 02/19/19 09:54 Pulse Ox 94 L 02/19/19 09:54 - Orders/Labs/Meds Orders: Active Orders 24 hr Category Date Time Status Peripheral IV Care [RC] . DIRECTED Care 02/19/19 06:51 Active Lactated Ringers [Ringers, Lactated] 1,000 ml Med 02/19/19 07:00 Active IV ASDIRECTED Lactated Ringers [Ringers, Lactated] 1,000 ml Med 02/19/19 08:45 Active IV ASDIRECTED Sodium Chloride 0.9% [Saline Flush] Med 02/19/19 06:51 Active 10 ml FLUSH ASDIRECTED PRN Peripheral IV Insertion Adult [OM.PC] Urgent Oth 02/19/19 06:51 Ordered Medication Orders Lactated Ringer's (Ringers, Lactated) 1,000 mls @ 999 mls/hr IV ASDIRECTED CHARLES Last Admin: 02/19/19 07:23 Dose: 999 mls/hr Lactated Ringer's (Ringers, Lactated) 1,000 mls @ 150 mls/hr IV ASDIRECTED CHARLES Last Admin: 02/19/19 08:47 Dose: 150 mls/hr Sodium Chloride (Saline Flush) 10 ml FLUSH ASDIRECTED PRN PRN Reason: Keep Vein Open Last Admin: 02/19/19 08:04 Dose: 10 ml Admin: 02/19/19 07:20 Dose: 10 ml Labs: Laboratory Tests 02/19/19 02/19/19 02/19/19 Range/Units 07:15 07:15 07:15 WBC 9.0 (4.5-11.0) K/uL RBC 5.89 (4.30-5.90) M/uL Hgb 17.4 H D (12.0-15.0) g/dL Hct 52.3 (40.0-54.0) % MCV 89 (80-98) fL MCH 30 (27-31) pg MCHC 33 (32-36) % Plt Count 280 (150-400) K/uL Neut % (Auto) 66 (36-66) % Lymph % (Auto) 26 (24-44) % [place] % (Auto) 5 (2-6) % Eos % (Auto) 3 (2-4) % Baso % (Auto) 0 (0-1) % Sodium 136 L (140-148) mmol/L Potassium 4.1 (3.6-5.2) mmol/L Chloride 101 (100-108) mmol/L Carbon Dioxide 26 (21-32) mmol/L Anion Gap 13.1 (5.0-14.0) mmol/L BUN 16 (7-18) mg/dL Creatinine 0.8 (0.8-1.3) mg/dL Est Cr Clr Drug Dosing 76.69 mL/min Estimated GFR (MDRD) > 60 (>60) Glucose 125 H (74-106) mg/dL Lactic Acid 2.2 H (0.4-2.0) mmol/L Calcium 9.0 (8.5-10.1) mg/dL Total Bilirubin 0.6 (0.2-1.0) mg/dL AST 25 (15-37) U/L ALT 26 (12-78) U/L Alkaline Phosphatase 83 (46-116) U/L Troponin I (0.000-0.056) ng/mL Total Protein 8.9 H (6.4-8.2) g/dL Albumin 4.3 (3.4-5.0) g/dL Globulin 4.6 H (2.3-3.5) g/dL Albumin/Globulin Ratio 0.9 L (1.2-2.2) Lipase 702 H (73-393) U/L Urine Color (YELLOW) Urine Appearance (CLEAR) Urine pH (5.0-8.0) Ur Specific [place] (1.008-1.030) Urine Protein (NEGATIVE) mg/dL Urine Glucose (UA) (NEGATIVE) mg/dL Urine Ketones (NEGATIVE) mg/dL Urine Occult Blood (NEGATIVE) Urine Nitrite (NEGATIVE) Urine Bilirubin (NEGATIVE) Urine Urobilinogen (0.2-1.0) EU/dL Ur Leukocyte Esterase (NEGATIVE) Urine RBC (0-5) Urine WBC (0-5) Ur Epithelial Cells Amorphous Sediment Urine Bacteria Urine Mucus 02/19/19 02/19/19 Range/Units 07:15 08:28 WBC (4.5-11.0) K/uL RBC (4.30-5.90) M/uL Hgb (12.0-15.0) g/dL Hct (40.0-54.0) % MCV (80-98) fL MCH (27-31) pg MCHC (32-36) % Plt Count (150-400) K/uL Neut % (Auto) (36-66) % Lymph % (Auto) (24-44) % [place] % (Auto) (2-6) % Eos % (Auto) (2-4) % Baso % (Auto) (0-1) % Sodium (140-148) mmol/L Potassium (3.6-5.2) mmol/L Chloride (100-108) mmol/L Carbon Dioxide (21-32) mmol/L Anion Gap (5.0-14.0) mmol/L BUN (7-18) mg/dL Creatinine (0.8-1.3) mg/dL Est Cr Clr Drug Dosing mL/min Estimated GFR (MDRD) (>60) Glucose (74-106) mg/dL Lactic Acid (0.4-2.0) mmol/L Calcium (8.5-10.1) mg/dL Total Bilirubin (0.2-1.0) mg/dL AST (15-37) U/L ALT (12-78) U/L Alkaline Phosphatase (46-116) U/L Troponin I < 0.017 (0.000-0.056) ng/mL Total Protein (6.4-8.2) g/dL Albumin (3.4-5.0) g/dL Globulin (2.3-3.5) g/dL Albumin/Globulin Ratio (1.2-2.2) Lipase (73-393) U/L Urine Color Yellow (YELLOW) Urine Appearance Clear (CLEAR) Urine pH 7.5 (5.0-8.0) Ur Specific [place] 1.025 (1.008-1.030) Urine Protein >=300 H (NEGATIVE) mg/dL Urine Glucose (UA) Normal (NEGATIVE) mg/dL Urine Ketones Negative (NEGATIVE) mg/dL Urine Occult Blood Small (NEGATIVE) Urine Nitrite Negative (NEGATIVE) Urine Bilirubin Negative (NEGATIVE) Urine Urobilinogen 0.2 (0.2-1.0) EU/dL Ur Leukocyte Esterase Negative (NEGATIVE) Urine RBC 0-5 (0-5) Urine WBC Not seen (0-5) Ur Epithelial Cells Not seen Amorphous Sediment Rare Urine Bacteria Not seen Urine Mucus Not seen Meds: Medications Generic Name Dose Route Start Last Admin Trade Name Freq PRN Reason Stop Dose Admin Lactated Ringer's 1,000 mls @ 999 mls/hr 02/19/19 07:00 02/19/19 07:23 Ringers, Lactated IV 999 mls/hr ASDIRECTED CHARLES Administration Lactated Ringer's 1,000 mls @ 150 mls/hr 02/19/19 08:45 02/19/19 08:47 Ringers, Lactated IV 150 mls/hr ASDIRECTED CHARLES Administration Sodium Chloride 10 ml 02/19/19 06:51 02/19/19 08:04 Saline Flush FLUSH 10 ml ASDIRECTED PRN Administration Keep Vein Open Discontinued Medications Generic Name Dose Route Start Last Admin Trade Name Freq PRN Reason Stop Dose Admin Hydromorphone HCl 1 mg 02/19/19 06:52 02/19/19 07:19 Dilaudid IVPUSH 02/19/19 06:53 1 mg ONETIME ONE Administration Hydromorphone HCl 1 mg 02/19/19 08:00 02/19/19 08:04 Dilaudid IVPUSH 02/19/19 08:01 1 mg ONETIME ONE Administration Ondansetron HCl 4 mg 02/19/19 06:52 02/19/19 07:19 Zofran IVPUSH 02/19/19 06:53 4 mg ONETIME ONE Administration Departure - Departure Disposition: Home, Self-Care 01 Clinical Impression: Acute on chronic pancreatitis Pancreatitis Qualifiers: Chronicity: acute Pancreatitis type: unspecified pancreatitis type Acute pancreatitis complication: no infection or necrosis Qualified Code(s): K85.90 - Acute pancreatitis without necrosis or infection, unspecified - Discharge Information Referrals: Richardson Lamb NP [Primary Care Provider] - Forms: ED Department Discharge Additional Instructions: Clear liquids today, advance diet slowly as tolerated. Recheck with your doctor as needed. Use your Zofran and Dilaudid as needed. - My Orders Last 24 Hours: My Active Orders 02/19/19 08:45 Lactated Ringers [Ringers, Lactated] 1,000 ml IV ASDIRECTED - Assessment/Plan Last 24 Hours: My Active Orders 02/19/19 08:45 Lactated Ringers [Ringers, Lactated] 1,000 ml IV ASDIRECTED <Phil Najera G - Last Filed: 02/19/19 11:53> Course - Vital Signs Text/Narrative:: Dr. Lilly called @ [facility] Departure - Departure Time of Disposition: 12:15 Condition: Fair - Discharge Information *PRESCRIPTION DRUG MONITORING PROGRAM REVIEWED*: No *COPY OF PRESCRIPTION DRUG MONITORING REPORT IN PATIENT APRIL: No - My Orders Last 24 Hours: My Active Orders 02/19/19 08:45 Lactated Ringers [Ringers, Lactated] 1,000 ml IV ASDIRECTED - Assessment/Plan Last 24 Hours: My Active Orders 02/19/19 08:45 Lactated Ringers [Ringers, Lactated] 1,000 ml IV ASDIRECTED
[2019-02-19] MEDS ORDERED: Lactated Ringers 1,000 ML IV SCH ×2 (07:00→08:45)
[2019-02-19] MEDS: Sodium Chloride 0.9% 10 ML Syringe FLUSH PRN ×2 (07:20→08:04)
[2019-02-19 09:54] VITALS: BP 146/82; PULSE 87
--- NOTE | 2019-02-19 13:05 | PCM.SN ---
- Free Text/Narrative Note: I was asked to see Mr. Pineda in the emergency department for possible admission. When I saw him in the emergency department he was feeling improved, pain had resolved with no further nausea or vomiting. He decided that he did not want to proceed with admission to the hospital and requested that he be discharged from the emergency department.
== END 2019-02-19 12:46 | disposition home or self-care (01) ==
LOC: JP.ED 06:29
DX: K85.90 Acute pancreatitis without necrosis or infection, unspecified (principal); I10 Essential (primary) hypertension; I25.2 Old myocardial infarction; K21.9 Gastro-esophageal reflux disease without esophagitis; Z90.49 Acquired absence of other specified parts of digestive tract; Z88.6 Allergy status to analgesic agent; Z88.1 Allergy status to other antibiotic agents; Z88.8 Allergy status to other drugs, medicaments and biological substances; Z79.899 Other long term (current) drug therapy; Z86.718 Personal history of other venous thrombosis and embolism
CPT/HCPCS: 36415; 80053; 81001; 83605; 83690; 84484; 85025; 96361; 96374; 96375; 96376; 99283; 99284; J1170; J2405; J7120

== ENCOUNTER 2019-07-29 08:31 | Emergency (ER) | payer BC ==
[2019-07-29 08:46] VITALS: BP 177/91; PULSE 95
--- NOTE | 2019-07-29 09:12 | EDM.PDOC ---
ED HPI GENERAL MEDICAL PROBLEM - General Chief Complaint: Respiratory Problem Stated Complaint: COUGH TIGHTNESS IN CHEST Time Seen by Provider: 07/29/19 08:55 Source of Information: Reports: Patient, Old Records, RN History Limitations: Reports: No Limitations - History of Present Illness INITIAL COMMENTS - FREE TEXT/NARRATIVE: 63 yo male here with ongoing cough and some chest tightness/wheezing. Is not SOB. Coughs more with lying down. Has been to the clinic and is not getting better with the Augmentin prescribed. No fever. Cough rarely productive. Onset: Unknown/Unsure Duration: Week(s):, Waxing/Waning Location: Reports: Chest Quality: Reports: Other (mild tightness) Severity: Mild Improves with: Reports: Rest Worsens with: Reports: Movement (exertion) Context: Reports: Other (See HPI, former smoker) Associated Symptoms: Reports: Cough, Shortness of Breath. 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 [employer]LE[employer]F E[employer]REPRENEUR MEDIA PERSONALITY: Reports: Other (see below) (Augmentin) - Related Data Allergies Allergy/AdvReac Type Severity Reaction Status Date / Time acetaminophen [From Tylenol] Allergy Rash Verified 05/02/19 08:44 erythromycin base Allergy Hives Verified 05/02/19 08:44 Kpyhzjr-Szw-Diy Reductase Allergy Anxiety Verified 07/29/19 08:37 Inhibitor metoclopramide [From Reglan] AdvReac Agitation Verified 05/02/19 08:44 Home Meds: Home Meds Ondansetron [Zofran ODT] 8 mg PO Q6H PRN 11/02/16 [History] Promethazine [Phenergan] 50 mg PO Q6H PRN 11/02/16 [History] Medical Marijuana 1 inh INH DAILY 01/04/19 [History] Albuterol Sulfate [Albuterol Sulfate Hfa] 1 - 2 puff IH ASDIRECTED 07/29/19 [ History] Amoxicillin/Potassium Clav [Amox-Clav 875-125 mg Tablet] 1 tab PO BID 07/29/19 [ History] Aspirin [Halfprin] 81 mg PO DAILY 07/29/19 [History] predniSONE [Prednisone] 10 mg PO TID #15 tablet 07/29/19 [Rx] Past Medical History HEENT History: Reports: Impaired Vision Cardiovascular History: Reports: Blood Clots/VTE/DVT, CAD, Hypertension, [place], Other (See Below) Other Cardiovascular History: iliac stents for possible clots Gastrointestinal History: Reports: Cholelithiasis, GERD, Pancreatitis, Other ( See Below) Other Gastrointestinal History: pancreatitis Musculoskeletal History: Reports: Fracture Oncologic (Cancer) History: Reports: Squamous Cell Carcinoma, Other (See Below) Other Oncologic History: skin ca Dermatologic History: Reports: Other (See Below) Other Dermatologic History: basal cell ca - Infectious Disease History Infectious Disease History: Reports: Mumps - Past Surgical History Head Surgeries/Procedures: Reports: None HEENT Surgical History: Reports: None Cardiovascular Surgical History: Reports: None GI Surgical History: Reports: Appendectomy, Cholecystectomy, Other (See Below) Other GI Surgeries/Procedures: exploratory lap for pancrease possilbe fruy procedure Musculoskeletal Surgical History: Reports: None Oncologic Surgical History: Reports: None Dermatological Surgical History: Reports: None Social & Family History - Family History Family Medical History: Noncontributory HEENT: Reports: Cataract Cardiac: Reports: Bypass Endocrine/Metabolic: Reports: Diabetes, type II Oncologic: Reports: Prostate - Tobacco Use Smoking Status *Q: Former Smoker Used Tobacco, but Quit: Yes Month/Year Tobacco Last Used: 1994 Second Hand Smoke Exposure: No - Caffeine Use Caffeine Use: Reports: Coffee Other Caffeine Use: 4 cups - Recreational Drug Use Recreational Drug Use: Yes Drug Use in Last 12 Months: Yes Recreational Drug Type: Reports: Marijuana/Hashish Recreational Drug Use Frequency: Daily - Living Situation & Occupation Living situation: Reports: Occupation: Retired (lives with and 11 year old son in [place], [place].) ED ROS GENERAL - Review of Systems Review Of Systems: See Below Constitutional: Reports: No Symptoms HEENT: Reports: Rhinitis (mostly clear) Respiratory: Reports: Shortness of Breath, Wheezing, Cough, Sputum (occasionally ). Denies: Hemoptysis Cardiovascular: Reports: No Symptoms GI/Abdominal: Reports: No Symptoms : Reports: No Symptoms Musculoskeletal: Reports: No Symptoms Skin: Reports: No Symptoms Neurological: Reports: No Symptoms ED EXAM, GENERAL - Physical Exam Exam: See Below Exam Limited By: No Limitations General Appearance: Alert, WD/WN, No Apparent Distress, Thin Eye Exam: Bilateral Eye: Normal Inspection Ears: Normal External Exam, Normal Canal, Hearing Grossly Normal, Normal TMs Ear Exam: Bilateral Ear: Auricle Normal, Canal Normal, TM normal Nose: Normal Inspection, No Blood Throat/Mouth: Normal Inspection, Normal Lips, Normal Oropharynx, Normal Voice, No Airway Compromise Head: Atraumatic, Normocephalic Neck: Normal Inspection Respiratory/Chest: No Respiratory Distress, No Accessory Muscle Use, Wheezing Cardiovascular: Regular Rate, Rhythm, No Edema Extremities: Normal Inspection Neurological: Alert, Oriented, CN II-XII Intact, Normal Cognition, No Motor/ Sensory Deficits Psychiatric: Normal Affect, Normal Mood Skin Exam: Warm, Dry, Intact, Normal Color, No Rash Course - Vital Signs Last Recorded V/S: Last Vital Signs Temp 35.7 C L 07/29/19 08:49 Pulse 95 07/29/19 08:49 Resp 17 07/29/19 08:49 BP 177/91 H 07/29/19 08:49 Pulse Ox 96 07/29/19 08:49 Departure - Departure Time of Disposition: 09:12 Disposition: Home, Self-Care 01 Condition: Good Clinical Impression: Bronchospasm - Discharge Information *PRESCRIPTION DRUG MONITORING PROGRAM REVIEWED*: Not Applicable *COPY OF PRESCRIPTION DRUG MONITORING REPORT IN PATIENT APRIL: Not Applicable Prescriptions: predniSONE [Prednisone] 10 mg PO TID #15 tablet Referrals: Richardson Lamb HEADER SET UP OPERATOR [Primary Care Provider] - Additional Instructions: You may stop your antibiotic. Continue your other medications as currently. Start and take prednisone as directed. Recheck the end of the week in the clinic. Sepsis Event Note - Evaluation Sepsis Screening Result: Possible Sepsis Risk - Focused Exam Vital Signs: Vital Signs Temp Pulse Resp BP Pulse Ox 07/29/19 08:49 35.7 C L 95 17 177/91 H 96 07/29/19 08:45 35.7 C L 95 17 177/91 H 96 Date Exam was Performed: 07/29/19 Time Exam was Performed: 09:07
== END 2019-07-29 09:18 | disposition home or self-care (01) ==
LOC: JP.ED 08:31
DX: J98.01 Acute bronchospasm (principal); I25.10 Atherosclerotic heart disease of native coronary artery without angina pectoris; I10 Essential (primary) hypertension; I25.2 Old myocardial infarction; Z88.8 Allergy status to other drugs, medicaments and biological substances; Z88.1 Allergy status to other antibiotic agents; Z79.82 Long term (current) use of aspirin; Z87.891 Personal history of nicotine dependence
CPT/HCPCS: 99284

== ENCOUNTER 2019-08-04 21:12 | Emergency (ER) | payer BC, MEDICARE ==
--- NOTE | 2019-08-04 21:46 | EDM.PDOC ---
ED HPI GENERAL MEDICAL PROBLEM - General Chief Complaint: Upper Extremity Injury/Pain Stated Complaint: FELL HURT L WRIST Time Seen by Provider: 08/04/19 21:30 Source of Information: Reports: Patient History Limitations: Reports: No Limitations - History of Present Illness INITIAL COMMENTS - FREE TEXT/NARRATIVE: 63-year-old male slipped on the ice hitting his left wrist on the ground 2 hours ago. No other injury. Onset: Sudden Duration: Hour(s): (2 hours) Location: Reports: Upper Extremity, Left Associated Symptoms: Reports: No Other Symptoms - Related Data Allergies Allergy/AdvReac Type Severity Reaction Status Date / Time acetaminophen [From Tylenol] Allergy Rash Verified 08/04/19 21:22 erythromycin base Allergy Hives Verified 08/04/19 21:22 Novtozk-[id number]-Ndq Reductase Allergy Anxiety Verified 08/04/19 21:22 Inhibitor metoclopramide [From Reglan] AdvReac Agitation Verified 08/04/19 21:22 Home Meds: Home Meds Ondansetron [Zofran ODT] 8 mg PO Q6H PRN 11/02/16 [History] Promethazine [Phenergan] 50 mg PO Q6H PRN 11/02/16 [History] Medical Marijuana 1 inh INH DAILY 01/04/19 [History] Albuterol Sulfate [Albuterol Sulfate Hfa] 1 - 2 puff IH ASDIRECTED 07/29/19 [ History] Past Medical History HEENT History: Reports: Impaired Vision Cardiovascular History: Reports: Blood Clots/VTE/DVT, CAD, Hypertension, [place], Other (See Below) Other Cardiovascular History: iliac stents for possible clots Gastrointestinal History: Reports: Cholelithiasis, GERD, Pancreatitis, Other ( See Below) Other Gastrointestinal History: pancreatitis Musculoskeletal History: Reports: Fracture Oncologic (Cancer) History: Reports: Squamous Cell Carcinoma, Other (See Below) Other Oncologic History: skin ca Dermatologic History: Reports: Other (See Below) Other Dermatologic History: basal cell ca - Infectious Disease History Infectious Disease History: Reports: Mumps - Past Surgical History Head Surgeries/Procedures: Reports: None HEENT Surgical History: Reports: None Cardiovascular Surgical History: Reports: None GI Surgical History: Reports: Appendectomy, Cholecystectomy, Other (See Below) Other GI Surgeries/Procedures: exploratory lap for pancrease possilbe fruy procedure Musculoskeletal Surgical History: Reports: None Oncologic Surgical History: Reports: None Dermatological Surgical History: Reports: None Social & Family History - Family History Family Medical History: Noncontributory HEENT: Reports: Cataract Cardiac: Reports: Bypass Endocrine/Metabolic: Reports: Diabetes, type II Oncologic: Reports: Prostate - Tobacco Use Smoking Status *Q: Never Smoker - Caffeine Use Caffeine Use: Reports: Coffee Other Caffeine Use: 4 cups - Living Situation & Occupation Living situation: Reports: Occupation: Retired (lives with and 11 year old son in [place], [place].) Review of Systems - Review of Systems Review Of Systems: See Below Constitutional: Denies: Fever Respiratory: Denies: Shortness of Breath Cardiovascular: Denies: Chest Pain GI/Abdominal: Denies: Abdominal Pain Musculoskeletal: Denies: Neck Pain, Back Pain Skin: Denies: Bruising Neurological: Reports: No Symptoms ED EXAM, GENERAL - Physical Exam Exam: See Below Exam Limited By: No Limitations General Appearance: Alert, No Apparent Distress Head: Atraumatic Respiratory/Chest: No Respiratory Distress Extremities: Other (Exam is otherwise limited to the left arm. The clavicle, shoulder, elbow are nontender. He has tenderness to palpation over the carpals of the wrist as well as the snuffbox area. No deformity and no significant tenderness of the distal radius or ulna.) Course - Vital Signs Last Recorded V/S: Last Vital Signs Temp 97.5 F 08/04/19 22:20 Pulse 68 08/04/19 22:20 Resp 14 08/04/19 22:20 BP 186/68 H 08/04/19 22:20 Pulse Ox 97 08/04/19 22:20 - Re-Assessments/Exams Free Text/Narrative Re-Assessment/Exam: 08/04/19 22:12 An x-ray of the left wrist was obtained which looks normal. There appeared to be some subtle changes possible of the lunate, so the film was sent to [facility] for over read. 08/04/19 23:08 X-ray read by radiology confirmed no obvious fracture. Patient will Tony wrap the wrist through the weekend and use a sling for comfort and recheck with orthopedics next week if not improving. Departure - Departure Time of Disposition: 23:14 Disposition: Home, Self-Care 01 Clinical Impression: Sprain of wrist, left Qualifiers: Encounter type: initial encounter Qualified Code(s): S63.502A - Unspecified sprain of left wrist, initial encounter - Discharge Information Instructions: Wrist Sprain, Adult Referrals: Richardson Lamb NP [Primary Care Provider] - Forms: ED Department Discharge Care Plan Goals: Tony wrap for comfort, and use sling if helpful and ice to the wrist may also be beneficial. Increase activity as tolerated and recheck with orthopedics next week if not improving satisfactorily. Sepsis Event Note - Focused Exam Date Exam was Performed: 08/05/19 Time Exam was Performed: 17:24
[2019-08-04 22:24] VITALS: BP 186/68; PULSE 68
--- NOTE | 2019-08-04 23:05 | CRLCR ---
Indication: Pain after fall Technique: Four views Comparison: None Findings: Bones: No definite acute fracture. [place] or congenital incomplete fusion at the level of the ulnar styloid. Joint spaces: Unremarkable. Soft tissues: Mild soft tissue swelling at the level of the wrist. Dictated by Chris Rosen MD @ Aug 04 2019 11:02PM Signed by Dr. Chris Rosen @ Aug 04 2019 11:04PM
== END 2019-08-04 23:14 | disposition home or self-care (01) ==
LOC: JP.ED 21:12
DX: S63.502A Unspecified sprain of left wrist, initial encounter (principal); I10 Essential (primary) hypertension; I25.2 Old myocardial infarction; I25.10 Atherosclerotic heart disease of native coronary artery without angina pectoris; Z88.8 Allergy status to other drugs, medicaments and biological substances; Z88.1 Allergy status to other antibiotic agents; W00.0XXA Fall on same level due to ice and snow, initial encounter
CPT/HCPCS: 73110-LT; 99283

== ENCOUNTER 2019-10-07 08:07 | Emergency (ER) | payer BC, MEDICARE ==
--- NOTE | 2019-10-07 08:37 | EDM.PDOC ---
ED HPI GENERAL MEDICAL PROBLEM - General Chief Complaint: Abdominal Pain Stated Complaint: PAIN IN STOMACH AREA Time Seen by Provider: 10/07/19 08:30 Source of Information: Reports: Patient History Limitations: Reports: No Limitations - History of Present Illness Onset Date: 10/05/19 Duration: Getting Worse Location: Reports: Abdomen Quality: Reports: Sharp Improves with: Reports: None Worsens with: Reports: None Associated Symptoms: Reports: Loss of Appetite, Malaise, Nausea/Vomiting. Denies: Fever/Chills, Shortness of Breath abdominal pain Pain Score (Numeric/FACES): 9 - Related Data Allergies Allergy/AdvReac Type Severity Reaction Status Date / Time acetaminophen [From Tylenol] Allergy Rash Verified 10/07/19 08:19 erythromycin base Allergy Hives Verified 10/07/19 08:19 [id number] Reductase Allergy Anxiety Verified 10/07/19 08:19 Inhibitor metoclopramide [From Reglan] AdvReac Agitation Verified 10/07/19 08:19 Home Meds: Home Meds Ondansetron [Zofran ODT] 8 mg PO Q6H PRN 11/02/16 [History] Promethazine [Phenergan] 50 mg PO Q6H PRN 11/02/16 [History] Medical Marijuana 1 inh INH DAILY 01/04/19 [History] Albuterol Sulfate [Albuterol Sulfate Hfa] 1 - 2 puff IH ASDIRECTED 07/29/19 [ History] Budesonide/Formoterol Fumarate [Symbicort 160-4.5 Mcg Inhaler] 1 inh INH BID [History] Past Medical History HEENT History: Reports: Impaired Vision Cardiovascular History: Reports: Blood Clots/VTE/DVT, CAD, Hypertension, [place], Other (See Below) Other Cardiovascular History: iliac stents for possible clots Gastrointestinal History: Reports: Cholelithiasis, GERD, Pancreatitis, Other ( See Below) Other Gastrointestinal History: pancreatitis Musculoskeletal History: Reports: Fracture Psychiatric History: Reports: Anxiety Oncologic (Cancer) History: Reports: Squamous Cell Carcinoma, Other (See Below) Other Oncologic History: skin ca Dermatologic History: Reports: Other (See Below) Other Dermatologic History: basal cell ca - Infectious Disease History Infectious Disease History: Reports: Mumps - Past Surgical History Head Surgeries/Procedures: Reports: None HEENT Surgical History: Reports: None Cardiovascular Surgical History: Reports: None GI Surgical History: Reports: Appendectomy, Cholecystectomy, Other (See Below) Other GI Surgeries/Procedures: exploratory lap for pancrease possilbe fruy procedure Musculoskeletal Surgical History: Reports: None Oncologic Surgical History: Reports: None Dermatological Surgical History: Reports: None Social & Family History - Family History Family Medical History: Noncontributory HEENT: Reports: Cataract Cardiac: Reports: Bypass Endocrine/Metabolic: Reports: Diabetes, type II Oncologic: Reports: Prostate - Tobacco Use Smoking Status *Q: Never Smoker - Caffeine Use Caffeine Use: Reports: Coffee Other Caffeine Use: 4 cups - Recreational Drug Use Recreational Drug Use: No - Living Situation & Occupation Living situation: Reports: Occupation: Retired (lives with and 11 year old son in [place], [place].) ED ROS GENERAL - Review of Systems Review Of Systems: See Below Constitutional: Reports: Malaise, Decreased Appetite. Denies: Fever HEENT: Reports: No Symptoms Respiratory: Denies: Wheezing, Cough Cardiovascular: Denies: Chest Pain Endocrine: Reports: Fatigue GI/Abdominal: Reports: Abdominal Pain, Anorexia, Decreased Appetite, Nausea, Vomiting : Reports: No Symptoms Musculoskeletal: Reports: No Symptoms Skin: Reports: No Symptoms Neurological: Reports: No Symptoms Psychiatric: Reports: No Symptoms ED EXAM, GI/ABD - Physical Exam Exam: See Below Exam Limited By: No Limitations General Appearance: Alert, Moderate Distress, Thin Eyes: Bilateral: Normal Appearance, EOMI, Pale Conjunctiva (No scleral icterus) Ears: Normal External Exam Nose: No: Nasal Drainage Throat/Mouth: Other (Markedly dry mucous membranes) Head: Atraumatic, Normocephalic Neck: Supple, Non-Tender. No: Lymphadenopathy (R), Lymphadenopathy (L) Respiratory/Chest: No Respiratory Distress, Normal Breath Sounds, No Accessory Muscle Use Cardiovascular: Normal Peripheral Pulses, No Edema, No Murmur GI/Abdominal Exam: No Organomegaly, No Distention, No Mass. No: Guarding, Rebound Extremities: Normal Inspection, Normal Range of Motion Neurological: Alert, Oriented Psychiatric: Normal Affect, Normal Mood Skin Exam: Warm, Dry, No Rash Lymphatic: No Adenopathy Course - Vital Signs Text/Narrative:: Given 1 L IV fluid, 4 mg of Zofran, and 1 mg Dilaudid. Mild hypokalemia noted. After 1 L of normal saline has been administered will change IV fluid to include 20 mEq potassium chloride per liter. At 10:15 AM the patient is stating he is feeling much better. I discussed with the patient the finding of normal lipase and slightly elevated white blood cell count. Patient states that repeatedly in the past, at several institutions, he is been told the same thing that his lipase and amylase are normal but he is still been confirmed as having pancreatitis. The patient and I discussed whether or not a CT scan would be indicated and since he is feeling better and he has had this situation in the past, he is comfortable not having a CT scan today. I did instruct him to return if his symptoms worsen. Last Recorded V/S: Last Vital Signs Temp 35.8 C L 10/07/19 08:23 Pulse 88 10/07/19 10:00 Resp 12 10/07/19 10:00 BP 173/104 H 10/07/19 10:00 Pulse Ox 96 10/07/19 10:00 - Orders/Labs/Meds Orders: Active Orders 24 hr Category Date Time Status UA W/MICROSCOPIC [URIN] Urgent Lab 10/07/19 08:38 Ordered NS + KCl 20mEq/L [Normal Saline with 20 mEq KCl] 1,000 Med 10/07/19 10:00 Active ml IV ASDIRECTED Sodium Chloride 0.9% [Normal Saline] 1,000 ml Med 10/07/19 08:45 Active IV ASDIRECTED Medication Orders Sodium Chloride (Normal Saline) 1,000 mls @ 500 mls/hr IV ASDIRECTED CHARLES Last Admin: 10/07/19 08:47 Dose: 500 mls/hr Potassium Chloride/Sodium Chloride (Normal Saline With 20 Meq Kcl) 1,000 mls @ 150 mls/hr IV ASDIRECTED CHARLES Last Admin: 10/07/19 10:25 Dose: 150 mls/hr Labs: Laboratory Tests 10/07/19 10/07/19 10/07/19 Range/Units 08:38 08:38 08:38 WBC 15.3 H (4.5-11.0) K/uL RBC 5.92 H (4.30-5.90) M/uL Hgb 17.7 H (12.0-15.0) g/dL Hct 53.3 (40.0-54.0) % MCV 90 (80-98) fL MCH 30 (27-31) pg MCHC 33 (32-36) % Plt Count 283 (150-400) K/uL Sodium 138 L (140-148) mmol/L Potassium 3.4 L (3.6-5.2) mmol/L Chloride 100 (100-108) mmol/L Carbon Dioxide 29 (21-32) mmol/L Anion Gap 12.4 (5.0-14.0) mmol/L BUN 35 H D (7-18) mg/dL Creatinine 1.4 H D (0.8-1.3) mg/dL Est Cr Clr Drug Dosing 41.44 mL/min Estimated GFR (MDRD) 51 L (>60) Glucose 114 H (74-106) mg/dL Lactic Acid 2.0 (0.4-2.0) mmol/L Calcium 8.3 L (8.5-10.1) mg/dL Total Bilirubin 0.9 (0.2-1.0) mg/dL AST 21 (15-37) U/L ALT 27 (12-78) U/L Alkaline Phosphatase 69 (46-116) U/L Total Protein 6.8 (6.4-8.2) g/dL Albumin 3.5 (3.4-5.0) g/dL Globulin 3.3 (2.3-3.5) g/dL Albumin/Globulin Ratio 1.1 L (1.2-2.2) Lipase 119 (73-393) U/L Meds: Medications Generic Name Dose Route Start Last Admin Trade Name Freq PRN Reason Stop Dose Admin Sodium Chloride 1,000 mls @ 500 mls/hr 10/07/19 08:45 10/07/19 08:47 Normal Saline IV 500 mls/hr ASDIRECTED CHARLES Administration Potassium Chloride/Sodium Chloride 1,000 mls @ 150 mls/hr 10/07/19 10:00 10:25 Normal Saline With 20 Meq Kcl IV 150 mls/hr ASDIRECTED CHARLES Administration Discontinued Medications Generic Name Dose Route Start Last Admin Trade Name Freq PRN Reason Stop Dose Admin Hydromorphone HCl 1 mg 10/07/19 08:39 10/07/19 08:49 Dilaudid IVPUSH 10/07/19 08:40 1 mg ONETIME ONE Administration Hydromorphone HCl 0.5 mg 10/07/19 08:47 10/07/19 08:57 Dilaudid IVPUSH 10/07/19 08:48 0.5 mg ONETIME ONE Administration Ondansetron HCl 4 mg 10/07/19 08:39 10/07/19 08:47 Zofran IVPUSH 10/07/19 08:40 4 mg ONETIME ONE Administration Departure - Departure Time of Disposition: 12:33 Disposition: Home, Self-Care 01 Clinical Impression: Chronic calcific pancreatitis, Hypokalemia - Discharge Information Instructions: Chronic Pancreatitis, Potassium Content of Foods Referrals: Richardson Lamb FINISHING AREA SUPERVISOR [Primary Care Provider] - Forms: ED Department Discharge Sepsis Event Note - Evaluation Sepsis Screening Result: No Definite Risk - Focused Exam Vital Signs: Vital Signs Temp Pulse Resp BP Pulse Ox 10/07/19 10:00 88 12 173/104 H 96 10/07/19 08:58 92 12 187/106 H 98 10/07/19 08:23 35.8 C L 116 H 18 175/106 H 95 10/07/19 08:22 35.8 C L 116 H 18 175/106 H 95 Date Exam was Performed: 10/07/19 Time Exam was Performed: 12:32 - My Orders Last 24 Hours: My Active Orders 10/07/19 08:38 UA W/MICROSCOPIC [URIN] Urgent 10/07/19 08:45 Sodium Chloride 0.9% [Normal Saline] 1,000 ml IV ASDIRECTED 10/07/19 10:00 NS + KCl 20mEq/L [Normal Saline with 20 mEq KCl] 1,000 ml IV ASDIRECTED - Assessment/Plan Last 24 Hours: My Active Orders 10/07/19 08:38 UA W/MICROSCOPIC [URIN] Urgent 10/07/19 08:45 Sodium Chloride 0.9% [Normal Saline] 1,000 ml IV ASDIRECTED 10/07/19 10:00 NS + KCl 20mEq/L [Normal Saline with 20 mEq KCl] 1,000 ml IV ASDIRECTED
[2019-10-07] MEDS ORDERED: HYDROmorphone 0.5 MG/0.5 ML Syringe IVPUSH ONE ×2 (08:39→08:47)
[2019-10-07] MEDS ORDERED: Ondansetron 4 MG/2 ML SDV IVPUSH ONE (08:39)
[2019-10-07] MEDS ORDERED: Sodium Chloride 0.9% 1,000 ML IV SCH (08:45)
[2019-10-07] MEDS ORDERED: NS + KCl 20mEq/L 1,000 ML IV SCH (10:00)
[2019-10-07 10:27] VITALS: BP 173/104; PULSE 88
== END 2019-10-07 12:52 | disposition home or self-care (01) ==
LOC: JP.ED 08:07
DX: K86.1 Other chronic pancreatitis (principal); E87.6 Hypokalemia; I25.10 Atherosclerotic heart disease of native coronary artery without angina pectoris; I10 Essential (primary) hypertension; I25.2 Old myocardial infarction; K21.9 Gastro-esophageal reflux disease without esophagitis; Z88.6 Allergy status to analgesic agent; Z88.1 Allergy status to other antibiotic agents; Z88.8 Allergy status to other drugs, medicaments and biological substances; Z79.899 Other long term (current) drug therapy
CPT/HCPCS: 36415; 80053; 83605; 83690; 85027; 96361; 96365; 96366; 96375; 99284; J1170; J2405; J3480; J7030

== ENCOUNTER 2019-12-01 16:05 | Emergency (ER) | payer BC, MEDICARE ==
[2019-12-01] MEDS ORDERED: Ondansetron 4 MG/2 ML SDV IVPUSH ONE (16:40)
--- NOTE | 2019-12-01 16:46 | EDM.PDOC ---
ED HPI GENERAL MEDICAL PROBLEM - General Chief Complaint: Abdominal Pain Stated Complaint: PANCREATITIS Time Seen by Provider: 12/01/19 16:41 Source of Information: Reports: Patient - History of Present Illness INITIAL COMMENTS - FREE TEXT/NARRATIVE: Kishan is an 64 year old male whom presents to [place] [facility] due to acute onset of epigastric abdominal pain which is typical of his acute pancreatitis flares. Patient denies any new or different symptoms today compared to typical fares except for time of day. Acute flares usually occur overnight or early in the am not in the afternoon. Patient had oral Dilaudid at home but if he starts vomiting and pain become too severe the oral medication does not control his symptoms. Patient was in a normal state of health earlier today. No cough, chest pain, rash, SOB or any new concerning symptoms. Lower Abdomen Pain Score (Numeric/FACES): 10 - Related Data Allergies Allergy/AdvReac Type Severity Reaction Status Date / Time acetaminophen [From Tylenol] Allergy Rash Verified 12/01/19 16:20 erythromycin base Allergy Hives Verified 12/01/19 16:20 Sckilpv-Www-Qyu Reductase Allergy Anxiety Verified 12/01/19 16:20 Inhibitor metoclopramide [From Reglan] AdvReac Agitation Verified 12/01/19 16:20 Home Meds: Home Meds Ondansetron [Zofran ODT] 8 mg PO Q6H PRN 11/02/16 [History] Promethazine [Phenergan] 50 mg PO Q6H PRN 11/02/16 [History] Medical Marijuana 1 inh INH DAILY 01/04/19 [History] Albuterol Sulfate [Albuterol Sulfate Hfa] 1 - 2 puff IH ASDIRECTED 07/29/19 [History] Budesonide/Formoterol Fumarate [Symbicort 160-4.5 Mcg Inhaler] 1 inh INH BID 10/07/19 [History] Past Medical History HEENT History: Reports: Impaired Vision Cardiovascular History: Reports: Blood Clots/VTE/DVT, CAD, Hypertension, [place], Other (See Below) Other Cardiovascular History: iliac stents for possible clots Gastrointestinal History: Reports: Cholelithiasis, GERD, Pancreatitis, Other (See Below) Other Gastrointestinal History: pancreatitis Musculoskeletal History: Reports: Fracture Psychiatric History: Reports: Anxiety Oncologic (Cancer) History: Reports: Squamous Cell Carcinoma, Other (See Below) Other Oncologic History: skin ca Dermatologic History: Reports: Other (See Below) Other Dermatologic History: basal cell ca - Infectious Disease History Infectious Disease History: Reports: Mumps - Past Surgical History Head Surgeries/Procedures: Reports: None HEENT Surgical History: Reports: None Cardiovascular Surgical History: Reports: None GI Surgical History: Reports: Appendectomy, Cholecystectomy, Other (See Below) Other GI Surgeries/Procedures: exploratory lap for pancrease possilbe fruy procedure Musculoskeletal Surgical History: Reports: None Oncologic Surgical History: Reports: None Dermatological Surgical History: Reports: None Social & Family History - Family History Family Medical History: Noncontributory HEENT: Reports: Cataract Cardiac: Reports: Bypass Endocrine/Metabolic: Reports: Diabetes, type II Oncologic: Reports: Prostate - Caffeine Use Caffeine Use: Reports: Coffee Other Caffeine Use: 4 cups - Living Situation & Occupation Living situation: Reports: Occupation: Retired (lives with and 11 year old son in [place], [place].) ED ROS GENERAL - Review of Systems Review Of Systems: Comprehensive ROS is negative, except as noted in HPI. ED EXAM, GI/ABD - Physical Exam Exam: See Below Exam Limited By: No Limitations General Appearance: Alert, Severe Distress (at time of presentation but much improved after IVF and treatment), Thin Eyes: Bilateral: Normal Appearance, EOMI Ears: Normal External Exam, Hearing Grossly Normal Nose: Normal Inspection Throat/Mouth: Normal Inspection (dry muscus membrane noted), Normal Voice Head: Atraumatic, Normocephalic Neck: Normal Inspection, Supple, Full Range of Motion Respiratory/Chest: No Respiratory Distress, Lungs Clear, Normal Breath Sounds, Chest Non-Tender Cardiovascular: Normal Peripheral Pulses (siginficantly elevated blood pressure secondary to pain which improved with pain management) GI/Abdominal Exam: Soft, Guarding, Tender (Male) Exam: Deferred Rectal (Males) Exam: Deferred Back Exam: Normal Inspection. No: CVA Tenderness (R), CVA Tenderness (L) Extremities: Normal Inspection, Normal Range of Motion, Non-Tender, No Pedal Edema, Normal Capillary Refill Neurological: Alert, Oriented, CN II-XII Intact, Normal Cognition, Normal Gait, Normal Reflexes, No Motor/Sensory Deficits Psychiatric: Normal Affect, Normal Mood Skin Exam: Warm, Dry, Intact, Normal Color, No Rash Course - Vital Signs Last Recorded V/S: Last Vital Signs Temp 35.1 C L 12/01/19 16:21 Pulse 80 12/01/19 17:47 Resp 15 12/01/19 16:21 BP 166/93 H 12/01/19 17:47 Pulse Ox 92 L 12/01/19 17:47 - Orders/Labs/Meds Orders: Active Orders 24 hr Category Date Time Status Vital Signs [RC] PFP Care 12/01/19 17:34 Active Vital Signs [RC] PFP Care 12/01/19 18:08 Active Labs: Laboratory Tests 12/01/19 12/01/19 Range/Units 16:56 16:56 WBC 10.8 (4.5-11.0) K/uL RBC 5.31 (4.30-5.90) M/uL Hgb 16.0 H (12.0-15.0) g/dL Hct 47.5 (40.0-54.0) % MCV 90 (80-98) fL MCH 30 (27-31) pg MCHC 34 (32-36) % Plt Count 290 (150-400) K/uL Neut % (Auto) 79 H (36-66) % Lymph % (Auto) 13 L (24-44) % [place] % (Auto) 7 H (2-6) % Eos % (Auto) 1 L (2-4) % Baso % (Auto) 0 (0-1) % Sodium 140 (140-148) mmol/L Potassium 3.9 (3.6-5.2) mmol/L Chloride 102 (100-108) mmol/L Carbon Dioxide 28 (21-32) mmol/L Anion Gap 10.4 (5.0-14.0) mmol/L BUN 14 D (7-18) mg/dL Creatinine 1.0 (0.8-1.3) mg/dL Est Cr Clr Drug Dosing 58.38 mL/min Estimated GFR (MDRD) > 60 (>60) Glucose 109 H (74-106) mg/dL Calcium 8.5 (8.5-10.1) mg/dL Total Bilirubin 0.4 D (0.2-1.0) mg/dL Direct Bilirubin 0.09 (0.0-0.2) mg/dL Indirect Bilirubin TNP AST 27 (15-37) U/L ALT 27 (12-78) U/L Alkaline Phosphatase 73 (46-116) U/L Total Protein 7.5 (6.4-8.2) g/dL Albumin 3.7 (3.4-5.0) g/dL Globulin 3.8 H (2.3-3.5) g/dL Albumin/Globulin Ratio 1.0 L (1.2-2.2) Lipase 90 (73-393) U/L Meds: Medications Discontinued Medications Generic Name Dose Route Start Last Admin Trade Name Freq PRN Reason Stop Dose Admin Hydromorphone HCl 1 mg 12/01/19 16:40 12/01/19 17:16 Dilaudid IVPUSH 1 mg Q2H PRN Administration Pain Hydromorphone HCl 1 mg 12/01/19 17:34 Dilaudid IM 12/01/19 17:35 ONETIME ONE Hydromorphone HCl 1 mg 12/01/19 17:42 12/01/19 17:43 Dilaudid IV 12/01/19 17:43 1 mg ONETIME ONE Administration Sodium Chloride 1,000 mls @ 1,000 mls/hr 12/01/19 17:45 12/01/19 17:46 Normal Saline IV 1,000 mls/hr ASDIRECTED CHARLES Administration Sodium Chloride 1,000 mls @ 1,000 mls/hr 12/01/19 17:45 12/01/19 17:45 Normal Saline IV 1,000 mls/hr ASDIRECTED CHARLES Administration Ondansetron HCl 4 mg 12/01/19 16:40 12/01/19 16:45 Zofran IVPUSH 12/01/19 16:41 4 mg ONETIME ONE Administration - Re-Assessments/Exams Free Text/Narrative Re-Assessment/Exam: Patient was reassessed after the first liter of fluids and 2 doses of both Zofran and Dilaudid. Patient feels his nausea is improved but feel continued pain and concerned regarding dehydration due to fishing in the sun yesterday. Patient feels a second liter of NS and repeat Dilaudid dose would be helpful. Patient as allowed to rest, 700cc second bolus infused. Patient as asleep but awaken easily. Patient reports symptoms are significantly better and will be comfortable going home after completed of bolus. Patent reports he dose not have any additional medications needs at home. 12/01/19 18:37 Departure - Departure Time of Disposition: 18:53 Disposition: Home, Self-Care 01 Clinical Impression: Pancreatitis Qualifiers: Chronicity: acute Pancreatitis type: unspecified pancreatitis type Acute pancreatitis complication: no infection or necrosis Qualified Code(s): K85.90 - Acute pancreatitis without necrosis or infection, unspecified - Discharge Information Instructions: Chronic Pancreatitis, Pancreatitis Eating Plan, Acute Pa ncreatitis Referrals: Richardson Lamb, LITHOGRAPHIC PROOFER APPRENTICE [Primary Care Provider] - Forms: ED Department Discharge Sepsis Event Note (ED) - Evaluation Sepsis Screening Result: No Definite Risk - Focused Exam Vital Signs: Vital Signs Temp Pulse Resp BP Pulse Ox 12/01/19 17:47 80 166/93 H 92 L 12/01/19 16:50 89 234/126 H 94 L 12/01/19 16:21 35.1 C L 90 15 222/114 H 97 12/01/19 16:15 35.1 C L 90 15 222/114 H 97 - My Orders Last 24 Hours: My Active Orders 12/01/19 17:34 Vital Signs [RC] PFP 12/01/19 18:08 Vital Signs [RC] PFP - Assessment/Plan Last 24 Hours: My Active Orders 12/01/19 17:34 Vital Signs [RC] PFP 12/01/19 18:08 Vital Signs [RC] PFP
[2019-12-01] MEDS: HYDROmorphone 1 MG/ML Syringe IVPUSH PRN ×2 (16:47→17:16)
[2019-12-01] MEDS ORDERED: HYDROmorphone 0.5 MG/0.5 ML Syringe IM ONE (17:34)
[2019-12-01] MEDS ORDERED: HYDROmorphone 0.5 MG/0.5 ML Syringe IV ONE (17:42)
[2019-12-01] MEDS ORDERED: Sodium Chloride 0.9% 1,000 ML IV SCH ×2 (17:45)
[2019-12-01 17:48] VITALS: BP 166/93; PULSE 80
== END 2019-12-01 18:48 | disposition home or self-care (01) ==
LOC: JP.ED 16:05
DX: K85.90 Acute pancreatitis without necrosis or infection, unspecified (principal); I25.10 Atherosclerotic heart disease of native coronary artery without angina pectoris; I10 Essential (primary) hypertension; I25.2 Old myocardial infarction; Z88.8 Allergy status to other drugs, medicaments and biological substances; Z79.899 Other long term (current) drug therapy; Z88.6 Allergy status to analgesic agent; Z88.1 Allergy status to other antibiotic agents
CPT/HCPCS: 36415; 80048; 80076; 83690; 85025; 96361; 96374; 96375; 96376; 99284; J1170; J2405; J7030

== ENCOUNTER 2019-12-16 13:57 | Emergency (ER) | payer BC, MEDICARE ==
[2019-12-16] MEDS ORDERED: Lactated Ringers 1,000 ML IV ONE (14:01)
[2019-12-16] MEDS ORDERED: Ondansetron 4 MG/2 ML SDV IVPUSH ONE ×2 (14:17→15:01)
[2019-12-16] MEDS ORDERED: HYDROmorphone 1 MG/ML Syringe IVPUSH ONE (14:21)
--- NOTE | 2019-12-16 14:30 | EDM.PDOC ---
ED HPI GENERAL MEDICAL PROBLEM - General Chief Complaint: Abdominal Pain Stated Complaint: PANCREATITIS,NAUSEA Time Seen by Provider: 12/16/19 14:15 Source of Information: Reports: Patient, Old Records, RN History Limitations: Reports: No Limitations - History of Present Illness INITIAL COMMENTS - FREE TEXT/NARRATIVE: 64 yo male with chronic pancreatitis presents with onset a couple hrs ago of epigastric pain associated with nausea and vomiting. No hematemesis or fever. Ate danish toast about 45 min before the onset of sx's. Pain feels like all his prior attacks. Alleges that he is on medical marijuana in a pill form for his chronic pain. Onset: Today Onset Date: 12/16/19 Duration: Hour(s):, Constant Location: Reports: Abdomen Quality: Reports: Burning, Pressure Severity: Severe Improves with: Reports: None Worsens with: Reports: Other (uncertain) Context: Reports: Other (See HPI) Associated Symptoms: Reports: Nausea/Vomiting. 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 EKG TECHNICIAN: Reports: Other (see below) (none) Abdominal Pain Score (Numeric/FACES): 9 - Related Data Allergies Allergy/AdvReac Type Severity Reaction Status Date / Time acetaminophen [From Tylenol] Allergy Rash Verified 12/16/19 14:17 erythromycin base Allergy Hives Verified 12/16/19 14:17 [id number]-Pjl Reductase Allergy Anxiety Verified 12/16/19 14:17 Inhibitor metoclopramide [From Reglan] AdvReac Agitation Verified 12/16/19 14:17 Home Meds: Home Meds Ondansetron [Zofran ODT] 8 mg PO Q6H PRN 11/02/16 [History] Promethazine [Phenergan] 50 mg PO Q6H PRN 11/02/16 [History] Medical Marijuana 1 inh INH DAILY 01/04/19 [History] Albuterol Sulfate [Albuterol Sulfate Hfa] 1 - 2 puff IH ASDIRECTED 07/29/19 [History] Budesonide/Formoterol Fumarate [Symbicort 160-4.5 Mcg Inhaler] 1 inh INH BID 10/07/19 [History] Past Medical History HEENT History: Reports: Impaired Vision Cardiovascular History: Reports: Blood Clots/VTE/DVT, CAD, Hypertension, [place], Other (See Below) Other Cardiovascular History: iliac stents for possible clots Gastrointestinal History: Reports: Cholelithiasis, GERD, Pancreatitis, Other (See Below) Other Gastrointestinal History: pancreatitis Musculoskeletal History: Reports: Fracture Psychiatric History: Reports: Anxiety Oncologic (Cancer) History: Reports: Squamous Cell Carcinoma, Other (See Below) Other Oncologic History: skin ca Dermatologic History: Reports: Other (See Below) Other Dermatologic History: basal cell ca - Infectious Disease History Infectious Disease History: Reports: Mumps - Past Surgical History Head Surgeries/Procedures: Reports: None HEENT Surgical History: Reports: None Cardiovascular Surgical History: Reports: None GI Surgical History: Reports: Appendectomy, Cholecystectomy, Other (See Below) Other GI Surgeries/Procedures: exploratory lap for pancrease possilbe fruy procedure Musculoskeletal Surgical History: Reports: None Oncologic Surgical History: Reports: None Dermatological Surgical History: Reports: None Social & Family History - Family History Family Medical History: Noncontributory HEENT: Reports: Cataract Cardiac: Reports: Bypass Endocrine/Metabolic: Reports: Diabetes, type II Oncologic: Reports: Prostate - Caffeine Use Caffeine Use: Reports: Coffee Other Caffeine Use: 4 cups - Living Situation & Occupation Living situation: Reports: Occupation: Retired (lives with and 11 year old son in [place], [place].) ED ROS GENERAL - Review of Systems Review Of Systems: See Below Constitutional: Reports: No Symptoms HEENT: Reports: No Symptoms Respiratory: Reports: No Symptoms Cardiovascular: Reports: No Symptoms GI/Abdominal: Reports: Abdominal Pain, Nausea, Vomiting. Denies: Black Stool, Bloody Stool, Constipation, Diarrhea, Distension, Flatus, Hematemesis, Hematochezia, Melena : Reports: No Symptoms Musculoskeletal: Reports: No Symptoms Skin: Reports: No Symptoms Neurological: Reports: No Symptoms Psychiatric: Reports: No Symptoms ED EXAM, GI/ABD - Physical Exam Exam: See Below Exam Limited By: No Limitations General Appearance: Alert, WD/WN, Mild Distress, Thin Eyes: Bilateral: Normal Appearance Ears: Normal External Exam, Normal Canal, Hearing Grossly Normal Nose: Normal Inspection, No Blood Throat/Mouth: Normal Inspection, Normal Lips, Normal Oropharynx, Normal Voice, No Airway Compromise Head: Atraumatic, Normocephalic Neck: Normal Inspection Respiratory/Chest: No Respiratory Distress, Lungs Clear, Normal Breath Sounds, No Accessory Muscle Use Cardiovascular: Regular Rate, Rhythm, No Edema GI/Abdominal Exam: Normal Bowel Sounds, Soft, No Distention, Tender (epigastric). No: Non-Tender, Distended, Guarding, Rigid, Rebound Back Exam: Normal Inspection. No: CVA Tenderness (R), CVA Tenderness (L) Extremities: Normal Inspection, Normal Range of Motion, Non-Tender, No Pedal Edema Neurological: Alert, Oriented, CN II-XII Intact, Normal Cognition, No Motor/Sensory Deficits Psychiatric: Normal Affect, Normal Mood Skin Exam: Warm, Dry, Intact, Normal Color, No Rash Course - Vital Signs Last Recorded V/S: Last Vital Signs Temp 37.1 C 12/16/19 14:31 Pulse 108 H 12/16/19 15:31 Resp 18 12/16/19 15:31 BP 170/90 H 12/16/19 15:31 Pulse Ox 94 L 12/16/19 15:31 - Orders/Labs/Meds Labs: Laboratory Tests 12/16/19 12/16/19 Range/Units 14:17 14:17 WBC 9.4 (4.5-11.0) K/uL RBC 5.62 (4.30-5.90) M/uL Hgb 16.5 H (12.0-15.0) g/dL Hct 49.5 (40.0-54.0) % MCV 88 (80-98) fL MCH 29 (27-31) pg MCHC 33 (32-36) % Plt Count 304 (150-400) K/uL Sodium 138 L (140-148) mmol/L Potassium 3.8 (3.6-5.2) mmol/L Chloride 100 (100-108) mmol/L Carbon Dioxide 26 (21-32) mmol/L Anion Gap 15.8 H (5.0-14.0) mmol/L BUN 16 (7-18) mg/dL Creatinine 1.1 (0.8-1.3) mg/dL Est Cr Clr Drug Dosing 52.42 mL/min Estimated GFR (MDRD) > 60 (>60) Glucose 107 H (74-106) mg/dL Calcium 8.8 (8.5-10.1) mg/dL Lipase 193 (73-393) U/L Meds: Medications Discontinued Medications Generic Name Dose Route Start Last Admin Trade Name Freq PRN Reason Stop Dose Admin Diphenhydramine HCl 50 mg 12/16/19 15:18 12/16/19 15:26 Benadryl IVPUSH 12/16/19 15:19 50 mg ONETIME ONE Administration Hydromorphone HCl 1 mg 12/16/19 14:21 12/16/19 14:26 Dilaudid IVPUSH 12/16/19 14:22 1 mg ONETIME ONE Administration Lactated Ringer's 1,000 mls @ 1,000 mls/hr 12/16/19 14:01 12/16/19 14:28 Ringers, Lactated IV 12/16/19 15:00 1,000 mls/hr BOLUS ONE Administration Ondansetron HCl 4 mg 12/16/19 14:17 12/16/19 14:25 Zofran IVPUSH 12/16/19 14:18 4 mg ONETIME ONE Administration Ondansetron HCl 4 mg 12/16/19 15:01 12/16/19 15:06 Zofran IVPUSH 12/16/19 15:02 4 mg ONETIME ONE Administration Prochlorperazine Edisylate 10 mg 12/16/19 15:18 12/16/19 15:26 Compazine IVPUSH 12/16/19 15:19 10 mg ONETIME ONE Administration - Re-Assessments/Exams Free Text/Narrative Re-Assessment/Exam: 12/16/19 16:42 Got significantly better with the Compazine and Benedryl combination. Departure - Departure Time of Disposition: 16:45 Disposition: Home, Self-Care 01 Condition: Fair Clinical Impression: Cannabinoid hyperemesis syndrome - Discharge Information *PRESCRIPTION DRUG MONITORING PROGRAM REVIEWED*: No *COPY OF PRESCRIPTION DRUG MONITORING REPORT IN PATIENT APRIL: No Referrals: PCP,None [Primary Care Provider] - Forms: ED Department Discharge Additional Instructions: Home. No driving this afternoon. Recheck as needed. Sepsis Event Note (ED) - Focused Exam Vital Signs: Vital Signs Temp Pulse Resp BP Pulse Ox 12/16/19 15:31 108 H 18 170/90 H 94 L 12/16/19 14:59 96 220/105 H 96 12/16/19 14:31 37.1 C 97 17 200/105 H 97 12/16/19 14:29 37.1 C 97 17 200/105 H 97
[2019-12-16] MEDS ORDERED: Prochlorperazine 10 MG/2 ML SDV IVPUSH ONE (15:18)
[2019-12-16] MEDS ORDERED: diphenhydrAMINE 50 MG/ML SDV IVPUSH ONE (15:18)
[2019-12-16 15:31] VITALS: BP 170/90; PULSE 108
== END 2019-12-16 17:00 | disposition home or self-care (01) ==
LOC: JP.ED 13:57
DX: R11.10 Vomiting, unspecified (principal); I10 Essential (primary) hypertension; Z90.49 Acquired absence of other specified parts of digestive tract; Z88.6 Allergy status to analgesic agent; Z88.1 Allergy status to other antibiotic agents; Z88.8 Allergy status to other drugs, medicaments and biological substances
CPT/HCPCS: 36415; 80048; 83690; 85027; 96361; 96374; 96375; 96376; 99284; J0780; J1170; J1200; J2405; J7120

== ENCOUNTER 2019-12-30 06:07 | Emergency (ER) | payer BC, MEDICARE ==
[2019-12-30] MEDS ORDERED: Sodium Chloride 0.9% 10 ML Syringe FLUSH PRN (06:27)
[2019-12-30] MEDS ORDERED: HYDROmorphone 0.5 MG/0.5 ML Syringe IVPUSH ONE ×2 (06:27→07:51)
[2019-12-30] MEDS ORDERED: Prochlorperazine 10 MG/2 ML SDV IVPUSH ONE (06:28)
[2019-12-30] MEDS ORDERED: diphenhydrAMINE 50 MG/ML SDV IVPUSH ONE (06:28)
[2019-12-30] MEDS ORDERED: Lactated Ringers 1,000 ML IV SCH (06:30)
--- NOTE | 2019-12-30 06:31 | EDM.PDOC ---
<OfficerBaron - Last Filed: 12/30/19 06:29> ED HPI GENERAL MEDICAL PROBLEM - General Chief Complaint: Abdominal Pain Stated Complaint: STOMACH PAIN Time Seen by Provider: 12/30/19 06:27 Source of Information: Reports: Patient, Old Records, RN Notes Reviewed History Limitations: Reports: No Limitations - History of Present Illness INITIAL COMMENTS - FREE TEXT/NARRATIVE: 64-year-old gentleman presents emergency department a complaint of abdominal pain, he does have a history of chronic pancreatitis he states pain became quite severe about an hour and a half prior to presentation emergency department he denies any alcohol consumption states he has not used any cannabis for the last several weeks - Related Data Allergies Allergy/AdvReac Type Severity Reaction Status Date / Time acetaminophen [From Tylenol] Allergy Rash Verified 12/30/19 06:22 erythromycin base Allergy Hives Verified 12/30/19 06:22 [id number]-[id number]-Zbf Reductase Allergy Anxiety Verified 12/30/19 06:22 Inhibitor metoclopramide [From Reglan] AdvReac Agitation Verified 12/30/19 06:22 Home Meds: Home Meds Ondansetron [Zofran ODT] 8 mg PO Q6H PRN 11/02/16 [History] Promethazine [Phenergan] 50 mg PO Q6H PRN 11/02/16 [History] Medical Marijuana 1 inh INH DAILY 01/04/19 [History] Albuterol Sulfate [Albuterol Sulfate Hfa] 1 - 2 puff IH ASDIRECTED 07/29/19 [History] Budesonide/Formoterol Fumarate [Symbicort 160-4.5 Mcg Inhaler] 1 inh INH BID 10/07/19 [History] Past Medical History HEENT History: Reports: Impaired Vision Cardiovascular History: Reports: Blood Clots/VTE/DVT, CAD, Hypertension, [place], Other (See Below) Other Cardiovascular History: iliac stents for possible clots Gastrointestinal History: Reports: Cholelithiasis, GERD, Pancreatitis, Other (See Below) Other Gastrointestinal History: pancreatitis Musculoskeletal History: Reports: Fracture Psychiatric History: Reports: Anxiety Oncologic (Cancer) History: Reports: Squamous Cell Carcinoma, Other (See Below) Other Oncologic History: skin ca Dermatologic History: Reports: Other (See Below) Other Dermatologic History: basal cell ca - Infectious Disease History Infectious Disease History: Reports: Mumps - Past Surgical History Head Surgeries/Procedures: Reports: None HEENT Surgical History: Reports: None Cardiovascular Surgical History: Reports: None GI Surgical History: Reports: Appendectomy, Cholecystectomy, Other (See Below) Other GI Surgeries/Procedures: exploratory lap for pancrease possilbe fruy procedure Musculoskeletal Surgical History: Reports: None Oncologic Surgical History: Reports: None Dermatological Surgical History: Reports: None Social & Family History - Family History Family Medical History: Noncontributory HEENT: Reports: Cataract Cardiac: Reports: Bypass Endocrine/Metabolic: Reports: Diabetes, type II Oncologic: Reports: Prostate - Tobacco Use Smoking Status *Q: Never Smoker - Caffeine Use Caffeine Use: Reports: Coffee Other Caffeine Use: 4 cups - Recreational Drug Use Recreational Drug Use: Yes Recreational Drug Type: Reports: Marijuana/Hashish Recreational Drug Use Frequency: Monthly - Living Situation & Occupation Living situation: Reports: Occupation: Retired (lives with and 11 year old son in [place], [place].) ED ROS GENERAL - Review of Systems Review Of Systems: See Below Constitutional: Denies: Fever, Chills HEENT: Reports: No Symptoms Respiratory: Reports: No Symptoms Cardiovascular: Reports: No Symptoms GI/Abdominal: Reports: Abdominal Pain, Flatus, Nausea. Denies: Vomiting : Reports: No Symptoms ED EXAM, GI/ABD - Physical Exam Exam: See Below Exam Limited By: No Limitations General Appearance: Alert, Mild Distress Respiratory/Chest: No Respiratory Distress, Lungs Clear, Normal Breath Sounds, No Accessory Muscle Use, Chest Non-Tender Cardiovascular: Regular Rate, Rhythm, No Murmur GI/Abdominal Exam: Soft, Tender (Generalized tenderness to palpation) Departure - Departure Disposition: Home, Self-Care 01 Clinical Impression: Upper abdominal pain - Discharge Information Referrals: Richardson Lamb CALL OR CONTACT CENTRE OPERATOR [Primary Care Provider] - Forms: ED Department Discharge Care Plan Goals: push fluids cont same meds. Sepsis Event Note (ED) - Evaluation Sepsis Screening Result: No Definite Risk <Zainab Campuzano - Last Filed: 12/30/19 10:53> ED HPI GENERAL MEDICAL PROBLEM Abdomen Pain Score (Numeric/FACES): 6 Course - Vital Signs Last Recorded V/S: Last Vital Signs Temp 35.6 C L 12/30/19 06:14 Pulse 89 12/30/19 08:10 Resp 20 12/30/19 06:14 BP 208/113 H 12/30/19 09:10 Pulse Ox 95 12/30/19 08:10 - Orders/Labs/Meds Orders: Active Orders 24 hr Category Date Time Status Peripheral IV Care [RC] . DIRECTED Care 12/30/19 06:27 Active Lactated Ringers [Ringers, Lactated] 1,000 ml Med 12/30/19 06:30 Active IV ASDIRECTED Sodium Chloride 0.9% [Normal Saline] 1,000 ml Med 12/30/19 07:30 Active IV ASDIRECTED Sodium Chloride 0.9% [Normal Saline] 1,000 ml Med 12/30/19 09:00 Active IV ASDIRECTED Sodium Chloride 0.9% [Saline Flush] Med 12/30/19 06:27 Active 10 ml FLUSH ASDIRECTED PRN Peripheral IV Insertion Adult [OM.PC] Urgent Oth 12/30/19 06:27 Ordered Medication Orders Lactated Ringer's (Ringers, Lactated) 1,000 mls @ 999 mls/hr IV ASDIRECTED CHARLES Last Admin: 12/30/19 06:42 Dose: 999 mls/hr Documented by: HAVEN Sodium Chloride (Normal Saline) 1,000 mls @ 999 mls/hr IV ASDIRECTED CHARLES Last Admin: 12/30/19 07:45 Dose: 999 mls/hr Documented by: JIMY Sodium Chloride (Normal Saline) 1,000 mls @ 200 mls/hr IV ASDIRECTED CHARLES Sodium Chloride (Saline Flush) 10 ml FLUSH ASDIRECTED PRN PRN Reason: Keep Vein Open Last Admin: 12/30/19 07:09 Dose: 10 ml Documented by: JIMY Labs: Laboratory Tests 12/30/19 12/30/19 12/30/19 Range/Units 06:27 06:44 06:44 WBC 9.2 (4.5-11.0) K/uL RBC 5.20 (4.30-5.90) M/uL Hgb 15.5 H (12.0-15.0) g/dL Hct 46.2 (40.0-54.0) % MCV 89 (80-98) fL MCH 30 (27-31) pg MCHC 34 (32-36) % Plt Count 280 (150-400) K/uL Neut % (Auto) 71 H (36-66) % Lymph % (Auto) 18 L (24-44) % Valley % (Auto) 7 H (2-6) % Eos % (Auto) 4 (2-4) % Baso % (Auto) 0 (0-1) % Sodium 138 L (140-148) mmol/L Potassium 3.3 L (3.6-5.2) mmol/L Chloride 104 (100-108) mmol/L Carbon Dioxide 25 (21-32) mmol/L Anion Gap 12.3 (5.0-14.0) mmol/L BUN 14 (7-18) mg/dL Creatinine 0.8 (0.8-1.3) mg/dL Est Cr Clr Drug Dosing 72.33 mL/min Estimated GFR (MDRD) > 60 (>60) Glucose 122 H (74-106) mg/dL Lactic Acid 1.2 (0.4-2.0) mmol/L Calcium 8.8 (8.5-10.1) mg/dL Total Bilirubin 0.3 (0.2-1.0) mg/dL AST 22 (15-37) U/L ALT 23 (12-78) U/L Alkaline Phosphatase 68 (46-116) U/L Total Protein 7.5 (6.4-8.2) g/dL Albumin 3.8 (3.4-5.0) g/dL Globulin 3.7 H (2.3-3.5) g/dL Albumin/Globulin Ratio 1.0 L (1.2-2.2) Lipase 133 (73-393) U/L Meds: Medications Generic Name Dose Route Start Last Admin Trade Name Jasonq PRN Reason Stop Dose Admin Lactated Ringer's 1,000 mls @ 999 mls/hr 12/30/19 06:30 12/30/19 06:42 Ringers, Lactated IV 999 mls/hr ASDIRECTED CHARLES Administration Sodium Chloride 1,000 mls @ 999 mls/hr 12/30/19 07:30 12/30/19 07:45 Normal Saline IV 999 mls/hr ASDIRECTED CHARLES Administration Sodium Chloride 1,000 mls @ 200 mls/hr 12/30/19 09:00 Normal Saline IV ASDIRECTED CHARLES Sodium Chloride 10 ml 12/30/19 06:27 12/30/19 07:09 Saline Flush FLUSH 10 ml ASDIRECTED PRN Administration Keep Vein Open Discontinued Medications Generic Name Dose Route Start Last Admin Trade Name Fremine PRN Reason Stop Dose Admin Diphenhydramine HCl 50 mg 12/30/19 06:28 12/30/19 06:33 Benadryl IVPUSH 12/30/19 06:29 50 mg ONETIME ONE Administration Hydromorphone HCl 0.5 mg 12/30/19 06:27 12/30/19 06:33 Dilaudid IVPUSH 12/30/19 06:28 0.5 mg ONETIME ONE Administration Hydromorphone HCl 0.5 mg 12/30/19 07:51 12/30/19 08:06 Dilaudid IVPUSH 12/30/19 07:52 0.5 mg ONETIME ONE Administration Hydromorphone HCl 1 mg 12/30/19 08:37 Dilaudid IVPUSH 12/30/19 08:38 ONETIME ONE Labetalol HCl 20 mg 12/30/19 07:45 Normodyne IVPUSH 12/30/19 07:46 ONETIME ONE Lorazepam 0.5 mg 12/30/19 07:32 12/30/19 07:46 Ativan IVPUSH 12/30/19 07:33 0.5 mg ONETIME ONE Administration Ondansetron HCl 4 mg 12/30/19 07:31 12/30/19 07:42 Zofran IVPUSH 12/30/19 07:32 4 mg ONETIME ONE Administration Prochlorperazine Edisylate 10 mg 12/30/19 06:28 12/30/19 06:33 Compazine IVPUSH 12/30/19 06:29 10 mg ONETIME ONE Administration - Re-Assessments/Exams Free Text/Narrative Re-Assessment/Exam: 12/30/19 10:50 pt is much more comfortable. He did reive a total of 2 gm of dilaudid, His vomiting is much better. He does have zoforan at home. His bp was elevated but has now come down. Departure - Departure Time of Disposition: 10:52 Condition: Fair Sepsis Event Note (ED) - Focused Exam Vital Signs: Vital Signs Temp Pulse Resp BP Pulse Ox 12/30/19 09:10 208/113 H 12/30/19 08:40 214/113 H 12/30/19 08:36 203/109 H 12/30/19 08:10 89 222/106 H 95 12/30/19 07:41 84 231/110 H 98 12/30/19 07:18 82 237/112 H 97 12/30/19 07:10 81 232/111 H 97 12/30/19 06:57 86 233/107 H 94 L 12/30/19 06:40 93 233/120 H 94 L 12/30/19 06:14 35.6 C L 95 20 231/119 H 95 - My Orders Last 24 Hours: My Active Orders 12/30/19 07:30 Sodium Chloride 0.9% [Normal Saline] 1,000 ml IV ASDIRECTED 12/30/19 09:00 Sodium Chloride 0.9% [Normal Saline] 1,000 ml IV ASDIRECTED - Assessment/Plan Last 24 Hours: My Active Orders 12/30/19 07:30 Sodium Chloride 0.9% [Normal Saline] 1,000 ml IV ASDIRECTED 12/30/19 09:00 Sodium Chloride 0.9% [Normal Saline] 1,000 ml IV ASDIRECTED
[2019-12-30] MEDS ORDERED: Labetalol 100 MG/20 ML MDV IVPUSH ONE (07:21)
[2019-12-30] MEDS ORDERED: Sodium Chloride 0.9% 1,000 ML IV SCH ×2 (07:30→09:00)
[2019-12-30] MEDS ORDERED: Ondansetron 4 MG/2 ML SDV IVPUSH ONE (07:31)
[2019-12-30] MEDS ORDERED: LORazepam 2 MG/ML SDV IVPUSH ONE (07:32)
[2019-12-30] MEDS ORDERED: Labetalol 20 MG/4 ML Syringe IVPUSH ONE (07:45)
[2019-12-30] MEDS ORDERED: HYDROmorphone 1 MG/ML Syringe IVPUSH ONE (08:37)
[2019-12-30 11:16] VITALS: BP 135/87; PULSE 84
== END 2019-12-30 11:30 | disposition home or self-care (01) ==
LOC: JP.ED 06:07
DX: R10.10 Upper abdominal pain, unspecified (principal); R10.84 Generalized abdominal pain; I10 Essential (primary) hypertension; I25.10 Atherosclerotic heart disease of native coronary artery without angina pectoris; Z90.49 Acquired absence of other specified parts of digestive tract; Z88.6 Allergy status to analgesic agent; Z88.1 Allergy status to other antibiotic agents; Z88.8 Allergy status to other drugs, medicaments and biological substances
CPT/HCPCS: 36415; 80053; 83605; 83690; 85025; 96374; 96375; 96376; 99284; J0780; J1170; J1200; J2060; J2405; J7030; J7120; J3490

== ENCOUNTER 2020-05-12 07:03 | Emergency (ER) | payer BC, MEDICARE ==
[2020-05-12] MEDS ORDERED: Ondansetron 4 MG/2 ML SDV IVPUSH ONE (07:30)
[2020-05-12] MEDS ORDERED: Lactated Ringers 1,000 ML IV SCH (07:30)
[2020-05-12] MEDS ORDERED: HYDROmorphone 1 MG/ML Syringe IVPUSH ONE (07:30)
--- NOTE | 2020-05-12 07:47 | EDM.PDOC ---
ED HPI GENERAL MEDICAL PROBLEM - General Chief Complaint: Abdominal Pain Stated Complaint: NAUSA Time Seen by Provider: 05/12/20 07:15 Source of Information: Reports: Patient History Limitations: Reports: No Limitations - History of Present Illness INITIAL COMMENTS - FREE TEXT/NARRATIVE: 64-year-old male with chronic recurring pancreatitis has done extremely well, has not had a flareup since December and is even off his marijuana. He is in 10 pounds and has been active and exercising. Lately he has been under a lot of stress however, and yesterday he developed frequent bowel movements and nausea which usually is a sign that another episode is starting. He took Zofran and Phenergan overnight but had persistent emesis which typically starts yellowish and turns more bilious and green to dark. No fevers or chills. The cycle is actually improving, he has not vomited in 5 hours but he wants to get his IV therapy so it continues to improve. He did have treatment set up as an outpatient in [facility] but has not used it in so long that the orders so they told him to come to the emergency room. Onset: Gradual Duration: Day(s): (36 hours) Location: Reports: Abdomen Associated Symptoms: Reports: Loss of Appetite, Malaise, Nausea/Vomiting. Denies: Fever/Chills Abdomen Pain Score (Numeric/FACES): 9 - Related Data Allergies Allergy/AdvReac Type Severity Reaction Status Date / Time acetaminophen [From Tylenol] Allergy Rash Verified 05/12/20 07:14 erythromycin base Allergy Hives Verified 05/12/20 07:14 Krghlek-Ncw-Hvq Reductase Allergy Anxiety Verified 05/12/20 07:14 Inhibitor metoclopramide [From Reglan] AdvReac Agitation Verified 05/12/20 07:14 Home Meds: Home Meds Ondansetron [Zofran ODT] 8 mg PO Q6H PRN 11/02/16 [History] Promethazine [Phenergan] 50 mg PO Q6H PRN 11/02/16 [History] Medical Marijuana 1 inh INH DAILY 01/04/19 [History] Albuterol Sulfate [Albuterol Sulfate Hfa] 1 - 2 puff IH ASDIRECTED 07/29/19 [History] Budesonide/Formoterol Fumarate [Symbicort 160-4.5 Mcg Inhaler] 1 inh INH BID 10/07/19 [History] Past Medical History HEENT History: Reports: Impaired Vision Cardiovascular History: Reports: Blood Clots/VTE/DVT, CAD, Hypertension, [place], Other (See Below) Other Cardiovascular History: iliac stents for possible clots Respiratory History: Reports: SOB Gastrointestinal History: Reports: Cholelithiasis, GERD, Pancreatitis, Other (See Below) Other Gastrointestinal History: pancreatitis Musculoskeletal History: Reports: Fracture Psychiatric History: Reports: Anxiety Oncologic (Cancer) History: Reports: Squamous Cell Carcinoma, Other (See Below) Other Oncologic History: skin ca Dermatologic History: Reports: Other (See Below) Other Dermatologic History: basal cell ca - Infectious Disease History Infectious Disease History: Reports: Mumps - Past Surgical History Head Surgeries/Procedures: Reports: None HEENT Surgical History: Reports: None Cardiovascular Surgical History: Reports: None GI Surgical History: Reports: Appendectomy, Cholecystectomy, Other (See Below) Other GI Surgeries/Procedures: exploratory lap for pancrease possilbe fruy procedure Musculoskeletal Surgical History: Reports: None Oncologic Surgical History: Reports: None Dermatological Surgical History: Reports: None Social & Family History - Family History Family Medical History: No Pertinent Family History HEENT: Reports: Cataract Cardiac: Reports: Bypass Endocrine/Metabolic: Reports: Diabetes, type II Oncologic: Reports: Prostate - Tobacco Use Tobacco Use Status *Q: Never Tobacco User - Caffeine Use Caffeine Use: Reports: Coffee Other Caffeine Use: 4 cups - Recreational Drug Use Recreational Drug Use: No - Living Situation & Occupation Living situation: Reports: Occupation: Retired (lives with and 11 year old son in [place], [place].) ED ROS GENERAL - Review of Systems Review Of Systems: See Below Constitutional: Reports: Malaise, Decreased Appetite. Denies: Fever, Chills HEENT: Reports: No Symptoms Respiratory: Denies: Shortness of Breath, Cough Cardiovascular: Denies: Chest Pain, Palpitations GI/Abdominal: Reports: Abdominal Pain, Nausea, Vomiting. Denies: Constipation, Diarrhea, Hematemesis, Hematochezia : Reports: No Symptoms Musculoskeletal: Reports: No Symptoms Skin: Reports: No Symptoms Neurological: Denies: Headache ED EXAM, GI/ABD - Physical Exam Exam: See Below Exam Limited By: No Limitations General Appearance: Alert, No Apparent Distress (Looks uncomfortable but not distressed) Eyes: Bilateral: Normal Appearance (Normal hydration, no jaundice) Throat/Mouth: Normal Inspection Head: Atraumatic Respiratory/Chest: No Respiratory Distress, Lungs Clear Cardiovascular: Regular Rate, Rhythm, Tachycardia (Mild tachycardia) GI/Abdominal Exam: Normal Bowel Sounds, Soft, Tender (Mild to moderate tenderness in the upper abdomen especially central and left lateral but no guarding or rebound) Extremities: No: Pedal Edema Neurological: Alert, Oriented, No Motor/Sensory Deficits Psychiatric: Normal Affect, Normal Mood Skin Exam: Warm, Dry Course - Vital Signs Last Recorded V/S: Last Vital Signs Temp 97.5 F 05/12/20 07:19 Pulse 97 05/12/20 08:16 Resp 14 05/12/20 08:16 BP 125/82 05/12/20 08:16 Pulse Ox 91 L 05/12/20 08:16 - Orders/Labs/Meds Meds: Medications Discontinued Medications Generic Name Dose Route Start Last Admin Trade Name Freq PRN Reason Stop Dose Admin Hydromorphone HCl 2 mg 05/12/20 07:30 05/12/20 07:45 Dilaudid IVPUSH 05/12/20 07:31 2 mg ONETIME ONE Administration Lactated Ringer's 1,000 mls @ 1,000 mls/hr 05/12/20 07:30 05/12/20 07:39 Ringers, Lactated IV 1,000 mls/hr ASDIRECTED CHARLES Administration Ondansetron HCl 4 mg 05/12/20 07:30 05/12/20 07:42 Zofran IVPUSH 05/12/20 07:31 4 mg ONETIME ONE Administration - Re-Assessments/Exams Free Text/Narrative Re-Assessment/Exam: 05/12/20 07:47 An IV was started, patient will be given 4 mg of Zofran, 2 mg of IV Dilaudid and 1 L of LR. This likely will ensure his continued improvement. 05/12/20 08:34 Patient responded well to the treatment, will advance diet slowly and continue his regular medications. Can return if symptoms recur. Departure - Departure Time of Disposition: 08:45 Disposition: Home, Self-Care 01 Clinical Impression: Acute on chronic pancreatitis - Discharge Information Instructions: Chronic Pancreatitis Referrals: Richardson Lamb [facility] [Primary Care Provider] - Forms: ED Department Discharge Care Plan Goals: Advance diet slowly, stay hydrated, and continue your regular medications as prescribed. Consider rechecking in the next 24 to 48 hours if not improving satisfactorily. Sepsis Event Note (ED) - Evaluation Sepsis Screening Result: No Definite Risk - Focused Exam Vital Signs: Vital Signs Temp Pulse Resp BP Pulse Ox 05/12/20 08:16 97 14 125/82 91 L 05/12/20 07:19 97.5 F 104 H 16 158/99 H 97
[2020-05-12 08:16] VITALS: BP 125/82; PULSE 97
== END 2020-05-12 08:45 | disposition home or self-care (01) ==
LOC: JP.ED 07:03
DX: K85.90 Acute pancreatitis without necrosis or infection, unspecified (principal); K86.1 Other chronic pancreatitis; I10 Essential (primary) hypertension; I25.10 Atherosclerotic heart disease of native coronary artery without angina pectoris; I25.2 Old myocardial infarction; Z88.6 Allergy status to analgesic agent; Z88.1 Allergy status to other antibiotic agents; Z88.8 Allergy status to other drugs, medicaments and biological substances; Z90.49 Acquired absence of other specified parts of digestive tract
CPT/HCPCS: 96374; 96375; 99283; J1170; J2405; J7120

== ENCOUNTER 2020-05-13 18:49 | Observation (INO) | payer BC, MEDICARE ==
--- NOTE | 2020-05-13 20:11 | EDM.PDOC ---
ED HPI GENERAL MEDICAL PROBLEM - General Chief Complaint: Abdominal Pain Stated Complaint: THROWING UP,ABD PAIN Time Seen by Provider: 05/13/20 19:37 Source of Information: Reports: Patient, EMS Notes Reviewed History Limitations: Reports: No Limitations - History of Present Illness INITIAL COMMENTS - FREE TEXT/NARRATIVE: patient presents to the ER today due to reported continued N/V and now loose stools/diarrhea increased frequency today. he states he has vomited twice today and unable to tolerate oral fluids/water at home. increasing abdominal pain, reported as 10/10 dull ache. has used his home medications of zofran & phenergan but state he vomiting it up. he denies any LH/dizzy. he also states that his BP is normally good unless he has pancreatitis episode then it increases. he states this is his normal pancratitis episode--last episode reported Dec 29--not hospitalized. he states he uses medical marijuanna for N/V/pain but has not used in the last 3 weeks. He denies any use of chronic medications or chronic medical problems otherwise. states he quit drinking EtOH 3 years ago but states only drank on occassion not daily/not large amounts but a beer here/there. he reports being a former smoker, quit 3 years ago. PMH--pancreatitis, GERD Allergies--tylenol, e-mycin, reglan Onset: Other (patient was seen yesterday in the ER here for the same complaint) Duration: Recurring Location: Reports: Abdomen Quality: Reports: Burning, Dull, Same as Previous Episode Severity: Moderate (rates pain 10/10 currently in the ER) Worsens with: Reports: Eating Associated Symptoms: Reports: Nausea/Vomiting, Weakness. Denies: Fever/Chills, Loss of Appetite Treatments [employer]: Reports: Other (see below) (reports home zofran & phenergan, has tolerated some oral fluids/water) Upper Abdomen Pain Score (Numeric/FACES): 5 - Related Data Allergies Allergy/AdvReac Type Severity Reaction Status Date / Time acetaminophen [From Tylenol] Allergy Rash Verified 05/13/20 19:21 erythromycin base Allergy Hives Verified 05/13/20 19:21 [id number]-Drd Reductase Allergy Anxiety Verified 05/13/20 19:21 Inhibitor metoclopramide [From Reglan] AdvReac Agitation Verified 05/13/20 19:21 Home Meds: Home Meds Ondansetron [Zofran ODT] 8 mg PO Q6H PRN 11/02/16 [History] Promethazine [Phenergan] 50 mg PO Q6H PRN 11/02/16 [History] Medical Marijuana 1 inh INH DAILY 01/04/19 [History] Albuterol Sulfate [Albuterol Sulfate Hfa] 1 - 2 puff IH ASDIRECTED 07/29/19 [History] Budesonide/Formoterol Fumarate [Symbicort 160-4.5 Mcg Inhaler] 1 inh INH BID 10/07/19 [History] Past Medical History HEENT History: Reports: Impaired Vision Cardiovascular History: Reports: Blood Clots/VTE/DVT, CAD, Hypertension, [place], Other (See Below) Other Cardiovascular History: iliac stents for possible clots Respiratory History: Reports: SOB Gastrointestinal History: Reports: Cholelithiasis, GERD, Pancreatitis, Other (See Below) Other Gastrointestinal History: pancreatitis Musculoskeletal History: Reports: Fracture Psychiatric History: Reports: Anxiety Oncologic (Cancer) History: Reports: Squamous Cell Carcinoma, Other (See Below) Other Oncologic History: skin ca Dermatologic History: Reports: Other (See Below) Other Dermatologic History: basal cell ca - Infectious Disease History Infectious Disease History: Reports: Mumps - Past Surgical History Head Surgeries/Procedures: Reports: None HEENT Surgical History: Reports: None Cardiovascular Surgical History: Reports: None GI Surgical History: Reports: Appendectomy, Cholecystectomy, Other (See Below) Other GI Surgeries/Procedures: exploratory lap for pancrease possilbe fruy procedure Musculoskeletal Surgical History: Reports: None Oncologic Surgical History: Reports: None Dermatological Surgical History: Reports: None Social & Family History - Family History Family Medical History: No Pertinent Family History HEENT: Reports: Cataract Cardiac: Reports: Bypass Endocrine/Metabolic: Reports: Diabetes, type II Oncologic: Reports: Prostate - Tobacco Use Tobacco Use Status *Q: Former Tobacco User Used Tobacco, but Quit: Yes Month/Year Tobacco Last Used: 04/2000 - Caffeine Use Caffeine Use: Reports: Coffee, Tea Other Caffeine Use: 4 cups - Recreational Drug Use Recreational Drug Use: No - Living Situation & Occupation Living situation: Reports: Occupation: Retired (lives with and 11 year old son in [place], [place].) ED ROS GENERAL - Review of Systems Review Of Systems: Comprehensive ROS is negative, except as noted in HPI. Constitutional: Reports: No Symptoms. Denies: Fever, Chills, Weakness HEENT: Reports: No Symptoms Respiratory: Reports: No Symptoms Cardiovascular: Reports: No Symptoms Endocrine: Reports: No Symptoms GI/Abdominal: Reports: Abdominal Pain, Diarrhea, Decreased Appetite, Nausea, Vomiting : Reports: No Symptoms Musculoskeletal: Reports: No Symptoms Skin: Reports: No Symptoms Neurological: Reports: No Symptoms Psychiatric: Reports: No Symptoms Hematologic/Lymphatic: Reports: No Symptoms Immunologic: Reports: No Symptoms ED EXAM, GENERAL - Physical Exam Exam: See Below Exam Limited By: Other (thin frail appearing, older than stated age) General Appearance: Alert, WD/WN, No Apparent Distress Eye Exam: Bilateral Eye: EOMI, Normal Inspection, PERRL Ears: Normal External Exam Nose: Normal Inspection Throat/Mouth: Normal Inspection, Normal Lips, Normal Oropharynx, No Airway Compromise Head: Atraumatic, Normocephalic Neck: Normal Inspection, Supple, Non-Tender, Full Range of Motion. No: Lymphadenopathy (R), Lymphadenopathy (L) Respiratory/Chest: No Respiratory Distress, Lungs Clear, Normal Breath Sounds, No Accessory Muscle Use, Chest Non-Tender Cardiovascular: Normal Peripheral Pulses, Regular Rate, Rhythm, No Edema, No Murmur Peripheral Pulses: 2+: Radial (L), Radial (R) GI/Abdominal: Normal Bowel Sounds, Soft, Guarding, Tender (mid epigastric/umbilical area). No: Rigid, Rebound (Male) Exam: Deferred Rectal (Males) Exam: Deferred Back Exam: Normal Inspection, Full Range of Motion Extremities: Normal Inspection, Normal Range of Motion, No Pedal Edema, Normal Capillary Refill Neurological: Alert, Oriented, No Motor/Sensory Deficits Psychiatric: Normal Affect, Normal Mood Skin Exam: Warm, Dry, Intact, Normal Color Course - Vital Signs Text/Narrative:: 2030--informed by NIB INSPECTOR that patient had told her he ate fried eggs & grits this morning which further aggrevated / exacerbated his abdominal pain-pancreatitis episode that he was seen for yesterday in the ER. he did not disclose this to physician at time of initial evaluation. BP is now noted to be improved after pain medication. will continue to monitor. depending on labs and further response as to if admit or d/c home Last Recorded V/S: Last Vital Signs Temp 97.9 F 12/22/20 19:02 Pulse 85 05/13/20 20:59 Resp 16 05/13/20 20:59 BP 135/81 05/13/20 20:59 Pulse Ox 95 05/13/20 20:59 - Orders/Labs/Meds Orders: Active Orders 24 hr Category Date Time Status Admission Status [Patient Status] [ADT] Routine ADT 05/13/20 21:52 Ordered Intake and Output [RC] PRN Care 05/13/20 20:12 Active Peripheral IV Care [RC] . DIRECTED Care 05/13/20 20:13 Active Up With Assistance [RC] ASDIRECTED Care 05/13/20 20:12 Active Vital Signs [RC] PER UNIT ROUTINE Care 05/13/20 20:12 Active Clear Liquid Diet [DIET] Diet 05/14/20 Breakfast Active Sodium Chloride 0.9% [Normal Saline] 1,000 ml Med 05/13/20 20:15 Active IV .BOLUS Sodium Chloride 0.9% [Saline Flush] Med 05/13/20 20:12 Active 10 ml FLUSH ASDIRECTED PRN Sodium Chloride 0.9% [Saline Flush] Med 05/13/20 20:12 Active 10 ml FLUSH ASDIRECTED PRN Peripheral IV Insertion Adult [OM.PC] Urgent Oth 05/13/20 20:12 Ordered Medication Orders Sodium Chloride (Normal Saline) 1,000 mls @ 500 mls/hr IV .BOLUS CHARLES Last Admin: 05/13/20 20:27 Dose: 500 mls/hr Documented by: YEMI Sodium Chloride (Saline Flush) 10 ml FLUSH ASDIRECTED PRN PRN Reason: Keep Vein Open Sodium Chloride (Saline Flush) 10 ml FLUSH ASDIRECTED PRN PRN Reason: Keep Vein Open Labs: Laboratory Tests 05/13/20 05/13/20 Range/Units 20:25 20:25 WBC 18.2 H (4.5-11.0) K/uL RBC 5.82 (4.30-5.90) M/uL Hgb 17.0 H (12.0-15.0) g/dL Hct 51.2 (40.0-54.0) % MCV 88 (80-98) fL MCH 29 (27-31) pg MCHC 33 (32-36) % Plt Count 330 (150-400) K/uL Neut % (Auto) 89 H (36-66) % Lymph % (Auto) 7 L (24-44) % [place] % (Auto) 4 (2-6) % Eos % (Auto) 0 L (2-4) % Baso % (Auto) 0 (0-1) % Sodium 135 L (140-148) mmol/L Potassium 3.6 (3.6-5.2) mmol/L Chloride 96 L (100-108) mmol/L Carbon Dioxide 29 (21-32) mmol/L Anion Gap 13.6 (5.0-14.0) mmol/L BUN 18 (7-18) mg/dL Creatinine 1.1 (0.8-1.3) mg/dL Est Cr Clr Drug Dosing 57.74 mL/min Estimated GFR (MDRD) > 60 (>60) Glucose 131 H (74-106) mg/dL Calcium 8.9 (8.5-10.1) mg/dL Total Bilirubin 0.5 D (0.2-1.0) mg/dL AST 21 (15-37) U/L ALT 29 (12-78) U/L Alkaline Phosphatase 79 (46-116) U/L Total Protein 7.6 (6.4-8.2) g/dL Albumin 3.6 (3.4-5.0) g/dL Globulin 4.0 H (2.3-3.5) g/dL Albumin/Globulin Ratio 0.9 L (1.2-2.2) Amylase 114 (25-115) U/L Lipase 85 (73-393) U/L Meds: Medications Generic Name Dose Route Start Last Admin Trade Name Freq PRN Reason Stop Dose Admin Sodium Chloride 1,000 mls @ 500 mls/hr 05/13/20 20:15 05/13/20 20:27 Normal Saline IV 500 mls/hr .BOLUS CHARLES Administration Sodium Chloride 10 ml 05/13/20 20:12 Saline Flush FLUSH ASDIRECTED PRN Keep Vein Open Sodium Chloride 10 ml 05/13/20 20:12 Saline Flush FLUSH ASDIRECTED PRN Keep Vein Open Discontinued Medications Generic Name Dose Route Start Last Admin Trade Name Freq PRN Reason Stop Dose Admin Famotidine 20 mg 05/13/20 20:18 05/13/20 20:34 Pepcid IVPUSH 12/22/20 20:19 20 mg ONETIME ONE Administration Hydromorphone HCl 1 mg 05/13/20 20:14 05/13/20 20:28 Dilaudid IVPUSH 05/13/20 20:15 1 mg ONETIME ONE Administration Ondansetron HCl 4 mg 05/13/20 20:14 05/13/20 20:28 Zofran IVPUSH 05/13/20 20:15 4 mg ONETIME ONE Administration - Re-Assessments/Exams Free Text/Narrative Re-Assessment/Exam: 05/13/20 21:14 labs reviewed, noted for significant elevation of WBC-18, mild elevated neutrophils 89%; amylase/lipase-114/85, mild dehydration with borderline Na-139 and H/H 17/51.5 mild hemoconcentrated Hg. pain is c/w chronic pancreatitis but normal amylase/lipase. 05/13/20 21:15 patient states he feels somewhat improved, pain now 4-5/10. he still feels like he should stay overnight for IVF, nausea/vomiting control. 05/13/20 21:[address] call back from Dr Crespo, Hospitalist. case was d/w him and he accepts for observation admission at this time. patient ready to admit when bed available Departure - Departure Time of Disposition: 22:00 Disposition: Refer to Observation Condition: Good Clinical Impression: Elevated blood pressure reading, Nausea & vomiting, Mild dehydration, Upper abdominal pain Chronic pancreatitis Qualifiers: Pancreatitis type: unspecified pancreatitis type Qualified Code(s): K86.1 - Other chronic pancreatitis - Discharge Information *PRESCRIPTION DRUG MONITORING PROGRAM REVIEWED*: Not Applicable *COPY OF PRESCRIPTION DRUG MONITORING REPORT IN PATIENT APRIL: Not Applicable Referrals: Richardson Lamb CARDIAC SPECIALIST [Primary Care Provider] - Forms: ED Department Discharge Sepsis Event Note (ED) - Evaluation Sepsis Screening Result: No Definite Risk - Focused Exam Vital Signs: Vital Signs Temp Pulse Resp BP Pulse Ox 05/13/20 20:59 85 16 135/81 95 05/13/20 19:02 97.9 F 99 18 215/103 H 94 L 05/13/20 19:00 97.9 F 99 18 215/103 H 94 L - My Orders Last 24 Hours: My Active Orders 05/13/20 20:12 Intake and Output [RC] PRN Up With Assistance [RC] ASDIRECTED Vital Signs [RC] PER UNIT ROUTINE Sodium Chloride 0.9% [Saline Flush] 10 ml FLUSH ASDIRECTED PRN Sodium Chloride 0.9% [Saline Flush] 10 ml FLUSH ASDIRECTED PRN Peripheral IV Insertion Adult [OM.PC] Urgent 05/13/20 20:13 Peripheral IV Care [RC] . DIRECTED 05/13/20 20:15 Sodium Chloride 0.9% [Normal Saline] 1,000 ml IV .BOLUS 05/13/20 21:52 Admission Status [Patient Status] [ADT] Routine 05/14/20 Breakfast Clear Liquid Diet [DIET] - Assessment/Plan Last 24 Hours: My Active Orders 05/13/20 20:12 Intake and Output [RC] PRN Up With Assistance [RC] ASDIRECTED Vital Signs [RC] PER UNIT ROUTINE Sodium Chloride 0.9% [Saline Flush] 10 ml FLUSH ASDIRECTED PRN Sodium Chloride 0.9% [Saline Flush] 10 ml FLUSH ASDIRECTED PRN Peripheral IV Insertion Adult [OM.PC] Urgent 05/13/20 20:13 Peripheral IV Care [RC] . DIRECTED 05/13/20 20:15 Sodium Chloride 0.9% [Normal Saline] 1,000 ml IV .BOLUS 05/13/20 21:52 Admission Status [Patient Status] [ADT] Routine 05/14/20 Breakfast Clear Liquid Diet [DIET]
[2020-05-13] MEDS ORDERED: Sodium Chloride 0.9% 10 ML Syringe FLUSH PRN ×2 (20:12)
[2020-05-13] MEDS ORDERED: HYDROmorphone 1 MG/ML Syringe IVPUSH ONE ×2 (20:14→23:13)
[2020-05-13] MEDS ORDERED: Ondansetron 4 MG/2 ML SDV IVPUSH ONE (20:14)
[2020-05-13] MEDS ORDERED: Sodium Chloride 0.9% 1,000 ML IV SCH (20:15)
[2020-05-13] MEDS ORDERED: Famotidine 20 MG/2 ML SDV IVPUSH ONE (20:18)
[2020-05-13] MEDS: Sodium Chloride 0.9% 1,000 ML IV SCH (22:30)
[2020-05-13] MEDS ORDERED: Ondansetron 4 MG/2 ML SDV IVPUSH PRN (23:58)
[2020-05-14] MEDS: HYDROmorphone 1 MG/ML Syringe IVPUSH PRN ×2 (02:00→04:17)
[2020-05-14] MEDS: Pantoprazole 40 MG Vial IVPUSH SCH ×2 (02:00→04:15)
[2020-05-14] MEDS: Sodium Chloride 0.9% 1,000 ML IV SCH (04:15)
--- NOTE | 2020-05-14 06:14 | PN ---
DATE OF SERVICE: 05/14/2020 SUBJECTIVE: A 64-year-old male with a history of chronic calcific pancreatitis with recurrent abdominal pain was admitted in the late night hours with abdominal pain, nausea, emesis, and anorexia. Through the night, he was provided intermittent IV Dilaudid as well as antiemetics and IV fluids. He is voiding with good regularity; has noted resolution of nausea and diminishment on severity of pain, now rated as 2 on a scale of 10; desires advance to clear liquid diet. He has had no diarrheal stools since admission and offers no other complaints. OBJECTIVE: VITAL SIGNS: Temperature 36.3, pulse rate 84, blood pressure 152/88, and respiratory rate 16, with O2 sats of 94% on room air. LUNGS: Clear. HEART: Regular without murmurs or gallops. ABDOMEN: Thin and nondistended with active sounds. Mild tenderness in the epigastrium is noted today. No guarding, rebound, or referred pain. EXTREMITIES: Warm, pink, and dry. IMPRESSION AND PLAN: Recurrent abdominal pain secondary to chronic pancreatitis, now showing interval improvement in symptoms. We will continue with IV fluids, p.r.n. antiemetics, and Dilaudid if needed for exacerbation of pain and advance to clear liquid diet and subsequent bland solid low-fat diet if tolerated. When he has resumed his standard dietary intake, we will discharge to home. Note that on admission, amylase and lipase were normal. Haile Crespo MD /[id number]
--- NOTE | 2020-05-14 06:59 | HP ---
IDENTIFYING DATA: Kishan Pineda is a 64-year-old male from [place], [place]. CHIEF COMPLAINT: "My pancreatitis is bad." HISTORY OF PRESENT ILLNESS: An adult male notes a history of recurrent mid upper abdominal pain accompanied by abdominal distention, cramping, loose stools, and recurrent nausea and emesis secondary to chronic calcific pancreatitis. Episodes are sporadic. He can identify no particular nutritional intake that triggers his symptoms. He abstains from use of tobacco and alcohol and rarely uses nonsteroidals. He noted onset of [id number] abdominal pain with nausea yesterday morning. He presented to the emergency room and received IV fluids and antiemetics and was discharged to home. Later in the evening, he had a light meal of eggs and grits and thereafter had more significant abdominal pain, distention, and loose stools without watery diarrhea melena or hematochezia as well as nausea, anorexia, and emesis. He has had no fevers or chills; no congestion, cough, sore throat, nasal congestion, or coryza; and no history of recognized COVID exposure or disease. PAST MEDICAL HISTORY: Previous surgeries include bilateral iliac artery stenting for reasons of peripheral vascular disease. He has an accompanying history of hypertension, hyperlipidemia, ischemic heart disease with prior DE, and nonocclusive bilateral carotid artery stenosis, mild in presentation. Previous surgeries include an abdominal laparotomy and exploration and cholecystectomy in the remote past. HABITS: Nonsmoker and no alcohol use as noted above. IMMUNIZATIONS: He has received his annual influenza vaccine. Pneumococcal and tetanus boosters are current and up to date by the patient's report. CURRENT MEDICATIONS: Imiquimod 5% cream applied p.r.n. to examine the skin, Symbicort 80/4.5 mcg 2 puffs b.i.d., albuterol metered-dose inhaler 2 puffs q.4 hours p.r.n., medical cannabis taken in liquid oil form orally for recurrent abdominal pain, Zofran 8 mg q.6 hours p.r.n. nausea, promethazine 50 mg q.6 hours p.r.n. nausea, [place] instant breakfast 1 serving b.i.d., and aspirin 81 mg daily. ALLERGIES: REPORTED TO REGLAN, STATINS, ACETAMINOPHEN, AND ERYTHROMYCIN PRODUCTS. 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 He is and has a 12-year-old son. They currently reside in the [place] area. FAMILY HISTORY: No recent familial history of COVID disease. He reports father had a history of chronic abdominal pain and cholelithiasis with subsequent cholecystectomy. REVIEW OF SYSTEMS: NEUROLOGIC: Glasses are worn. No history of stroke, seizures, or focal weakness. CARDIAC: Ischemic and peripheral vascular disease noted with hypertension and mild hyperlipidemia. No history of diabetes. No angina-like pain, palpitations, syncope, or reduced exercise tolerance. RESPIRATORY: Remote history of tobacco use, now abstaining. No recent acute respiratory infections, cough, sputum production, or wheeze. GASTROINTESTINAL: As above. GENITOURINARY: He denies chronic renal disease. No nocturia or urinary incontinence. MUSCULOSKELETAL: Degenerative neck pain. He reports a recent right bicipital tear with proximal right arm pain, currently involved in Rehab Services. PHYSICAL EXAMINATION: GENERAL: Appearance is that of an adult male in moderate discomfort secondary to mid-to- upper abdominal pain prior to administration of IV analgesic therapy. VITAL SIGNS: Stable. Afebrile. O2 sats are within normal range. EARS AND THROAT: Unremarkable on inspection. Mucosa is moist. NECK: No adenopathy or thyromegaly. Brisk carotid pulses. No bruits. LUNGS: Symmetrical, clear, resonant, and non-tachypneic. HEART: Regular without murmurs or gallops noted. ABDOMEN: Moderate tenderness in the mid upper abdominal region and epigastrium. No referred pain, guarding, rebound, or CVA tenderness is noted. Active bowel sounds are heard. No organomegaly to deep palpation. Good femoral pulses. GENITOURINARY: Omitted. RECTAL: Omitted. EXTREMITIES: Thin, warm, and pink. He has good palpable pulses at the dorsal pedal and posterior tibial regions bilaterally. No open or ischemic skin changes. LABORATORY DATA: Labs on admission reported normal CBC and general chemistries, including lipase and amylase. IMPRESSION: 1. Recurrent abdominal pain of chronic calcific pancreatitis with acute flare. 2. History of widespread atherosclerosis with bilateral carotid artery sub-occlusive stenosis, peripheral vascular disease with bilateral iliac artery stenting, and prior ischemic heart disease with reports of myocardial infarction in the remote past. PLAN: The patient is admitted to the hospital for supportive cares, including IV fluids, hydration, and analgesic therapies offered parenterally by IV route of administration. We will allow sips of water, advancing to clear liquid as tolerated. Anticipate discharge to home when acute episode diminishes and the patient is able to resume intake of bland solid foods. Full code status is maintained. Allow ambulation as tolerated in the room with routine vitals requested. Haile Crespo MD /[id number]
[2020-05-14] MEDS ORDERED: Formoterol/Mometasone 200-5 MCG 8.8 GM Inhaler IH SCH ×2 (09:00)
[2020-05-14 10:12] VITALS: BP 172/80; PULSE 75
--- NOTE | 2020-05-14 11:22 | PCM.DCSUM1 ---
Discharge Summary - Hospital Course Brief History: Mr. Pineda is a 64-year-old gentleman who was admitted through the emergency department with abdominal pain, nausea, and vomiting, secondary to acute on chronic pancreatitis. - Discharge Data Discharge Date: 05/14/20 Discharge Disposition: Home, Self-Care 01 Condition: Fair - Referral to Home Health Primary Care Physician: Richardson Lamb NP - Discharge Diagnosis/Problem(s) (1) Upper abdominal pain SNOMED Code(s): 50462725 ICD Code: R10.10 - UPPER ABDOMINAL PAIN, UNSPECIFIED Status: Acute Current Visit: Yes (2) Acute on chronic pancreatitis SNOMED Code(s): 795589993 ICD Code: K85.90 - ACUTE PANCREATITIS WITHOUT NECROSIS OR INFECTION, UNSP; K86.1 - OTHER CHRONIC PANCREATITIS Status: Acute Current Visit: Yes (3) Nausea & vomiting SNOMED Code(s): 50556520 ICD Code: R11.2 - NAUSEA WITH VOMITING, UNSPECIFIED Status: Acute Current Visit: Yes (4) Mild dehydration SNOMED Code(s): 9906202542117 ICD Code: E86.0 - DEHYDRATION Status: Acute Current Visit: Yes - Patient Summary/Data Hospital Course: Mr. Pineda is a 64-year-old gentleman who was admitted through the emergency department with abdominal pain, nausea, and vomiting, secondary to acute on chronic pancreatitis. He has had a history of intermittent admissions for exacerbation similar to this in the past. Over the past few days he has had difficulty with increasing pain in his epigastric region associated with nausea and vomiting. Pain became worse last night and he was unable to get control of the nausea. He was admitted and kept n.p.o. overnight. Received IV fluids for hydration as well as pain and nausea medication as needed. He is feeling well this morning with almost total resolution of pain and no further nausea or vomiting. He has tolerated a clear liquid diet and we will plan to advance this at home as tolerated. Activity will be as tolerated. Follow-up appointment will be scheduled with his primary care provider within 1 week. - Patient Instructions Diet: Usual Diet as Tolerated Activity: As Tolerated Other/Special Instructions: Please schedule follow-up appointment with primary care provider within 1 week. Slowly advance diet as tolerated at home. - Discharge Plan *PRESCRIPTION DRUG MONITORING PROGRAM REVIEWED*: Not Applicable *COPY OF PRESCRIPTION DRUG MONITORING REPORT IN PATIENT APRIL: Not Applicable Home Medications: Home Meds Ondansetron [Zofran ODT] 8 mg PO Q6H PRN 11/02/16 [History] Promethazine [Phenergan] 50 mg PO Q6H PRN 11/02/16 [History] Medical Marijuana 1 inh INH DAILY 01/04/19 [History] Albuterol Sulfate [Albuterol Sulfate Hfa] 1 - 2 puff IH ASDIRECTED 07/29/19 [History] Budesonide/Formoterol Fumarate [Symbicort 160-4.5 Mcg Inhaler] 1 inh INH BID 10/07/19 [History] Referrals: Richardson Lamb, TRANSITIONAL STUDIES INSTRUCTOR [Primary Care Provider] - - Discharge Summary/Plan Comment DC Time >30 min.: No - Patient Data Vitals - Most Recent: Last Vital Signs Temp 97.1 F 05/14/20 10:11 Pulse 75 05/14/20 10:11 Resp 18 05/14/20 10:11 BP 172/80 H 05/14/20 10:11 Pulse Ox 98 05/14/20 10:11 Weight - Most Recent: 136 lb 3.931 oz I&O - Last 24 hours: Intake & Output 05/13/20 05/14/20 05/14/20 22:59 06:59 14:59 Intake Total 380 1000 Output Total 1000 200 Balance -620 800 Lab Results - Last 24 hrs: Laboratory Results - last 24 hr 05/13/20 05/13/20 Range/Units 20:25 20:25 WBC 18.2 H (4.5-11.0) K/uL RBC 5.82 (4.30-5.90) M/uL Hgb 17.0 H (12.0-15.0) g/dL Hct 51.2 (40.0-54.0) % MCV 88 (80-98) fL MCH 29 (27-31) pg MCHC 33 (32-36) % Plt Count 330 (150-400) K/uL Neut % (Auto) 89 H (36-66) % Lymph % (Auto) 7 L (24-44) % [place] % (Auto) 4 (2-6) % Eos % (Auto) 0 L (2-4) % Baso % (Auto) 0 (0-1) % Sodium 135 L (140-148) mmol/L Potassium 3.6 (3.6-5.2) mmol/L Chloride 96 L (100-108) mmol/L Carbon Dioxide 29 (21-32) mmol/L Anion Gap 13.6 (5.0-14.0) mmol/L BUN 18 (7-18) mg/dL Creatinine 1.1 (0.8-1.3) mg/dL Est Cr Clr Drug Dosing 57.74 mL/min Estimated GFR (MDRD) > 60 (>60) Glucose 131 H (74-106) mg/dL Calcium 8.9 (8.5-10.1) mg/dL Total Bilirubin 0.5 D (0.2-1.0) mg/dL AST 21 (15-37) U/L ALT 29 (12-78) U/L Alkaline Phosphatase 79 (46-116) U/L Total Protein 7.6 (6.4-8.2) g/dL Albumin 3.6 (3.4-5.0) g/dL Globulin 4.0 H (2.3-3.5) g/dL Albumin/Globulin Ratio 0.9 L (1.2-2.2) Amylase 114 (25-115) U/L Lipase 85 (73-393) U/L Med Orders - Current: Current Medications Hydromorphone HCl (Dilaudid) 1 mg IVPUSH Q2H PRN PRN Reason: Pain Last Admin: 05/14/20 04:17 Dose: 1 mg Documented by: Sodium Chloride (Normal Saline) 1,000 mls @ 125 mls/hr IV ASDIRECTED [facility] Last Admin: 05/14/20 04:15 Dose: 125 mls/hr Documented by: Mometasone Furoate/Formoterol Fumar (Dulera 200-5 Mcg) 2 puff IH BIDRT [facility] Last Admin: 05/14/20 09:14 Dose: Not Given Documented by: Ondansetron HCl (Zofran) 4 mg IVPUSH Q4H PRN PRN Reason: Nausea/Vomiting Pantoprazole Sodium (Protonix Iv) 40 mg IVPUSH Q24H [facility] Sodium Chloride (Saline Flush) 10 ml FLUSH ASDIRECTED PRN PRN Reason: Keep Vein Open Discontinued Medications Famotidine (Pepcid) 20 mg IVPUSH ONETIME ONE Stop: 05/13/20 20:19 Last Admin: 05/13/20 20:34 Dose: 20 mg Documented by: Hydromorphone HCl (Dilaudid) 1 mg IVPUSH ONETIME ONE Stop: 05/13/20 20:15 Last Admin: 05/13/20 20:28 Dose: 1 mg Documented by: Hydromorphone HCl (Dilaudid) 1 mg IVPUSH ONETIME ONE Stop: 05/13/20 23:14 Last Admin: 05/13/20 23:00 Dose: 1 mg Documented by: Sodium Chloride (Normal Saline) 1,000 mls @ 500 mls/hr IV .BOLUS [facility]LES Last Admin: 05/13/20 20:27 Dose: 500 mls/hr Documented by: Mometasone Furoate/Formoterol Fumar (Dulera 200-5 Mcg) 2 puff IH BID [facility] Ondansetron HCl (Zofran) 4 mg IVPUSH ONETIME ONE Stop: 05/13/20 20:15 Last Admin: 05/13/20 20:28 Dose: 4 mg Documented by: Pantoprazole Sodium (Protonix Iv) 40 mg IVPUSH DAILY [facility] Last Admin: 05/14/20 04:15 Dose: Not Given Documented by: Sodium Chloride (Saline Flush) 10 ml FLUSH ASDIRECTED PRN PRN Reason: Keep Vein Open - Exam Quality Assessment: Reports: DVT Prophylaxis General: Reports: Alert, Oriented, Cooperative, Mild Distress Lungs: Reports: Clear to Auscultation, Normal Respiratory Effort Cardiovascular: Reports: Regular Rate, Regular Rhythm, No Murmurs GI/Abdominal Exam: Soft, Non-Tender, No Organomegaly, No Distention Extremities: Non-Tender, No Pedal Edema
[2020-05-14] MEDS ORDERED: Pantoprazole 40 MG Vial IVPUSH SCH (21:00)
== END 2020-05-14 12:00 | disposition home or self-care (01) ==
LOC: JP.ED 18:49 → JP.MS 21:52
PROVIDERS: ADMIT Family Medicine; ATTEND Family Medicine
DX: K85.90 Acute pancreatitis without necrosis or infection, unspecified (principal); K86.1 Other chronic pancreatitis; E86.0 Dehydration; I10 Essential (primary) hypertension; E78.5 Hyperlipidemia, unspecified; I25.2 Old myocardial infarction; I65.23 Occlusion and stenosis of bilateral carotid arteries; Z98.890 Other specified postprocedural states; Z79.899 Other long term (current) drug therapy; Z88.8 Allergy status to other drugs, medicaments and biological substances; Z87.891 Personal history of nicotine dependence
CPT/HCPCS: 36415; 80053; 82150; 83690; 85025; 96361; 96374; 96375; 96376; 99284; A9270; C9113; J1170; J2405; J3490; J7030

== ENCOUNTER 2020-10-04 09:41 | Emergency (ER) | payer BC, MEDICARE ==
[2020-10-04] MEDS ORDERED: Lactated Ringers 1,000 ML IV ONE (10:06)
[2020-10-04] MEDS ORDERED: HYDROmorphone 1 MG/ML Syringe IVPUSH ONE ×2 (10:06→11:03)
[2020-10-04] MEDS ORDERED: Ondansetron 4 MG/2 ML SDV IVPUSH ONE ×2 (10:06→11:04)
--- NOTE | 2020-10-04 10:40 | EDM.PDOC ---
ED HPI GENERAL MEDICAL PROBLEM - General Chief Complaint: Abdominal Pain Stated Complaint: stomach pain on going Time Seen by Provider: 10/04/20 10:20 Source of Information: Reports: Patient, Old Records, RN History Limitations: Reports: No Limitations - History of Present Illness INITIAL COMMENTS - FREE TEXT/NARRATIVE: 64 yo male with recurrent pancreatitis presents with his usual pain back again. He is not sure what triggered his sx's. He awoke today feeling fine and later had a few BM's that were unusual in that he is usually awake longer before he has a BM. After this he developed the abdominal pain associated with an emesis on arrival to the ER. There was no hematemesis or melena/hematochezia. No fever. Onset: Today, Gradual Onset Date: 10/04/20 Duration: Minutes:, Getting Worse Location: Reports: Abdomen Quality: Reports: Ache Severity: Moderate Improves with: Reports: Medication Worsens with: Reports: Other (progression of his pancreatitis) Context: Reports: Other (See HPI) Associated Symptoms: Reports: Loss of Appetite, Nausea/Vomiting. 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 BUSINESS ANALYST CONSULTANT: Reports: Other (see below) (none) - Related Data Allergies Allergy/AdvReac Type Severity Reaction Status Date / Time acetaminophen [From Tylenol] Allergy Rash Verified 10/04/20 09:57 erythromycin base Allergy Hives Verified 10/04/20 09:57 Evlgsbc-Srv-Ofc Reductase Allergy Anxiety Verified 10/04/20 09:57 Inhibitor metoclopramide [From Reglan] AdvReac Agitation Verified 10/04/20 09:57 Home Meds: Home Meds Ondansetron [Zofran ODT] 8 mg PO Q6H PRN 11/02/16 [History] Promethazine [Phenergan] 50 mg PO Q6H PRN 11/02/16 [History] Medical Marijuana 1 inh INH DAILY 01/04/19 [History] Albuterol Sulfate [Albuterol Sulfate Hfa] 1 - 2 puff IH ASDIRECTED 07/29/19 [History] Budesonide/Formoterol Fumarate [Symbicort 160-4.5 Mcg Inhaler] 1 inh INH BID 10/07/19 [History] oxyCODONE HCl [Oxaydo] 5 - 10 mg PO QID #10 tablet.orl 10/04/20 [Rx] Past Medical History HEENT History: Reports: Impaired Vision Cardiovascular History: Reports: Blood Clots/VTE/DVT, CAD, Hypertension, CT, Other (See Below) Other Cardiovascular History: iliac stents for possible clots Respiratory History: Reports: SOB Gastrointestinal History: Reports: Cholelithiasis, GERD, Pancreatitis, Other (See Below) Other Gastrointestinal History: pancreatitis Musculoskeletal History: Reports: Fracture Psychiatric History: Reports: Anxiety Oncologic (Cancer) History: Reports: Squamous Cell Carcinoma, Other (See Below) Other Oncologic History: skin ca Dermatologic History: Reports: Other (See Below) Other Dermatologic History: basal cell ca - Infectious Disease History Infectious Disease History: Reports: Mumps - Past Surgical History Head Surgeries/Procedures: Reports: None HEENT Surgical History: Reports: None Cardiovascular Surgical History: Reports: None Respiratory Surgical History: Reports: None GI Surgical History: Reports: Appendectomy, Cholecystectomy, Other (See Below) Other GI Surgeries/Procedures: exploratory lap for pancrease possilbe fruy procedure Male Surgical History: Reports: None Musculoskeletal Surgical History: Reports: None Oncologic Surgical History: Reports: None Dermatological Surgical History: Reports: None Social & Family History - Family History Family Medical History: No Pertinent Family History HEENT: Reports: Cataract Cardiac: Reports: Bypass Endocrine/Metabolic: Reports: Diabetes, type II Oncologic: Reports: Prostate - Tobacco Use Tobacco Use Status *Q: Never Tobacco User Second Hand Smoke Exposure: No - Caffeine Use Caffeine Use: Reports: Coffee, Tea Other Caffeine Use: 4 cups - Recreational Drug Use Recreational Drug Use: Yes Drug Use in Last 12 Months: Yes Recreational Drug Type: Reports: Marijuana/Hashish Recreational Drug Use Frequency: Weekly - Living Situation & Occupation Living situation: Reports: Occupation: Retired (lives with and 11 year old son in [place], [place].) ED ROS GENERAL - Review of Systems Review Of Systems: See Below Constitutional: Reports: No Symptoms HEENT: Reports: No Symptoms Respiratory: Reports: No Symptoms Cardiovascular: Reports: No Symptoms Endocrine: Reports: No Symptoms GI/Abdominal: Reports: Abdominal Pain, Nausea, Vomiting. Denies: Bloody Stool, Constipation, Diarrhea, Hematemesis, Hematochezia, Melena : Reports: No Symptoms Musculoskeletal: Reports: No Symptoms Skin: Reports: No Symptoms Neurological: Reports: No Symptoms Psychiatric: Reports: No Symptoms ED EXAM, GI/ABD - Physical Exam Exam: See Below Exam Limited By: No Limitations General Appearance: Alert, WD/WN, Mild Distress Eyes: Bilateral: Normal Appearance Ears: Normal External Exam, Normal Canal, Hearing Grossly Normal Nose: Normal Inspection, No Blood Throat/Mouth: Normal Inspection, Normal Lips, Normal Oropharynx, Normal Voice, No Airway Compromise Head: Atraumatic, Normocephalic Neck: Normal Inspection Respiratory/Chest: No Respiratory Distress, Lungs Clear, Normal Breath Sounds, No Accessory Muscle Use Cardiovascular: Regular Rate, Rhythm, No Edema GI/Abdominal Exam: Normal Bowel Sounds, Soft, No Distention, Tender (diffusely, worse in the epigastrium). No: Non-Tender, Distended Back Exam: Normal Inspection. No: CVA Tenderness (R), CVA Tenderness (L) Extremities: Normal Inspection, Normal Range of Motion, Non-Tender, No Pedal Edema. No: Pedal Edema, Leg Pain Neurological: Alert, Oriented, CN II-XII Intact, Normal Cognition, No Motor/Sensory Deficits Psychiatric: Normal Affect, Normal Mood Skin Exam: Warm, Dry, Intact, Normal Color, No Rash Course - Vital Signs Last Recorded V/S: Last Vital Signs Temp 36.5 C 10/04/20 10:06 Pulse 89 10/04/20 10:25 Resp 17 10/04/20 10:06 BP 209/96 H 10/04/20 10:25 Pulse Ox 94 L 10/04/20 10:25 - Orders/Labs/Meds Orders: Active Orders 24 hr Category Date Time Status Lactated Ringers [Ringers, Lactated] 1,000 ml Med 10/04/20 11:15 Active IV ASDIRECTED Medication Orders Lactated Ringer's (Ringers, Lactated) 1,000 mls @ 500 mls/hr IV ASDIRECTED [facility] Last Admin: 10/04/20 11:14 Dose: 500 mls/hr Documented by: ALEJANDRINA Labs: Laboratory Tests 10/04/20 10/04/20 Range/Units 10:20 10:20 WBC 16.0 H (4.5-11.0) K/uL RBC 5.16 (4.30-5.90) M/uL Hgb 15.2 H (12.0-15.0) g/dL Hct 46.2 (40.0-54.0) % MCV 90 (80-98) fL MCH 30 (27-31) pg MCHC 33 (32-36) % Plt Count 362 (150-400) K/uL Sodium 142 (140-148) mmol/L Potassium 3.8 (3.6-5.2) mmol/L Chloride 104 (100-108) mmol/L Carbon Dioxide 26 (21-32) mmol/L Anion Gap 12.5 (5.0-14.0) mmol/L BUN 10 (7-18) mg/dL Creatinine 0.9 (0.8-1.3) mg/dL Est Cr Clr Drug Dosing 66.58 mL/min Estimated GFR (MDRD) > 60 (>60) Glucose 143 H (74-106) mg/dL Calcium 8.7 (8.5-10.1) mg/dL Lipase 71 L (73-393) U/L Meds: Medications Generic Name Dose Route Start Last Admin Trade Name Freq PRN Reason Stop Dose Admin Lactated Ringer's 1,000 mls @ 500 mls/hr 10/04/20 11:15 10/04/20 11:14 Ringers, Lactated IV 500 mls/hr ASDIRECTED [facility]LES Administration Discontinued Medications Generic Name Dose Route Start Last Admin Trade Name Freq PRN Reason Stop Dose Admin Hydromorphone HCl 1 mg 10/04/20 10:06 10/04/20 10:16 Hydromorphone 1 Mg/Ml Syringe IVPUSH 10/04/20 10:07 1 mg ONETIME ONE Administration Hydromorphone HCl 1 mg 10/04/20 11:03 10/04/20 11:14 Hydromorphone 1 Mg/Ml Syringe IVPUSH 10/04/20 11:04 1 mg ONETIME ONE Administration Lactated Ringer's 1,000 mls @ 1,000 mls/hr 10/04/20 10:06 10/04/20 10:18 Ringers, Lactated IV 10/04/20 11:05 1,000 mls/hr BOLUS ONE Administration Ondansetron HCl 4 mg 10/04/20 10:10/04/20 10:17 Ondansetron 4 Mg/2 Ml Sdv IVPUSH 10/04/20 10:07 4 mg ONETIME ONE Administration Ondansetron HCl 4 mg 10/04/20 11:04 10/04/20 11:13 Ondansetron 4 Mg/2 Ml Sdv IVPUSH 10/04/20 11:05 4 mg ONETIME ONE Administration - Re-Assessments/Exams Free Text/Narrative Re-Assessment/Exam: 10/04/20 11:04 Partial relief only with first round of Dilaudid and Zofran. Free Text/Narrative Re-Assessment/Exam: 10/04/20 12:58 Feels better, wants to go home. Departure - Departure Time of Disposition: 13:15 Disposition: Home, Self-Care 01 Condition: Fair Clinical Impression: Acute on chronic pancreatitis Nausea and vomiting Qualifiers: Vomiting type: unspecified Vomiting Intractability: non-intractable Qualified Code(s): R11.2 - Nausea with vomiting, unspecified - Discharge Information *PRESCRIPTION DRUG MONITORING PROGRAM REVIEWED*: Yes *COPY OF PRESCRIPTION DRUG MONITORING REPORT IN PATIENT APRIL: Yes Prescriptions: oxyCODONE HCl [Oxaydo] 5 - 10 mg PO QID #10 tablet.orl Instructions: Nausea and Vomiting, Adult, [id number], Chronic Pancreatitis Referrals: Richardson Lamb NP [Primary Care Provider] - Forms: ED Department Discharge Additional Instructions: Sips of clear liquids only today. Advance diet very slowly after your pain is gone. Use Zofran for nausea control and oxycodone for pain relief. Let your provider know about your status. Sepsis Event Note (ED) - Evaluation Sepsis Screening Result: No Definite Risk - Focused Exam Vital Signs: Vital Signs Temp Pulse Resp BP Pulse Ox 10/04/20 10:25 89 209/96 H 94 L 10/04/20 10:06 36.5 C 93 17 223/107 H 96 10/04/20 10:01 36.5 C 93 17 223/107 H 96 - My Orders Last 24 Hours: My Active Orders 10/04/20 11:15 Lactated Ringers [Ringers, Lactated] 1,000 ml IV ASDIRECTED - Assessment/Plan Last 24 Hours: My Active Orders 10/04/20 11:15 Lactated Ringers [Ringers, Lactated] 1,000 ml IV ASDIRECTED
[2020-10-04] MEDS ORDERED: Lactated Ringers 1,000 ML IV SCH (11:15)
[2020-10-04 13:13] VITALS: BP 158/80; PULSE 80
== END 2020-10-04 13:11 | disposition home or self-care (01) ==
LOC: JP.ED 09:41
DX: K85.90 Acute pancreatitis without necrosis or infection, unspecified (principal); R11.2 Nausea with vomiting, unspecified; I25.10 Atherosclerotic heart disease of native coronary artery without angina pectoris; I10 Essential (primary) hypertension; I25.2 Old myocardial infarction; Z88.8 Allergy status to other drugs, medicaments and biological substances; Z88.1 Allergy status to other antibiotic agents
CPT/HCPCS: 36415; 80048; 83690; 85027; 96374; 96375; 96376; 99284; J1170; J2405; J7120

== ENCOUNTER 2020-10-06 08:17 | Observation (INO) | payer BC, MEDICARE ==
--- NOTE | 2020-10-06 08:41 | EDM.PDOC ---
ED HPI GENERAL MEDICAL PROBLEM - General Chief Complaint: Abdominal Pain Stated Complaint: ABD PAIN Time Seen by Provider: 10/06/20 08:41 Source of Information: Reports: Patient History Limitations: Reports: No Limitations - History of Present Illness INITIAL COMMENTS - FREE TEXT/NARRATIVE: pt arrived with some generalized abdomanal pain. he fels like he is mildly distened. Onset: Gradual, Other (pt was seen on sat and last nite started getting sick again. ) Duration: Hour(s): Location: Reports: Abdomen Associated Symptoms: Reports: Malaise, Other (increased pain. ) Abdomen Pain Score (Numeric/FACES): 10 - Related Data Allergies Allergy/AdvReac Type Severity Reaction Status Date / Time acetaminophen [From Tylenol] Allergy Rash Verified 10/04/20 09:57 erythromycin base Allergy Hives Verified 10/04/20 09:57 metoclopramide [From Reglan] AdvReac Agitation Verified 10/04/20 09:57 [id number]-Ybn Reductase AdvReac Anxiety Verified 10/06/20 10:17 Inhibitor Home Meds: Home Meds Ondansetron [Zofran ODT] 8 mg PO Q6H PRN 11/02/16 [History] Promethazine [Phenergan] 50 mg PO Q6H PRN 11/02/16 [History] Medical Marijuana 1 inh INH DAILY 01/04/19 [History] Albuterol Sulfate [Albuterol Sulfate Hfa] 1 - 2 puff IH ASDIRECTED 07/29/19 [History] Budesonide/Formoterol Fumarate [Symbicort 160-4.5 Mcg Inhaler] 1 inh INH BID 10/07/19 [History] oxyCODONE HCl [Oxaydo] 5 - 10 mg PO QID #10 tablet.orl 10/04/20 [Rx] Past Medical History HEENT History: Reports: Impaired Vision Cardiovascular History: Reports: Blood Clots/VTE/DVT, CAD, Hypertension, VT, Other (See Below) Other Cardiovascular History: iliac stents for possible clots Respiratory History: Reports: SOB Gastrointestinal History: Reports: Cholelithiasis, GERD, Pancreatitis, Other (See Below) Other Gastrointestinal History: pancreatitis Musculoskeletal History: Reports: Fracture Psychiatric History: Reports: Anxiety Oncologic (Cancer) History: Reports: Squamous Cell Carcinoma, Other (See Below) Other Oncologic History: skin ca Dermatologic History: Reports: Other (See Below) Other Dermatologic History: basal cell ca - Infectious Disease History Infectious Disease History: Reports: Mumps - Past Surgical History Head Surgeries/Procedures: Reports: None HEENT Surgical History: Reports: None Cardiovascular Surgical History: Reports: None Respiratory Surgical History: Reports: None GI Surgical History: Reports: Appendectomy, Cholecystectomy, Other (See Below) Other GI Surgeries/Procedures: exploratory lap for pancrease possilbe fruy procedure Male Surgical History: Reports: None Musculoskeletal Surgical History: Reports: None Oncologic Surgical History: Reports: None Dermatological Surgical History: Reports: None Social & Family History - Family History Family Medical History: No Pertinent Family History HEENT: Reports: Cataract Cardiac: Reports: Bypass Endocrine/Metabolic: Reports: Diabetes, type II Oncologic: Reports: Prostate - Tobacco Use Tobacco Use Status *Q: Never Tobacco User - Caffeine Use Caffeine Use: Reports: Coffee, Soda, Tea Other Caffeine Use: 4 cups - Recreational Drug Use Recreational Drug Use: No - Living Situation & Occupation Living situation: Reports: Occupation: Retired (lives with and 11 year old son in [place], [place].) ED ROS GENERAL - Review of Systems Review Of Systems: See Below Constitutional: Reports: Malaise, Weakness HEENT: Reports: No Symptoms Respiratory: Reports: No Symptoms Cardiovascular: Reports: No Symptoms Endocrine: Reports: No Symptoms GI/Abdominal: Reports: Abdominal Pain, Decreased Appetite, Nausea : Reports: No Symptoms Musculoskeletal: Reports: No Symptoms Skin: Reports: No Symptoms ED EXAM, GI/ABD - Physical Exam Exam: See Below Text/Narrative:: pt arrived with pain accross his upper abdoman. He has a history of chronic pancreatitis He was seen on sat and his pain was better. Last nite the pain returned and he was very uncomfortable today. Exam Limited By: No Limitations General Appearance: Alert, Anxious, Severe Distress Ears: Normal TMs Nose: Normal Inspection Throat/Mouth: Normal Inspection Head: Atraumatic Neck: Normal Inspection Respiratory/Chest: No Respiratory Distress Cardiovascular: Regular Rate, Rhythm GI/Abdominal Exam: Tender, Other (pt has diffuse abdomanal tenderness. He was very uncomfortable. ) (Male) Exam: Deferred Rectal (Males) Exam: Deferred Back Exam: Normal Inspection Extremities: Normal Inspection Neurological: Alert, Oriented, Normal Cognition Course - Vital Signs Last Recorded V/S: Last Vital Signs Temp 35.7 C L 10/06/20 08:46 Pulse 81 10/06/20 12:36 Resp 22 H 10/06/20 08:46 BP 156/78 H 10/06/20 12:36 Pulse Ox 94 L 10/06/20 12:36 - Orders/Labs/Meds Orders: Active Orders 24 hr Category Date Time Status Sodium Chloride 0.9% [Normal Saline] 1,000 ml Med 10/06/20 08:45 Active IV ASDIRECTED Sodium Chloride 0.9% [Normal Saline] 1,000 ml Med 10/06/20 10:15 Active IV ASDIRECTED Medication Orders Sodium Chloride (Normal Saline) 1,000 mls @ 999 mls/hr IV ASDIRECTED [facility] Last Admin: 10/06/20 10:14 Dose: 999 mls/hr Documented by: Infusion: 10/06/20 09:52 Dose: 999 mls/hr Documented by: Admin: 10/06/20 08:51 Dose: 999 mls/hr Documented by: FLIEMON Sodium Chloride (Normal Saline) 1,000 mls @ 999 mls/hr IV ASDIRECTED CHARLES Last Admin: 10/06/20 10:14 Dose: 999 mls/hr Documented by: FILEMON Labs: Laboratory Tests 10/06/20 10/06/20 10/06/20 Range/Units 08:48 08:53 08:53 WBC 12.7 H (4.5-11.0) K/uL RBC 5.57 (4.30-5.90) M/uL Hgb 16.9 H (12.0-15.0) g/dL Hct 49.0 (40.0-54.0) % MCV 88 (80-98) fL MCH 30 (27-31) pg MCHC 34 (32-36) % Plt Count 263 (150-400) K/uL Neut % (Auto) 82 H (36-66) % Lymph % (Auto) 12 L (24-44) % Faulkner % (Auto) 6 (2-6) % Eos % (Auto) 0 L (2-4) % Baso % (Auto) 0 (0-1) % Sodium (140-148) mmol/L Potassium (3.6-5.2) mmol/L Chloride (100-108) mmol/L Carbon Dioxide (21-32) mmol/L Anion Gap (5.0-14.0) mmol/L BUN (7-18) mg/dL Creatinine (0.8-1.3) mg/dL Est Cr Clr Drug Dosing mL/min Estimated GFR (MDRD) (>60) Glucose (74-106) mg/dL Calcium (8.5-10.1) mg/dL Total Bilirubin (0.2-1.0) mg/dL AST (15-37) U/L ALT (12-78) U/L Alkaline Phosphatase (46-116) U/L C-Reactive Protein 4.20 H (0.0-0.3) mg/dL Total Protein (6.4-8.2) g/dL Albumin (3.4-5.0) g/dL Globulin (2.3-3.5) g/dL Albumin/Globulin Ratio (1.2-2.2) Amylase (25-115) U/L Lipase 83 (73-393) U/L 10/06/20 Range/Units 08:53 WBC (4.5-11.0) K/uL RBC (4.30-5.90) M/uL Hgb (12.0-15.0) g/dL Hct (40.0-54.0) % MCV (80-98) fL MCH (27-31) pg MCHC (32-36) % Plt Count (150-400) K/uL Neut % (Auto) (36-66) % Lymph % (Auto) (24-44) % Faulkner % (Auto) (2-6) % Eos % (Auto) (2-4) % Baso % (Auto) (0-1) % Sodium 141 (140-148) mmol/L Potassium 3.4 L (3.6-5.2) mmol/L Chloride 103 (100-108) mmol/L Carbon Dioxide 28 (21-32) mmol/L Anion Gap 13.4 (5.0-14.0) mmol/L BUN 10 (7-18) mg/dL Creatinine 0.9 (0.8-1.3) mg/dL Est Cr Clr Drug Dosing 66.01 mL/min Estimated GFR (MDRD) > 60 (>60) Glucose 140 H (74-106) mg/dL Calcium 8.4 L (8.5-10.1) mg/dL Total Bilirubin 0.4 (0.2-1.0) mg/dL AST 18 (15-37) U/L ALT 30 (12-78) U/L Alkaline Phosphatase 85 (46-116) U/L C-Reactive Protein (0.0-0.3) mg/dL Total Protein 7.2 (6.4-8.2) g/dL Albumin 3.2 L (3.4-5.0) g/dL Globulin 4.0 H (2.3-3.5) g/dL Albumin/Globulin Ratio 0.8 L (1.2-2.2) Amylase 59 (25-115) U/L Lipase (73-393) U/L Meds: Medications Generic Name Dose Route Start Last Admin Trade Name Melva PRN Reason Stop Dose Admin Sodium Chloride 1,000 mls @ 999 mls/hr 10/06/20 08:45 10/06/20 10:14 Normal Saline IV 999 mls/hr ASDIRECTED CHARLES Administration Sodium Chloride 1,000 mls @ 999 mls/hr 10/06/20 10:15 10/06/20 10:14 Normal Saline IV 999 mls/hr ASDIRECTED CHARLES Administration Discontinued Medications Generic Name Dose Route Start Last Admin Trade Name Melva PRN Reason Stop Dose Admin Hydromorphone HCl 2 mg 10/06/20 08:47 10/06/20 08:54 Hydromorphone 1 Mg/Ml Syringe IVPUSH 10/06/20 08:48 2 mg ONETIME ONE Administration Hydromorphone HCl 1 mg 10/06/20 10:08 10/06/20 10:12 Hydromorphone 1 Mg/Ml Syringe IVPUSH 10/06/20 10:09 1 mg ONETIME ONE Administration Sodium Chloride 100 mls @ 3 mls/sec 10/06/20 10:15 10/06/20 10:25 Normal Saline IV 10/06/20 10:16 3 mls/sec ASDIRECTED CHARLES Administration Iopamidol 100 ml 10/06/20 10:15 10/06/20 10:25 Iopamidol 612 Mg/Ml 100 Ml Bottle IV 10/06/20 10:16 100 ml . DIRECTED CHARLES Administration Ondansetron HCl 4 mg 10/06/20 08:42 10/06/20 08:51 Ondansetron 4 Mg/2 Ml Sdv IVPUSH 10/06/20 08:43 4 mg ONETIME ONE Administration Sodium Chloride 10 ml 10/06/20 10:13 10/06/20 10:26 Sodium Chloride 0.9% 10 Ml Syringe FLUSH 10/06/20 10:14 10 ml ONETIME ONE Administration - Re-Assessments/Exams Free Text/Narrative Re-Assessment/Exam: 10/06/20 12:38 cat scan revealed a probale diverticulitis and colitis segmental. He has a elevated crp. Pt is finally alot more comfortable. Departure - Departure Time of Disposition: 12:39 Disposition: Admitted As Inpatient 64 Condition: Fair Clinical Impression: Segmental colitis, Diverticulitis - Discharge Information Referrals: Richardson Lamb NP [Primary Care Provider] - Forms: ED Department Discharge Care Plan Goals: admit to Dr melgar. Sepsis Event Note (ED) - Focused Exam Vital Signs: Vital Signs Temp Pulse Resp BP Pulse Ox 10/06/20 12:36 81 156/78 H 94 L 10/06/20 11:34 79 157/92 H 93 L 10/06/20 11:04 53 L 149/75 H 90 L 10/06/20 10:03 77 143/72 H 89 L 10/06/20 09:33 80 161/101 H 91 L 10/06/20 09:03 89 203/105 H 92 L 10/06/20 08:46 35.7 C L 91 22 H 234/120 H 97 10/06/20 08:40 35.7 C L 91 22 H 234/120 H 97 - My Orders Last 24 Hours: My Active Orders 10/06/20 08:45 Sodium Chloride 0.9% [Normal Saline] 1,000 ml IV ASDIRECTED 10/06/20 10:15 Sodium Chloride 0.9% [Normal Saline] 1,000 ml IV ASDIRECTED - Assessment/Plan Last 24 Hours: My Active Orders 10/06/20 08:45 Sodium Chloride 0.9% [Normal Saline] 1,000 ml IV ASDIRECTED 10/06/20 10:15 Sodium Chloride 0.9% [Normal Saline] 1,000 ml IV ASDIRECTED
[2020-10-06] MEDS ORDERED: Ondansetron 4 MG/2 ML SDV IVPUSH ONE (08:42)
[2020-10-06] MEDS ORDERED: HYDROmorphone 1 MG/ML Syringe IVPUSH ONE ×2 (08:47→10:08)
[2020-10-06] MEDS: Sodium Chloride 0.9% 1,000 ML IV SCH ×3 (08:51→16:09)
[2020-10-06] MEDS ORDERED: Sodium Chloride 0.9% 10 ML Syringe FLUSH ONE (10:13)
[2020-10-06] MEDS ORDERED: Sodium Chloride 0.9% 100 ML IV SCH (10:15)
[2020-10-06] MEDS ORDERED: Sodium Chloride 0.9% 1,000 ML IV SCH (10:15)
[2020-10-06] MEDS ORDERED: Iopamidol 612 MG/ML 100 ML Bottle IV SCH (10:15)
--- NOTE | 2020-10-06 11:17 | CRLCT ---
Description Indication: His upper abdominal pains, history of pancreatitis Technique: Volumetric multidetector CT images of the abdomen and pelvis were obtained after the administration of intravenous contrast. 100 cc Isovue-300 low osmolar intravenous contrast Comparison: CT abdomen and pelvis November 16, 2018 Findings: There is centrilobular emphysematous changes of the lung bases with basilar atelectasis versus scar. The liver is stable from comparison with intrahepatic biliary ductal dilatation. The portal vein is patent. The gallbladder is surgically absent. There is moderate dilatation of the common bile duct. The spleen is normal in enhancement and size. There is [id number] thickening of the gastric antrum which can be associated with peptic ulcer disease. Extensive coarse calcifications throughout the pancreas are appreciated commensurate with history of prior pancreatitis. Prominence of the main pancreatic duct is again noted. Otherwise there is no peripancreatic inflammation or pancreatic hypoenhancement. The adrenal glands are unremarkable. Mildly complex cystic changes of the left kidney are appreciated otherwise the kidneys are preserved in cortical medullary differentiation. There is no distal obstructive calculus. There is questionable focal thickening of the sigmoid colon with extensive diverticulosis. Additional thickening versus nondistention of the transverse colon and hepatic flexure is appreciated which may represent additional colitis changes. There is abrupt change in caliber of the splenic flexure. The appendix is not well visualized. There is no significant mesenteric, retroperitoneal, or pelvic sidewall lymph nodes. The aorta is non aneurysmal with marked atherosclerotic calcification and prior endograft bypass of the iliac arteries. The solid pelvic viscera are grossly unremarkable. There is no free fluid or free air. The anterior abdominal wall is intact without significant hernias. The lumbar vertebral body heights are grossly maintained with minimal endplate Schmorl`s defects. There is moderate to severe degenerative disc disease. There is moderate facet arthrosis. Impression: Demonstration of extensive sigmoid diverticulosis with questionable focal thickening of the mid sigmoid colon which may represent underlying diverticulitis changes. There is thickening and questionable pericolonic inflammation of the transverse colon with abrupt change in transition at the splenic flexure which may represent segmental colitis changes. Otherwise stable hepatomegaly. Stable sequela of chronic pancreatitis. Stable prior cholecystectomy and reservoir changes of the biliary tree. Please note that all CT scans at this facility use dose modulation, iterative reconstruction, and/or weight-based dosing when appropriate to reduce radiation dose to as low as reasonably achievable. Dictated by Jose Castaneda MD @ 10/06/2020 11:15:[address] Jose Castaneda @ Oct 06 2020 11:15AM
--- NOTE | 2020-10-06 14:05 | PCM.HP.2 ---
H&P History of Present Illness - General Date of Service: 10/06/20 Admit Problem/Dx: Admission Diagnosis/Problem Admission Diagnosis/Problem Colitis Source of Information: Patient, Provider History Limitations: Reports: No Limitations - History of Present Illness Initial Comments - Free Text/Narative: CC: I thought I was having another attack HPI: Kishan presented to the emergency room for the second time in 3 days with persistent upper abdominal pain. He describes 5 days of progressive epigastric abdominal pain. He describes this as a severe dull pain. He has been using his pain pills at home without much relief. Certain positions seem to make the pain worse and other positions seem to make the pain a little better. Moving around does make the pain worse. This does not feel like his usual pancreatitis pain and feels different. He has had subjective fevers and chills as well as nausea and intermittent vomiting. He has not had a significant change in his bowel habits and does not endorse recent diarrhea. No change in bladder habits. He is not aware of any sick contacts. He has not had any suspect food ingestions. He has not traveled. Does not feel short of breath. Pain has been getting worse rather than getting better. Work-up in the emergency room revealed reassuring laboratory studies other than an elevated white blood cell count. CT scan suggested he may have focal colitis in the transverse colon near the splenic flexure. Patient will be admitted for symptomatic management and initiation of antibiotics. Abdomen Pain Score (Numeric/FACES): 10 - Related Data Allergies/Adverse Reactions: Allergies Allergy/AdvReac Type Severity Reaction Status Date / Time acetaminophen [From Tylenol] Allergy Rash Verified 10/04/20 09:57 erythromycin base Allergy Hives Verified 10/04/20 09:57 metoclopramide [From Reglan] AdvReac Agitation Verified 10/04/20 09:57 Atupirt-Qji-Mje Reductase AdvReac Anxiety Verified 10/06/20 10:17 Inhibitor Home Medications: Home Meds Ondansetron [Zofran ODT] 8 mg PO Q6H PRN 11/02/16 [History] Promethazine [Phenergan] 50 mg PO Q6H PRN 11/02/16 [History] Medical Marijuana 1 inh INH DAILY 01/04/19 [History] Albuterol Sulfate [Albuterol Sulfate Hfa] 1 - 2 puff IH ASDIRECTED 07/29/19 [History] Budesonide/Formoterol Fumarate [Symbicort 160-4.5 Mcg Inhaler] 1 inh INH BID 10/07/19 [History] oxyCODONE HCl [Oxaydo] 5 - 10 mg PO QID #10 tablet.orl 10/04/20 [Rx] Past Medical History HEENT History: Reports: Impaired Vision Cardiovascular History: Reports: Blood Clots/VTE/DVT, CAD, Hypertension, [place], Other (See Below) Other Cardiovascular History: iliac stents for possible clots Respiratory History: Reports: SOB Gastrointestinal History: Reports: Cholelithiasis, GERD, Pancreatitis, Other (See Below) Other Gastrointestinal History: pancreatitis Musculoskeletal History: Reports: Fracture Psychiatric History: Reports: Anxiety Oncologic (Cancer) History: Reports: Squamous Cell Carcinoma, Other (See Below) Other Oncologic History: skin ca Dermatologic History: Reports: Other (See Below) Other Dermatologic History: basal cell ca - Infectious Disease History Infectious Disease History: Reports: Mumps - Past Surgical History Head Surgeries/Procedures: Reports: None HEENT Surgical History: Reports: None Cardiovascular Surgical History: Reports: None Respiratory Surgical History: Reports: None GI Surgical History: Reports: Appendectomy, Cholecystectomy, Other (See Below) Other GI Surgeries/Procedures: exploratory lap for pancrease possilbe fruy procedure Male Surgical History: Reports: None Musculoskeletal Surgical History: Reports: None Oncologic Surgical History: Reports: None Dermatological Surgical History: Reports: None Social & Family History - Family History Family Medical History: No Pertinent Family History HEENT: Reports: Cataract Cardiac: Reports: Bypass Endocrine/Metabolic: Reports: Diabetes, type II Oncologic: Reports: Prostate - Tobacco Use Tobacco Use Status *Q: Never Tobacco User - Caffeine Use Caffeine Use: Reports: Coffee, Soda, Tea Other Caffeine Use: 4 cups - Alcohol Use Alcohol Use History: No Alcohol Use in Last Twelve Months: No - Recreational Drug Use Recreational Drug Use: No - Living Situation & Occupation Living situation: Reports: Occupation: Retired (lives with and 11 year old son in [place], [place].) H&P Review of Systems - Review of Systems: Review Of Systems: See Below Free Text/Narrative: A complete 12 point review of systems was obtained. Pertinent positives and negatives are noted in the history of present illness. All other systems were reviewed and were negative except as noted. Exam - Exam Exam: See Below - Vital Signs Vital Signs: Last Vital Signs Temp 35.7 C L 10/06/20 08:46 Pulse 81 10/06/20 12:36 Resp 22 H 10/06/20 08:46 BP 156/78 H 10/06/20 12:36 Pulse Ox 94 L 10/06/20 12:36 Weight: 57.8 kg - Exam Quality Assessment: No: Supplemental Oxygen General: Alert, Oriented, Cooperative. No: Mild Distress HEENT: Conjunctiva Clear, Mucosa Moist & Ardoch. No: Scleral Icterus Neck: Supple, Trachea Midline. No: Lymphadenopathy Lungs: Clear to Auscultation, Normal Respiratory Effort Cardiovascular: Regular Rate, Regular Rhythm GI/Abdominal Exam: Soft, Non-Tender, No Distention. No: Normal Bowel Sounds ( hypoactive) Back Exam: Normal Inspection, Full Range of Motion Extremities: No Pedal Edema. No: Increased Warmth Peripheral Pulses: 2+: Dorsalis Pedis (L), Dorsalis Pedis (R) Skin: Warm, Dry Neuro Extensive - Mental Status: Alert, Oriented x3, Nl Response to Commands Neuro Extensive - Motor, Sensory, Reflexes: No: Dysarthria, Abnormal Motor, Tremor Psychiatric: Alert, Normal Affect - Patient Data Lab Results Last 24 hrs: Laboratory Results - last 24 hr 10/06/20 10/06/20 10/06/20 Range/Units 08:48 08:53 08:53 WBC 12.7 H (4.5-11.0) K/uL RBC 5.57 (4.30-5.90) M/uL Hgb 16.9 H (12.0-15.0) g/dL Hct 49.0 (40.0-54.0) % MCV 88 (80-98) fL MCH 30 (27-31) pg MCHC 34 (32-36) % Plt Count 263 (150-400) K/uL Neut % (Auto) 82 H (36-66) % Lymph % (Auto) 12 L (24-44) % Banner % (Auto) 6 (2-6) % Eos % (Auto) 0 L (2-4) % Baso % (Auto) 0 (0-1) % Sodium (140-148) mmol/L Potassium (3.6-5.2) mmol/L Chloride (100-108) mmol/L Carbon Dioxide (21-32) mmol/L Anion Gap (5.0-14.0) mmol/L BUN (7-18) mg/dL Creatinine (0.8-1.3) mg/dL Est Cr Clr Drug Dosing mL/min Estimated GFR (MDRD) (>60) Glucose (74-106) mg/dL Calcium (8.5-10.1) mg/dL Total Bilirubin (0.2-1.0) mg/dL AST (15-37) U/L ALT (12-78) U/L Alkaline Phosphatase (46-116) U/L C-Reactive Protein 4.20 H (0.0-0.3) mg/dL Total Protein (6.4-8.2) g/dL Albumin (3.4-5.0) g/dL Globulin (2.3-3.5) g/dL Albumin/Globulin Ratio (1.2-2.2) Amylase (25-115) U/L Lipase 83 (73-393) U/L 10/06/20 Range/Units 08:53 WBC (4.5-11.0) K/uL RBC (4.30-5.90) M/uL Hgb (12.0-15.0) g/dL Hct (40.0-54.0) % MCV (80-98) fL MCH (27-31) pg MCHC (32-36) % Plt Count (150-400) K/uL Neut % (Auto) (36-66) % Lymph % (Auto) (24-44) % Banner % (Auto) (2-6) % Eos % (Auto) (2-4) % Baso % (Auto) (0-1) % Sodium 141 (140-148) mmol/L Potassium 3.4 L (3.6-5.2) mmol/L Chloride 103 (100-108) mmol/L Carbon Dioxide 28 (21-32) mmol/L Anion Gap 13.4 (5.0-14.0) mmol/L BUN 10 (7-18) mg/dL Creatinine 0.9 (0.8-1.3) mg/dL Est Cr Clr Drug Dosing 66.01 mL/min Estimated GFR (MDRD) > 60 (>60) Glucose 140 H (74-106) mg/dL Calcium 8.4 L (8.5-10.1) mg/dL Total Bilirubin 0.4 (0.2-1.0) mg/dL AST 18 (15-37) U/L ALT 30 (12-78) U/L Alkaline Phosphatase 85 (46-116) U/L C-Reactive Protein (0.0-0.3) mg/dL Total Protein 7.2 (6.4-8.2) g/dL Albumin 3.2 L (3.4-5.0) g/dL Globulin 4.0 H (2.3-3.5) g/dL Albumin/Globulin Ratio 0.8 L (1.2-2.2) Amylase 59 (25-115) U/L Lipase (73-393) U/L Result Diagrams: 10/06/20 08:53 10/06/20 08:53 Imaging Impressions Last 24 hrs: CT abd/pelvis-images personally reviewed-chronic pancreatitis changes, no acute findings around pancreas. Gall bladder surgically absent. Focal area of transverse colon with thickening proximal to splenic flexure. Diverticulosis without obvious diverticulitis. Sepsis Event Note - Evaluation Sepsis Screening Result: Possible Sepsis Risk - Focused Exam Vital Signs: Vital Signs Temp Pulse Resp BP Pulse Ox 10/06/20 12:36 81 156/78 H 94 L 10/06/20 11:34 79 157/92 H 93 L 10/06/20 11:04 53 L 149/75 H 90 L 10/06/20 10:03 77 143/72 H 89 L 10/06/20 09:33 80 161/101 H 91 L 10/06/20 09:03 89 203/105 H 92 L 10/06/20 08:46 35.7 C L 91 22 H 234/120 H 97 10/06/20 08:40 35.7 C L 91 22 H 234/120 H 97 *Q Meaningful Use (ADM) - VTE Risk Assess *Q Each Risk Factor Represents 1 Point: Abnormal Pulmonary Function (COPD) Total Score 1 Point Risk Factors: 1 Each Risk Factor Represents 2 Points: Age 60 - 74 Years, Malignancy (present or previous) Total Score 2 Point Risk Factors: 4 Each Risk Factor Represents 3 Points: None Total Score 3 Point Risk Factors: 0 Each Risk Factor Represents 5 Points: None Total Score 5 Point Risk Factors: 0 Venous Thromboembolism Risk Factor Score *Q: 5 - Problem List (1) Colitis presumed infectious SNOMED Code(s): 41003624 ICD Code: K52.9 - NONINFECTIVE GASTROENTERITIS AND COLITIS, UNSPECIFIED Status: Acute Current Visit: Yes (2) Chronic pancreatitis SNOMED Code(s): 505184639 ICD Code: K86.1 - OTHER CHRONIC PANCREATITIS Status: Chronic Current Visit: No Qualifiers: Pancreatitis type: other Qualified Code(s): K86.1 - Other chronic pancreati tis Problem List Initiated/Reviewed/Updated: Yes Orders Last 24hrs: Active Orders 24 hr Category Date Time Status Patient Status Manage Transfer [TRANSFER] Routine ADT 10/06/20 13:56 Ordered Sodium Chloride 0.9% [Normal Saline] 1,000 ml Med 10/06/20 08:45 Active IV ASDIRECTED Sodium Chloride 0.9% [Normal Saline] 1,000 ml Med 10/06/20 10:15 Active IV ASDIRECTED Resuscitation Status Routine Resus Stat 10/06/20 13:57 Ordered Medication Orders Sodium Chloride (Normal Saline) 1,000 mls @ 999 mls/hr IV ASDIRECTED [facility] Last Admin: 10/06/20 10:14 Dose: 999 mls/hr Documented by: Infusion: 10/06/20 09:52 Dose: 999 mls/hr Documented by: Admin: 10/06/20 08:51 Dose: 999 mls/hr Documented by: FILEMON Sodium Chloride (Normal Saline) 1,000 mls @ 999 mls/hr IV ASDIRECTED [facility] Last Admin: 10/06/20 10:14 Dose: 999 mls/hr Documented by: FILEMON Assessment/Plan Comment:: ASSESSMENT AND PLAN - Focal colitis-patient's pain is located in the area of the abnormality seen on the CT scan. No significant diarrhea. CRP is elevated at 4. Given the duration I suspect this is bacterial. Inflammatory bowel disease seems unlikely given the location. He is not currently febrile. White count is elevated. He has significant pain that has been very difficult to control so he is not safe for outpatient management at this time. -Symptomatic management of pain and nausea -IV fluids -Antibiotic coverage with Unasyn, transition to Augmentin at the time of discharge if he is improving -Stool culture if he develops diarrhea Chronic pancreatitis-this seems to be stable at this time. Lipase was normal. No abnormalities seen on the CT scan other than sequela of chronic pancreatitis. -Pain control Maintenance issues - -DVT prophylaxis-mechanical -GI prophylaxis-not indicated -Nutrition-regular -Lopez catheter-not indicated CODE STATUS -full Admission justification -this patient will be admitted for inpatient services and is medically appropriate meeting medical necessity for inpatient admission as outlined in my documentation. I reasonably expect the patient will require inpatient services that span a period time over 2 midnights. I reasonably expect this patient to be discharged or transferred within 96 hours after admission to the [facility]. Disposition -I anticipate discharge home after the hospital stay Primary care physician - Richardson Horton M.D. - Mortality Measure Prognosis:: Good
[2020-10-06] MEDS ORDERED: Promethazine 25 MG Tab PO PRN (14:42)
[2020-10-06] MEDS ORDERED: oxyCODONE 5 MG Tab PO PRN (14:42)
[2020-10-06] MEDS ORDERED: Ondansetron 4 MG/2 ML SDV IV PRN (14:42)
[2020-10-06] MEDS ORDERED: LORazepam 2 MG/ML SDV IVPUSH PRN (14:42)
[2020-10-06] MEDS ORDERED: Albuterol 0.083% 2.5 MG/3 ML Neb Soln NEB PRN (14:42)
[2020-10-06] MEDS ORDERED: HYDROmorphone 1 MG/ML Syringe IVPUSH PRN (14:42)
[2020-10-06] MEDS ORDERED: Acetaminophen 325 MG Tab PO PRN (14:42)
[2020-10-06] MEDS ORDERED: Magnesium Hydroxide 400 MG/5 ML Susp 30 ML Cup PO PRN (14:42)
[2020-10-06] MEDS ORDERED: Ondansetron 4 MG Tab.DIS PO PRN (14:42)
[2020-10-06] MEDS: Ampicillin/Sulbactam Na 3 GM in Sodium Chloride 0.9% 100 ML IV SCH ×2 (16:09→21:42)
[2020-10-06] MEDS ORDERED: Non-Formulary Medication 1 Each (Budesonide/Formoterol Fumarate [Symbicort 160-4.5 Mcg Inh INH SCH (21:00)
[2020-10-06] MEDS: Lactobacillus Rhamnosus GG (Probiotic) Cap PO SCH (21:42)
[2020-10-07] MEDS: Sodium Chloride 0.9% 1,000 ML IV SCH (02:07)
[2020-10-07] MEDS: Ampicillin/Sulbactam Na 3 GM in Sodium Chloride 0.9% 100 ML IV SCH (03:26)
[2020-10-07] MEDS: Lactobacillus Rhamnosus GG (Probiotic) Cap PO SCH (08:53)
[2020-10-07] MEDS ORDERED: MEDICAL MARIJUANA INH SCH (09:00)
[2020-10-07] MEDS ORDERED: Pneumococcal Polyvalent-23 Vaccine 0.5 ML SDV SUBCUT ONE (10:00)
[2020-10-07 11:01] VITALS: BP 172/89; PULSE 80
--- NOTE | 2020-10-07 11:05 | PCM.DCSUM1 ---
Discharge Summary - Hospital Course Brief History: 64-year-old male with history of chronic pancreatitis who presented with several days of progressive abdominal pain. He was admitted for observation and management of colitis and abdominal pain. Diagnosis: Stroke: No - Discharge Data Discharge Date: 10/07/20 Discharge Disposition: Home, Self-Care 01 Condition: Good - Referral to Home Health Primary Care Physician: Richardson Lamb NP - Discharge Diagnosis/Problem(s) (1) Colitis presumed infectious SNOMED Code(s): 74737350 ICD Code: K52.9 - NONINFECTIVE GASTROENTERITIS AND COLITIS, UNSPECIFIED Status: Acute (2) Chronic pancreatitis SNOMED Code(s): 033495186 ICD Code: K86.1 - OTHER CHRONIC PANCREATITIS Status: Chronic Qualifiers: Pancreatitis type: other Qualified Code(s): K86.1 - Other chronic pancreatitis - Patient Summary/Data Hospital Course: Kishan presented to the emergency room with several days of progressive upper abdominal pain. Work-up in the emergency room revealed a mild elevation of his white blood cell count as well as evidence for focal colitis in the distal transverse colon. Patient was quite uncomfortable in the emergency room and required a large amount of pain medication for symptomatic control. He was admitted for observation to initiate antibiotics and pain control. Overnight following admission there were no significant issues. His pain has improved quite a bit. He has tolerated a regular diet with no nausea or vomiting. He has not had any fevers. His white count is now normal. He feels well enough to go home at this point. The plan is for him to continue antibiotics for 5 additional days. He will continue a soft and bland diet for a few days before returning to regular foods. He has pain medication available at home. He will follow up if symptoms do not continue to get better or if they get worse. - Patient Instructions Diet: Regular Diet as Tolerated Activity: As Tolerated Driving: May Drive Today Showering/Bathing: May Shower Notify Provider of: Fever, Increased Pain Other/Special Instructions: 1. You were in the hospital for management of colitis presumed to be caused by a bacteria. Your condition has improved with IV fluids and antibiotics. I do recommend additional antibiotic therapy after hospital discharge. Please take Augmentin 1 tab twice daily for 5 days. You should take this antibiotic with food to avoid stomach upset. Please start taking this medication as soon as you pick it up from the pharmacy. 2. Continue your usual home medications as previously prescribed. 3. Please follow-up if your symptoms do not continue to get better or if you have increasing pain, nausea or fever. - Discharge Plan *PRESCRIPTION DRUG MONITORING PROGRAM REVIEWED*: No *COPY OF PRESCRIPTION DRUG MONITORING REPORT IN PATIENT APRIL: No Prescriptions/Med Rec: Amoxicillin/Clavulanate K [Augmentin 875-125 MG] 1 tab PO BID #10 tablet Home Medications: Home Meds Ondansetron [Zofran ODT] 8 mg PO Q6H PRN 11/02/16 [History] Promethazine [Phenergan] 50 mg PO Q6H PRN 11/02/16 [History] Medical Marijuana 1 inh INH DAILY 01/04/19 [History] Albuterol Sulfate [Albuterol Sulfate Hfa] 1 - 2 puff IH ASDIRECTED 07/29/19 [History] Budesonide/Formoterol Fumarate [Symbicort 160-4.5 Mcg Inhaler] 1 inh INH BID 10/07/19 [History] oxyCODONE HCl [Oxaydo] 5 - 10 mg PO QID #10 tablet.orl 10/04/20 [Rx] Amoxicillin/Clavulanate K [Augmentin 875-125 MG] 1 tab PO BID #10 tablet 10/07/20 [Rx] Oxygen Therapy Mode: Room Air Patient Handouts: Amoxicillin; Clavulanic Acid Tablets, Colitis Referrals: Alex Piedra MD [Physician] - (f/u if symptoms do not continue to get better or if they get worse) - Discharge Summary/Plan Comment DC Time >30 min.: No - Patient Data Vitals - Most Recent: Last Vital Signs Temp 35.1 C L 10/07/20 11:00 Pulse 80 10/07/20 11:00 Resp 16 10/07/20 11:00 BP 172/89 H 10/07/20 11:00 Pulse Ox 96 10/07/20 11:00 Weight - Most Recent: 57.8 kg I&O - Last 24 hours: Intake & Output 10/06/20 10/07/20 10/07/20 22:59 06:59 14:59 Intake Total 1169 1400 Output Total 942 747 4345 Balance 869 600 -1100 Lab Results - Last 24 hrs: Laboratory Results - last 24 hr 10/07/20 10/07/20 Range/Units 04:05 04:05 WBC 8.7 (4.5-11.0) K/uL RBC 4.54 (4.30-5.90) M/uL Hgb 13.7 D (12.0-15.0) g/dL Hct 40.9 (40.0-54.0) % MCV 90 (80-98) fL MCH 30 (27-31) pg MCHC 34 (32-36) % Plt Count 285 (150-400) K/uL Sodium 144 (140-148) mmol/L Potassium 3.8 (3.6-5.2) mmol/L Chloride 107 (100-108) mmol/L Carbon Dioxide 28 (21-32) mmol/L Anion Gap 12.8 (5.0-14.0) mmol/L BUN 8 (7-18) mg/dL Creatinine 0.8 (0.8-1.3) mg/dL Est Cr Clr Drug Dosing 74.26 mL/min Estimated GFR (MDRD) > 60 (>60) Glucose 92 (74-106) mg/dL Calcium 8.0 L (8.5-10.1) mg/dL Med Orders - Current: Current Medications Acetaminophen (Acetaminophen 325 Mg Tab) 650 mg PO Q4H PRN PRN Reason: Pain (Mild 1-3)/fever Albuterol (Albuterol 0.083% 2.5 Mg/3 Ml Neb Soln) 2.5 mg NEB Q4H PRN PRN Reason: Shortness Of Breath/wheezing Hydromorphone HCl (Hydromorphone 1 Mg/Ml Syringe) 1 mg IVPUSH Q2H PRN PRN Reason: Pain (severe 7-10) Sodium Chloride (Normal Saline) 1,000 mls @ 100 mls/hr IV ASDIRECTED [facility] Last Admin: 10/07/20 02:07 Dose: 100 mls/hr Documented by: Ampicillin Sodium/Sulbactam (Sodium 3 gm/ Sodium Chloride) 100 mls @ 200 mls/hr IV Q6H [facility] Last Admin: 10/07/20 03:26 Dose: 200 mls/hr Documented by: Lactobacillus Rhamnosus (Lactobacillus Rhamnosus Gg (Probiotic) Cap) 1 cap PO BID [facility] Last Admin: 10/07/20 08:53 Dose: 1 cap Documented by: Lorazepam (Lorazepam 2 Mg/Ml Sdv) 0.5 mg IVPUSH Q4H PRN PRN Reason: Nausea/Vomiting Magnesium Hydroxide (Magnesium Hydroxide 400 Mg/5 Ml Susp 30 Ml Cup) 30 ml PO Q12H PRN PRN Reason: Constipation Non-Formulary Medication (Budesonide/Formoterol Fumarate [Symbicort 160-4.5 Mcg Inhaler]) 1 inh INH BID [facility] Ondansetron HCl (Ondansetron 4 Mg/2 Ml Sdv) 4 mg IV Q6H PRN PRN Reason: Nausea/Vomiting Ondansetron HCl (Ondansetron 4 Mg Tab.Dis) 4 mg PO Q6H PRN PRN Reason: Nausea able to take PO Oxycodone HCl (Oxycodone 5 Mg Tab) 5 - 10 mg PO Q4H PRN PRN Reason: Pain Promethazine HCl (Promethazine 25 Mg Tab) 25 mg PO Q6H PRN PRN Reason: Nausea able to take PO Senna/Docusate Sodium (Docusate Sodium/Sennosides 50-8.6 Mg Tab) 1 tab PO BID PRN PRN Reason: Constipation Discontinued Medications Hydromorphone HCl (Hydromorphone 1 Mg/Ml Syringe) 2 mg IVPUSH ONETIME ONE Stop: 10/06/20 08:48 Last Admin: 10/06/20 08:54 Dose: 2 mg Documented by: Hydromorphone HCl (Hydromorphone 1 Mg/Ml Syringe) 1 mg IVPUSH ONETIME ONE Stop: 10/06/20 10:09 Last Admin: 10/06/20 10:12 Dose: 1 mg Documented by: Sodium Chloride (Normal Saline) 1,000 mls @ 999 mls/hr IV ASDIRECTED [facility] Last Infusion: 10/06/20 09:52 Dose: Infused Documented by: Sodium Chloride (Normal Saline) 1,000 mls @ 999 mls/hr IV ASDIRECTED [facility] Last Admin: 10/06/20 10:14 Dose: 999 mls/hr Documented by: Sodium Chloride (Normal Saline) 100 mls @ 3 mls/sec IV ASDIRECTED [facility] Stop: 10/06/20 10:16 Last Admin: 10/06/20 10:25 Dose: 3 mls/sec Documented by: Iopamidol (Iopamidol 612 Mg/Ml 100 Ml Bottle) 100 ml IV . DIRECTED [facility] Stop: 10/06/20 10:16 Last Admin: 10/06/20 10:25 Dose: 100 ml Documented by: Ondansetron HCl (Ondansetron 4 Mg/2 Ml Sdv) 4 mg IVPUSH ONETIME ONE Stop: 10/06/20 08:43 Last Admin: 10/06/20 08:51 Dose: 4 mg Documented by: Pneumococcal Polyvalent Vaccine (Pneumococcal Polyvalent-23 Vaccine 0.5 Ml Sdv) 0.5 ml SUBCUT .ONCE ONE Stop: 10/07/20 10:01 Sodium Chloride (Sodium Chloride 0.9% 10 Ml Syringe) 10 ml FLUSH ONETIME ONE Stop: 10/06/20 10:14 Last Admin: 10/06/20 10:26 Dose: 10 ml Documented by:
== END 2020-10-07 12:45 | disposition home or self-care (01) ==
LOC: JP.ED 08:17 → JP.MS 13:56
PROVIDERS: ADMIT Internal Medicine; ATTEND Internal Medicine
DX: K52.9 Noninfective gastroenteritis and colitis, unspecified (principal); K86.1 Other chronic pancreatitis; K57.30 Diverticulosis of large intestine without perforation or abscess without bleeding; I25.10 Atherosclerotic heart disease of native coronary artery without angina pectoris; R79.82 Elevated C-reactive protein (CRP); I10 Essential (primary) hypertension; I25.2 Old myocardial infarction; D72.829 Elevated white blood cell count, unspecified; Z88.1 Allergy status to other antibiotic agents; Z88.8 Allergy status to other drugs, medicaments and biological substances; Z79.899 Other long term (current) drug therapy; Z85.828 Personal history of other malignant neoplasm of skin
CPT/HCPCS: 36415; 74177; 80048; 80053; 82150; 83690; 85025; 85027; 86140; 96365; 96366; 96375; 96376; 99217; 99219; 99285; A9270; G0378; J0295; J1170; J2405; J7030; Q9967; 96374

== ENCOUNTER 2020-10-26 08:25 | Emergency (ER) | payer BC, MEDICARE ==
[2020-10-26] MEDS ORDERED: HYDROmorphone 1 MG/ML Syringe IVPUSH ONE ×2 (08:50→12:09)
[2020-10-26] MEDS ORDERED: LORazepam 2 MG/ML SDV IVPUSH ONE (08:50)
[2020-10-26] MEDS ORDERED: Ondansetron 4 MG/2 ML SDV IVPUSH ONE ×2 (08:50→12:19)
--- NOTE | 2020-10-26 08:55 | EDM.PDOC ---
ED HPI GENERAL MEDICAL PROBLEM - General Chief Complaint: Abdominal Pain Stated Complaint: HIGH BP/PANCREATITIS ATTACK Time Seen by Provider: 10/26/20 08:35 Source of Information: Reports: Patient History Limitations: Reports: No Limitations - History of Present Illness INITIAL COMMENTS - FREE TEXT/NARRATIVE: 64-year-old male with chronic recurring pancreatitis presents with an acute episode typical of pancreatitis. He was hospitalized a month ago for a small area of colitis, that was different than his pancreatitis but this 1 is very typical. He got up this morning, had a bowel movement which was normal but noticed some periumbilical and upper abdominal discomfort. Over the course of the next hour it became more intense and he developed nausea. When he gets very uncomfortable he gets a blood pressure spike and more pain, he has not had vomiting but does have nausea. Onset: Gradual Duration: Hour(s): (3 hours) Location: Reports: Abdomen (Especially periumbilical and left upper quadrant) Associated Symptoms: Reports: Loss of Appetite, Malaise, Nausea/Vomiting, Other (Hypertension). Denies: Fever/Chills, Headaches, Shortness of Breath Abdomen Pain Score (Numeric/FACES): 10 - Related Data Allergies Allergy/AdvReac Type Severity Reaction Status Date / Time acetaminophen [From Tylenol] Allergy Rash Verified 10/26/20 08:30 erythromycin base Allergy Hives Verified 10/26/20 08:30 metoclopramide [From Reglan] AdvReac Agitation Verified 10/26/20 08:30 Ryrllrq-Yyv-Vcq Reductase AdvReac Anxiety Verified 10/26/20 08:30 Inhibitor Home Meds: Home Meds Ondansetron [Zofran ODT] 8 mg PO Q6H PRN 11/02/16 [History] Promethazine [Phenergan] 50 mg PO Q6H PRN 11/02/16 [History] Medical Marijuana 1 inh INH DAILY 01/04/19 [History] Albuterol Sulfate [Albuterol Sulfate Hfa] 1 - 2 puff IH ASDIRECTED 07/29/19 [History] Budesonide/Formoterol Fumarate [Symbicort 160-4.5 Mcg Inhaler] 1 inh INH BID 10/07/19 [History] oxyCODONE HCl [Oxaydo] 5 - 10 mg PO QID #10 tablet.orl 10/04/20 [Rx] Past Medical History HEENT History: Reports: Impaired Vision Cardiovascular History: Reports: Blood Clots/VTE/DVT, CAD, Hypertension, [place], Other (See Below) Other Cardiovascular History: iliac stents for possible clots Respiratory History: Reports: SOB Gastrointestinal History: Reports: Cholelithiasis, GERD, Pancreatitis, Other (See Below) Other Gastrointestinal History: pancreatitis Musculoskeletal History: Reports: Fracture Psychiatric History: Reports: Anxiety Oncologic (Cancer) History: Reports: Squamous Cell Carcinoma, Other (See Below) Other Oncologic History: skin ca Dermatologic History: Reports: Other (See Below) Other Dermatologic History: basal cell ca - Infectious Disease History Infectious Disease History: Reports: Mumps - Past Surgical History Head Surgeries/Procedures: Reports: None HEENT Surgical History: Reports: None Cardiovascular Surgical History: Reports: None Respiratory Surgical History: Reports: None GI Surgical History: Reports: Appendectomy, Cholecystectomy, Other (See Below) Other GI Surgeries/Procedures: exploratory lap for pancrease possilbe fruy procedure Male Surgical History: Reports: None Musculoskeletal Surgical History: Reports: None Oncologic Surgical History: Reports: None Dermatological Surgical History: Reports: None Social & Family History - Family History Family Medical History: No Pertinent Family History HEENT: Reports: Cataract Cardiac: Reports: Bypass Endocrine/Metabolic: Reports: Diabetes, type II Oncologic: Reports: Prostate - Tobacco Use Tobacco Use Status *Q: Never Tobacco User Second Hand Smoke Exposure: No - Caffeine Use Caffeine Use: Reports: Coffee, Tea Other Caffeine Use: 4 cups - Recreational Drug Use Recreational Drug Use: No - Living Situation & Occupation Living situation: Reports: Occupation: Retired (lives with and 11 year old son in [place], [place].) ED ROS GENERAL - Review of Systems Review Of Systems: See Below Constitutional: Reports: Malaise. Denies: Fever, Chills HEENT: Reports: No Symptoms. Denies: Vision Change Respiratory: Denies: Shortness of Breath, Cough Cardiovascular: Denies: Chest Pain, Palpitations GI/Abdominal: Reports: Abdominal Pain, Nausea. Denies: Constipation, Diarrhea, Vomiting Skin: Reports: No Symptoms Neurological: Denies: Headache Free Text/Narrative/Comment: Also noticed that his blood pressure was elevated this morning, blood pressure was 226/110 on his last visit when he had colitis, it is now 224/110 but it typically normalizes after his pain is controlled ED EXAM, GI/ABD - Physical Exam Exam: See Below Exam Limited By: No Limitations General Appearance: Alert, Anxious, Moderate Distress Eyes: Bilateral: Normal Appearance (No jaundice) Head: Atraumatic Respiratory/Chest: Lungs Clear Cardiovascular: Regular Rate, Rhythm. No: Tachycardia GI/Abdominal Exam: Normal Bowel Sounds, Soft, Tender (Fairly tender to palpation across the upper abdomen and periumbilical area, no rebound tenderness) Neurological: Alert, Oriented, No Motor/Sensory Deficits Psychiatric: Anxious Skin Exam: Warm, Dry Course - Vital Signs Last Recorded V/S: Last Vital Signs Temp 98.1 F 10/26/20 14:11 Pulse 84 10/26/20 14:11 Resp 16 10/26/20 14:11 BP 145/80 H 10/26/20 14:11 Pulse Ox 95 10/26/20 14:11 - Orders/Labs/Meds Labs: Laboratory Tests 10/26/20 10/26/20 Range/Units 09:00 09:00 WBC 14.1 H (4.5-11.0) K/uL RBC 5.61 (4.30-5.90) M/uL Hgb 17.0 H D (12.0-15.0) g/dL Hct 49.3 (40.0-54.0) % MCV 88 (80-98) fL MCH 30 (27-31) pg MCHC 35 (32-36) % Plt Count 193 (150-400) K/uL Neut % (Auto) 83.0 H (36-66) % Lymph % (Auto) 9.9 L (24-44) % [place] % (Auto) 5.2 (2-6) % Eos % (Auto) 1.7 L (2-4) % Baso % (Auto) 0.2 (0-1) % Sodium 140 (140-148) mmol/L Potassium 5.2 (3.6-5.2) mmol/L Chloride 103 (100-108) mmol/L Carbon Dioxide 24 (21-32) mmol/L Anion Gap 13.1 (5.0-14.0) mmol/L BUN 11 (7-18) mg/dL Creatinine 0.8 (0.8-1.3) mg/dL Est Cr Clr Drug Dosing 72.84 mL/min Estimated GFR (MDRD) > 60 (>60) Glucose 122 H (74-106) mg/dL Calcium 8.6 (8.5-10.1) mg/dL Lipase 92 (73-393) U/L Meds: Medications Discontinued Medications Generic Name Dose Route Start Last Admin Trade Name Freq PRN Reason Stop Dose Admin Hydromorphone HCl 1 mg 10/26/20 08:50 10/26/20 09:05 Hydromorphone 1 Mg/Ml Syringe IVPUSH 10/26/20 08:51 1 mg ONETIME ONE Administration Hydromorphone HCl 1 mg 10/26/20 12:09 10/26/20 12:15 Hydromorphone 1 Mg/Ml Syringe IVPUSH 10/26/20 12:10 1 mg ONETIME ONE Administration Lactated Ringer's 1,000 mls @ 999 mls/hr 10/26/20 09:00 10/26/20 09:02 Ringers, Lactated IV 999 mls/hr ASDIRECTED CHARLES Administration Lorazepam 1 mg 10/26/20 08:50 10/26/20 09:12 Lorazepam 2 Mg/Ml Sdv IVPUSH 10/26/20 08:51 1 mg ONETIME ONE Administration Metoclopramide HCl 10 mg 10/26/20 12:09 10/26/20 12:15 Metoclopramide 10 Mg/2 Ml Sdv IVPUSH 10/26/20 12:10 Not Given ONETIME ONE Ondansetron HCl 4 mg 10/26/20 08:50 10/26/20 09:04 Ondansetron 4 Mg/2 Ml Sdv IVPUSH 10/26/20 08:51 4 mg ONETIME ONE Administration Ondansetron HCl 4 mg 10/26/20 12:19 10/26/20 12:24 Ondansetron 4 Mg/2 Ml Sdv IVPUSH 10/26/20 12:20 4 mg ONETIME ONE Administration - Re-Assessments/Exams Free Text/Narrative Re-Assessment/Exam: 10/26/20 08:54 Patient will be hydrated with 1 L of lactated Ringer, CBC, BMP and lipase were obtained and he was given 1 mg of IV Dilaudid, 1 mg of IV Ativan, and 4 mg of IV Zofran. Vitals will be monitored. If his lipase is normal and his symptoms improve, imaging can be avoided on this visit. I anticipate his blood pressure will normalize. 10/26/20 10:49 Labs are reassuring, lipase is normal, white count only minimally elevated at 14.1. He did significantly improve with his symptoms after the medications but was still having some discomfort. Blood pressure improved as well but did not completely normalize 1 hour after the medications. He was allowed to rest some more. 10/26/20 13:54 Patient was still having some symptoms so an additional 1 mg of Dilaudid and 4 mg of Zofran was given. He will be discharged home after another hour rest and recheck as needed. Departure - Departure Time of Disposition: 14:12 Disposition: Home, Self-Care 01 Clinical Impression: Chronic pancreatitis Qualifiers: Pancreatitis type: other Qualified Code(s): K86.1 - Other chronic pancreatitis - Discharge Information Instructions: Abdominal Pain, Adult, [id number] Referrals: Richardson Lamb RECYCLING TECH [Primary Care Provider] - Forms: ED Department Discharge Care Plan Goals: Continue your current medications, can consider using oxycodone for breakthrough pain and call your primary in the next few days if not improving satisfactorily. Stay hydrated with fluids. Sepsis Event Note (ED) - Evaluation Sepsis Screening Result: No Definite Risk - Focused Exam Vital Signs: Vital Signs Temp Pulse Resp BP Pulse Ox 10/26/20 14:11 98.1 F 84 16 145/80 H 95 10/26/20 09:48 97 195/100 H 10/26/20 09:13 87 201/100 H 10/26/20 08:38 98.1 F 85 18 224/110 H 96 10/26/20 08:34 98.1 F 85 18 224/110 H 96
[2020-10-26] MEDS ORDERED: Lactated Ringers 1,000 ML IV SCH (09:00)
[2020-10-26] MEDS ORDERED: Metoclopramide 10 MG/2 ML SDV IVPUSH ONE (12:09)
[2020-10-26 14:12] VITALS: BP 145/80; PULSE 84
== END 2020-10-26 14:12 | disposition home or self-care (01) ==
LOC: JP.ED 08:25
DX: K86.1 Other chronic pancreatitis (principal); I25.10 Atherosclerotic heart disease of native coronary artery without angina pectoris; I10 Essential (primary) hypertension; I25.2 Old myocardial infarction; Z88.8 Allergy status to other drugs, medicaments and biological substances; Z88.1 Allergy status to other antibiotic agents
CPT/HCPCS: 36415; 80048; 83690; 85025; 96374; 96375; 96376; 99284; J1170; J2060; J2405; J7120

== ENCOUNTER 2020-11-03 05:21 | Emergency (ER) | payer BC, MEDICARE ==
[2020-11-03] MEDS ORDERED: Sodium Chloride 0.9% 10 ML Syringe FLUSH PRN (05:35)
[2020-11-03] MEDS ORDERED: Ondansetron 4 MG/2 ML SDV IVPUSH ONE (05:38)
[2020-11-03] MEDS ORDERED: HYDROmorphone 1 MG/ML Syringe IVPUSH ONE ×2 (05:42→07:17)
--- NOTE | 2020-11-03 05:45 | EDM.PDOC ---
<Shay Larkin - Last Filed: 11/03/20 07:01> ED HPI GENERAL MEDICAL PROBLEM - General Chief Complaint: Abdominal Pain Stated Complaint: PANCREATIC ATTACK Time Seen by Provider: 11/03/20 05:35 Source of Information: Reports: Patient History Limitations: Reports: No Limitations - History of Present Illness INITIAL COMMENTS - FREE TEXT/NARRATIVE: Kishan is a 64-year-old male presenting with an acute on chronic pancreatitis flare. Patient was in his usual state of health until his pain started to significantly increase this morning. He currently rates his pain a 10 out of 10. Is unclear what the etiology of his pancreatitis is but he is status post cholecystectomy thinking that he had gallstone pancreatitis and he has not had any improvement since then. He denies any alcohol intake but he does smoke medical marijuana. He has had nausea but no vomiting. He has not had much of an appetite today. He has not been able to sleep because of the severe pain. The patient was seen on 10/26/2020 for similar flare and was treated with Dilaudid and IV fluids and eventually was determined he can go home. A month ago he was hospitalized with acute focal colitis presenting with an acute on chronic pancreatitis flare. At that time he underwent a CT of the abdomen and pelvis showing the colitis and not pancreatitis. left lower abd/possible pancreatitis Pain Score (Numeric/FACES): 10 - Related Data Allergies Allergy/AdvReac Type Severity Reaction Status Date / Time acetaminophen [From Tylenol] Allergy Rash Verified 11/03/20 05:28 erythromycin base Allergy Hives Verified 11/03/20 05:28 metoclopramide [From Reglan] AdvReac Agitation Verified 11/03/20 05:28 Halgsck-Adr-Fiz Reductase AdvReac Anxiety Verified 11/03/20 05:28 Inhibitor Home Meds: Home Meds Ondansetron [Zofran ODT] 8 mg PO Q6H PRN 11/02/16 [History] Promethazine [Phenergan] 50 mg PO Q6H PRN 11/02/16 [History] Medical Marijuana 1 inh INH DAILY 01/04/19 [History] Albuterol Sulfate [Albuterol Sulfate Hfa] 1 - 2 puff IH ASDIRECTED 07/29/19 [History] Budesonide/Formoterol Fumarate [Symbicort 160-4.5 Mcg Inhaler] 1 inh INH BID 10/07/19 [History] oxyCODONE HCl [Oxaydo] 5 - 10 mg PO QID #10 tablet.orl 10/04/20 [Rx] Past Medical History HEENT History: Reports: Impaired Vision Cardiovascular History: Reports: Blood Clots/VTE/DVT, CAD, Hypertension, [place], Other (See Below) Other Cardiovascular History: iliac stents for possible clots Respiratory History: Reports: SOB Gastrointestinal History: Reports: Cholelithiasis, GERD, Pancreatitis, Other (See Below) Other Gastrointestinal History: pancreatitis Musculoskeletal History: Reports: Fracture Psychiatric History: Reports: Anxiety Oncologic (Cancer) History: Reports: Squamous Cell Carcinoma, Other (See Below) Other Oncologic History: skin ca Dermatologic History: Reports: Other (See Below) Other Dermatologic History: basal cell ca - Infectious Disease History Infectious Disease History: Reports: Mumps - Past Surgical History Head Surgeries/Procedures: Reports: None HEENT Surgical History: Reports: None Cardiovascular Surgical History: Reports: None Respiratory Surgical History: Reports: None GI Surgical History: Reports: Appendectomy, Cholecystectomy, Other (See Below) Other GI Surgeries/Procedures: exploratory lap for pancrease possilbe fruy procedure Male Surgical History: Reports: None Musculoskeletal Surgical History: Reports: None Oncologic Surgical History: Reports: None Dermatological Surgical History: Reports: None Social & Family History - Family History Family Medical History: No Pertinent Family History HEENT: Reports: Cataract Cardiac: Reports: Bypass Endocrine/Metabolic: Reports: Diabetes, type II Oncologic: Reports: Prostate - Tobacco Use Tobacco Use Status *Q: Never Tobacco User - Caffeine Use Caffeine Use: Reports: Coffee, Tea Other Caffeine Use: 4 cups - Recreational Drug Use Recreational Drug Use: Yes Recreational Drug Type: Reports: Marijuana/Hashish Recreational Drug Use Frequency: Daily - Living Situation & Occupation Living situation: Reports: Occupation: Retired (lives with and 11 year old son in [place], [place].) ED ROS GENERAL - Review of Systems Review Of Systems: See Below Constitutional: Reports: Decreased Appetite HEENT: Reports: No Symptoms Respiratory: Reports: No Symptoms Cardiovascular: Reports: Blood Pressure Problem (Patiently has a markedly elevated blood pressure at 227/115 secondary to pain.) Endocrine: Reports: No Symptoms GI/Abdominal: Reports: Abdominal Pain (Epigastric radiating to the back), Nausea. Denies: Constipation, Diarrhea, Vomiting : Reports: No Symptoms Musculoskeletal: Reports: No Symptoms Skin: Reports: No Symptoms Neurological: Reports: No Symptoms Psychiatric: Reports: Anxiety Hematologic/Lymphatic: Reports: No Symptoms Immunologic: Reports: No Symptoms ED EXAM, GI/ABD - Physical Exam Exam: See Below Exam Limited By: No Limitations General Appearance: Alert, Anxious, Moderate Distress Eyes: Bilateral: EOMI Throat/Mouth: Normal Inspection, Normal Oropharynx, Normal Voice, No Airway Compromise Head: Atraumatic, Normocephalic Neck: Normal Inspection, Supple, Non-Tender, Full Range of Motion. No: Lymphadenopathy (R), Lymphadenopathy (L) Respiratory/Chest: No Respiratory Distress, Lungs Clear, Normal Breath Sounds Cardiovascular: Normal Peripheral Pulses, Regular Rate, Rhythm, No Murmur GI/Abdominal Exam: No Distention, Tender (Moderate tenderness in the epigastric region), Abnormal Bowel Sounds (Mildly diminished bowel sounds), Other (Pulsat ile abdominal aorta that is approximately 3.5 cm in diameter by palpation.). No: No Abnormal Bruit, Guarding, Rebound Back Exam: Normal Inspection Extremities: Normal Inspection, Normal Range of Motion Neurological: Alert, Oriented, Normal Cognition, No Motor/Sensory Deficits Psychiatric: Anxious Skin Exam: Warm, Dry Lymphatic: No Adenopathy Course - Re-Assessments/Exams Free Text/Narrative Re-Assessment/Exam: 11/03/20 06:15 on arrival, the patient had an IV established and we initiated rehydration with normal saline at 500 mL/h. Labs were obtained showing a CBC with a leukocyte count of 9.9, hemoglobin of 13.2, hematocrit of 45.9, and platelet count of 298,000. The patient's comprehensive metabolic panel was unremarkable. His lipase is only 93 and his lactic acid is 1.0. This certainly does not explain the patient's epigastric discomfort which even the patient now states is different than he when he has pancreatitis. We will proceed with a CT of the abdomen and pelvis with contrast. I am concerned about the pulsatile abdominal aorta. The patient denies any tearing sensation, however, with 10 out of 10 pain this is still in the differential. 11/03/20 06:55 the patient returns from CT of the abdomen and pelvis still complaining of 7 out of 10 abdominal pain and still feels quite nauseous. He was given Toradol 30 mg IV push and Haldol 5 mg IV push for pain and nausea. In addition, he still quite hypertensive with his last pressure being 201/104 so he was given labetalol 100 mg p.o. in an attempt to start to bring his blood pressure down. 11/03/20 07:00 Care of the patient will be transferred from Dr. Larkin to Dr. Friend at 0700 hours while awaiting the results of the CT of the Abdomen and pelvis with contrast. Departure - Departure Disposition: Home, Self-Care 01 Clinical Impression: Chronic pancreatitis Qualifiers: Pancreatitis type: other Qualified Code(s): K86.1 - Other chronic pancreatitis - Discharge Information Instructions: Chronic Pancreatitis Referrals: Richardson Lamb REGISTERED NURSE [employer] [Primary Care Provider] - Forms: ED Department Discharge Additional Instructions: Continue with your bland diet advance slowly, keep your follow-up appointment with your primary care call return to the emergency department worsening of symptoms Sepsis Event Note (ED) - Evaluation Sepsis Screening Result: No Definite Risk <Baron Friend - Last Filed: 11/03/20 10:24> Course - Vital Signs Last Recorded V/S: Last Vital Signs Temp 97.8 F 11/03/20 05:30 Pulse 74 11/03/20 10:15 Resp 16 11/03/20 10:15 BP 133/53 L 11/03/20 10:15 Pulse Ox 94 L 11/03/20 10:15 - Orders/Labs/Meds Orders: Active Orders 24 hr Category Date Time Status Sodium Chloride 0.9% [Normal Saline] 1,000 ml Med 11/03/20 06:00 Active IV ASDIRECTED Sodium Chloride 0.9% [Saline Flush] Med 11/03/20 05:35 Active 10 ml FLUSH ASDIRECTED PRN Saline Lock Insert [OM.PC] Routine Oth 11/03/20 05:35 Ordered Medication Orders Sodium Chloride (Normal Saline) 1,000 mls @ 500 mls/hr IV ASDIRECTED CHARLES Last Admin: 11/03/20 05:47 Dose: 500 mls/hr Documented by: ISMA Sodium Chloride (Sodium Chloride 0.9% 10 Ml Syringe) 10 ml FLUSH ASDIRECTED PRN PRN Reason: Keep Vein Open Last Admin: 11/03/20 05:46 Dose: 10 ml Documented by: ISMA Labs: Laboratory Tests 11/03/20 11/03/20 11/03/20 Range/Units 05:35 05:35 05:35 WBC 9.9 (4.5-11.0) K/uL RBC 5.16 (4.30-5.90) M/uL Hgb 15.2 H (12.0-15.0) g/dL Hct 45.9 (40.0-54.0) % MCV 89 (80-98) fL MCH 30 (27-31) pg MCHC 33 (32-36) % Plt Count 298 (150-400) K/uL Neut % (Auto) 67.4 H (36-66) % Lymph % (Auto) 22.2 L (24-44) % [place] % (Auto) 7.6 H (2-6) % Eos % (Auto) 2.5 (2-4) % Baso % (Auto) 0.3 (0-1) % Sodium 143 (140-148) mmol/L Potassium 3.4 L (3.6-5.2) mmol/L Chloride 104 (100-108) mmol/L Carbon Dioxide 29 (21-32) mmol/L Anion Gap 13.4 (5.0-14.0) mmol/L BUN 12 (7-18) mg/dL Creatinine 0.9 (0.8-1.3) mg/dL Est Cr Clr Drug Dosing 65.21 mL/min Estimated GFR (MDRD) > 60 (>60) Glucose 113 H (74-106) mg/dL Lactic Acid 1.0 (0.4-2.0) mmol/L Calcium 8.6 (8.5-10.1) mg/dL Total Bilirubin 0.4 (0.2-1.0) mg/dL AST 19 (15-37) U/L ALT 29 (12-78) U/L Alkaline Phosphatase 72 (46-116) U/L Total Protein 7.4 (6.4-8.2) g/dL Albumin 3.4 (3.4-5.0) g/dL Globulin 4.0 H (2.3-3.5) g/dL Albumin/Globulin Ratio 0.9 L (1.2-2.2) Lipase 93 (73-393) U/L Urine Color (YELLOW) Urine Appearance (CLEAR) Urine pH (5.0-8.0) Ur Specific [place] (1.008-1.030) Urine Protein (NEGATIVE) mg/dL Urine Glucose (UA) (NEGATIVE) mg/dL Urine Ketones (NEGATIVE) mg/dL Urine Occult Blood (NEGATIVE) Urine Nitrite (NEGATIVE) Urine Bilirubin (NEGATIVE) Urine Urobilinogen (0.2-1.0) EU/dL Ur Leukocyte Esterase (NEGATIVE) Urine RBC (0-5) Urine WBC (0-5) Ur Epithelial Cells Amorphous Sediment Urine Bacteria Urine Mucus 11/03/20 Range/Units 06:20 WBC (4.5-11.0) K/uL RBC (4.30-5.90) M/uL Hgb (12.0-15.0) g/dL Hct (40.0-54.0) % MCV (80-98) fL MCH (27-31) pg MCHC (32-36) % Plt Count (150-400) K/uL Neut % (Auto) (36-66) % Lymph % (Auto) (24-44) % [place] % (Auto) (2-6) % Eos % (Auto) (2-4) % Baso % (Auto) (0-1) % Sodium (140-148) mmol/L Potassium (3.6-5.2) mmol/L Chloride (100-108) mmol/L Carbon Dioxide (21-32) mmol/L Anion Gap (5.0-14.0) mmol/L BUN (7-18) mg/dL Creatinine (0.8-1.3) mg/dL Est Cr Clr Drug Dosing mL/min Estimated GFR (MDRD) (>60) Glucose (74-106) mg/dL Lactic Acid (0.4-2.0) mmol/L Calcium (8.5-10.1) mg/dL Total Bilirubin (0.2-1.0) mg/dL AST (15-37) U/L ALT (12-78) U/L Alkaline Phosphatase (46-116) U/L Total Protein (6.4-8.2) g/dL Albumin (3.4-5.0) g/dL Globulin (2.3-3.5) g/dL Albumin/Globulin Ratio (1.2-2.2) Lipase (73-393) U/L Urine Color Yellow (YELLOW) Urine Appearance Clear (CLEAR) Urine pH 7.5 (5.0-8.0) Ur Specific [place] 1.025 (1.008-1.030) Urine Protein 30 H (NEGATIVE) mg/dL Urine Glucose (UA) Negative (NEGATIVE) mg/dL Urine Ketones Negative (NEGATIVE) mg/dL Urine Occult Blood Small H (NEGATIVE) Urine Nitrite Negative (NEGATIVE) Urine Bilirubin Negative (NEGATIVE) Urine Urobilinogen 0.2 (0.2-1.0) EU/dL Ur Leukocyte Esterase Negative (NEGATIVE) Urine RBC 0-5 (0-5) Urine WBC 0-5 (0-5) Ur Epithelial Cells Few Amorphous Sediment Not seen Urine Bacteria Few Urine Mucus Not seen Meds: Medications Generic Name Dose Route Start Last Admin Trade Name Freq PRN Reason Stop Dose Admin Sodium Chloride 1,000 mls @ 500 mls/hr 11/03/20 06:00 11/03/20 05:47 Normal Saline IV 500 mls/hr ASDIRECTED CHARLES Administration Sodium Chloride 10 ml 11/03/20 05:35 11/03/20 05:46 Sodium Chloride 0.9% 10 Ml Syringe FLUSH 10 ml ASDIRECTED PRN Administration Keep Vein Open Discontinued Medications Generic Name Dose Route Start Last Admin Trade Name Jasonq PRN Reason Stop Dose Admin Haloperidol Lactate 5 mg 11/03/20 07:01 11/03/20 07:10 Haloperidol Lactate 5 Mg/Ml Sdv IVPUSH 11/03/20 07:02 5 mg ONETIME ONE Administration Hydromorphone HCl 1 mg 11/03/20 05:42 11/03/20 05:46 Hydromorphone 1 Mg/Ml Syringe IVPUSH 11/03/20 05:43 1 mg ONETIME ONE Administration Hydromorphone HCl 0.5 mg 11/03/20 06:28 11/03/20 06:32 Hydromorphone 0.5 Mg/0.5 Ml Syringe IVPUSH 11/03/20 06:29 0.5 mg ONETIME ONE Administration Hydromorphone HCl 1 mg 11/03/20 07:17 11/03/20 07:49 Hydromorphone 1 Mg/Ml Syringe IVPUSH 11/03/20 07:18 1 mg ONETIME ONE Administration Sodium Chloride 70 mls @ 3 mls/sec 11/03/20 06:25 11/03/20 06:40 Normal Saline IV 11/03/20 06:26 3 mls/sec ASDIRECTED STA Administration Iopamidol 86 ml 11/03/20 06:24 11/03/20 06:40 Iopamidol 612 Mg/Ml 100 Ml Bottle IV 11/03/20 06:25 100 ml . DIRECTED STA Administration Ketorolac Tromethamine 30 mg 11/03/20 07:00 11/03/20 07:12 Ketorolac 30 Mg/Ml Sdv IVPUSH 11/03/20 07:01 30 mg ONETIME ONE Administration Labetalol HCl 100 mg 11/03/20 07:00 Labetalol 100 Mg Tab PO 11/03/20 07:01 ONETIME ONE Ondansetron HCl 4 mg 11/03/20 05:38 11/03/20 05:46 Ondansetron 4 Mg/2 Ml Sdv IVPUSH 11/03/20 05:39 4 mg ONETIME ONE Administration Prochlorperazine Edisylate 10 mg 11/03/20 06:28 11/03/20 06:32 Prochlorperazine 10 Mg/2 Ml Sdv IVPUSH 11/03/20 06:29 10 mg ONETIME ONE Administration Departure - Departure Time of Disposition: 10:23 Condition: Fair Sepsis Event Note (ED) - Focused Exam Vital Signs: Vital Signs Temp Pulse Resp BP Pulse Ox 11/03/20 10:15 74 16 133/53 L 94 L 11/03/20 08:26 70 130/74 11/03/20 07:19 75 141/76 H 11/03/20 07:00 88 18 201/104 H 93 L 11/03/20 05:56 87 16 210/103 H 90 L 11/03/20 05:30 97.8 F 85 18 227/115 H 97 - Assessment/Plan Plan: Took over care from Dr. Dave at 7 AM pending results of CAT scan Assessment Acuity = acute Site and laterality = chronic pancreatitis Etiology = unknown Manifestations = nausea Location of injury = Home Lab values = CBC unremarkable potassium low at 3.4 consistent hypokalemia the remainder of blood work is unremarkable urinalysis unremarkable CT scan does show a chronic pancreatitis a chronic diverticular disease no acute process Plan I did review lab work CT scan results with him he felt better after fluids and pain control he is going to move back to his bland diet advance very slowly he does have follow-up primary care this week This note was dictated using [employer] voice recognition software please call with any questions on syntax or grammar.
[2020-11-03] MEDS ORDERED: Sodium Chloride 0.9% 1,000 ML IV SCH (06:00)
[2020-11-03] MEDS ORDERED: Iopamidol 612 MG/ML 100 ML Bottle IV STA (06:24)
[2020-11-03] MEDS ORDERED: HYDROmorphone 0.5 MG/0.5 ML Syringe IVPUSH ONE (06:28)
[2020-11-03] MEDS ORDERED: Prochlorperazine 10 MG/2 ML SDV IVPUSH ONE (06:28)
[2020-11-03] MEDS ORDERED: Labetalol 100 MG Tab PO ONE (07:00)
[2020-11-03] MEDS ORDERED: Ketorolac 30 MG/ML SDV IVPUSH ONE (07:00)
[2020-11-03] MEDS ORDERED: Haloperidol Lactate 5 MG/ML SDV IVPUSH ONE (07:01)
--- NOTE | 2020-11-03 07:17 | CRLCT ---
For Patients: As a result of the Century Cures Act, medical imaging exams and procedure reports are released immediately into your electronic medical record. You may view this report before your referring provider. If you have questions, please contact your health care provider. INDICATION: Epigastric abdomen pain. TECHNIQUE: CT abdomen and pelvis acquired with 86 cc Isovue-300 IV contrast. COMPARISON: October 06, 2020. FINDINGS: Lower chest: Unremarkable. Liver: Unremarkable. Normal in size and attenuation. No suspicious masses. Gallbladder and bile ducts: Gallbladder is absent. Mild biliary dilatation may be secondary to the cholecystectomy. Pancreas: Borderline prominence of the proximal pancreatic duct. Punctate calcifications in the pancreas suggesting chronic pancreatitis. Pancreas otherwise unremarkable. No sign of acute inflammation. Spleen: Unremarkable. Normal in size. No masses. Adrenal glands: Unremarkable. No nodules. Kidneys: Unremarkable. No suspicious masses, stones, or hydronephrosis. GI tract: Minimal wall thickening most numerous diverticula in the sigmoid colon without filippo inflammatory changes. Remainder of the GI tract is within normal limits in caliber and appearance. Appendix is not visualized. Vasculature: Aortic atherosclerosis without aneurysm. Mesenteric arteries are patent. Lymph nodes: No lymphadenopathy. Omentum/Peritoneum/Abdominal Wall: Unremarkable. No sign of mass or infiltration. No free air or significant free fluid. Pelvis: Unremarkable. Bones: Unremarkable for age. IMPRESSION: 1. Minimal wall thickening amongst numerous diverticula in the sigmoid colon could indicate chronic diverticulitis. No convincing evidence for acute inflammation to suggest acute diverticulitis or colitis. 2. Punctate calcifications suggesting chronic pancreatitis. No sign of acute inflammation. 3. Mild biliary dilatation and borderline prominence of the proximal pancreatic duct. These findings may be chronic especially given the post cholecystectomy state. However, a small occult lesion at the ampulla of Vater could also result in dilatation of these ducts. 4. No other acute or specific finding to explain epigastric pain. Please note that all CT scans at this facility use dose modulation, iterative reconstruction, and/or weight-based dosing when appropriate to reduce radiation dose to as low as reasonably achievable. Dictated by Guanaco Billingsley MD @ 11/03/2020 7:16:[address] Guanaco Billingsley @ Nov 03 2020 7:16AM
[2020-11-03 10:22] VITALS: BP 141/56; PULSE 75
== END 2020-11-03 10:30 | disposition home or self-care (01) ==
LOC: JP.ED 05:21
DX: K86.1 Other chronic pancreatitis (principal); I25.10 Atherosclerotic heart disease of native coronary artery without angina pectoris; I10 Essential (primary) hypertension; I25.2 Old myocardial infarction; Z79.899 Other long term (current) drug therapy; Z88.1 Allergy status to other antibiotic agents; Z88.6 Allergy status to analgesic agent; Z88.8 Allergy status to other drugs, medicaments and biological substances
CPT/HCPCS: 36415; 74177; 80053; 81001; 83605; 83690; 85025; 96374; 96375; 96376; 99284; J0780; J1170; J1630; J1885; J2405; J7030; Q9967

== ENCOUNTER 2020-11-05 02:48 | Emergency (ER) | payer BC, MEDICARE ==
[2020-11-05] MEDS ORDERED: Ondansetron 4 MG/2 ML SDV IVPUSH ONE (03:50)
[2020-11-05] MEDS ORDERED: HYDROmorphone 1 MG/ML Syringe IV ONE ×2 (03:50→05:42)
[2020-11-05] MEDS ORDERED: Sodium Chloride 0.9% 1,000 ML IV SCH (03:50)
[2020-11-05] MEDS ORDERED: Famotidine 20 MG/2 ML SDV IV ONE (03:50)
[2020-11-05] MEDS ORDERED: Famotidine 20 MG/2 ML SDV ONE (04:04)
[2020-11-05] MEDS ORDERED: Ondansetron 4 MG/2 ML SDV ONE (04:04)
[2020-11-05] MEDS ORDERED: HYDROmorphone 1 MG/ML Syringe ONE ×2 (04:05→05:54)
[2020-11-05] MEDS ORDERED: Prochlorperazine 10 MG/2 ML SDV IV ONE (05:42)
[2020-11-05] MEDS ORDERED: Prochlorperazine 10 MG/2 ML SDV ONE (05:54)
== END 2020-11-05 07:48 | disposition home or self-care (01) ==
LOC: JP.ED 02:48
DX: K85.90 Acute pancreatitis without necrosis or infection, unspecified (principal); R11.0 Nausea
CPT/HCPCS: 36415; 80053; 82150; 83605; 83690; 85027; 96374; 96375; 96376; 99284; J0780; J1170; J2405; J3490; J7030

== ENCOUNTER 2020-11-07 07:46 | Emergency (ER) | payer BC, MEDICARE ==
[2020-11-07 08:06] VITALS: BP 238/119; PULSE 82
[2020-11-07] MEDS ORDERED: Lactated Ringers 1,000 ML IV ONE (08:14)
[2020-11-07] MEDS ORDERED: Ondansetron 4 MG/2 ML SDV IVPUSH ONE (08:15)
[2020-11-07] MEDS ORDERED: HYDROmorphone 1 MG/ML Syringe IVPUSH ONE (08:15)
--- NOTE | 2020-11-07 08:27 | EDM.PDOC ---
ED HPI GENERAL MEDICAL PROBLEM - General Chief Complaint: Abdominal Pain Stated Complaint: STOMACH PAIN Time Seen by Provider: 11/07/20 08:15 Source of Information: Reports: Patient, Old Records, RN History Limitations: Reports: No Limitations - History of Present Illness INITIAL COMMENTS - FREE TEXT/NARRATIVE: 64 yo male here with epigastric pain. He has a pHx of chronic pancreatitis. He is being worked up further by GI at [facility]. He was here 2 days ago for the same and his visits for this problem seem to be increasing in frequency. On his last visit his amylase was slightly up, but his lipase was normal. He describes nausea today, but no vomiting. His stools have been normal. He has been restricting his diet considerably trying to keep the pain away. He had a CT scan of his abdomen on 11/03 that didn't show any active pancreatic inflammation, but chronic calcifications were present. Onset: Today Onset Date: 11/07/20 Duration: Hour(s):, Constant Location: Reports: Abdomen Quality: Reports: Ache Severity: Severe Improves with: Reports: None Worsens with: Reports: Other (unknown) Context: Reports: Other (See HPI) Associated Symptoms: Reports: Nausea/Vomiting (no vomiting). 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 CUSTOM MILLER: Reports: Other (see below) (none, has percocet but didn't take it because he feels it didn't help. ) - Related Data Allergies Allergy/AdvReac Type Severity Reaction Status Date / Time acetaminophen [From Tylenol] Allergy Rash Verified 11/07/20 07:56 erythromycin base Allergy Hives Verified 11/07/20 07:56 metoclopramide [From Reglan] AdvReac Agitation Verified 11/07/20 07:56 Tisnotm-Sny-Amt Reductase AdvReac Anxiety Verified 11/07/20 07:56 Inhibitor Home Meds: Home Meds Ondansetron [Zofran ODT] 8 mg PO Q6H PRN 11/02/16 [History] Promethazine [Phenergan] 50 mg PO Q6H PRN 11/02/16 [History] Medical Marijuana 1 inh INH DAILY 01/04/19 [History] Albuterol Sulfate [Albuterol Sulfate Hfa] 1 - 2 puff IH ASDIRECTED 07/29/19 [History] Budesonide/Formoterol Fumarate [Symbicort 160-4.5 Mcg Inhaler] 1 inh INH BID 10/07/19 [History] oxyCODONE HCl [Oxaydo] 5 - 10 mg PO QID #10 tablet.orl 10/04/20 [Rx] Past Medical History HEENT History: Reports: Impaired Vision Cardiovascular History: Reports: Blood Clots/VTE/DVT, CAD, Hypertension, NM, Other (See Below) Other Cardiovascular History: iliac stents for possible clots Respiratory History: Reports: SOB Gastrointestinal History: Reports: Cholelithiasis, GERD, Pancreatitis, Other (See Below) Other Gastrointestinal History: pancreatitis Musculoskeletal History: Reports: Fracture Psychiatric History: Reports: Anxiety Oncologic (Cancer) History: Reports: Squamous Cell Carcinoma, Other (See Below) Other Oncologic History: skin ca Dermatologic History: Reports: Other (See Below) Other Dermatologic History: basal cell ca - Infectious Disease History Infectious Disease History: Reports: Mumps - Past Surgical History Head Surgeries/Procedures: Reports: None HEENT Surgical History: Reports: None Cardiovascular Surgical History: Reports: None Respiratory Surgical History: Reports: None GI Surgical History: Reports: Appendectomy, Cholecystectomy, Other (See Below) Other GI Surgeries/Procedures: exploratory lap for pancrease possilbe fruy procedure Male Surgical History: Reports: None Musculoskeletal Surgical History: Reports: None Oncologic Surgical History: Reports: None Dermatological Surgical History: Reports: None Social & Family History - Family History Family Medical History: No Pertinent Family History HEENT: Reports: Cataract Cardiac: Reports: Bypass Endocrine/Metabolic: Reports: Diabetes, type II Oncologic: Reports: Prostate - Tobacco Use Tobacco Use Status *Q: Never Tobacco User - Caffeine Use Caffeine Use: Reports: Coffee, Tea Other Caffeine Use: 4 cups - Living Situation & Occupation Living situation: Reports: Occupation: Retired (lives with and 11 year old son in [place], [place].) ED ROS GENERAL - Review of Systems Review Of Systems: See Below Constitutional: Reports: No Symptoms HEENT: Reports: No Symptoms Respiratory: Reports: No Symptoms Cardiovascular: Reports: No Symptoms GI/Abdominal: Reports: Abdominal Pain, Nausea. Denies: Black Stool, Bloody Stool, Constipation, Diarrhea, Distension, Flatus, Hematemesis, Hematochezia, Melena, Vomiting : Reports: No Symptoms Musculoskeletal: Reports: No Symptoms Skin: Reports: No Symptoms Neurological: Reports: No Symptoms ED EXAM, GI/ABD - Physical Exam Exam: See Below Exam Limited By: No Limitations General Appearance: Alert, WD/WN, Mild Distress Eyes: Bilateral: Normal Appearance Ears: Normal External Exam, Normal Canal, Hearing Grossly Normal, Normal TMs Nose: Normal Inspection, No Blood Throat/Mouth: Normal Inspection, Normal Lips, Normal Oropharynx, Normal Voice, No Airway Compromise Head: Atraumatic, Normocephalic Neck: Normal Inspection Respiratory/Chest: No Respiratory Distress, Lungs Clear, Normal Breath Sounds, No Accessory Muscle Use Cardiovascular: Regular Rate, Rhythm, No Edema GI/Abdominal Exam: Soft, No Distention, No Mass, Tender (epigastrium). No: Non- Tender, Distended Back Exam: Normal Inspection. No: CVA Tenderness (R), CVA Tenderness (L) Extremities: Normal Inspection, Normal Range of Motion, Non-Tender, No Pedal Edema Neurological: Alert, Oriented, CN II-XII Intact, Normal Cognition, No Motor/Sensory Deficits Psychiatric: Normal Affect, Normal Mood Skin Exam: Warm, Dry, Intact, Normal Color, No Rash Course - Vital Signs Last Recorded V/S: Last Vital Signs Temp 36.3 C 11/07/20 08:05 Pulse 82 11/07/20 08:05 Resp 14 11/07/20 08:05 BP 238/119 H 11/07/20 08:05 Pulse Ox 96 11/07/20 08:05 - Orders/Labs/Meds Labs: Laboratory Tests 11/07/20 11/07/20 Range/Units 08:25 08:25 WBC 12.3 H (4.5-11.0) K/uL RBC 5.46 (4.30-5.90) M/uL Hgb 16.2 H (12.0-15.0) g/dL Hct 48.7 (40.0-54.0) % MCV 89 (80-98) fL MCH 30 (27-31) pg MCHC 33 (32-36) % Plt Count 340 (150-400) K/uL Sodium 142 (140-148) mmol/L Potassium 3.9 (3.6-5.2) mmol/L Chloride 101 (100-108) mmol/L Carbon Dioxide 28 (21-32) mmol/L Anion Gap 13.2 (5.0-14.0) mmol/L BUN 21 H D (7-18) mg/dL Creatinine 1.0 (0.8-1.3) mg/dL Est Cr Clr Drug Dosing 59.67 mL/min Estimated GFR (MDRD) > 60 (>60) Glucose 103 (74-106) mg/dL Calcium 8.8 (8.5-10.1) mg/dL Amylase 126 H (25-115) U/L Lipase 237 (73-393) U/L Meds: Medications Discontinued Medications Generic Name Dose Route Start Last Admin Trade Name Melva PRN Reason Stop Dose Admin Hydromorphone HCl 2 mg 11/07/20 08:15 11/07/20 09:16 Hydromorphone 1 Mg/Ml Syringe IVPUSH 11/07/20 08:16 2 mg ONETIME ONE Administration Lactated Ringer's 1,000 mls @ 1,000 mls/hr 11/07/20 08:14 11/07/20 08:41 Ringers, Lactated IV 11/07/20 09:13 1,000 mls/hr BOLUS ONE Administration Ondansetron HCl 4 mg 11/07/20 08:15 11/07/20 08:41 Ondansetron 4 Mg/2 Ml Sdv IVPUSH 11/07/20 08:16 4 mg ONETIME ONE Administration - Re-Assessments/Exams Free Text/Narrative Re-Assessment/Exam: 11/07/20 09:56 feeling better now, labs OK, will d/c Departure - Departure Time of Disposition: 09:56 Disposition: Home, Self-Care 01 Condition: Fair Clinical Impression: Abdominal pain Qualifiers: Abdominal location: generalized Qualified Code(s): R10.84 - Generalized abdominal pain - Discharge Information *PRESCRIPTION DRUG MONITORING PROGRAM REVIEWED*: Not Applicable *COPY OF PRESCRIPTION DRUG MONITORING REPORT IN PATIENT APRIL: Not Applicable Referrals: Richardson Lamb, MANAGER [employer] [Primary Care Provider] - Forms: ED Department Discharge Additional Instructions: Continue your current meds. See Richardson Lamb SHANIQUA for recheck and to formulate a plan. This may have been one of three different conditions today, your labs were for the most part normal. Sepsis Event Note (ED) - Evaluation Sepsis Screening Result: No Definite Risk - Focused Exam Vital Signs: Vital Signs Temp Pulse Resp BP Pulse Ox 11/07/20 08:05 36.3 C 82 14 238/119 H 96
== END 2020-11-07 10:38 | disposition home or self-care (01) ==
LOC: JP.ED 07:46
DX: R10.84 Generalized abdominal pain (principal); R10.816 Epigastric abdominal tenderness; I25.10 Atherosclerotic heart disease of native coronary artery without angina pectoris; I10 Essential (primary) hypertension; I25.2 Old myocardial infarction; Z88.1 Allergy status to other antibiotic agents; Z88.8 Allergy status to other drugs, medicaments and biological substances
CPT/HCPCS: 36415; 80048; 82150; 83690; 85027; 96374; 96375; 99282; 99284; J1170; J2405; J7120

== ENCOUNTER 2020-11-11 08:14 | Emergency (ER) | payer BC, MEDICARE ==
[2020-11-11 08:27] VITALS: PULSE 91
[2020-11-11] MEDS ORDERED: Lactated Ringers 1,000 ML IV ONE ×2 (08:40→10:02)
[2020-11-11] MEDS ORDERED: Prochlorperazine 10 MG/2 ML SDV IVPUSH ONE (08:40)
[2020-11-11] MEDS ORDERED: diphenhydrAMINE 50 MG/ML SDV IVPUSH ONE (08:40)
[2020-11-11] MEDS ORDERED: Alum Hydrox/Mag Hydrox/Simeth 15 ML, Lidocaine 2% 15 ML PO ONE ×2 (08:51)
--- NOTE | 2020-11-11 08:51 | EDM.PDOC ---
ED HPI GENERAL MEDICAL PROBLEM - General Chief Complaint: Abdominal Pain Stated Complaint: PANCREATIC ATTACK Time Seen by Provider: 11/11/20 08:40 Source of Information: Reports: Patient, Old Records, RN History Limitations: Reports: No Limitations - History of Present Illness INITIAL COMMENTS - FREE TEXT/NARRATIVE: 64 yo male with a pHx of pancreatitis(chronic) returns with abdominal pain and nausea. He was pain free for a day only after his last visit, then his pain started coming back. He last vomited yesterday. He does have nausea today. No black or bloody emesis or stool. Pain is low epigastric. He does not feel bloated. He has not followed up with his primary yet. When he was last here I called [facility] and they felt there was nothing that they had to offer him and related that a procedure that has been discussed with the patient is performed at the [facility] and this would have to be coordinated with his primary care provider. Stools are not overly hard or diarrhea. He admitted the last time he was here that he does smoke marijuana. Onset: Gradual Onset Date: 11/09/20 Duration: Day(s):, Waxing/Waning Location: Reports: Abdomen Quality: Reports: Burning Severity: Severe Improves with: Reports: Medication (IV Dilaudid works well for him) Worsens with: Reports: Other (unsure, has tried to closely monitor his diet) Context: Reports: Other (See HPI) Associated Symptoms: Reports: Nausea/Vomiting. 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 GROUNDS PERSON: Reports: Other (see below) (none) Abdomen Pain Score (Numeric/FACES): 10 - Related Data Allergies Allergy/AdvReac Type Severity Reaction Status Date / Time acetaminophen [From Tylenol] Allergy Rash Verified 11/11/20 08:30 erythromycin base Allergy Hives Verified 11/11/20 08:30 metoclopramide [From Reglan] AdvReac Agitation Verified 11/11/20 08:30 Zafcwru-Wky-Ceo Reductase AdvReac Anxiety Verified 11/11/20 08:30 Inhibitor Home Meds: Home Meds Ondansetron [Zofran ODT] 8 mg PO Q6H PRN 11/02/16 [History] Promethazine [Phenergan] 50 mg PO Q6H PRN 11/02/16 [History] Medical Marijuana 1 inh INH DAILY 01/04/19 [History] Albuterol Sulfate [Albuterol Sulfate Hfa] 1 - 2 puff IH ASDIRECTED 07/29/19 [History] Budesonide/Formoterol Fumarate [Symbicort 160-4.5 Mcg Inhaler] 1 inh INH BID 10/07/19 [History] Past Medical History HEENT History: Reports: Impaired Vision Cardiovascular History: Reports: Blood Clots/VTE/DVT, CAD, Hypertension, PR, Other (See Below) Other Cardiovascular History: iliac stents for possible clots Respiratory History: Reports: SOB Gastrointestinal History: Reports: Cholelithiasis, GERD, Pancreatitis, Other (See Below) Other Gastrointestinal History: pancreatitis Musculoskeletal History: Reports: Fracture Psychiatric History: Reports: Anxiety Oncologic (Cancer) History: Reports: Squamous Cell Carcinoma, Other (See Below) Other Oncologic History: skin ca Dermatologic History: Reports: Other (See Below) Other Dermatologic History: basal cell ca - Infectious Disease History Infectious Disease History: Reports: Mumps - Past Surgical History Head Surgeries/Procedures: Reports: None HEENT Surgical History: Reports: None Cardiovascular Surgical History: Reports: None Respiratory Surgical History: Reports: None GI Surgical History: Reports: Appendectomy, Cholecystectomy, Other (See Below) Other GI Surgeries/Procedures: exploratory lap for pancrease possilbe fruy procedure Male Surgical History: Reports: None Musculoskeletal Surgical History: Reports: None Oncologic Surgical History: Reports: None Dermatological Surgical History: Reports: None Social & Family History - Family History Family Medical History: No Pertinent Family History HEENT: Reports: Cataract Cardiac: Reports: Bypass Endocrine/Metabolic: Reports: Diabetes, type II Oncologic: Reports: Prostate - Tobacco Use Tobacco Use Status *Q: Never Tobacco User - Caffeine Use Caffeine Use: Reports: Coffee, Tea Other Caffeine Use: 4 cups - Recreational Drug Use Recreational Drug Use: No - Living Situation & Occupation Living situation: Reports: Occupation: Retired (lives with and 11 year old son in [place], [place].) ED ROS GENERAL - Review of Systems Review Of Systems: See Below Constitutional: Reports: No Symptoms HEENT: Reports: No Symptoms Respiratory: Reports: No Symptoms Cardiovascular: Reports: No Symptoms Endocrine: Reports: No Symptoms GI/Abdominal: Reports: Abdominal Pain, Nausea, Vomiting. Denies: Black Stool, Bloody Stool, Constipation, Diarrhea, Distension, Hematemesis, Hematochezia, Melena : Reports: No Symptoms Musculoskeletal: Reports: No Symptoms Skin: Reports: No Symptoms Neurological: Reports: No Symptoms Psychiatric: Reports: No Symptoms ED EXAM, GI/ABD - Physical Exam Exam: See Below Exam Limited By: No Limitations General Appearance: Alert, WD/WN, Mild Distress, Thin Eyes: Bilateral: Normal Appearance Ears: Normal External Exam, Normal Canal, Hearing Grossly Normal Nose: Normal Inspection, No Blood Throat/Mouth: Normal Inspection, Normal Lips, Normal Oropharynx, Normal Voice, No Airway Compromise Head: Atraumatic, Normocephalic Neck: Normal Inspection Respiratory/Chest: No Respiratory Distress, Lungs Clear, Normal Breath Sounds, No Accessory Muscle Use Cardiovascular: Regular Rate, Rhythm, No Edema GI/Abdominal Exam: No Distention, Tender (epigastrium), Abnormal Bowel Sounds (decreased). No: Normal Bowel Sounds, Non-Tender, Distended Back Exam: Normal Inspection. No: CVA Tenderness (R), CVA Tenderness (L) Extremities: Normal Inspection, Normal Range of Motion, Non-Tender, No Pedal Edema Neurological: Alert, Oriented, CN II-XII Intact, Normal Cognition, No Motor/Sensory Deficits Psychiatric: Normal Affect, Normal Mood Skin Exam: Warm, Dry, Intact, Normal Color, No Rash Course - Vital Signs Last Recorded V/S: Last Vital Signs Temp 36.6 C 11/11/20 08:29 Pulse 91 11/11/20 08:29 Resp 14 11/11/20 08:29 BP 198/91 H 11/11/20 10:26 Pulse Ox 94 L 11/11/20 08:29 - Orders/Labs/Meds Labs: Laboratory Tests 11/11/20 11/11/20 Range/Units 08:56 10:30 Lipase 85 (73-393) U/L Urine Opiates Screen Negative (NEGATIVE) Ur Oxycodone Screen Negative (NEGATIVE) Urine Methadone Screen Negative (NEGATIVE) Ur Propoxyphene Screen Negative (NEGATIVE) Ur Barbiturates Screen Negative (NEGATIVE) Ur Tricyclics Screen Negative (NEGATIVE) Ur Phencyclidine Scrn Negative (NEGATIVE) Ur Amphetamine Screen Negative (NEGATIVE) U Methamphetamines Scrn Negative (NEGATIVE) Urine MDMA Screen Negative (NEGATIVE) U Benzodiazepines Scrn Negative (NEGATIVE) U Cocaine Metab Screen Negative (NEGATIVE) U Marijuana (THC) Screen Presumptive positive H (NEGATIVE) Meds: Medications Discontinued Medications Generic Name Dose Route Start Last Admin Trade Name Melva PRN Reason Stop Dose Admin Al Hydroxide/Mg Hydroxide 15 0 ml 11/11/20 08:51 11/11/20 09:09 ml/ Lidocaine HCl 15 ml PO 11/11/20 08:52 15 ml ONETIME ONE Administration Diphenhydramine HCl 50 mg 11/11/20 08:40 11/11/20 08:59 Diphenhydramine 50 Mg/Ml Sdv IVPUSH 11/11/20 08:41 50 mg ONETIME ONE Administration Hydromorphone HCl 1 mg 11/11/20 11:07 11/11/20 11:14 Hydromorphone 1 Mg/Ml Syringe IVPUSH 11/11/20 11:08 1 mg ONETIME ONE Administration Lactated Ringer's 1,000 mls @ 1,000 mls/hr 11/11/20 08:40 11/11/20 08:55 Ringers, Lactated IV 11/11/20 09:39 1,000 mls/hr BOLUS ONE Administration Lactated Ringer's 1,000 mls @ 1,000 mls/hr 11/11/20 10:02 11/11/20 10:07 Ringers, Lactated IV 11/11/20 11:01 1,000 mls/hr BOLUS ONE Administration Lorazepam 1 mg 11/11/20 09:36 11/11/20 09:44 Lorazepam 2 Mg/Ml Sdv IVPUSH 11/11/20 09:37 1 mg ONETIME ONE Administration Ondansetron HCl 4 mg 11/11/20 11:07 11/11/20 11:14 Ondansetron 4 Mg/2 Ml Sdv IVPUSH 11/11/20 11:08 4 mg ONETIME ONE Administration Prochlorperazine Edisylate 10 mg 11/11/20 08:40 11/11/20 08:59 Prochlorperazine 10 Mg/2 Ml Sdv IVPUSH 11/11/20 08:41 10 mg ONETIME ONE Administration - Re-Assessments/Exams Free Text/Narrative Re-Assessment/Exam: 11/11/20 09:26 No change with GI cocktail po Free Text/Narrative Re-Assessment/Exam: 11/11/20 11:08 Only partial relief to tx so far, will add Zofran/dilaudid IV Departure - Departure Time of Disposition: 11:35 Disposition: Home, Self-Care 01 Condition: Fair Clinical Impression: Chronic abdominal pain Nausea & vomiting Qualifiers: Vomiting type: unspecified Vomiting Intractability: non-intractable Qualified Code(s): R11.2 - Nausea with vomiting, unspecified - Discharge Information *PRESCRIPTION DRUG MONITORING PROGRAM REVIEWED*: Not Applicable *COPY OF PRESCRIPTION DRUG MONITORING REPORT IN PATIENT APRIL: Not Applicable Instructions: Chronic Pain, Adult, Nausea, Adult, [id number] Referrals: Richardson Lamb [employer] [Primary Care Provider] - Forms: ED Department Discharge Additional Instructions: Use Zofran ODT as needed for nausea control. No driving today. F/U with Carlos Lamb this week. Sepsis Event Note (ED) - Evaluation Sepsis Screening Result: No Definite Risk - Focused Exam Vital Signs: Vital Signs Temp Pulse Resp BP Pulse Ox 11/11/20 10:26 198/91 H 11/11/20 09:53 227/89 H 11/11/20 09:20 221/99 H 11/11/20 08:29 36.6 C 91 14 241/101 H 94 L 11/11/20 08:26 36.6 C 91 14 241/101 H 94 L
[2020-11-11] MEDS ORDERED: LORazepam 2 MG/ML SDV IVPUSH ONE (09:36)
[2020-11-11 10:26] VITALS: BP 198/91
[2020-11-11] MEDS ORDERED: Ondansetron 4 MG/2 ML SDV IVPUSH ONE (11:07)
[2020-11-11] MEDS ORDERED: HYDROmorphone 1 MG/ML Syringe IVPUSH ONE (11:07)
== END 2020-11-11 12:19 | disposition home or self-care (01) ==
LOC: JP.ED 08:14
DX: R10.13 Epigastric pain (principal); R11.2 Nausea with vomiting, unspecified; G89.29 Other chronic pain; I25.10 Atherosclerotic heart disease of native coronary artery without angina pectoris; I10 Essential (primary) hypertension; I25.2 Old myocardial infarction; Z79.899 Other long term (current) drug therapy; Z88.6 Allergy status to analgesic agent; Z88.1 Allergy status to other antibiotic agents; Z88.8 Allergy status to other drugs, medicaments and biological substances
CPT/HCPCS: 36415; 80305; 83690; 96374; 96375; 99284; A9270; J0780; J1170; J1200; J2060; J2405; J7120

== ENCOUNTER 2021-01-28 10:34 | Emergency (ER) | payer BC, MEDICARE ==
[2021-01-28 11:06] VITALS: BP 203/105; PULSE 106
[2021-01-28] MEDS ORDERED: Lactated Ringers 1,000 ML IV ONE (11:20)
[2021-01-28] MEDS ORDERED: Sodium Chloride 0.9% 10 ML Syringe FLUSH PRN (11:20)
[2021-01-28] MEDS ORDERED: Ondansetron 4 MG/2 ML SDV IVPUSH ONE (11:20)
[2021-01-28] MEDS ORDERED: HYDROmorphone 1 MG/ML Syringe IVPUSH ONE ×2 (11:20→12:15)
--- NOTE | 2021-01-28 11:22 | EDM.PDOC ---
ED HPI GENERAL MEDICAL PROBLEM - General Chief Complaint: Abdominal Pain Stated Complaint: PAIN ON GOING Time Seen by Provider: 01/28/21 11:16 Source of Information: Reports: Patient, Old Records, RN Notes Reviewed History Limitations: Reports: No Limitations - History of Present Illness INITIAL COMMENTS - FREE TEXT/NARRATIVE: 65-year-old gentleman presents emergency department day complaint of abdominal pain, he is well-known to the emergency department does have known history of chronic pancreatitis he states he has had a flareup for the last couple days has tried to deal it at home but he did eat some food this morning and exacerbated it. He usually does well with pain control fluids and antiemetics. Abdomen Pain Score (Numeric/FACES): 10 - Related Data Allergies Allergy/AdvReac Type Severity Reaction Status Date / Time acetaminophen [From Tylenol] Allergy Rash Verified 01/28/21 10:39 erythromycin base Allergy Hives Verified 01/28/21 10:39 metoclopramide [From Reglan] AdvReac Agitation Verified 01/28/21 10:39 [id number] Reductase AdvReac Anxiety Verified 01/28/21 10:39 Inhibitor Home Meds: Home Meds Ondansetron [Zofran ODT] 8 mg PO Q6H PRN 11/02/16 [History] Promethazine [Phenergan] 50 mg PO Q6H PRN 11/02/16 [History] Medical Marijuana 1 inh INH DAILY 01/04/19 [History] Albuterol Sulfate [Albuterol Sulfate Hfa] 1 - 2 puff IH ASDIRECTED 07/29/19 [History] Budesonide/Formoterol Fumarate [Symbicort 160-4.5 Mcg Inhaler] 1 inh INH BID 10/07/19 [History] Ondansetron [Zofran ODT] 4 mg PO Q6H PRN #10 tab.dis 11/11/20 [Rx] Past Medical History HEENT History: Reports: Impaired Vision Cardiovascular History: Reports: Blood Clots/VTE/DVT, CAD, Hypertension, [place], Other (See Below) Other Cardiovascular History: iliac stents for possible clots Respiratory History: Reports: SOB Gastrointestinal History: Reports: Cholelithiasis, GERD, Pancreatitis, Other (See Below) Other Gastrointestinal History: pancreatitis Musculoskeletal History: Reports: Fracture Psychiatric History: Reports: Anxiety Oncologic (Cancer) History: Reports: Squamous Cell Carcinoma, Other (See Below) Other Oncologic History: skin ca Dermatologic History: Reports: Other (See Below) Other Dermatologic History: basal cell ca - Infectious Disease History Infectious Disease History: Reports: Mumps - Past Surgical History Head Surgeries/Procedures: Reports: None HEENT Surgical History: Reports: None Cardiovascular Surgical History: Reports: None Respiratory Surgical History: Reports: None GI Surgical History: Reports: Appendectomy, Cholecystectomy, Other (See Below) Other GI Surgeries/Procedures: exploratory lap for pancrease possilbe fruy procedure Male Surgical History: Reports: None Musculoskeletal Surgical History: Reports: None Oncologic Surgical History: Reports: None Dermatological Surgical History: Reports: None Social & Family History - Family History Family Medical History: No Pertinent Family History HEENT: Reports: Cataract Cardiac: Reports: Bypass Endocrine/Metabolic: Reports: Diabetes, type II Oncologic: Reports: Prostate - Tobacco Use Tobacco Use Status *Q: Never Tobacco User - Caffeine Use Caffeine Use: Reports: Coffee, Tea Other Caffeine Use: 4 cups - Recreational Drug Use Recreational Drug Use: Yes Recreational Drug Type: Reports: Marijuana/Hashish - Living Situation & Occupation Living situation: Reports: Occupation: Retired (lives with and 11 year old son in [place], [place].) ED ROS GENERAL - Review of Systems Review Of Systems: See Below Constitutional: Denies: Fever Respiratory: Reports: No Symptoms Cardiovascular: Reports: No Symptoms GI/Abdominal: Reports: Abdominal Pain, Nausea. Denies: Vomiting ED EXAM, GI/ABD - Physical Exam Exam: See Below Exam Limited By: No Limitations General Appearance: Alert, Mild Distress Respiratory/Chest: No Respiratory Distress GI/Abdominal Exam: Soft, Tender (Left upper quadrant) Course - Vital Signs Last Recorded V/S: Last Vital Signs Temp 97.3 F 01/28/21 11:07 Pulse 106 H 01/28/21 11:07 Resp 18 01/28/21 11:07 BP 203/105 H 01/28/21 11:07 Pulse Ox 98 01/28/21 11:07 - Orders/Labs/Meds Orders: Active Orders 24 hr Category Date Time Status Peripheral IV Care [RC] . DIRECTED Care 01/28/21 11:20 Active Sodium Chloride 0.9% [Saline Flush] Med 01/28/21 11:20 Active 10 ml FLUSH ASDIRECTED PRN Peripheral IV Insertion Adult [OM.PC] Urgent Oth 01/28/21 11:20 Ordered Medication Orders Sodium Chloride (Sodium Chloride 0.9% 10 Ml Syringe) 10 ml FLUSH ASDIRECTED PRN PRN Reason: Keep Vein Open Last Admin: 01/28/21 11:27 Dose: 10 ml Documented by: CAIT Meds: Medications Generic Name Dose Route Start Last Admin Trade Name Freq PRN Reason Stop Dose Admin Sodium Chloride 10 ml 01/28/21 11:20 01/28/21 11:27 Sodium Chloride 0.9% 10 Ml Syringe FLUSH 10 ml ASDIRECTED PRN Administration Keep Vein Open Discontinued Medications Generic Name Dose Route Start Last Admin Trade Name Freq PRN Reason Stop Dose Admin Hydromorphone HCl 1 mg 01/28/21 11:20 01/28/21 11:25 Hydromorphone 1 Mg/Ml Syringe IVPUSH 01/28/21 11:21 1 mg ONETIME ONE Administration Hydromorphone HCl 1 mg 01/28/21 12:15 01/28/21 12:19 Hydromorphone 1 Mg/Ml Syringe IVPUSH 01/28/21 12:16 1 mg ONETIME ONE Administration Lactated Ringer's 1,000 mls @ 999 mls/hr 01/28/21 11:20 01/28/21 11:26 Ringers, Lactated IV 01/28/21 12:20 999 mls/hr BOLUS ONE Administration Ondansetron HCl 4 mg 01/28/21 11:20 01/28/21 11:25 Ondansetron 4 Mg/2 Ml Sdv IVPUSH 01/28/21 11:21 4 mg ONETIME ONE Administration Departure - Departure Time of Disposition: 12:37 Disposition: Home, Self-Care 01 Condition: Fair Clinical Impression: Chronic pancreatitis Qualifiers: Pancreatitis type: other Qualified Code(s): K86.1 - Other chronic pancreatitis - Discharge Information Instructions: Chronic Pancreatitis Referrals: Alex Piedra MD [Primary Care Provider] - Forms: ED Department Discharge Additional Instructions: Continue with your regular medications, please followup with your primary care provider in 3-5 days if not better, please call return to the emergency department with worsening of symptoms. Sepsis Event Note (ED) - Evaluation Sepsis Screening Result: No Definite Risk - Focused Exam Vital Signs: Vital Signs Temp Pulse Resp BP Pulse Ox 01/28/21 11:07 97.3 F 106 H 18 203/105 H 98 01/28/21 11:06 97.3 F 106 H 18 203/105 H 98 01/28/21 11:05 97.3 F 106 H 18 203/105 H 98 - My Orders Last 24 Hours: My Active Orders 01/28/21 11:20 Peripheral IV Care [RC] . DIRECTED Sodium Chloride 0.9% [Saline Flush] 10 ml FLUSH ASDIRECTED PRN Peripheral IV Insertion Adult [OM.PC] Urgent - Assessment/Plan Last 24 Hours: My Active Orders 01/28/21 11:20 Peripheral IV Care [RC] . DIRECTED Sodium Chloride 0.9% [Saline Flush] 10 ml FLUSH ASDIRECTED PRN Peripheral IV Insertion Adult [OM.PC] Urgent Plan: Assessment Acuity = acute on chronic Site and laterality = pancreatitis Etiology = multifactorial Manifestations = abdominal pain Location of injury = Home Lab values = none Plan Good improvement 1 L of fluids, 2 mg Dilaudid and 4 mg Zofran follow-up with [facility] in the next 2 to 5 days if not better This note was dictated using [employer] voice recognition software please call with any questions on syntax or grammar.
== END 2021-01-28 12:54 | disposition home or self-care (01) ==
LOC: JP.ED 10:34
DX: K86.1 Other chronic pancreatitis (principal); I25.10 Atherosclerotic heart disease of native coronary artery without angina pectoris; I10 Essential (primary) hypertension; E78.00 Pure hypercholesterolemia, unspecified; I25.2 Old myocardial infarction; Z88.1 Allergy status to other antibiotic agents; Z88.8 Allergy status to other drugs, medicaments and biological substances; Z86.718 Personal history of other venous thrombosis and embolism
CPT/HCPCS: 96374; 96375; 96376; 99283; J1170; J2405; J7120

== ENCOUNTER 2021-03-02 10:02 | Emergency (ER) | payer BC, MEDICARE ==
[2021-03-02] MEDS ORDERED: Sodium Chloride 0.9% 10 ML Syringe FLUSH PRN (10:28)
[2021-03-02] MEDS ORDERED: HYDROmorphone 1 MG/ML Syringe IVPUSH ONE ×2 (10:28→11:34)
[2021-03-02] MEDS ORDERED: Ondansetron 4 MG/2 ML SDV IVPUSH ONE (10:30)
--- NOTE | 2021-03-02 10:38 | EDM.PDOC ---
ED HPI GENERAL MEDICAL PROBLEM - General Chief Complaint: Abdominal Pain Stated Complaint: MEDICAL Time Seen by Provider: 03/02/21 10:20 Source of Information: Reports: Patient, Old Records, RN History Limitations: Reports: No Limitations - History of Present Illness INITIAL COMMENTS - FREE TEXT/NARRATIVE: 65 yo male with a pHx of chronic and recurrent pancreatitis presents with about a one hour duration of severe epigastric pain with nausea and no vomiting. He didn't eat anything out of the ordinary. No change in bowels. Pain is exactly like previous bouts he has experienced. Onset: Today, Sudden Onset Date: 03/02/21 Onset Time: 09:30 Duration: Hour(s): (1), Constant Location: Reports: Abdomen Quality: Reports: Ache Severity: Severe Improves with: Reports: None Worsens with: Reports: Other (unknown trigger) Context: Reports: Other (see HPI) Associated Symptoms: Reports: Nausea/Vomiting (no vomiting). 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 [employer]: Reports: Other (see below) (none) Abdominal Pain Score (Numeric/FACES): 10 - Related Data Allergies Allergy/AdvReac Type Severity Reaction Status Date / Time acetaminophen [From Tylenol] Allergy Rash Verified 03/02/21 10:13 erythromycin base Allergy Hives Verified 03/02/21 10:13 metoclopramide [From Reglan] AdvReac Agitation Verified 03/02/21 10:13 Xompply-Ryj-Jek Reductase AdvReac Anxiety Verified 03/02/21 10:13 Inhibitor Home Meds: Home Meds Promethazine [Phenergan] 50 mg PO Q6H PRN 11/02/16 [History] Medical Marijuana 1 inh INH DAILY 01/04/19 [History] Albuterol Sulfate [Albuterol Sulfate Hfa] 1 - 2 puff IH ASDIRECTED 07/29/19 [History] Budesonide/Formoterol Fumarate [Symbicort 160-4.5 Mcg Inhaler] 1 inh INH BID 10/07/19 [History] Ondansetron [Zofran ODT] 4 mg PO Q6H PRN #10 tab.dis 11/11/20 [Rx] Ondansetron [Zofran ODT] 4 mg PO Q6H PRN #8 tab.dis 03/02/21 [Rx] levoFLOXacin [Levaquin] 500 mg PO DAILY #7 tab 03/02/21 [Rx] Past Medical History HEENT History: Reports: Impaired Vision Cardiovascular History: Reports: Blood Clots/VTE/DVT, CAD, Hypertension, [place], Other (See Below) Other Cardiovascular History: iliac stents for possible clots Respiratory History: Reports: SOB Gastrointestinal History: Reports: Cholelithiasis, GERD, Pancreatitis, Other (See Below) Other Gastrointestinal History: pancreatitis Musculoskeletal History: Reports: Fracture Psychiatric History: Reports: Anxiety Oncologic (Cancer) History: Reports: Squamous Cell Carcinoma, Other (See Below) Other Oncologic History: skin ca Dermatologic History: Reports: Other (See Below) Other Dermatologic History: basal cell ca - Infectious Disease History Infectious Disease History: Reports: Mumps - Past Surgical History Head Surgeries/Procedures: Reports: None HEENT Surgical History: Reports: None Cardiovascular Surgical History: Reports: None Respiratory Surgical History: Reports: None GI Surgical History: Reports: Appendectomy, Cholecystectomy, Other (See Below) Other GI Surgeries/Procedures: exploratory lap for pancrease possilbe fruy procedure Male Surgical History: Reports: None Musculoskeletal Surgical History: Reports: None Oncologic Surgical History: Reports: None Dermatological Surgical History: Reports: None Social & Family History - Family History Family Medical History: No Pertinent Family History HEENT: Reports: Cataract Cardiac: Reports: Bypass Endocrine/Metabolic: Reports: Diabetes, type II Oncologic: Reports: Prostate - Tobacco Use Tobacco Use Status *Q: Never Tobacco User - Caffeine Use Caffeine Use: Reports: Coffee, Tea Other Caffeine Use: 4 cups - Recreational Drug Use Recreational Drug Use: Yes Recreational Drug Type: Reports: Marijuana/Hashish - Living Situation & Occupation Living situation: Reports: Occupation: Retired (lives with and 11 year old son in [place], [place].) ED ROS GENERAL - Review of Systems Review Of Systems: See Below Constitutional: Reports: No Symptoms HEENT: Reports: No Symptoms Respiratory: Reports: No Symptoms Cardiovascular: Reports: No Symptoms GI/Abdominal: Reports: Abdominal Pain, Nausea. Denies: Black Stool, Bloody Stool, Constipation, Diarrhea, Distension, Hematemesis, Hematochezia, Melena, Vomiting : Reports: No Symptoms Musculoskeletal: Reports: No Symptoms Skin: Reports: No Symptoms Neurological: Reports: No Symptoms ED EXAM, GI/ABD - Physical Exam Exam: See Below Exam Limited By: No Limitations General Appearance: Alert, No Apparent Distress, Thin Eyes: Bilateral: Normal Appearance Ears: Normal External Exam, Normal Canal, Hearing Grossly Normal Nose: Normal Inspection, No Blood Throat/Mouth: Normal Inspection, Normal Lips, Normal Oropharynx, Normal Voice, No Airway Compromise Head: Atraumatic, Normocephalic Neck: Normal Inspection Respiratory/Chest: No Respiratory Distress, Lungs Clear, Normal Breath Sounds, No Accessory Muscle Use Cardiovascular: Regular Rate, Rhythm, No Edema, Tachycardia GI/Abdominal Exam: Normal Bowel Sounds, Soft, No Distention, Tender (epigastric). No: Non-Tender, Distended Extremities: Normal Inspection, Non-Tender, No Pedal Edema Neurological: Alert, Oriented, CN II-XII Intact, Normal Cognition, No Motor/Sensory Deficits Psychiatric: Normal Affect, Normal Mood Skin Exam: Warm, Dry, Intact, Normal Color, No Rash Course - Vital Signs Text/Narrative:: called Richardson Lamb @ 1415h Last Recorded V/S: Last Vital Signs Temp 36.6 C 03/02/21 10:11 Pulse 82 03/02/21 13:12 Resp 16 03/02/21 11:13 BP 139/66 03/02/21 13:12 Pulse Ox 93 L 03/02/21 13:12 - Orders/Labs/Meds Orders: Active Orders 24 hr Category Date Time Status Sodium Chloride 0.9% [Saline Flush] Med 03/02/21 10:28 Active 10 ml FLUSH ASDIRECTED PRN cefTRIAXone [Rocephin] 1 gm Med 03/02/21 14:10 Ordered Sodium Chloride 0.9% [Normal Saline] 50 ml IV ONETIME Saline Lock Insert [OM.PC] Routine Oth 03/02/21 10:28 Ordered Medication Orders Ceftriaxone Sodium 1 gm/ (Sodium Chloride) 50 mls @ 100 mls/hr IV ONETIME ONE Stop: 03/02/21 14:39 Sodium Chloride (Sodium Chloride 0.9% 10 Ml Syringe) 10 ml FLUSH ASDIRECTED PRN PRN Reason: Keep Vein Open Last Admin: 03/02/21 10:39 Dose: 10 ml Documented by: CAIT Labs: Laboratory Tests 03/02/21 03/02/21 03/02/21 Range/Units 10:32 10:32 10:56 WBC 31.1 H* (4.5-11.0) K/uL RBC 4.92 (4.30-5.90) M/uL Hgb 13.9 D (12.0-15.0) g/dL Hct 41.9 (40.0-54.0) % MCV 85 (80-98) fL MCH 28 (27-31) pg MCHC 33 (32-36) % Plt Count 593 H (150-400) K/uL Neut % (Auto) 88.0 H (36-66) % Lymph % (Auto) 7.2 L (24-44) % [place] % (Auto) 4.3 (2-6) % Eos % (Auto) 0.4 L (2-4) % Baso % (Auto) 0.1 (0-1) % Sodium 139 L (140-148) mmol/L Potassium 4.2 (3.6-5.2) mmol/L Chloride 101 (100-108) mmol/L Carbon Dioxide 27 (21-32) mmol/L Anion Gap 15.2 H (5.0-14.0) mmol/L BUN 17 (7-18) mg/dL Creatinine 0.9 (0.8-1.3) mg/dL Est Cr Clr Drug Dosing 62.34 mL/min Estimated GFR (MDRD) > 60 (>60) Glucose 106 (74-106) mg/dL Lactic Acid 1.6 (0.4-2.0) mmol/L Calcium 9.0 (8.5-10.1) mg/dL Magnesium 1.9 (1.8-2.4) mg/dL Lipase 56 L (73-393) U/L Urine Color (YELLOW) Urine Appearance (CLEAR) Urine pH (5.0-8.0) Ur Specific [place] (1.008-1.030) Urine Protein (NEGATIVE) mg/dL Urine Glucose (UA) (NEGATIVE) mg/dL Urine Ketones (NEGATIVE) mg/dL Urine Occult Blood (NEGATIVE) Urine Nitrite (NEGATIVE) Urine Bilirubin (NEGATIVE) Urine Urobilinogen (0.2-1.0) EU/dL Ur Leukocyte Esterase (NEGATIVE) Urine RBC (0-5) Urine WBC (0-5) Ur Epithelial Cells Amorphous Sediment Urine Bacteria Urine Mucus 03/02/21 Range/Units 13:26 WBC (4.5-11.0) K/uL RBC (4.30-5.90) M/uL Hgb (12.0-15.0) g/dL Hct (40.0-54.0) % MCV (80-98) fL MCH (27-31) pg MCHC (32-36) % Plt Count (150-400) K/uL Neut % (Auto) (36-66) % Lymph % (Auto) (24-44) % [place] % (Auto) (2-6) % Eos % (Auto) (2-4) % Baso % (Auto) (0-1) % Sodium (140-148) mmol/L Potassium (3.6-5.2) mmol/L Chloride (100-108) mmol/L Carbon Dioxide (21-32) mmol/L Anion Gap (5.0-14.0) mmol/L BUN (7-18) mg/dL Creatinine (0.8-1.3) mg/dL Est Cr Clr Drug Dosing mL/min Estimated GFR (MDRD) (>60) Glucose (74-106) mg/dL Lactic Acid (0.4-2.0) mmol/L Calcium (8.5-10.1) mg/dL Magnesium (1.8-2.4) mg/dL Lipase (73-393) U/L Urine Color Yellow (YELLOW) Urine Appearance Clear (CLEAR) Urine pH 7.0 (5.0-8.0) Ur Specific [place] 1.025 (1.008-1.030) Urine Protein Negative (NEGATIVE) mg/dL Urine Glucose (UA) Negative (NEGATIVE) mg/dL Urine Ketones Negative (NEGATIVE) mg/dL Urine Occult Blood Small H (NEGATIVE) Urine Nitrite Negative (NEGATIVE) Urine Bilirubin Negative (NEGATIVE) Urine Urobilinogen 0.2 (0.2-1.0) EU/dL Ur Leukocyte Esterase Negative (NEGATIVE) Urine RBC 5-10 H (0-5) Urine WBC 0-5 (0-5) Ur Epithelial Cells Not seen Amorphous Sediment Not seen Urine Bacteria Rare Urine Mucus Not seen Meds: Medications Generic Name Dose Route Start Last Admin Trade Name Freq PRN Reason Stop Dose Admin Ceftriaxone Sodium 1 gm/ 50 mls @ 100 mls/hr 03/02/21 14:10 Sodium Chloride IV 03/02/21 14:39 ONETIME ONE Sodium Chloride 10 ml 03/02/21 10:28 03/02/21 10:39 Sodium Chloride 0.9% 10 Ml Syringe FLUSH 10 ml ASDIRECTED PRN Administration Keep Vein Open Discontinued Medications Generic Name Dose Route Start Last Admin Trade Name Melva PRN Reason Stop Dose Admin Hydromorphone HCl 1 mg 03/02/21 10:28 03/02/21 10:40 Hydromorphone 1 Mg/Ml Syringe IVPUSH 03/02/21 10:29 1 mg ONETIME ONE Administration Hydromorphone HCl 1 mg 03/02/21 11:34 03/02/21 11:40 Hydromorphone 1 Mg/Ml Syringe IVPUSH 03/02/21 11:35 1 mg ONETIME ONE Administration Sodium Chloride 1,000 mls @ 1,000 mls/hr 03/02/21 11:12 03/02/21 11:18 Normal Saline IV 03/02/21 12:11 1,000 mls/hr .BOLUS ONE Administration Lactated Ringer's 1,000 mls @ 1,000 mls/hr 03/02/21 12:27 03/02/21 12:32 Ringers, Lactated IV 03/02/21 13:26 1,000 mls/hr BOLUS ONE Administration Ondansetron HCl 4 mg 03/02/21 10:30 03/02/21 10:39 Ondansetron 4 Mg/2 Ml Sdv IVPUSH 03/02/21 10:31 4 mg ONETIME ONE Administration Departure - Departure Time of Disposition: 14:40 Disposition: Home, Self-Care 01 Condition: Fair Clinical Impression: Nausea Chronic pancreatitis Qualifiers: Pancreatitis type: other Qualified Code(s): K86.1 - Other chronic pancreatitis Elevated WBC count Qualifiers: Leukocytosis type: bandemia Qualified Code(s): D72.825 - Bandemia - Discharge Information *PRESCRIPTION DRUG MONITORING PROGRAM REVIEWED*: Not Applicable *COPY OF PRESCRIPTION DRUG MONITORING REPORT IN PATIENT APRIL: Not Applicable Referrals: Richardson Lamb NP [Primary Care Provider] - Forms: ED Department Discharge Additional Instructions: Use Zofran as needed for nausea control. Take Levaquin every 24 hrs starting today. Follow up with Richardsno Lamb next week to be rechecked and have your CBC repeated. Return if worse. Rx's to [facility]. Sepsis Event Note (ED) - Evaluation Sepsis Screening Result: No Definite Risk - Focused Exam Vital Signs: Vital Signs Temp Pulse Resp BP Pulse Ox 03/02/21 13:12 82 139/66 93 L 03/02/21 12:12 84 134/72 03/02/21 11:13 103 H 16 205/103 H 03/02/21 10:11 36.6 C 103 H 20 243/119 H 100 - My Orders Last 24 Hours: My Active Orders 03/02/21 10:28 Sodium Chloride 0.9% [Saline Flush] 10 ml FLUSH ASDIRECTED PRN Saline Lock Insert [OM.PC] Routine 03/02/21 14:10 cefTRIAXone [Rocephin] 1 gm Sodium Chloride 0.9% [Normal Saline] 50 ml IV ONETIME - Assessment/Plan Last 24 Hours: My Active Orders 03/02/21 10:28 Sodium Chloride 0.9% [Saline Flush] 10 ml FLUSH ASDIRECTED PRN Saline Lock Insert [OM.PC] Routine 03/02/21 14:10 cefTRIAXone [Rocephin] 1 gm Sodium Chloride 0.9% [Normal Saline] 50 ml IV ONETIME
[2021-03-02] MEDS ORDERED: Sodium Chloride 0.9% 1,000 ML IV ONE (11:12)
[2021-03-02] MEDS ORDERED: Lactated Ringers 1,000 ML IV ONE (12:27)
[2021-03-02] MEDS ORDERED: cefTRIAXone 1 GM in Sodium Chloride 0.9% 50 ML IV ONE (14:10)
[2021-03-02 14:26] VITALS: BP 142/59; PULSE 85
== END 2021-03-02 14:54 | disposition home or self-care (01) ==
LOC: JP.ED 10:02
DX: K86.1 Other chronic pancreatitis (principal); D72.825 Bandemia; I25.2 Old myocardial infarction; I10 Essential (primary) hypertension; Z88.5 Allergy status to narcotic agent; Z88.6 Allergy status to analgesic agent; Z88.1 Allergy status to other antibiotic agents; Z88.8 Allergy status to other drugs, medicaments and biological substances
CPT/HCPCS: 36415; 80048; 81001; 83605; 83690; 83735; 85025; 96365; 96375; 96376; 99284; J0696; J1170; J2405; J7030; J7120

== ENCOUNTER 2021-04-01 08:49 | Inpatient (IN) | payer BC, MEDICARE ==
[2021-04-01] MEDS ORDERED: Sodium Chloride 0.9% 500 ML IV ONE (09:52)
[2021-04-01] MEDS ORDERED: HYDROmorphone 0.5 MG/0.5 ML Syringe IVPUSH ONE ×2 (09:55→16:05)
--- NOTE | 2021-04-01 09:57 | EDM.PDOC ---
ED HPI GENERAL MEDICAL PROBLEM - General Chief Complaint: Respiratory Problem Stated Complaint: MEDICAL [facility]IA [facility] Time Seen by Provider: 04/01/21 09:20 Source of Information: Reports: Patient, Old Records, RN Notes Reviewed History Limitations: Reports: No Limitations - History of Present Illness INITIAL COMMENTS - FREE TEXT/NARRATIVE: 65-year-old gentleman presents emergency department day via EMS services for increasing shortness of breath. He was recently discharged from the [facility] yesterday for a new lung mass current working diagnosis is blastomycosis however cultures have not borne that out yet. He was to start itraconazole however he has not started that prescription. He states that on the day of discharge he was feeling well however when he started to walk to the parking lot he became increasingly short of breath had to stop several times to catch his wind. And then on the drive home from [place] he was pulled over by law enforcement for swerving. He then slept on the side of the road drove home this morning continue to have shortness of breath especially with exertion called EMS services and transported to the ED for further evaluation. He has had 10 pound weight loss over the last month or so mainly because he does not want to eat continues to have shortness of breath no chest pain no nausea vomiting did have a fever on presentation to the ED Right Upper Chest Pain Score (Numeric/FACES): 8 - Related Data Allergies Allergy/AdvReac Type Severity Reaction Status Date / Time acetaminophen [From Tylenol] Allergy Rash Verified 04/01/21 08:58 erythromycin base Allergy Hives Verified 04/01/21 08:58 metoclopramide [From Reglan] AdvReac Agitation Verified 04/01/21 08:58 Lrprohu-IFR-HsN Reductase AdvReac Anxiety Verified 04/01/21 08:58 Inhibitor [Hvzpttg-Cpj-Oxj Reductase Inhibitor] Home Meds: Home Meds Promethazine [Phenergan] 50 mg PO Q6H PRN 11/02/16 [History] Medical Marijuana 1 inh INH DAILY 01/04/19 [History] Albuterol Sulfate [Albuterol Sulfate Hfa] 1 - 2 puff IH ASDIRECTED 07/29/19 [History] Budesonide/Formoterol Fumarate [Symbicort 160-4.5 Mcg Inhaler] 1 inh INH BID 10/07/19 [History] Ondansetron [Zofran ODT] 4 mg PO Q6H PRN #10 tab.dis 11/11/20 [Rx] levoFLOXacin [Levaquin] 500 mg PO DAILY #7 tab 03/02/21 [Rx] Past Medical History HEENT History: Reports: Impaired Vision Cardiovascular History: Reports: Blood Clots/VTE/DVT, CAD, Hypertension, [place], Other (See Below) Other Cardiovascular History: iliac stents for possible clots Respiratory History: Reports: SOB Gastrointestinal History: Reports: Cholelithiasis, GERD, Pancreatitis, Other (See Below) Other Gastrointestinal History: pancreatitis Musculoskeletal History: Reports: Fracture Psychiatric History: Reports: Anxiety Oncologic (Cancer) History: Reports: Squamous Cell Carcinoma, Other (See Below) Other Oncologic History: skin ca Dermatologic History: Reports: Other (See Below) Other Dermatologic History: basal cell ca - Infectious Disease History Infectious Disease History: Reports: Mumps - Past Surgical History Head Surgeries/Procedures: Reports: None HEENT Surgical History: Reports: None Cardiovascular Surgical History: Reports: None Respiratory Surgical History: Reports: None GI Surgical History: Reports: Appendectomy, Cholecystectomy, Other (See Below) Other GI Surgeries/Procedures: exploratory lap for pancrease possilbe fruy procedure Male Surgical History: Reports: None Musculoskeletal Surgical History: Reports: None Oncologic Surgical History: Reports: None Dermatological Surgical History: Reports: None Social & Family History - Family History Family Medical History: No Pertinent Family History HEENT: Reports: Cataract Cardiac: Reports: Bypass Endocrine/Metabolic: Reports: Diabetes, type II Oncologic: Reports: Prostate - Tobacco Use Tobacco Use Status *Q: Never Tobacco User - Caffeine Use Caffeine Use: Reports: Coffee, Tea Other Caffeine Use: 4 cups - Recreational Drug Use Recreational Drug Use: Yes Recreational Drug Type: Reports: Marijuana/Hashish Recreational Drug Use Frequency: Daily - Living Situation & Occupation Living situation: Reports: Occupation: Retired (lives with and 11 year old son in [place], [place].) ED ROS GENERAL - Review of Systems Review Of Systems: See Below Constitutional: Reports: Fever. Denies: Diaphoresis HEENT: Reports: No Symptoms Respiratory: Reports: Shortness of Breath, Cough. Denies: Sputum Cardiovascular: Reports: Dyspnea on Exertion. Denies: Chest Pain GI/Abdominal: Reports: No Symptoms ED EXAM, GENERAL - Physical Exam Exam: See Below Exam Limited By: No Limitations General Appearance: Alert, WD/WN, No Apparent Distress Respiratory/Chest: No Respiratory Distress, Lungs Clear, Normal Breath Sounds, No Accessory Muscle Use, Chest Non-Tender Cardiovascular: Regular Rate, Rhythm, No Murmur GI/Abdominal: Soft, Non-Tender #1 Interpretation EKG Date: 04/01/21 Time: 11:14 Rhythm: NSR [place]: Normal P-Wave: Present QRS: Normal ST-T: Normal QT: Normal Comparison: Change From Previous EKG Course - Vital Signs Last Recorded V/S: Last Vital Signs Temp 99.6 F 04/01/21 09:33 Pulse 102 H 04/01/21 14:56 Resp 18 04/01/21 09:33 BP 112/53 L 04/01/21 14:56 Pulse Ox 96 04/01/21 14:56 - Orders/Labs/Meds Orders: Active Orders 24 hr Category Date Time Status Peripheral IV Care [RC] . DIRECTED Care 04/01/21 09:53 Active CULTURE BLOOD [BC] Urgent Lab 04/01/21 15:06 Ordered CULTURE BLOOD [BC] Urgent Lab 04/01/21 15:06 Ordered Iopamidol [Isovue-370 (76%)] Med 04/01/21 11:30 Active 100 ml IV . DIRECTED Itraconazole [Sporanox] Med 04/01/21 15:15 Ordered 200 mg PO DAILY Piperacillin/Tazobactam [Zosyn] 4.5 gm Med 04/01/21 15:15 Ordered Sodium Chloride 0.9% [Normal Saline AdvBag] 100 ml IV Q6H Sodium Chloride 0.9% [Normal Saline] 100 ml Med 04/01/21 11:30 Active IV ASDIRECTED Sodium Chloride 0.9% [Saline Flush] Med 04/01/21 09:52 Active 10 ml FLUSH ASDIRECTED PRN Vancomycin 1 gm Med 04/01/21 16:00 Ordered Sodium Chloride 0.9% [Normal Saline] 250 ml IV Q24H Blood Culture x2 Reflex Set [OM.PC] Urgent Oth 04/01/21 15:06 Ordered Isolation [COMM] Stat Oth 04/01/21 09:53 Ordered Peripheral IV Insertion Adult [OM.PC] Urgent Oth 04/01/21 09:52 Ordered EKG 12 Lead [EK] Urgent Ther 04/01/21 09:52 Ordered Medication Orders Sodium Chloride (Normal Saline) 100 mls @ 3 mls/sec IV ASDIRECTED CHARLES Last Admin: 04/01/21 11:39 Dose: 3 mls/sec Documented by: ABRAHAN Piperacillin Sod/Tazobactam (Sod 4.5 gm/ Sodium Chloride) 100 mls @ 100 mls/hr IV Q6H CHARLES Vancomycin HCl 1 gm/ Sodium (Chloride) 250 mls @ 150 mls/hr IV Q24H CHARLES Iopamidol (Iopamidol 755 Mg/Ml 100 Ml Bottle) 100 ml IV . DIRECTED CHARLES Last Admin: 04/01/21 11:39 Dose: 70 ml Documented by: ABRAHAN Itraconazole (Itraconazole 100 Mg Cap) 200 mg PO DAILY CHARLES Sodium Chloride (Sodium Chloride 0.9% 10 Ml Syringe) 10 ml FLUSH ASDIRECTED PRN PRN Reason: Keep Vein Open Last Admin: 04/01/21 11:39 Dose: 10 ml Documented by: Admin: 04/01/21 10:04 Dose: 10 ml Documented by: CAIT Labs: Laboratory Tests 04/01/21 04/01/21 04/01/21 Range/Units 10:00 10:00 10:00 WBC 41.1 H* (4.5-11.0) K/uL RBC 3.29 L (4.30-5.90) M/uL Hgb 9.2 L D (12.0-15.0) g/dL Hct 28.5 L (40.0-54.0) % MCV 87 (80-98) fL MCH 28 (27-31) pg MCHC 32 (32-36) % Plt Count 462 H (150-400) K/uL Add Manual Diff Yes Neutrophils % (Manual) 92 H (36-66) % Band Neutrophils % 5 (5-11) % Lymphocytes % (Manual) 2 L (24-44) % Monocytes % (Manual) 1 L (2-6) % D-Dimer, Quantitative 1636.69 H (0.0-500.0) ng/mL Sodium 143 (140-148) mmol/L Potassium 3.6 (3.6-5.2) mmol/L Chloride 104 (100-108) mmol/L Carbon Dioxide 30 (21-32) mmol/L Anion Gap 8.9 (5.0-14.0) mmol/L BUN 11 (7-18) mg/dL Creatinine 1.0 (0.8-1.3) mg/dL Est Cr Clr Drug Dosing 56.57 mL/min Estimated GFR (MDRD) > 60 (>60) Glucose 109 H (74-106) mg/dL Calcium 8.4 L (8.5-10.1) mg/dL Total Bilirubin 0.4 (0.2-1.0) mg/dL AST 25 (15-37) U/L ALT 28 (12-78) U/L Alkaline Phosphatase 65 (46-116) U/L Troponin I < 0.017 (0.000-0.056) ng/mL NT-Pro-B Natriuret Pep (5-125) pg/mL Total Protein 6.0 L (6.4-8.2) g/dL Albumin 2.4 L (3.4-5.0) g/dL Globulin 3.6 H (2.3-3.5) g/dL Albumin/Globulin Ratio 0.7 L (1.2-2.2) Influenza Type A RNA (NEGATIVE) RSV RNA (INAAT) (NEGATIVE) Influenza Type B RNA (NEGATIVE) SARS-CoV-2 RNA (LIONEL) (NEGATIVE) 04/01/21 04/01/21 Range/Units 10:29 13:33 WBC (4.5-11.0) K/uL RBC (4.30-5.90) M/uL Hgb (12.0-15.0) g/dL Hct (40.0-54.0) % MCV (80-98) fL MCH (27-31) pg MCHC (32-36) % Plt Count (150-400) K/uL Add Manual Diff Neutrophils % (Manual) (36-66) % Band Neutrophils % (5-11) % Lymphocytes % (Manual) (24-44) % Monocytes % (Manual) (2-6) % D-Dimer, Quantitative (0.0-500.0) ng/mL Sodium (140-148) mmol/L Potassium (3.6-5.2) mmol/L Chloride (100-108) mmol/L Carbon Dioxide (21-32) mmol/L Anion Gap (5.0-14.0) mmol/L BUN (7-18) mg/dL Creatinine (0.8-1.3) mg/dL Est Cr Clr Drug Dosing mL/min Estimated GFR (MDRD) (>60) Glucose (74-106) mg/dL Calcium (8.5-10.1) mg/dL Total Bilirubin (0.2-1.0) mg/dL AST (15-37) U/L ALT (12-78) U/L Alkaline Phosphatase (46-116) U/L Troponin I (0.000-0.056) ng/mL NT-Pro-B Natriuret Pep 2792 H (5-125) pg/mL Total Protein (6.4-8.2) g/dL Albumin (3.4-5.0) g/dL Globulin (2.3-3.5) g/dL Albumin/Globulin Ratio (1.2-2.2) Influenza Type A RNA Negative (NEGATIVE) RSV RNA (INAAT) Negative (NEGATIVE) Influenza Type B RNA Negative (NEGATIVE) SARS-CoV-2 RNA (LIONEL) Negative (NEGATIVE) Meds: Medications Generic Name Dose Route Start Last Admin Trade Name Freq PRN Reason Stop Dose Admin Sodium Chloride 100 mls @ 3 mls/sec 04/01/21 11:30 04/01/21 11:39 Normal Saline IV 3 mls/sec ASDIRECTED CHARLES Administration Piperacillin Sod/Tazobactam 100 mls @ 100 mls/hr 04/01/21 15:15 Sod 4.5 gm/ Sodium Chloride IV Q6H CHARLES Vancomycin HCl 1 gm/ Sodium 250 mls @ 150 mls/hr 04/01/21 16:00 Chloride IV Q24H CHARLES Iopamidol 100 ml 04/01/21 11:30 04/01/21 11:39 Iopamidol 755 Mg/Ml 100 Ml Bottle IV 70 ml . DIRECTED CHARLES Administration Itraconazole 200 mg 04/01/21 15:15 Itraconazole 100 Mg Cap PO DAILY CHARLES Sodium Chloride 10 ml 04/01/21 09:52 04/01/21 11:39 Sodium Chloride 0.9% 10 Ml Syringe FLUSH 10 ml ASDIRECTED PRN Administration Keep Vein Open Discontinued Medications Generic Name Dose Route Start Last Admin Trade Name Freq PRN Reason Stop Dose Admin Hydromorphone HCl 0.5 mg 04/01/21 09:55 04/01/21 10:11 Hydromorphone 0.5 Mg/0.5 Ml Syringe IVPUSH 04/01/21 09:56 0.5 mg ONETIME ONE Administration Sodium Chloride 500 mls @ 999 mls/hr 04/01/21 09:52 04/01/21 10:12 Normal Saline IV 04/01/21 10:22 999 mls/hr .BOLUS ONE Administration Sodium Chloride 10 ml 04/01/21 11:21 Sodium Chloride 0.9% 10 Ml Sdv FLUSH 04/01/21 11:22 ONETIME ONE Departure - Departure Time of Disposition: 15:11 Disposition: Admitted As Inpatient 64 Condition: Poor Clinical Impression: Lung mass Elevated WBC count Qualifiers: Leukocytosis type: bandemia Qualified Code(s): D72.825 - Bandemia - Discharge Information Referrals: PCP,Unknown [Primary Care Provider] - Forms: ED Department Discharge Sepsis Event Note (ED) - Evaluation Sepsis Screening Result: No Definite Risk - Focused Exam Vital Signs: Vital Signs Temp Pulse Resp BP Pulse Ox 04/01/21 14:56 102 H 112/53 L 96 04/01/21 14:11 77 122/92 H 97 04/01/21 14:08 83 108/63 04/01/21 13:11 78 125/49 L 96 04/01/21 10:57 87 97/32 L 93 L 04/01/21 09:33 99.6 F 98 18 105/57 L 92 L 04/01/21 08:53 100.5 F 108 H 20 109/82 94 L - My Orders Last 24 Hours: My Active Orders 04/01/21 09:52 Sodium Chloride 0.9% [Saline Flush] 10 ml FLUSH ASDIRECTED PRN Peripheral IV Insertion Adult [OM.PC] Urgent EKG 12 Lead [EK] Urgent 04/01/21 09:53 Peripheral IV Care [RC] . DIRECTED Isolation [COMM] Stat 04/01/21 11:30 Iopamidol [Isovue-370 (76%)] 100 ml IV . DIRECTED Sodium Chloride 0.9% [Normal Saline] 100 ml IV ASDIRECTED 04/01/21 15:06 CULTURE BLOOD [BC] Urgent CULTURE BLOOD [BC] Urgent Blood Culture x2 Reflex Set [OM.PC] Urgent 04/01/21 15:15 Itraconazole [Sporanox] 200 mg PO DAILY Piperacillin/Tazobactam [Zosyn] 4.5 gm Sodium Chloride 0.9% [Normal Saline AdvBag] 100 ml IV Q6H 04/01/21 16:00 Vancomycin 1 gm Sodium Chloride 0.9% [Normal Saline] 250 ml IV Q24H - Assessment/Plan Last 24 Hours: My Active Orders 04/01/21 09:52 Sodium Chloride 0.9% [Saline Flush] 10 ml FLUSH ASDIRECTED PRN Peripheral IV Insertion Adult [OM.PC] Urgent EKG 12 Lead [EK] Urgent 04/01/21 09:53 Peripheral IV Care [RC] . DIRECTED Isolation [COMM] Stat 04/01/21 11:30 Iopamidol [Isovue-370 (76%)] 100 ml IV . DIRECTED Sodium Chloride 0.9% [Normal Saline] 100 ml IV ASDIRECTED 04/01/21 15:06 CULTURE BLOOD [BC] Urgent CULTURE BLOOD [BC] Urgent Blood Culture x2 Reflex Set [OM.PC] Urgent 04/01/21 15:15 Itraconazole [Sporanox] 200 mg PO DAILY Piperacillin/Tazobactam [Zosyn] 4.5 gm Sodium Chloride 0.9% [Normal Saline AdvBag] 100 ml IV Q6H 04/01/21 16:00 Vancomycin 1 gm Sodium Chloride 0.9% [Normal Saline] 250 ml IV Q24H Plan: Assessment Acuity = acute Site and laterality = lung mass with hypoxia Etiology = unknown Manifestations = dyspnea Location of injury = Home Lab values = WBC elevated 41.1 consistent severe leukocytosis, hemoglobin low at 9.2 consistent with normochromic anemia D-dimer elevated 1636 of uncertain significance troponin is negative BNP elevated to 792 probably related to fluid overload Covid was negative influenza A and B-, RSV is negative, CT scan of the chest reveals increasing mass right upper lobe with cavitation lesion malignancy cannot be excluded Plan Call discussed case with Dr. Sawant staking engineer on-call at [facility] at 1430, recommended CT-guided biopsy of which they would like to do as soon as possible to help make the diagnosis on this gentleman she will also consult with infectious disease. Since this gentleman was just discharged from their facility on March 31 in the meantime we will keep the gentleman here restart antibiotics of Zosyn and vancomycin also start the itraconazole that he was discharged on. I called discussed case hospitalist on-call at 1510 he kindly agreed to come evaluate patient emergency department and admit until transfer can be arranged. This note was dictated using [employer] voice recognition software please call with any questions on syntax or grammar.
[2021-04-01] MEDS: Sodium Chloride 0.9% 10 ML Syringe FLUSH PRN ×2 (10:04→11:39)
[2021-04-01 11:12] LABS: CORONAVIRUS COVID-19 NAA NEGATIVE (NEGATIVE)
[2021-04-01] MEDS ORDERED: Sodium Chloride 0.9% 10 ML SDV FLUSH ONE (11:21)
[2021-04-01] MEDS ORDERED: Iopamidol 755 Mg/ML 100 ML Bottle IV SCH (11:30)
[2021-04-01] MEDS ORDERED: Sodium Chloride 0.9% 100 ML IV SCH (11:30)
--- NOTE | 2021-04-01 13:26 | CRLCT ---
For Patients: As a result of the Century Cures Act, medical imaging exams and procedure reports are released immediately into your electronic medical record. You may view this report before your referring provider. If you have questions, please contact your health care provider. INDICATION: Shortness of breath. Elevated D-dimer. TECHNIQUE: CT chest PE was acquired with 70 cc Isovue 370 IV contrast. COMPARISON: 02/25/2021. FINDINGS: Heart and vasculature: Contrast opacification of the pulmonary arterial tree is adequate. No sign of pulmonary embolism. Heart size is normal. Thoracic aorta and pulmonary artery are normal in caliber. Lungs and pleural: Again demonstrated is a right apical soft tissue mass which appears to have increased in size measuring 5.9 x 5.2 cm as visualized on series 5, image 25, previously measuring 5.7 x 4.7 at this level. This mass appears to extend more inferiorly along the pleura compared to the prior study. There also has been an interval increase in necrosis or cavitation within the mass. No other nodules or masses. Moderate atelectasis in the basilar segment of the right upper lobe and right lower lobe. New diffuse prominence of the lung interstitium suggesting fluid overload without overt edema. New trace bilateral pleural effusions. No pneumothorax. Lymph nodes/mediastinum: No mediastinal, hilar, or axillary adenopathy. Chest wall: No masses. Upper abdomen: No acute or significant findings. Bones: No suspicious bone lesion. IMPRESSION: 1. No pulmonary embolism. 2. Right apical soft tissue mass appears to have slightly increased in size with interval increase in central necrosis or cavitation. A malignant neoplasm remains the primary consideration. 3. New interstitial edema possibly from CHF or fluid overload. 4. Moderate right lung atelectasis and new trace bilateral pleural effusions. 5. No other acute or specific findings to explain shortness of breath. Please note that all CT scans at this facility use dose modulation, iterative reconstruction, and/or weight-based dosing when appropriate to reduce radiation dose to as low as reasonably achievable. Dictated by Guanaco Billingsley MD @ 04/01/2021 1:24:58 PM (Electronically Signed)
[2021-04-01] MEDS ORDERED: Piperacillin/Tazobactam 4.5 GM in Sodium Chloride 0.9% 100 ML IV SCH (15:15)
--- NOTE | 2021-04-01 15:20 | PCM.HP.2 ---
H&P History of Present Illness - General Date of Service: 04/01/21 Admit Problem/Dx: Admission Diagnosis/Problem Admission Diagnosis/Problem Lung mass Source of Information: Patient, Old Records, Provider, RN Notes Reviewed History Limitations: Reports: No Limitations - History of Present Illness Initial Comments - Free Text/Narative: Mr. Pineda is a 65-year-old gentleman who was admitted through the emergency department with increased shortness of breath and hemoptysis secondary to a right lung mass. He is not felt well and had hemoptysis over the last month and a half. He has been evaluated in [place]. Transbronchial biopsy of the mass was obtained last week but results are still pending. He was hospitalized there for a week and discharged home yesterday. It is felt possible that this mass is secondary to blastomycosis versus malignancy. He was to of started itraconazole but had not had the prescription filled yet. He presented to the emergency department here because of increased shortness of breath and weakness. On initial evaluation in the emergency department he was noted to be hypoxic but has corrected with supplemental oxygen. CT scan of the chest was obtained and showed no evidence of pulmonary emboli but did document the mass again which a ppears to have somewhat increased in size compared to the previous CT scan. White blood cell count is markedly elevated at over 40,000. Right Upper Chest Pain Score (Numeric/FACES): 8 - Related Data Allergies/Adverse Reactions: Allergies Allergy/AdvReac Type Severity Reaction Status Date / Time acetaminophen [From Tylenol] Allergy Rash Verified 04/01/21 08:58 erythromycin base Allergy Hives Verified 04/01/21 08:58 metoclopramide [From Reglan] AdvReac Agitation Verified 04/01/21 08:58 Soffzcw-FMR-QeU Reductase AdvReac Anxiety Verified 04/01/21 08:58 Inhibitor [Gyyddek-Jht-Api Reductase Inhibitor] Home Medications: Home Meds Promethazine [Phenergan] 50 mg PO Q6H PRN 11/02/16 [History] Medical Marijuana 1 inh INH DAILY 01/04/19 [History] Albuterol Sulfate [Albuterol Sulfate Hfa] 1 - 2 puff IH ASDIRECTED 07/29/19 [History] Budesonide/Formoterol Fumarate [Symbicort 160-4.5 Mcg Inhaler] 1 inh INH BID 10/07/19 [History] Ondansetron [Zofran ODT] 4 mg PO Q6H PRN #10 tab.dis 11/11/20 [Rx] levoFLOXacin [Levaquin] 500 mg PO DAILY #7 tab 03/02/21 [Rx] Past Medical History HEENT History: Reports: Impaired Vision Cardiovascular History: Reports: Blood Clots/VTE/DVT, CAD, Hypertension, RI, Other (See Below) Other Cardiovascular History: iliac stents for possible clots Respiratory History: Reports: SOB Gastrointestinal History: Reports: Cholelithiasis, GERD, Pancreatitis, Other (See Below) Other Gastrointestinal History: pancreatitis Musculoskeletal History: Reports: Fracture Psychiatric History: Reports: Anxiety Oncologic (Cancer) History: Reports: Squamous Cell Carcinoma, Other (See Below) Other Oncologic History: skin ca Dermatologic History: Reports: Other (See Below) Other Dermatologic History: basal cell ca - Infectious Disease History Infectious Disease History: Reports: Mumps - Past Surgical History Head Surgeries/Procedures: Reports: None HEENT Surgical History: Reports: None Cardiovascular Surgical History: Reports: None Respiratory Surgical History: Reports: None GI Surgical History: Reports: Appendectomy, Cholecystectomy, Other (See Below) Other GI Surgeries/Procedures: exploratory lap for pancrease possilbe fruy procedure Male Surgical History: Reports: None Musculoskeletal Surgical History: Reports: None Oncologic Surgical History: Reports: None Dermatological Surgical History: Reports: None Social & Family History - Family History Family Medical History: No Pertinent Family History HEENT: Reports: Cataract Cardiac: Reports: Bypass Endocrine/Metabolic: Reports: Diabetes, type II Oncologic: Reports: Prostate - Tobacco Use Tobacco Use Status *Q: Never Tobacco User - Caffeine Use Caffeine Use: Reports: Coffee, Tea Other Caffeine Use: 4 cups - Recreational Drug Use Recreational Drug Use: Yes Recreational Drug Type: Reports: Marijuana/Hashish Recreational Drug Use Frequency: Daily - Living Situation & Occupation Living situation: Reports: Occupation: Retired (lives with and 11 year old son in [place], [place].) H&P Review of Systems - Review of Systems: Review Of Systems: See Below General: Reports: Fever, Chills, Weakness, Fatigue, Decreased Appetite, Weight Loss HEENT: Reports: No Symptoms Pulmonary: Reports: Shortness of Breath, Cough, Sputum, Hemoptysis. Denies: Wheezing, Pleuritic Chest Pain Cardiovascular: Reports: Dyspnea on Exertion. Denies: Chest Pain, Palpitations, Orthopnea, PND, Edema, Lightheadedness Gastrointestinal: Reports: No Symptoms Genitourinary: Reports: No Symptoms Musculoskeletal: Reports: No Symptoms Skin: Reports: No Symptoms Psychiatric: Reports: No Symptoms Neurological: Reports: No Symptoms Hematologic/Lymphatic: Reports: No Symptoms Immunologic: Reports: No Symptoms Exam - Exam Exam: See Below - Vital Signs Vital Signs: Last Vital Signs Temp 99.6 F 04/01/21 09:33 Pulse 102 H 04/01/21 14:56 Resp 18 04/01/21 09:33 BP 112/53 L 04/01/21 14:56 Pulse Ox 96 04/01/21 14:56 Weight: 123 lb - Exam Quality Assessment: Supplemental Oxygen, DVT Prophylaxis General: Alert, Oriented, Cooperative, Mild Distress HEENT: Conjunctiva Clear, Hearing Intact, Mucosa Moist & Alex, Normal Nasal Septum, Posterior Pharynx Clear, Pupils Equal Neck: Supple, Trachea Midline Lungs: Clear to Auscultation, Normal Respiratory Effort, Decreased Breath Sounds. No: Rales, Rhonchi, Wheezing Cardiovascular: Regular Rate, Regular Rhythm, Normal S1, Normal S2. No: Systolic Murmur, Diastolic Murmur GI/Abdominal Exam: Soft, Non-Tender, No Organomegaly, No Distention Back Exam: Normal Inspection, Full Range of Motion Extremities: Non-Tender, No Pedal Edema Skin: Warm, Dry, Intact Neurological: Cranial Nerves Intact, Strength Equal Bilateral, Normal Speech, Normal Tone, Sensation Intact. No: Focal Deficit Neuro Extensive - Mental Status: Alert, Oriented x3, Normal Mood/Affect, Normal Cognition, Memory Intact - Patient Data Lab Results Last 24 hrs: Laboratory Results - last 24 hr 04/01/21 04/01/21 04/01/21 Range/Units 10:00 10:00 10:00 WBC 41.1 H* (4.5-11.0) K/uL RBC 3.29 L (4.30-5.90) M/uL Hgb 9.2 L D (12.0-15.0) g/dL Hct 28.5 L (40.0-54.0) % MCV 87 (80-98) fL MCH 28 (27-31) pg MCHC 32 (32-36) % Plt Count 462 H (150-400) K/uL Add Manual Diff Yes Neutrophils % (Manual) 92 H (36-66) % Band Neutrophils % 5 (5-11) % Lymphocytes % (Manual) 2 L (24-44) % Monocytes % (Manual) 1 L (2-6) % D-Dimer, Quantitative 1636.69 H (0.0-500.0) ng/mL Sodium 143 (140-148) mmol/L Potassium 3.6 (3.6-5.2) mmol/L Chloride 104 (100-108) mmol/L Carbon Dioxide 30 (21-32) mmol/L Anion Gap 8.9 (5.0-14.0) mmol/L BUN 11 (7-18) mg/dL Creatinine 1.0 (0.8-1.3) mg/dL Est Cr Clr Drug Dosing 56.57 mL/min Estimated GFR (MDRD) > 60 (>60) Glucose 109 H (74-106) mg/dL Calcium 8.4 L (8.5-10.1) mg/dL Total Bilirubin 0.4 (0.2-1.0) mg/dL AST 25 (15-37) U/L ALT 28 (12-78) U/L Alkaline Phosphatase 65 (46-116) U/L Troponin I < 0.017 (0.000-0.056) ng/mL NT-Pro-B Natriuret Pep (5-125) pg/mL Total Protein 6.0 L (6.4-8.2) g/dL Albumin 2.4 L (3.4-5.0) g/dL Globulin 3.6 H (2.3-3.5) g/dL Albumin/Globulin Ratio 0.7 L (1.2-2.2) Influenza Type A RNA (NEGATIVE) RSV RNA (INAAT) (NEGATIVE) Influenza Type B RNA (NEGATIVE) SARS-CoV-2 RNA (LIONEL) (NEGATIVE) 04/01/21 04/01/21 Range/Units 10:29 13:33 WBC (4.5-11.0) K/uL RBC (4.30-5.90) M/uL Hgb (12.0-15.0) g/dL Hct (40.0-54.0) % MCV (80-98) fL MCH (27-31) pg MCHC (32-36) % Plt Count (150-400) K/uL Add Manual Diff Neutrophils % (Manual) (36-66) % Band Neutrophils % (5-11) % Lymphocytes % (Manual) (24-44) % Monocytes % (Manual) (2-6) % D-Dimer, Quantitative (0.0-500.0) ng/mL Sodium (140-148) mmol/L Potassium (3.6-5.2) mmol/L Chloride (100-108) mmol/L Carbon Dioxide (21-32) mmol/L Anion Gap (5.0-14.0) mmol/L BUN (7-18) mg/dL Creatinine (0.8-1.3) mg/dL Est Cr Clr Drug Dosing mL/min Estimated GFR (MDRD) (>60) Glucose (74-106) mg/dL Calcium (8.5-10.1) mg/dL Total Bilirubin (0.2-1.0) mg/dL AST (15-37) U/L ALT (12-78) U/L Alkaline Phosphatase (46-116) U/L Troponin I (0.000-0.056) ng/mL NT-Pro-B Natriuret Pep 2792 H (5-125) pg/mL Total Protein (6.4-8.2) g/dL Albumin (3.4-5.0) g/dL Globulin (2.3-3.5) g/dL Albumin/Globulin Ratio (1.2-2.2) Influenza Type A RNA Negative (NEGATIVE) RSV RNA (INAAT) Negative (NEGATIVE) Influenza Type B RNA Negative (NEGATIVE) SARS-CoV-2 RNA (LIONEL) Negative (NEGATIVE) Result Diagrams: 04/01/21 10:00 04/01/21 10:00 Sepsis Event Note - Evaluation Sepsis Screening Result: No Definite Risk - Focused Exam Vital Signs: Vital Signs Temp Pulse Resp BP Pulse Ox 04/01/21 14:56 102 H 112/53 L 96 04/01/21 14:11 77 122/92 H 97 04/01/21 14:08 83 108/63 04/01/21 13:11 78 125/49 L 96 04/01/21 10:57 87 97/32 L 93 L 04/01/21 09:33 99.6 F 98 18 105/57 L 92 L 04/01/21 08:53 100.5 F 108 H 20 109/82 94 L *Q Meaningful Use (ADM) - VTE Risk Assess *Q Each Risk Factor Represents 1 Point: Serious lung disease including pneumonia Total Score 1 Point Risk Factors: 1 Each Risk Factor Represents 2 Points: Age 60 - 74 Years Total Score 2 Point Risk Factors: 2 Each Risk Factor Represents 3 Points: History of DVT/PE Total Score 3 Point Risk Factors: 3 Each Risk Factor Represents 5 Points: None Total Score 5 Point Risk Factors: 0 Venous Thromboembolism Risk Factor Score *Q: 6 Problem List Initiated/Reviewed/Updated: Yes Orders Last 24hrs: Active Orders 24 hr Category Date Time Status Patient Status Manage Transfer [TRANSFER] Routine ADT 04/01/21 15:11 Ordered Peripheral IV Care [RC] . DIRECTED Care 04/01/21 09:53 Active CULTURE BLOOD [BC] Urgent Lab 04/01/21 15:06 Ordered CULTURE BLOOD [BC] Urgent Lab 04/01/21 15:06 Ordered Iopamidol [Isovue-370 (76%)] Med 04/01/21 11:30 Active 100 ml IV . DIRECTED Itraconazole [Sporanox] Med 04/01/21 15:15 Active 200 mg PO DAILY Piperacillin/Tazobactam [Zosyn] 4.5 gm Med 04/01/21 15:15 Active Sodium Chloride 0.9% [Normal Saline AdvBag] 100 ml IV Q6H Sodium Chloride 0.9% [Normal Saline] 100 ml Med 04/01/21 11:30 Active IV ASDIRECTED Sodium Chloride 0.9% [Saline Flush] Med 04/01/21 09:52 Active 10 ml FLUSH ASDIRECTED PRN Vancomycin 1 gm Med 04/01/21 16:00 Active Sodium Chloride 0.9% [Normal Saline] 250 ml IV Q24H Blood Culture x2 Reflex Set [OM.PC] Urgent Oth 04/01/21 15:06 Ordered Isolation [COMM] Stat Oth 04/01/21 09:53 Ordered Peripheral IV Insertion Adult [OM.PC] Urgent Oth 04/01/21 09:52 Ordered Resuscitation Status Routine Resus Stat 04/01/21 15:14 Ordered EKG 12 Lead [EK] Urgent Ther 04/01/21 09:52 Ordered Medication Orders Sodium Chloride (Normal Saline) 100 mls @ 3 mls/sec IV ASDIRECTED CHARLES Last Admin: 04/01/21 11:39 Dose: 3 mls/sec Documented by: ABRAHAN Piperacillin Sod/Tazobactam (Sod 4.5 gm/ Sodium Chloride) 100 mls @ 100 mls/hr IV Q6H CHARLES Vancomycin HCl 1 gm/ Sodium (Chloride) 250 mls @ 150 mls/hr IV Q24H [facility] Iopamidol (Iopamidol 755 Mg/Ml 100 Ml Bottle) 100 ml IV . DIRECTED [facility] Last Admin: 04/01/21 11:39 Dose: 70 ml Documented by: ABRAHAN Itraconazole (Itraconazole 100 Mg Cap) 200 mg PO DAILY CHARLES Sodium Chloride (Sodium Chloride 0.9% 10 Ml Syringe) 10 ml FLUSH ASDIRECTED PRN PRN Reason: Keep Vein Open Last Admin: 04/01/21 11:39 Dose: 10 ml Documented by: Admin: 04/01/21 10:04 Dose: 10 ml Documented by: CAIT Assessment/Plan Comment:: ASSESSMENT AND PLAN RIGHT LUNG MASS-associated with hemoptysis, increased shortness of breath, and hypoxia. Recent evaluation in [place] with hospitalization for 1 week, no definitive diagnosis. Now has developed significant hypoxia requiring use of supplemental oxygen. -Supplemental oxygen as needed -Duo nebs as needed -Blood cultures pending -IV vancomycin and Zosyn -Itraconazole 200 mg p.o. daily -Plan transfer to [facility] in [place] when a bed becomes available for further subspecialty evaluation and management HYPOXIC RESPIRATORY FAILURE -Management as above HISTORY OF RECURRENT PANCREATITIS-no evidence of acute exacerbation MAINTENANCE ISSUES -DVT prophylaxis; Lovenox 40 mg subcu daily -GI prophylaxis; not indicated -Lopez catheter; not indicated -Nutrition; regular diet -Nicotine dependence; not required CODE STATUS-FULL CODE ADMISSION STATUS-patient will be admitted to inpatient status, expect at least a 2 night hospital stay for evaluation and management of problems as outlined above. At the time of this admission I do not reasonably expected evaluation and management of this problem will require more than a 96 hour hospital stay. DISPOSITION-anticipate discharge to home after the hospital stay. PRIMARY CARE PROVIDER-Dr. Drummond - Mortality Measure Prognosis:: Good
[2021-04-01] MEDS ORDERED: Piperacillin/Tazobactam/Dext 4.5 GM in Premix Bag 1 BAG IV SCH (15:30)
[2021-04-01] MEDS ORDERED: Polyethylene Glycol 3350 Powder 17 GM Packet PO PRN (17:29)
[2021-04-01] MEDS ORDERED: Sodium Chloride 0.9% 10 ML Syringe FLUSH PRN (17:29)
[2021-04-01] MEDS ORDERED: Piperacillin/Tazobactam 3.375 GM in Sodium Chloride 0.9% 50 ML IV SCH (17:29)
[2021-04-01] MEDS ORDERED: Promethazine 25 MG Tab PO PRN (17:29)
[2021-04-01] MEDS ORDERED: Albuterol/Ipratropium 3.0-0.5 MG/3 ML Neb Soln NEB PRN (17:29)
[2021-04-01] MEDS ORDERED: Vancomycin 1 GM SDV IV SCH (17:29)
[2021-04-01] MEDS ORDERED: Albuterol 8 GM Inhaler INH PRN (17:29)
[2021-04-01] MEDS ORDERED: Sodium Chloride 0.9% 1,000 ML IV SCH (17:29)
[2021-04-01 17:57] VITALS: BP 158/66; PULSE 100
[2021-04-01] MEDS ORDERED: Enoxaparin 40 MG/0.4 ML Syringe SUBCUT SCH (18:00)
[2021-04-01] MEDS ORDERED: Formoterol/Mometasone 200-5 MCG 8.8 GM Inhaler IH SCH (21:00)
[2021-04-01] MEDS ORDERED: Non-Formulary Medication 1 Each (Budesonide/Formoterol Fumarate [Symbicort 160-4.5 Mcg Inh INH SCH (21:00)
[2021-04-01] MEDS ORDERED: Piperacillin/Tazobactam/Dext 3.375 GM in Premix Bag 1 BAG IV SCH (21:30)
--- NOTE | 2021-04-02 08:42 | PCM.DCSUM1 ---
Discharge Summary - Hospital Course Brief History: Mr. Pineda is a 65-year-old gentleman who was admitted through the emergency department with shortness of breath and hypoxia secondary to a right lung mass. - Discharge Data Discharge Date: 04/01/21 Discharge Disposition: DC/Tfer to Acute Hospital 02 Condition: Fair - Referral to Home Health Primary Care Physician: PCP Unknown - Patient Summary/Data Hospital Course: Mr. Pineda is a 65-year-old gentleman who was admitted through the emergency department with increased shortness of breath and hemoptysis secondary to a right lung mass. He is not felt well and had hemoptysis over the last month and a half. He has been evaluated in [place]. Transbronchial biopsy of the mass was obtained last week but results are still pending. He was hospitalized there for a week and discharged home yesterday. It is felt possible that this mass is secondary to blastomycosis versus malignancy. He was to of started itraconazole but had not had the prescription filled yet. He presented to the emergency department here because of increased shortness of breath and weakness. On initial evaluation in the emergency department he was noted to be hypoxic but has corrected with supplemental oxygen. CT scan of the chest was obtained and showed no evidence of pulmonary emboli but did document the mass again which appears to have somewhat increased in size compared to the previous CT scan. White blood cell count is markedly elevated at over 40,000. Shortly after admission [facility] in [facility] called saying that they could take the patient in transfer. He had received IV vancomycin, IV Zosyn and oral itraconazole prior to transfer. He will be transferred via [facility] ambulance and his care has been accepted by Dr. Lopez. - Patient Instructions Other/Special Instructions: Pt discharging to Dr. Lopez - [facility] to 3rd floor - Discharge Plan Home Medications: Home Meds Promethazine [Phenergan] 50 mg PO Q6H PRN 11/02/16 [History] Medical Marijuana 1 inh INH DAILY 01/04/19 [History] Albuterol Sulfate [Albuterol Sulfate Hfa] 1 - 2 puff IH ASDIRECTED 07/29/19 [History] Budesonide/Formoterol Fumarate [Symbicort 160-4.5 Mcg Inhaler] 1 inh INH BID 10/07/19 [History] Ondansetron [Zofran ODT] 4 mg PO Q6H PRN #10 tab.dis 11/11/20 [Rx] levoFLOXacin [Levaquin] 500 mg PO DAILY #7 tab 03/02/21 [Rx] Forms: ED Department Discharge Referrals: PCP,Unknown [Primary Care Provider] - - Discharge Summary/Plan Comment DC Time >30 min.: No Total # of Minutes for Discharge Time: 15 - Patient Data Vitals - Most Recent: Last Vital Signs Temp 96 F L 04/01/21 17:57 Pulse 100 04/01/21 17:57 Resp 18 04/01/21 17:57 BP 158/66 H 04/01/21 17:57 Pulse Ox 98 04/01/21 17:57 Weight - Most Recent: 128 lb I&O - Last 24 hours: Intake & Output 04/01/21 04/02/21 04/02/21 22:59 06:59 14:59 Intake Total 280 Balance 280 Lab Results - Last 24 hrs: Laboratory Results - last 24 hr 04/01/21 04/01/21 04/01/21 Range/Units 10:00 10:00 10:00 WBC 41.1 H* (4.5-11.0) K/uL RBC 3.29 L (4.30-5.90) M/uL Hgb 9.2 L D (12.0-15.0) g/dL Hct 28.5 L (40.0-54.0) % MCV 87 (80-98) fL MCH 28 (27-31) pg MCHC 32 (32-36) % Plt Count 462 H (150-400) K/uL Add Manual Diff Yes Neutrophils % (Manual) 92 H (36-66) % Band Neutrophils % 5 (5-11) % Lymphocytes % (Manual) 2 L (24-44) % Monocytes % (Manual) 1 L (2-6) % D-Dimer, Quantitative 1636.69 H (0.0-500.0) ng/mL Sodium 143 (140-148) mmol/L Potassium 3.6 (3.6-5.2) mmol/L Chloride 104 (100-108) mmol/L Carbon Dioxide 30 (21-32) mmol/L Anion Gap 8.9 (5.0-14.0) mmol/L BUN 11 (7-18) mg/dL Creatinine 1.0 (0.8-1.3) mg/dL Est Cr Clr Drug Dosing 56.57 mL/min Estimated GFR (MDRD) > 60 (>60) Glucose 109 H (74-106) mg/dL Calcium 8.4 L (8.5-10.1) mg/dL Total Bilirubin 0.4 (0.2-1.0) mg/dL AST 25 (15-37) U/L ALT 28 (12-78) U/L Alkaline Phosphatase 65 (46-116) U/L Troponin I < 0.017 (0.000-0.056) ng/mL NT-Pro-B Natriuret Pep (5-125) pg/mL Total Protein 6.0 L (6.4-8.2) g/dL Albumin 2.4 L (3.4-5.0) g/dL Globulin 3.6 H (2.3-3.5) g/dL Albumin/Globulin Ratio 0.7 L (1.2-2.2) Influenza Type A RNA (NEGATIVE) RSV RNA (INAAT) (NEGATIVE) Influenza Type B RNA (NEGATIVE) SARS-CoV-2 RNA (LIONEL) (NEGATIVE) 04/01/21 04/01/21 Range/Units 10:29 13:33 WBC (4.5-11.0) K/uL RBC (4.30-5.90) M/uL Hgb (12.0-15.0) g/dL Hct (40.0-54.0) % MCV (80-98) fL MCH (27-31) pg MCHC (32-36) % Plt Count (150-400) K/uL Add Manual Diff Neutrophils % (Manual) (36-66) % Band Neutrophils % (5-11) % Lymphocytes % (Manual) (24-44) % Monocytes % (Manual) (2-6) % D-Dimer, Quantitative (0.0-500.0) ng/mL Sodium (140-148) mmol/L Potassium (3.6-5.2) mmol/L Chloride (100-108) mmol/L Carbon Dioxide (21-32) mmol/L Anion Gap (5.0-14.0) mmol/L BUN (7-18) mg/dL Creatinine (0.8-1.3) mg/dL Est Cr Clr Drug Dosing mL/min Estimated GFR (MDRD) (>60) Glucose (74-106) mg/dL Calcium (8.5-10.1) mg/dL Total Bilirubin (0.2-1.0) mg/dL AST (15-37) U/L ALT (12-78) U/L Alkaline Phosphatase (46-116) U/L Troponin I (0.000-0.056) ng/mL NT-Pro-B Natriuret Pep 2792 H (5-125) pg/mL Total Protein (6.4-8.2) g/dL Albumin (3.4-5.0) g/dL Globulin (2.3-3.5) g/dL Albumin/Globulin Ratio (1.2-2.2) Influenza Type A RNA Negative (NEGATIVE) RSV RNA (INAAT) Negative (NEGATIVE) Influenza Type B RNA Negative (NEGATIVE) SARS-CoV-2 RNA (LIONEL) Negative (NEGATIVE) Med Orders - Current: Current Medications Discontinued Medications Albuterol (Albuterol 8 Gm Inhaler) 0 gm INH ASDIRECTED PRN PRN Reason: Shortness of Breath Albuterol/Ipratropium (Albuterol/Ipratropium 3.0-0.5 Mg/3 Ml Neb Soln) 3 ml NEB QID PRN PRN Reason: Shortness Of Breath/wheezing Enoxaparin Sodium (Enoxaparin 40 Mg/0.4 Ml Syringe) 40 mg SUBCUT Q24H [facility] Last Admin: 04/01/21 19:25 Dose: Not Given Documented by: Hydromorphone HCl (Hydromorphone 0.5 Mg/0.5 Ml Syringe) 0.5 mg IVPUSH ONETIME ONE Stop: 04/01/21 09:56 Last Admin: 04/01/21 10:11 Dose: 0.5 mg Documented by: Hydromorphone HCl (Hydromorphone 0.5 Mg/0.5 Ml Syringe) 0.5 mg IVPUSH ONETIME ONE Stop: 04/01/21 16:06 Last Admin: 04/01/21 16:32 Dose: 0.5 mg Documented by: Sodium Chloride (Normal Saline) 500 mls @ 999 mls/hr IV .BOLUS ONE Stop: 04/01/21 10:22 Last Admin: 04/01/21 10:12 Dose: 999 mls/hr Documented by: Sodium Chloride (Normal Saline) 100 mls @ 3 mls/sec IV ASDIRECTED [facility] Last Admin: 04/01/21 11:39 Dose: 3 mls/sec Documented by: Vancomycin HCl 1 gm/ Sodium (Chloride) 250 mls @ 150 mls/hr IV Q24H [facility] Stop: 04/01/21 18:45 Last Admin: 04/01/21 16:35 Dose: 150 mls/hr Documented by: Piperacillin/Tazobactam/ (Dextrose 4.5 gm/ Premix) 100 mls @ 200 mls/hr IV Q6H [facility] Last Admin: 04/01/21 16:01 Dose: 200 mls/hr Documented by: Vancomycin HCl 1 gm/ Sodium (Chloride) 250 mls @ 167 mls/hr IV Q12H CHARLES Sodium Chloride (Normal Saline) 1,000 mls @ 75 mls/hr IV ASDIRECTED [facility] Last Admin: 04/01/21 18:33 Dose: 75 mls/hr Documented by: Piperacillin/Tazobactam/ (Dextrose 3.375 gm/ Premix) 50 mls @ 100 mls/hr IV Q6H CHARLES Iopamidol (Iopamidol 755 Mg/Ml 100 Ml Bottle) 100 ml IV . DIRECTED [facility] Stop: 04/01/21 22:00 Last Admin: 04/01/21 11:39 Dose: 70 ml Documented by: Itraconazole (Itraconazole 100 Mg Cap) 200 mg PO DAILY [facility] Last Admin: 04/01/21 16:01 Dose: 200 mg Documented by: Itraconazole (Itraconazole 100 Mg Cap) 200 mg PO DAILY [facility] Mometasone Furoate/Formoterol Fumar (Formoterol/Mometasone 200-5 Mcg 8.8 Gm Inhaler) 2 puff IH BIDRT [facility] Non-Formulary Medication (Medical Marijuana) 1 inh INH DAILY [facility] Polyethylene Glycol (Polyethylene Glycol 3350 Powder 17 Gm Packet) 17 gm PO DAILY PRN PRN Reason: Constipation Promethazine HCl (Promethazine 25 Mg Tab) 50 mg PO Q6H PRN PRN Reason: Nausea Sodium Chloride (Sodium Chloride 0.9% 10 Ml Syringe) 10 ml FLUSH ASDIRECTED PRN PRN Reason: Keep Vein Open Last Admin: 04/01/21 11:39 Dose: 10 ml Documented by: Sodium Chloride (Sodium Chloride 0.9% 10 Ml Sdv) 10 ml FLUSH ONETIME ONE Stop: 04/01/21 11:22 Last Admin: 04/01/21 19:44 Dose: Not Given Documented by: Sodium Chloride (Sodium Chloride 0.9% 10 Ml Syringe) 10 ml FLUSH ASDIRECTED PRN PRN Reason: Keep Vein Open Vancomycin HCl (Vancomycin 1 Gm Sdv) 1 gm IV .PHARMACY TO DOSE CHARLES Stop: 04/01/21 17:30 - Exam Quality Assessment: Reports: Supplemental Oxygen, DVT Prophylaxis General: Reports: Alert, Oriented, Cooperative, Moderate Distress Lungs: Reports: Normal Respiratory Effort, Decreased Breath Sounds. Denies: Rales, Rhonchi, Wheezing Cardiovascular: Reports: Regular Rate, Regular Rhythm, No Murmurs GI/Abdominal Exam: Soft, Non-Tender, No Organomegaly, No Distention
[2021-04-02] MEDS ORDERED: MEDICAL MARIJUANA INH SCH (09:00)
== END 2021-04-01 19:43 | DRG 136 ==
LOC: JP.ED 08:49 → JP.MS 15:11
PROVIDERS: ADMIT Hospitalist; ATTEND Hospitalist
DX: C34.91 Malignant neoplasm of unspecified part of right bronchus or lung (principal); J96.91 Respiratory failure, unspecified with hypoxia; B40.9 Blastomycosis, unspecified; R04.2 Hemoptysis; H54.7 Unspecified visual loss; I25.10 Atherosclerotic heart disease of native coronary artery without angina pectoris; I10 Essential (primary) hypertension; K21.9 Gastro-esophageal reflux disease without esophagitis; F41.9 Anxiety disorder, unspecified; Z20.822 Contact with and (suspected) exposure to COVID-19; Z88.1 Allergy status to other antibiotic agents; I25.2 Old myocardial infarction; Z85.828 Personal history of other malignant neoplasm of skin; Z79.899 Other long term (current) drug therapy; Z88.8 Allergy status to other drugs, medicaments and biological substances; Z90.49 Acquired absence of other specified parts of digestive tract
CPT/HCPCS: 0241U; 36415; 71275; 80053; 83880; 84484; 85025; 85379; 87040; 93005; 96374; 99223; 99285-25; A9270-GY; J1170; J2543; J3370; J7030; J7040; J7050; Q9967

== ENCOUNTER 2021-05-19 15:06 | Emergency (ER) | payer BC, MEDICARE ==
[2021-05-19] MEDS ORDERED: Aspirin 81 MG Tab.Chew PO ONE (15:27)
[2021-05-19] MEDS ORDERED: Sodium Chloride 0.9% 10 ML Syringe FLUSH PRN (15:27)
--- NOTE | 2021-05-19 15:31 | EDM.PDOC ---
ED HPI GENERAL MEDICAL PROBLEM - General Chief Complaint: Respiratory Problem Stated Complaint: MEDICAL Time Seen by Provider: 05/19/21 15:20 Source of Information: Reports: Patient, Old Records, RN Notes Reviewed History Limitations: Reports: No Limitations - History of Present Illness INITIAL COMMENTS - FREE TEXT/NARRATIVE: 65-year-old gentleman presents emergency department day complaint of shortness of breath and chest pain. He has a known history of non-small cell lung cancer poorly differentiated stage IIIb, he states over the last 3 days he is more short of breath has had some burning in his chest cannot walk 50 feet without having to stop and try and catch his wind. He is currently on chemotherapy treatment he is about 3 weeks into it, usually feels nauseated from the chemotherapy there is no diaphoresis no history of pulmonary embolism Right Upper Chest Pain Score (Numeric/FACES): 9 - Related Data Allergies Allergy/AdvReac Type Severity Reaction Status Date / Time acetaminophen [From Tylenol] Allergy Rash Verified 04/01/21 08:58 erythromycin base Allergy Hives Verified 04/01/21 08:58 metoclopramide [From Reglan] AdvReac Agitation Verified 04/01/21 08:58 [id number]-[id number]-[id number] Reductase AdvReac Anxiety Verified 04/01/21 08:58 Inhibitor [Yllbkbx-Hwa-Mll Reductase Inhibitor] Home Meds: Home Meds Promethazine [Phenergan] 50 mg PO Q6H PRN 11/02/16 [History] Albuterol Sulfate [Albuterol Sulfate Hfa] 1 - 2 puff IH ASDIRECTED 07/29/19 [History] Budesonide/Formoterol Fumarate [Symbicort 160-4.5 Mcg Inhaler] 1 inh INH BID 10/07/19 [History] Ondansetron [Zofran ODT] 4 mg PO Q6H PRN #10 tab.dis 11/11/20 [Rx] Apixaban [Eliquis] 5 mg PO BID #60 tablet 05/19/21 [Rx] Apixaban [Eliquis] 10 mg PO BID #28 tablet 05/19/21 [Rx] oxyCODONE ER [OxyCONTIN] 10 mg PO BID #20 tab.er 05/19/21 [Rx] Past Medical History HEENT History: Reports: Impaired Vision Cardiovascular History: Reports: Blood Clots/VTE/DVT, CAD, Hypertension, IA, Other (See Below) Other Cardiovascular History: iliac stents for possible clots Respiratory History: Reports: SOB Gastrointestinal History: Reports: Cholelithiasis, GERD, Pancreatitis, Other (See Below) Other Gastrointestinal History: pancreatitis Musculoskeletal History: Reports: Fracture Psychiatric History: Reports: Anxiety Oncologic (Cancer) History: Reports: Lung (Non-small cell lung CA stage IIIb right hilar region), Squamous Cell Carcinoma, Other (See Below) Other Oncologic History: skin ca Dermatologic History: Reports: Other (See Below) Other Dermatologic History: basal cell ca - Infectious Disease History Infectious Disease History: Reports: Mumps - Past Surgical History Head Surgeries/Procedures: Reports: None HEENT Surgical History: Reports: None Cardiovascular Surgical History: Reports: None Respiratory Surgical History: Reports: None GI Surgical History: Reports: Appendectomy, Cholecystectomy, Other (See Below) Other GI Surgeries/Procedures: exploratory lap for pancrease possilbe fruy procedure Male Surgical History: Reports: None Musculoskeletal Surgical History: Reports: None Oncologic Surgical History: Reports: None Dermatological Surgical History: Reports: None Social & Family History - Family History Family Medical History: No Pertinent Family History HEENT: Reports: Cataract Cardiac: Reports: Bypass Endocrine/Metabolic: Reports: Diabetes, type II Oncologic: Reports: Prostate - Tobacco Use Tobacco Use Status *Q: Former Tobacco User Used Tobacco, but Quit: Yes Month/Year Tobacco Last Used: unknown - Caffeine Use Caffeine Use: Reports: Coffee Other Caffeine Use: 4 cups - Living Situation & Occupation Living situation: Reports: Occupation: Retired (lives with and 11 year old son in [place], [place].) ED ROS GENERAL - Review of Systems Review Of Systems: See Below Constitutional: Reports: Weakness, Fatigue. Denies: Fever, Chills Respiratory: Reports: Shortness of Breath. Denies: Cough, Sputum Cardiovascular: Reports: Chest Pain, Dyspnea on Exertion GI/Abdominal: Reports: Nausea ED EXAM, GENERAL - Physical Exam Exam: See Below Exam Limited By: No Limitations General Appearance: Alert, WD/WN, No Apparent Distress Respiratory/Chest: No Respiratory Distress, Lungs Clear, Normal Breath Sounds, No Accessory Muscle Use, Chest Non-Tender Cardiovascular: Regular Rate, Rhythm, No Murmur GI/Abdominal: Soft, Non-Tender #1 Interpretation EKG Date: 05/19/21 Time: 15:41 Rhythm: NSR [place]: Normal P-Wave: Present QRS: Normal ST-T: Normal QT: Normal Comparison: NA - No Prior EKG Course - Vital Signs Last Recorded V/S: Last Vital Signs Temp Pulse 91 05/19/21 16:22 Resp 18 05/19/21 15:11 BP 133/74 05/19/21 16:22 Pulse Ox 96 05/19/21 16:22 - Orders/Labs/Meds Orders: Active Orders 24 hr Category Date Time Status Cardiac Monitoring [RC] .As Directed Care 05/19/21 15:27 Active Peripheral IV Care [RC] . DIRECTED Care 05/19/21 15:27 Active Iopamidol [Isovue-370 (76%)] Med 05/19/21 16:45 Active 100 ml IV . DIRECTED Morphine Med 05/19/21 15:27 Active 4 mg IVPUSH Q10M PRN Sodium Chloride 0.9% [Normal Saline] 1,000 ml Med 05/19/21 16:45 Active IV ASDIRECTED Sodium Chloride 0.9% [Normal Saline] 100 ml Med 05/19/21 16:45 Active IV ASDIRECTED Sodium Chloride 0.9% [Saline Flush] Med 05/19/21 15:27 Active 10 ml FLUSH ASDIRECTED PRN Isolation [COMM] Stat Oth 05/19/21 15:30 Ordered Peripheral IV Insertion Adult [OM.PC] Stat Oth 05/19/21 15:27 Ordered Saline Lock Insert [OM.PC] Stat Oth 05/19/21 15:27 Ordered EKG 12 Lead [EK] Stat Ther 05/19/21 15:27 Ordered Medication Orders Sodium Chloride (Normal Saline) 1,000 mls @ 500 mls/hr IV ASDIRECTED CHARLES Last Admin: 05/19/21 17:01 Dose: 500 mls/hr Documented by: FITZASH Sodium Chloride (Normal Saline) 100 mls @ 3 mls/sec IV ASDIRECTED CHARLES Last Admin: 05/19/21 16:55 Dose: 3 mls/sec Documented by: FRANCY Iopamidol (Iopamidol 755 Mg/Ml 100 Ml Bottle) 100 ml IV . DIRECTED CHARLES Last Admin: 05/19/21 16:55 Dose: 55 ml Documented by: FRANCY Morphine Sulfate (Morphine 4 Mg/Ml Syringe) 4 mg IVPUSH Q10M PRN PRN Reason: Chest Pain Stop: 05/20/21 15:27 Last Admin: 05/19/21 17:31 Dose: 4 mg Documented by: Admin: 05/19/21 16:37 Dose: 4 mg Documented by: Admin: 05/19/21 16:03 Dose: 4 mg Documented by: AZALIA Sodium Chloride (Sodium Chloride 0.9% 10 Ml Syringe) 10 ml FLUSH ASDIRECTED PRN PRN Reason: Keep Vein Open Last Admin: 05/19/21 16:55 Dose: 10 ml Documented by: Medication Review Labs: Laboratory Tests 05/19/21 05/19/21 05/19/21 Range/Units 15:55 15:55 16:03 WBC 4.3 L (4.5-11.0) K/uL RBC 3.07 L (4.30-5.90) M/uL Hgb 8.3 L (12.0-15.0) g/dL Hct 25.7 L (40.0-54.0) % MCV 84 (80-98) fL MCH 27 (27-31) pg MCHC 32 (32-36) % Plt Count 272 (150-400) K/uL Neut % (Auto) 72.4 H (36-66) % Lymph % (Auto) 17.5 L (24-44) % [place] % (Auto) 9.4 H (2-6) % Eos % (Auto) 0.0 L (2-4) % Baso % (Auto) 0.7 (0-1) % Sodium 135 L (140-148) mmol/L Potassium 4.5 (3.6-5.2) mmol/L Chloride 99 L (100-108) mmol/L Carbon Dioxide 27 (21-32) mmol/L Anion Gap 13.5 (5.0-14.0) mmol/L BUN 22 H D (7-18) mg/dL Creatinine 1.0 (0.8-1.3) mg/dL Est Cr Clr Drug Dosing 52.89 mL/min Estimated GFR (MDRD) > 60 (>60) Glucose 115 H (74-106) mg/dL Calcium 8.0 L (8.5-10.1) mg/dL Total Bilirubin 0.2 (0.2-1.0) mg/dL AST 24 (15-37) U/L ALT 34 (12-78) U/L Alkaline Phosphatase 74 (46-116) U/L Troponin I High Sens 9.2 (<=60.3) pg/mL Total Protein 6.0 L (6.4-8.2) g/dL Albumin 2.5 L (3.4-5.0) g/dL Globulin 3.5 (2.3-3.5) g/dL Albumin/Globulin Ratio 0.7 L (1.2-2.2) Lipase 34 L (73-393) U/L Influenza Type A RNA Negative (NEGATIVE) RSV RNA (INAAT) Positive H (NEGATIVE) Influenza Type B RNA Negative (NEGATIVE) SARS-CoV-2 RNA (LIONEL) Negative (NEGATIVE) Meds: Medications Generic Name Dose Route Start Last Admin Trade Name Freq PRN Reason Stop Dose Admin Sodium Chloride 1,000 mls @ 500 mls/hr 05/19/21 16:45 05/19/21 17:01 Normal Saline IV 500 mls/hr ASDIRECTED CHARLES Administration Sodium Chloride 100 mls @ 3 mls/sec 05/19/21 16:45 05/19/21 16:55 Normal Saline IV 3 mls/sec ASDIRECTED CHARLES Administration Iopamidol 100 ml 05/19/21 16:45 05/19/21 16:55 Iopamidol 755 Mg/Ml 100 Ml Bottle IV 55 ml . DIRECTED CHARLES Administration Morphine Sulfate 4 mg 05/19/21 15:27 05/19/21 17:31 Morphine 4 Mg/Ml Syringe IVPUSH 05/20/21 15:27 4 mg Q10M PRN Administration Chest Pain Sodium Chloride 10 ml 05/19/21 15:27 05/19/21 16:55 Sodium Chloride 0.9% 10 Ml Syringe FLUSH 10 ml ASDIRECTED PRN Administration Keep Vein Open Discontinued Medications Generic Name Dose Route Start Last Admin Trade Name Freq PRN Reason Stop Dose Admin Apixaban 10 mg 05/19/21 17:44 Apixaban 5 Mg Tab PO 05/19/21 17:45 ONETIME ONE Aspirin 324 mg 05/19/21 15:27 05/19/21 16:02 Aspirin 81 Mg Tab.Chew PO 05/19/21 15:28 324 mg ONETIME ONE Administration Departure - Departure Time of Disposition: 17:51 Disposition: Home, Self-Care 01 Condition: Poor Clinical Impression: Bilateral pulmonary embolism, NSCLC of right middle lobe - Discharge Information Prescriptions: Apixaban [Eliquis] 5 mg PO BID #60 tablet Apixaban [Eliquis] 10 mg PO BID #28 tablet oxyCODONE ER [OxyCONTIN] 10 mg PO BID #20 tab.er Instructions: Pulmonary Embolism Referrals: PCP,None [Primary Care Provider] - Forms: ED Department Discharge Additional Instructions: Start your Eliquis 10 mg 1 tablet twice a day you are given a dose in the emergency department you can start that twice a day tomorrow, you will do this for 1 week and then reduce to 5 mg twice a day. Continue with symptomatic care please followup with your primary care provider in 3-5 days if not better, please call return to the emergency department with worsening of symptoms. Your medications have been faxed to [facility] pharmacy Sepsis Event Note (ED) - Evaluation Sepsis Screening Result: No Definite Risk - Focused Exam Vital Signs: Vital Signs Pulse Resp BP Pulse Ox 05/19/21 16:22 91 133/74 96 05/19/21 15:11 104 H 18 122/68 97 - My Orders Last 24 Hours: My Active Orders 05/19/21 15:27 Cardiac Monitoring [RC] .As Directed Peripheral IV Care [RC] . DIRECTED Morphine 4 mg IVPUSH Q10M PRN Sodium Chloride 0.9% [Saline Flush] 10 ml FLUSH ASDIRECTED PRN Peripheral IV Insertion Adult [OM.PC] Stat Saline Lock Insert [OM.PC] Stat EKG 12 Lead [EK] Stat 05/19/21 15:30 Isolation [COMM] Stat 05/19/21 16:45 Iopamidol [Isovue-370 (76%)] 100 ml IV . DIRECTED Sodium Chloride 0.9% [Normal Saline] 1,000 ml IV ASDIRECTED Sodium Chloride 0.9% [Normal Saline] 100 ml IV ASDIRECTED - Assessment/Plan Last 24 Hours: My Active Orders 05/19/21 15:27 Cardiac Monitoring [RC] .As Directed Peripheral IV Care [RC] . DIRECTED Morphine 4 mg IVPUSH Q10M PRN Sodium Chloride 0.9% [Saline Flush] 10 ml FLUSH ASDIRECTED PRN Peripheral IV Insertion Adult [OM.PC] Stat Saline Lock Insert [OM.PC] Stat EKG 12 Lead [EK] Stat 05/19/21 15:30 Isolation [COMM] Stat 05/19/21 16:45 Iopamidol [Isovue-370 (76%)] 100 ml IV . DIRECTED Sodium Chloride 0.9% [Normal Saline] 1,000 ml IV ASDIRECTED Sodium Chloride 0.9% [Normal Saline] 100 ml IV ASDIRECTED Plan: Assessment Acuity = acute Site and laterality = pulmonary embolism bilateral complicated patient with known history of non-small cell lung CA stage IIIb Etiology = probably related to squamous cell carcinoma Manifestations = dyspnea Location of injury = Home Lab values = WBC low at 4.3 consistent leukopenia, hemoglobin low at 8.3 consistent normochromic anemia high sensitive troponin normal at 9.2 lipase low at 34 - for Covid positive for RSV negative for influenza CT scan reveals bilateral pulmonary embolism also lung mass now at 6 cm has increased in size from prior exams Plan I did review lab work CT scan results with him he started on Eliquis 10 mg p.o. twice daily for the first 7 days and then down to 5 mg p.o. twice daily remaining prescription also for oxycodone 10 mg 1 tab p.o. twice daily 6 tender relief total #20 faxed to [facility] pharmacy follow-up primary care 3 to 5 days for reevaluation This note was dictated using [employer] voice recognition software please call with any questions on syntax or grammar.
--- NOTE | 2021-05-19 15:49 | CR ---
CHEST: Portable 05/11/2021 at 3:29 PM CLINICAL HISTORY:Chest pain COMPARISON:CT 04/01/2021 FINDINGS: Patient has a known right apical lung mass. Configuration is similar to prior study. Lungs are emphysematous. Heart and pulmonary vascularity are normal. There are atherosclerotic changes in the aorta. Nrupmh-a-Evtc catheter is in good position. Impression: Known right apical mass Emphysematous changes
[2021-05-19] MEDS: Morphine 4 MG/ML Syringe IVPUSH PRN ×3 (16:03→17:31)
[2021-05-19 16:43] LABS: CORONAVIRUS COVID-19 NAA NEGATIVE (NEGATIVE)
[2021-05-19] MEDS ORDERED: Sodium Chloride 0.9% 1,000 ML IV SCH (16:45)
[2021-05-19] MEDS ORDERED: Iopamidol 755 Mg/ML 100 ML Bottle IV SCH (16:45)
[2021-05-19] MEDS ORDERED: Sodium Chloride 0.9% 100 ML IV SCH (16:45)
--- NOTE | 2021-05-19 17:38 | CRLCT ---
For Patients: As a result of the Century Cures Act, medical imaging exams and procedure reports are released immediately into your electronic medical record. You may view this report before your referring provider. If you have questions, please contact your health care provider. INDICATION: Non-small cell lung cancer, shortness of breath, tachycardia TECHNIQUE: CT chest with i.v. contrast using pulmonary angiographic technique. Coronal and sagittal reformats were obtained. CONTRAST: 55 mL Isovue 370 COMPARISON: 04/01/2021 FINDINGS: Cardiovascular: Small acute pulmonary emboli are present within the bilateral lower lobes, right upper lobe, and right middle lobe. Interval placement of a left Port-A-Cath is noted with the tip in the cavoatrial region. No sign of aneurysm in the thoracic aorta. Mediastinum: No mass or adenopathy seen. Lung: There is a pleural based mass measuring 6 cm present in the right apex that has increased in size since prior examination. Severe centrilobular emphysema is noted bilaterally. Pleura and pericardium: See above. No significant pericardial effusion is present. Chest wall and axilla: No mass or adenopathy seen. Bone: Unremarkable for age. Upper abdomen: A small amount of pneumobilia is present. IMPRESSIONS: 1. Small acute pulmonary emboli are present within the bilateral lower lobes, right upper lobe, and right middle lobe. 2. There is a pleural based mass measuring 6 cm present in the right apex that has increased in size since prior examination. This likely represents progression of the patient`s known lung malignancy. The findings were discussed with Officer at 5:37 PM. Dictated by Aristeo Berumen MD @ 05/19/2021 5:37:09 PM Please note that all CT scans at this facility use dose modulation, iterative reconstruction, and/or weight-based dosing when appropriate to reduce radiation dose to as low as reasonably achievable. Dictated by: Aristeo Berumen MD @ 05/19/2021 17:37:20 (Electronically Signed)
[2021-05-19] MEDS ORDERED: Apixaban 5 MG Tab PO ONE (17:44)
[2021-05-19 18:22] VITALS: BP 130/64; PULSE 83
== END 2021-05-19 19:05 | disposition home or self-care (01) ==
LOC: JP.ED 15:06
DX: I26.99 Other pulmonary embolism without acute cor pulmonale (principal); C34.2 Malignant neoplasm of middle lobe, bronchus or lung; I10 Essential (primary) hypertension; I25.2 Old myocardial infarction; Z88.8 Allergy status to other drugs, medicaments and biological substances; Z79.899 Other long term (current) drug therapy; Z87.891 Personal history of nicotine dependence; Z20.822 Contact with and (suspected) exposure to COVID-19
CPT/HCPCS: 0241U; 36415; 71045; 71275; 80053; 83690; 84484; 85025; 93005; 96374; 96376; 99285; A9270; J2270; J7030; Q9967

== ENCOUNTER 2021-07-01 08:42 | Emergency (ER) | payer BC, MEDICARE ==
[2021-07-01] MEDS ORDERED: Enoxaparin 40 MG/0.4 ML Syringe SUBCUT ONE (09:06)
[2021-07-01] MEDS ORDERED: HYDROmorphone 1 MG/ML Syringe IVPUSH ONE (09:08)
[2021-07-01] MEDS ORDERED: Apixaban 5 MG Tab PO ONE (09:20)
[2021-07-01 09:38] VITALS: BP 120/75; PULSE 103
== END 2021-07-01 11:00 | disposition home or self-care (01) ==
LOC: JP.ED 08:42
DX: C34.11 Malignant neoplasm of upper lobe, right bronchus or lung (principal); G89.3 Neoplasm related pain (acute) (chronic); I82.412 Acute embolism and thrombosis of left femoral vein; K86.1 Other chronic pancreatitis; I26.99 Other pulmonary embolism without acute cor pulmonale; R00.0 Tachycardia, unspecified; I25.10 Atherosclerotic heart disease of native coronary artery without angina pectoris; I10 Essential (primary) hypertension; I25.2 Old myocardial infarction; K21.9 Gastro-esophageal reflux disease without esophagitis; Z88.6 Allergy status to analgesic agent; Z88.1 Allergy status to other antibiotic agents; Z88.8 Allergy status to other drugs, medicaments and biological substances; Z79.01 Long term (current) use of anticoagulants; Z79.899 Other long term (current) drug therapy
CPT/HCPCS: 36415; 71046; 80048; 84484; 85025; 93005; 96374; 99285; A9270; J1170

== ENCOUNTER 2021-09-11 15:41 | Emergency (ER) | payer BC, MEDICARE ==
[2021-09-11 16:05] VITALS: BP 137/47; PULSE 91
[2021-09-11] MEDS: methylPREDNISolone Sodium Succinate 125 MG/2 ML SDV IVPUSH ONE (17:11)
== END 2021-09-11 17:52 | disposition home or self-care (01) ==
LOC: JP.ED 15:41
DX: J44.1 Chronic obstructive pulmonary disease with (acute) exacerbation (principal); C34.11 Malignant neoplasm of upper lobe, right bronchus or lung; I25.10 Atherosclerotic heart disease of native coronary artery without angina pectoris; I10 Essential (primary) hypertension; I25.2 Old myocardial infarction; K21.9 Gastro-esophageal reflux disease without esophagitis; Z88.1 Allergy status to other antibiotic agents; Z88.8 Allergy status to other drugs, medicaments and biological substances; Z79.01 Long term (current) use of anticoagulants; Z87.891 Personal history of nicotine dependence; Z20.822 Contact with and (suspected) exposure to COVID-19
CPT/HCPCS: 71046; 71046-26; 96374; 99283; 99285-25; J1642; J2930; U0002

== ENCOUNTER 2022-06-18 08:21 | Emergency (ER) | payer BC, MEDICARE ==
[2022-06-18 08:44] VITALS: PULSE 82
[2022-06-18 09:12] VITALS: BP 180/98
== END 2022-06-18 10:32 | disposition home or self-care (01) ==
LOC: JP.ED 08:21
DX: I73.9 Peripheral vascular disease, unspecified (principal); I25.10 Atherosclerotic heart disease of native coronary artery without angina pectoris; I10 Essential (primary) hypertension; I25.2 Old myocardial infarction; Z79.01 Long term (current) use of anticoagulants; Z87.891 Personal history of nicotine dependence
CPT/HCPCS: 93971-26-LT; 93971-LT; 99283

== ENCOUNTER 2022-07-07 14:23 | Inpatient (IN) | payer BC, MEDICARE ==
[2022-07-07] MEDS ORDERED: HYDROmorphone 1 MG/ML Syringe IVPUSH ONE ×2 (14:39→16:03)
[2022-07-07] MEDS ORDERED: Albuterol/Ipratropium 3.0-0.5 MG/3 ML Neb Soln NEB PRN (17:07)
[2022-07-07] MEDS ORDERED: Sodium Chloride 0.9% 10 ML Syringe FLUSH PRN (17:07)
[2022-07-07] MEDS ORDERED: Ondansetron 4 MG/2 ML SDV IV PRN (17:07)
[2022-07-07] MEDS ORDERED: Albuterol 90 MCG/6.7 GM Inhaler INH PRN (17:07)
[2022-07-07 17:16] LABS: CORONAVIRUS COVID-19 NAA NEGATIVE (NEGATIVE)
[2022-07-07] MEDS: HYDROmorphone 0.5 MG/0.5 ML Syringe IVPUSH PRN (18:39)
[2022-07-07] MEDS: Sodium Chloride 0.9% 1,000 ML IV SCH (18:47)
[2022-07-07] MEDS ORDERED: Gabapentin 300 MG Cap PO SCH (21:00)
[2022-07-07] MEDS: oxyCODONE 5 MG Tab PO PRN (22:13)
[2022-07-08] MEDS: Sodium Chloride 0.9% 1,000 ML IV SCH (02:47)
[2022-07-08] MEDS: Formoterol/Mometasone 200-5 MCG 8.8 GM Inhaler IH SCH ×2 (07:28→20:42)
[2022-07-08] MEDS: Heparin Sodium 5,000 Units/ML Vial SUBCUT SCH ×3 (07:30→22:13)
[2022-07-08] MEDS: oxyCODONE 5 MG Tab PO PRN ×3 (07:30→22:13)
[2022-07-08] MEDS: Famotidine 20 MG Tab PO SCH (08:43)
[2022-07-08] MEDS ORDERED: Non-Formulary Medication 1 Each (Fluticasone/Vilanterol 1 EACH Each) IH SCH (09:00)
[2022-07-08] MEDS ORDERED: Non-Formulary Medication 1 Each (Famotidine [Famotidine] 40 MG Tablet) PO SCH (09:00)
[2022-07-08] MEDS: Gabapentin 300 MG Cap PO SCH ×2 (09:37→20:42)
[2022-07-08] MEDS: Levothyroxine 25 MCG Tab PO SCH (09:37)
[2022-07-08] MEDS: HYDROmorphone 0.5 MG/0.5 ML Syringe IVPUSH PRN (19:32)
[2022-07-09] MEDS: Sodium Chloride 0.9% 1,000 ML IV SCH ×2 (03:54→18:09)
[2022-07-09] MEDS: oxyCODONE 5 MG Tab PO PRN ×4 (03:56→21:37)
[2022-07-09] MEDS ORDERED: ceFAZolin 2 GM in Sodium Chloride 0.9% 50 ML IV ONE (06:30)
[2022-07-09] MEDS: Formoterol/Mometasone 200-5 MCG 8.8 GM Inhaler IH SCH ×2 (07:42→21:37)
[2022-07-09] MEDS: Gabapentin 300 MG Cap PO SCH ×2 (08:00→21:37)
[2022-07-09] MEDS: Levothyroxine 25 MCG Tab PO SCH (08:00)
[2022-07-09] MEDS: Famotidine 20 MG Tab PO SCH (08:00)
[2022-07-09] MEDS ORDERED: Midazolam 1 MG/ML 2 ML SDV ONE (08:40)
[2022-07-09] MEDS ORDERED: Propofol 200 MG/20 ML SDV ONE (08:40)
[2022-07-09] MEDS ORDERED: fentaNYL 100 MCG/2 ML SDV ONE (08:40)
[2022-07-09] MEDS ORDERED: ePHEDrine 50 MG/ML SDV ONE (09:44)
[2022-07-09] MEDS ORDERED: Sodium Chloride 0.9% 10 ML ONE ×2 (09:44→09:50)
[2022-07-09] MEDS ORDERED: ceFAZolin 1 GM Vial ONE (09:50)
[2022-07-09] MEDS ORDERED: Lactated Ringers 1,000 ML ONE (09:53)
[2022-07-09] MEDS ORDERED: traMADol 50 MG Tab PO PRN (10:34)
[2022-07-09] MEDS: Ketorolac 15 MG/ML SDV IVPUSH SCH ×2 (11:34→19:52)
[2022-07-09] MEDS: HYDROmorphone 0.5 MG/0.5 ML Syringe IVPUSH PRN ×2 (11:58→14:30)
[2022-07-09] MEDS: ceFAZolin 1 GM in Premix Bag 1 BAG IV SCH ×2 (14:24→21:38)
[2022-07-10] MEDS: oxyCODONE 5 MG Tab PO PRN ×4 (02:17→19:36)
[2022-07-10] MEDS: Ketorolac 15 MG/ML SDV IVPUSH SCH (03:56)
[2022-07-10] MEDS: Sodium Chloride 0.9% 1,000 ML IV SCH (04:53)
[2022-07-10] MEDS: Formoterol/Mometasone 200-5 MCG 8.8 GM Inhaler IH SCH ×2 (07:19→20:37)
[2022-07-10] MEDS: Levothyroxine 25 MCG Tab PO SCH (07:25)
[2022-07-10] MEDS: Gabapentin 300 MG Cap PO SCH ×2 (08:01→20:37)
[2022-07-10] MEDS: Famotidine 20 MG Tab PO SCH (08:01)
[2022-07-10] MEDS ORDERED: Sodium Phosphate,Monobasic/Sodium Phosphate,Dibasic Enema 133 ML Bottle RECTAL PRN (10:13)
[2022-07-10] MEDS ORDERED: Bisacodyl 10 MG Supp RECTAL ONE (10:15)
[2022-07-10] MEDS ORDERED: Sodium Chloride 0.9% 1,000 ML IV SCH (10:30)
[2022-07-10] MEDS ORDERED: Polyethylene Glycol 3350 Powder 17 GM Packet PO ONE (10:45)
[2022-07-10] MEDS ORDERED: Rivaroxaban 10 MG Tab PO SCH (21:00)
[2022-07-11] MEDS: oxyCODONE 5 MG Tab PO PRN ×2 (03:05→11:44)
[2022-07-11] MEDS: Formoterol/Mometasone 200-5 MCG 8.8 GM Inhaler IH SCH (07:45)
[2022-07-11] MEDS: Levothyroxine 25 MCG Tab PO SCH (07:55)
[2022-07-11] MEDS: Gabapentin 300 MG Cap PO SCH (08:48)
[2022-07-11] MEDS: Famotidine 20 MG Tab PO SCH (08:49)
[2022-07-11 11:29] VITALS: BP 165/75; PULSE 82
[2022-07-11] MEDS ORDERED: Ferrous Sulfate 325 MG Tab PO SCH (17:00)
== END 2022-07-11 12:30 | disposition home health service (06) | DRG 308 ==
LOC: JP.ED 14:23 → JP.MS 15:58
PROVIDERS: ADMIT Hospitalist; ATTEND Hospitalist
PROC: 0QS734Z Reposition Left Upper Femur with Internal Fixation Device, Percutaneous Approach (ICD-10-PCS; principal; 2022-07-09)
DX: S72.145A Nondisplaced intertrochanteric fracture of left femur, initial encounter for closed fracture (principal); C34.90 Malignant neoplasm of unspecified part of unspecified bronchus or lung; Z20.822 Contact with and (suspected) exposure to COVID-19; H54.7 Unspecified visual loss; I25.10 Atherosclerotic heart disease of native coronary artery without angina pectoris; I10 Essential (primary) hypertension; K21.9 Gastro-esophageal reflux disease without esophagitis; F41.9 Anxiety disorder, unspecified; Z87.891 Personal history of nicotine dependence; Z86.718 Personal history of other venous thrombosis and embolism; Z88.8 Allergy status to other drugs, medicaments and biological substances; Z79.01 Long term (current) use of anticoagulants; Z79.899 Other long term (current) drug therapy; I25.2 Old myocardial infarction; W00.0XXA Fall on same level due to ice and snow, initial encounter
CPT/HCPCS: 0241U; 27245; 36415; 73502-26-LT; 73502-LT; 76000; 80048; 83735; 85025; 94640; 96374; 96376; 97110-GP; 97116-GP; 97162-GP; 97530-GP; 97535-GP; 99222; 99232; 99238; 99284; 99285-25; A9270-GY; C1713; C1776; J0690; J1170; J1642; J1644; J1885; J2250; J2704; J3010; J3490; J7030; J7120

== ENCOUNTER 2022-08-30 08:41 | Observation (INO) | payer BC, MEDICARE ==
[2022-08-30 09:32] LABS: ESTIMATED GFR 82 mL/min (>60)
[2022-08-30 09:46] LABS: CORONAVIRUS COVID-19 NAA NEGATIVE (NEGATIVE)
[2022-08-30] MEDS ORDERED: HYDROmorphone 0.5 MG/0.5 ML Syringe IVPUSH ONE (10:29)
[2022-08-30] MEDS ORDERED: Iopamidol 612 MG/ML 100 ML Bottle IV PRN (10:49)
[2022-08-30] MEDS ORDERED: Sodium Chloride 0.9% 10 ML SDV FLUSH ONE (10:49)
[2022-08-30] MEDS ORDERED: Sodium Chloride 0.9% 100 ML IV SCH (11:00)
[2022-08-30] MEDS ORDERED: Gabapentin 300 MG Cap PO ONE (11:48)
[2022-08-30] MEDS ORDERED: oxyCODONE 5 MG Tab PO ONE (11:48)
[2022-08-30] MEDS ORDERED: Sodium Chloride 0.9% 10 ML Syringe FLUSH PRN (17:07)
[2022-08-30] MEDS ORDERED: Ondansetron 4 MG/2 ML SDV IV PRN (17:07)
[2022-08-30] MEDS ORDERED: Promethazine 25 MG Tab PO PRN (17:07)
[2022-08-30] MEDS ORDERED: Albuterol 90 MCG/6.7 GM Inhaler INH PRN (17:07)
[2022-08-30] MEDS: HYDROmorphone 0.5 MG/0.5 ML Syringe IVPUSH PRN ×2 (17:40→21:44)
[2022-08-30] MEDS: Sodium Chloride 0.9% 1,000 ML IV SCH (17:40)
[2022-08-30] MEDS: oxyCODONE 5 MG Tab PO SCH (20:19)
[2022-08-30] MEDS: Gabapentin 300 MG Cap PO SCH (20:19)
[2022-08-30] MEDS: Topiramate 25 MG Tab PO SCH (20:19)
[2022-08-30] MEDS ORDERED: Rivaroxaban 10 MG Tab PO SCH (21:00)
[2022-08-31] MEDS: oxyCODONE 5 MG Tab PO SCH ×3 (02:28→13:13)
[2022-08-31] MEDS ORDERED: Levothyroxine 25 MCG Tab PO SCH (07:30)
[2022-08-31] MEDS ORDERED: Famotidine 20 MG Tab PO SCH (09:00)
[2022-08-31] MEDS: Sodium Chloride 0.9% 1,000 ML IV SCH (09:55)
[2022-08-31] MEDS: Topiramate 25 MG Tab PO SCH (10:52)
[2022-08-31] MEDS: Gabapentin 300 MG Cap PO SCH (10:53)
[2022-08-31 11:01] VITALS: BP 159/94; PULSE 75
== END 2022-08-31 14:20 | disposition home or self-care (01) ==
LOC: JP.ED 08:41 → JP.MS 16:03
PROVIDERS: ADMIT Hospitalist; ATTEND Hospitalist
DX: G62.0 Drug-induced polyneuropathy (principal); T45.1X5A Adverse effect of antineoplastic and immunosuppressive drugs, initial encounter; C34.91 Malignant neoplasm of unspecified part of right bronchus or lung; G89.3 Neoplasm related pain (acute) (chronic); E03.2 Hypothyroidism due to medicaments and other exogenous substances; S72.142A Displaced intertrochanteric fracture of left femur, initial encounter for closed fracture; K21.9 Gastro-esophageal reflux disease without esophagitis; I25.10 Atherosclerotic heart disease of native coronary artery without angina pectoris; F41.9 Anxiety disorder, unspecified; I73.9 Peripheral vascular disease, unspecified; Z20.822 Contact with and (suspected) exposure to COVID-19; Z88.1 Allergy status to other antibiotic agents; Z88.6 Allergy status to analgesic agent; Z88.8 Allergy status to other drugs, medicaments and biological substances; Z79.890 Hormone replacement therapy; Z79.899 Other long term (current) drug therapy; Z87.891 Personal history of nicotine dependence; Z98.890 Other specified postprocedural states; W19.XXXA Unspecified fall, initial encounter
CPT/HCPCS: 0241U; 36415; 71260; 80048; 80053; 82607; 84425; 84630; 85025; 85027; 86140; 96374; 96376; 99222; 99238; 99285; A9270; G0378; J1170; J3490; J7030; Q9967; 84207

== ENCOUNTER 2022-10-17 08:40 | Emergency (ER) | payer BC, MEDICARE ==
[2022-10-17 09:24] LABS: BASOPHILS ABSOLUTE AUTO 0.04 K/uL (0.00-0.10); BASOPHILS PERCENT AUTO 0.5 % (0.1-1.3); EOSINOPHILS ABSOLUTE AUTO 0.86 K/uL (0.00-0.40); EOSINOPHILS PERCENT AUTO 9.9 % (0.0-5.4); HEMATOCRIT 36.4 % (38.4-49.7); HEMOGLOBIN 11.5 g/dL (12.9-16.9); IMMATURE GRAN ABSOLUTE AUTO 0.03 K/uL (0.00-0.23); IMMATURE GRAN PERCENT AUTO 0.3 % (0.0-0.7); LYMPHOCYTES PERCENT AUTO 5.8 % (11.4-47.7); MEAN CORPUSCULAR HEMOGLOBIN 26.9 pg (31.6-35.5); MEAN CORPUSCULAR HGB CONC 31.6 g/dL (31.6-35.5); MONOCYTES ABSOLUTE AUTO 0.72 K/uL (0.20-0.90); MONOCYTES PERCENT AUTO 8.3 % (3.3-12.6); NEUTROPHILS ABSOLUTE AUTO 6.52 K/uL (1.0-7.6); NEUTROPHILS PERCENT AUTO 75.2 % (40.0-78.1); PLATELET COUNT,PLT 301 K/uL (130-375); RED BLOOD CELL COUNT 4.28 M/uL (4.14-5.76); WHITE BLOOD CELL COUNT,WBC 8.7 K/uL (3.2-11.0)
[2022-10-17 10:00] LABS: CALCIUM 8.6 mg/dL (8.5-10.1); CREATININE 0.9 mg/dL (0.8-1.3); EST CRCL DRUG DOSING (CG) 61.99 mL/min; POTASSIUM,K 5.7 mmol/L (3.6-5.2)
[2022-10-17 10:04] LABS: ANION GAP 16.7 mmol/L (5.0-14.0)
[2022-10-17 10:57] VITALS: BP 155/91; PULSE 76
== END 2022-10-17 11:02 | disposition home or self-care (01) ==
LOC: JP.ED 08:40
DX: C34.90 Malignant neoplasm of unspecified part of unspecified bronchus or lung (principal); J44.9 Chronic obstructive pulmonary disease, unspecified; I25.10 Atherosclerotic heart disease of native coronary artery without angina pectoris; I10 Essential (primary) hypertension; I25.2 Old myocardial infarction; K21.9 Gastro-esophageal reflux disease without esophagitis; Z86.16 Personal history of COVID-19; Z88.8 Allergy status to other drugs, medicaments and biological substances; Z88.6 Allergy status to analgesic agent; Z88.1 Allergy status to other antibiotic agents; Z79.899 Other long term (current) drug therapy; Z79.01 Long term (current) use of anticoagulants
CPT/HCPCS: 36415; 71045; 80048; 85025; 93005; 99285

== ENCOUNTER 2022-12-14 15:12 | Emergency (ER) | payer BC, MEDICARE ==
[2022-12-14] MEDS ORDERED: Ondansetron 4 MG/2 ML SDV IVPUSH ONE (15:55)
[2022-12-14] MEDS ORDERED: HYDROmorphone 0.5 MG/0.5 ML Syringe IVPUSH ONE (15:55)
[2022-12-14] MEDS ORDERED: Sodium Chloride 0.9% 1,000 ML IV SCH (16:00)
[2022-12-14 16:08] LABS: HEMATOCRIT 41.2 % (38.4-49.7); HEMOGLOBIN 13.4 g/dL (12.9-16.9); MEAN CORPUSCULAR HEMOGLOBIN 27.1 pg (31.6-35.5); MEAN CORPUSCULAR HGB CONC 32.5 g/dL (31.6-35.5); MEAN CORPUSCULAR VOLUME 83.2 fL (81.4-99.0); RED BLOOD CELL COUNT 4.95 M/uL (4.14-5.76); WHITE BLOOD CELL COUNT,WBC 13.9 K/uL (3.2-11.0)
[2022-12-14 16:26] LABS: INR 1.2; PROTHROMBIN TIME 12.3 sec (9.2-10.6)
[2022-12-14 16:29] LABS: A/G RATIO 0.7 (1.2-2.2); ALANINE AMINOTRANSFERASE,ALT 20 U/L (12-78); ALBUMIN 3.2 g/dL (3.4-5.0); ALKALINE PHOSPHATASE 89 U/L (46-116); ANION GAP 13.7 mmol/L (5.0-14.0); ASPARTATE AMNIOTRANSFERASE,AST 18 U/L (15-37); BILIRUBIN TOTAL 0.4 mg/dL (0.2-1.0); BLOOD UREA NITROGEN,BUN 12 mg/dL (7-18); CALCIUM 9.1 mg/dL (8.5-10.1); CARBON DIOXIDE,CO2 28 mmol/L (21-32); CHLORIDE,CL 98 mmol/L (100-108); CREATININE 0.9 mg/dL (0.8-1.3); EST CRCL DRUG DOSING (CG) 59.64 mL/min; ESTIMATED GFR 92 mL/min (>60); GLUCOSE RANDOM 128 mg/dL (74-106); POTASSIUM,K 3.7 mmol/L (3.6-5.2); PROTEIN TOTAL,TP 7.7 g/dL (6.4-8.2); SODIUM,NA 136 mmol/L (140-148)
[2022-12-14] MEDS ORDERED: HYDROmorphone 0.5 MG/0.5 ML Syringe IVPUSH PRN (17:29)
[2022-12-14] MEDS ORDERED: Sodium Chloride 0.9% 50 ML IV SCH (17:45)
[2022-12-14] MEDS ORDERED: Iopamidol 612 MG/ML 100 ML Bottle IV SCH (17:45)
[2022-12-14] MEDS: HYDROmorphone 1 MG/ML Syringe IVPUSH PRN ×2 (18:06→22:30)
[2022-12-14 18:21] LABS: APPEARANCE,URINE CLEAR (CLEAR); COLOR,URINE YELLOW (YELLOW); PH,URINE 7.5 (5.0-8.0); PROTEIN,URINE >=300 mg/dL (NEGATIVE)
[2022-12-14 18:22] LABS: BILIRUBIN,URINE NEGATIVE (NEGATIVE); GLUCOSE,URINE NEGATIVE (NEGATIVE); KETONES,URINE 40 mg/dL (NEGATIVE); LEUKOCYTE ESTERASE,URINE NEGATIVE (NEGATIVE); NITRITE,URINE NEGATIVE (NEGATIVE); OCCULT BLOOD,URINE MODERATE (NEGATIVE); UROBILINOGEN,URINE 0.2 EU/dL (0.2-1.0)
[2022-12-14 18:24] LABS: AMORPHOUS SEDIMENT,URINE NOT SEEN; BACTERIA,URINE FEW; EPITHELIAL CELLS,URINE FEW; MUCUS,URINE RARE; RBC,URINE 20-30 (0-5); WBC,URINE NOT SEEN (0-5)
[2022-12-14 18:25] LABS: AMPHETAMINES SCREEN, URINE NEGATIVE (NEGATIVE); BARBITURATE SCREEN,URINE NEGATIVE (NEGATIVE); BENZODIAZEPINES SCREEN,URINE NEGATIVE (NEGATIVE); METHADONE SCREEN, URINE NEGATIVE (NEGATIVE); METHAMPHETAMINES SCREEN, URINE NEGATIVE (NEGATIVE); OXYCODONE SCREEN,URINE PRESUMPTIVE POSITIVE (NEGATIVE); PROPOXYPHENE SCREEN,URINE NEGATIVE (NEGATIVE); THC SCREEN,URINE 50 NG/ML PRESUMPTIVE POSITIVE (NEGATIVE)
[2022-12-14] MEDS ORDERED: Ciprofloxacin 500 MG Tab PO ONE (23:28)
[2022-12-15] MEDS ORDERED: Ciprofloxacin 500 MG Tab ONE (04:06)
[2022-12-15] MEDS: HYDROmorphone 1 MG/ML Syringe IVPUSH PRN (04:11)
[2022-12-15 04:13] VITALS: BP 165/101; PULSE 96
== END 2022-12-15 06:44 | disposition home or self-care (01) ==
LOC: JP.ED 15:12
DX: K52.9 Noninfective gastroenteritis and colitis, unspecified (principal); I25.10 Atherosclerotic heart disease of native coronary artery without angina pectoris; I10 Essential (primary) hypertension; I25.2 Old myocardial infarction; K21.9 Gastro-esophageal reflux disease without esophagitis; Z86.16 Personal history of COVID-19; Z88.1 Allergy status to other antibiotic agents; Z88.8 Allergy status to other drugs, medicaments and biological substances; Z79.899 Other long term (current) drug therapy; Z79.01 Long term (current) use of anticoagulants; Z87.891 Personal history of nicotine dependence
CPT/HCPCS: 36415; 74177; 80053; 80305; 80307; 81001; 83605; 83690; 84145; 85027; 85610; 96361; 96374; 96375; 96376; 99284; A9270; J1170; J2405; J3490; J7030; Q9967

== ENCOUNTER 2022-12-17 10:55 | Emergency (ER) | payer BC, MEDICARE ==
[2022-12-17] MEDS ORDERED: droPERidol 5 MG/2 ML SDV IVPUSH ONE (11:22)
[2022-12-17] MEDS ORDERED: fentaNYL 100 MCG/2 ML SDV IVPUSH ONE (11:22)
[2022-12-17] MEDS ORDERED: Lactated Ringers 1,000 ML IV SCH (11:30)
[2022-12-17 12:02] LABS: BASOPHILS ABSOLUTE AUTO 0.03 K/uL (0.00-0.10); BASOPHILS PERCENT AUTO 0.2 % (0.1-1.3); EOSINOPHILS ABSOLUTE AUTO 0.08 K/uL (0.00-0.40); EOSINOPHILS PERCENT AUTO 0.6 % (0.0-5.4); HEMATOCRIT 42.9 % (38.4-49.7); HEMOGLOBIN 14.1 g/dL (12.9-16.9); IMMATURE GRAN ABSOLUTE AUTO 0.05 K/uL (0.00-0.23); IMMATURE GRAN PERCENT AUTO 0.3 % (0.0-0.7); LYMPHOCYTES ABSOLUTE AUTO 0.68 K/uL (0.8-3.3); LYMPHOCYTES PERCENT AUTO 4.7 % (11.4-47.7); MEAN CORPUSCULAR HEMOGLOBIN 27.1 pg (31.6-35.5); MEAN CORPUSCULAR HGB CONC 32.9 g/dL (31.6-35.5); MEAN CORPUSCULAR VOLUME 82.5 fL (81.4-99.0); MONOCYTES ABSOLUTE AUTO 0.79 K/uL (0.20-0.90); MONOCYTES PERCENT AUTO 5.4 % (3.3-12.6); NEUTROPHILS ABSOLUTE AUTO 12.88 K/uL (1.0-7.6); NEUTROPHILS PERCENT AUTO 88.8 % (40.0-78.1); PLATELET COUNT,PLT 331 K/uL (130-375); WHITE BLOOD CELL COUNT,WBC 14.5 K/uL (3.2-11.0)
[2022-12-17 12:23] LABS: A/G RATIO 0.7 (1.2-2.2); ALANINE AMINOTRANSFERASE,ALT 24 U/L (12-78); ALBUMIN 3.2 g/dL (3.4-5.0); ALKALINE PHOSPHATASE 86 U/L (46-116); ANION GAP 9.3 mmol/L (5.0-14.0); ASPARTATE AMNIOTRANSFERASE,AST 21 U/L (15-37); BILIRUBIN TOTAL 0.3 mg/dL (0.2-1.0); BLOOD UREA NITROGEN,BUN 20 mg/dL (7-18); CALCIUM 9.1 mg/dL (8.5-10.1); CARBON DIOXIDE,CO2 31 mmol/L (21-32); CHLORIDE,CL 101 mmol/L (100-108); EST CRCL DRUG DOSING (CG) 69.72 mL/min; ESTIMATED GFR 81 mL/min (>60); GLUCOSE RANDOM 106 mg/dL (74-106); POTASSIUM,K 3.6 mmol/L (3.6-5.2); PROTEIN TOTAL,TP 7.5 g/dL (6.4-8.2); SODIUM,NA 141 mmol/L (140-148)
[2022-12-17 14:31] VITALS: BP 168/95; PULSE 77
== END 2022-12-17 16:08 | disposition home or self-care (01) ==
LOC: JP.ED 10:55
DX: K52.9 Noninfective gastroenteritis and colitis, unspecified (principal); C34.90 Malignant neoplasm of unspecified part of unspecified bronchus or lung; G89.3 Neoplasm related pain (acute) (chronic); G62.0 Drug-induced polyneuropathy; T45.1X5A Adverse effect of antineoplastic and immunosuppressive drugs, initial encounter; I25.10 Atherosclerotic heart disease of native coronary artery without angina pectoris; I10 Essential (primary) hypertension; I25.2 Old myocardial infarction; K21.9 Gastro-esophageal reflux disease without esophagitis; Z86.16 Personal history of COVID-19; Z88.6 Allergy status to analgesic agent; Z88.1 Allergy status to other antibiotic agents; Z88.8 Allergy status to other drugs, medicaments and biological substances; Z79.899 Other long term (current) drug therapy; Z70.1 Counseling related to patient's sexual behavior and orientation
CPT/HCPCS: 36415; 80053; 83605; 83690; 85025; 96361; 96374; 96375; 99284; J1790; J3010; J7120

== ENCOUNTER 2023-04-05 13:12 | Emergency (ER) | payer BC, MEDICARE ==
[2023-04-05 14:35] LABS: BASOPHILS ABSOLUTE AUTO 0.03 K/uL (0.00-0.10); BASOPHILS PERCENT AUTO 0.2 % (0.1-1.3); EOSINOPHILS ABSOLUTE AUTO 0.02 K/uL (0.00-0.40); EOSINOPHILS PERCENT AUTO 0.1 % (0.0-5.4); HEMATOCRIT 33.1 % (38.4-49.7); HEMOGLOBIN 10.5 g/dL (12.9-16.9); IMMATURE GRAN ABSOLUTE AUTO 0.09 K/uL (0.00-0.23); IMMATURE GRAN PERCENT AUTO 0.6 % (0.0-0.7); LYMPHOCYTES ABSOLUTE AUTO 0.65 K/uL (0.8-3.3); LYMPHOCYTES PERCENT AUTO 4.3 % (11.4-47.7); MEAN CORPUSCULAR HEMOGLOBIN 26.1 pg (31.6-35.5); MEAN CORPUSCULAR HGB CONC 31.7 g/dL (31.6-35.5); MEAN CORPUSCULAR VOLUME 82.3 fL (81.4-99.0); MONOCYTES ABSOLUTE AUTO 0.69 K/uL (0.20-0.90); MONOCYTES PERCENT AUTO 4.5 % (3.3-12.6); NEUTROPHILS ABSOLUTE AUTO 13.81 K/uL (1.0-7.6); NEUTROPHILS PERCENT AUTO 90.3 % (40.0-78.1); PLATELET COUNT,PLT 432 K/uL (130-375); RED BLOOD CELL COUNT 4.02 M/uL (4.14-5.76); WHITE BLOOD CELL COUNT,WBC 15.3 K/uL (3.2-11.0)
[2023-04-05] MEDS ORDERED: Albuterol/Ipratropium 3.0-0.5 MG/3 ML Neb Soln NEB ONE (14:36)
[2023-04-05 15:03] LABS: BLOOD UREA NITROGEN,BUN 18 mg/dL (7-18); CARBON DIOXIDE,CO2 31 mmol/L (21-32); CHLORIDE,CL 98 mmol/L (100-108); CREATININE 0.9 mg/dL (0.8-1.3); EST CRCL DRUG DOSING (CG) 51.69 mL/min; ESTIMATED GFR 92 mL/min (>60); GLUCOSE RANDOM 110 mg/dL (74-106); POTASSIUM,K 4.7 mmol/L (3.6-5.2); SODIUM,NA 136 mmol/L (140-148)
[2023-04-05 15:04] LABS: ANION GAP 11.7 mmol/L (5.0-14.0); TROPONIN I HIGH SENSITIVITY < 4.0 pg/mL (<=60.3)
[2023-04-05 15:14] VITALS: BP 93/65; PULSE 74
== END 2023-04-05 16:34 | disposition home or self-care (01) ==
LOC: JP.ED 13:12
DX: J44.9 Chronic obstructive pulmonary disease, unspecified (principal); G62.0 Drug-induced polyneuropathy; I10 Essential (primary) hypertension; I25.10 Atherosclerotic heart disease of native coronary artery without angina pectoris; I25.2 Old myocardial infarction; Z86.16 Personal history of COVID-19; Z87.891 Personal history of nicotine dependence; Z79.01 Long term (current) use of anticoagulants; Z79.899 Other long term (current) drug therapy; Z88.1 Allergy status to other antibiotic agents; Z88.8 Allergy status to other drugs, medicaments and biological substances; Z88.6 Allergy status to analgesic agent
CPT/HCPCS: 36415; 71046; 71046-26; 80048; 83605; 84145; 84484; 85025; 93005; 93010; 94640; 99284; 99285; J7620

== ENCOUNTER 2023-04-30 23:50 | Inpatient (IN) | payer BC, MEDICARE ==
[2023-05-01] MEDS ORDERED: HYDROmorphone 1 MG/ML Syringe IM ONE (00:20)
[2023-05-01 00:33] LABS: BASOPHILS ABSOLUTE AUTO 0.04 K/uL (0.00-0.10); BASOPHILS PERCENT AUTO 0.2 % (0.1-1.3); EOSINOPHILS ABSOLUTE AUTO 0.05 K/uL (0.00-0.40); EOSINOPHILS PERCENT AUTO 0.3 % (0.0-5.4); HEMATOCRIT 31.2 % (38.4-49.7); HEMOGLOBIN 10.1 g/dL (12.9-16.9); IMMATURE GRAN ABSOLUTE AUTO 0.11 K/uL (0.00-0.23); IMMATURE GRAN PERCENT AUTO 0.6 % (0.0-0.7); LYMPHOCYTES ABSOLUTE AUTO 0.51 K/uL (0.8-3.3); LYMPHOCYTES PERCENT AUTO 2.7 % (11.4-47.7); MEAN CORPUSCULAR HEMOGLOBIN 25.6 pg (31.6-35.5); MEAN CORPUSCULAR HGB CONC 32.4 g/dL (31.6-35.5); MEAN CORPUSCULAR VOLUME 79.2 fL (81.4-99.0); MONOCYTES ABSOLUTE AUTO 0.67 K/uL (0.20-0.90); MONOCYTES PERCENT AUTO 3.5 % (3.3-12.6); NEUTROPHILS ABSOLUTE AUTO 17.71 K/uL (1.0-7.6); NEUTROPHILS PERCENT AUTO 92.7 % (40.0-78.1); PLATELET COUNT,PLT 452 K/uL (130-375); RED BLOOD CELL COUNT 3.94 M/uL (4.14-5.76); WHITE BLOOD CELL COUNT,WBC 19.1 K/uL (3.2-11.0)
[2023-05-01 01:08] LABS: A/G RATIO 0.5 (1.2-2.2); ALANINE AMINOTRANSFERASE,ALT 29 U/L (12-78); ALBUMIN 2.2 g/dL (3.4-5.0); ALKALINE PHOSPHATASE 131 U/L (46-116); ASPARTATE AMNIOTRANSFERASE,AST 29 U/L (15-37); BILIRUBIN TOTAL 0.5 mg/dL (0.2-1.0); BLOOD UREA NITROGEN,BUN 17 mg/dL (7-18); CALCIUM 8.8 mg/dL (8.5-10.1); CARBON DIOXIDE,CO2 31 mmol/L (21-32); CHLORIDE,CL 100 mmol/L (100-108); CREATININE 0.8 mg/dL (0.8-1.3); EST CRCL DRUG DOSING (CG) 86.66 mL/min; ESTIMATED GFR 96 mL/min (>60); GLUCOSE RANDOM 145 mg/dL (74-106); POTASSIUM,K 3.9 mmol/L (3.6-5.2); PROTEIN TOTAL,TP 6.6 g/dL (6.4-8.2); SODIUM,NA 137 mmol/L (140-148)
[2023-05-01 01:09] LABS: ANION GAP 9.9 mmol/L (5.0-14.0)
[2023-05-01] MEDS ORDERED: Sodium Chloride 0.9% 1,000 ML IV SCH ×2 (02:00→04:13)
[2023-05-01 02:08] LABS: LACTIC ACID 1.1 mmol/L (0.4-2.0)
[2023-05-01 02:58] LABS: CORONAVIRUS COVID-19 NAA NEGATIVE (NEGATIVE); INFLUENZA A NAA NEGATIVE (NEGATIVE); INFLUENZA B NAA NEGATIVE (NEGATIVE); RESPIRATORY SYNCYTIAL VIR NAA NEGATIVE (NEGATIVE)
[2023-05-01] MEDS ORDERED: Albuterol 0.083% 2.5 MG/3 ML Neb Soln NEB PRN (04:13)
[2023-05-01] MEDS ORDERED: Bisacodyl 5 MG Tab PO PRN (04:13)
[2023-05-01] MEDS ORDERED: Ondansetron 4 MG Tab.DIS PO PRN (04:13)
[2023-05-01] MEDS ORDERED: LORazepam 2 MG/ML SDV IV PRN (04:13)
[2023-05-01] MEDS ORDERED: Naloxone 0.4 MG/ML SDV IVPUSH PRN (04:13)
[2023-05-01] MEDS ORDERED: Docusate Sodium 100 MG Cap PO PRN (04:13)
[2023-05-01] MEDS ORDERED: MORPHINE 30 MG PO PRN (04:13)
[2023-05-01] MEDS: Morphine 2 MG/ML SYRINGE IVPUSH PRN ×2 (04:26→07:00)
[2023-05-01] MEDS ORDERED: Albuterol/Ipratropium 3.0-0.5 MG/3 ML Neb Soln NEB SCH (04:30)
[2023-05-01] MEDS ORDERED: Cefepime 2 GM in Sodium Chloride 0.9% 50 ML IV SCH (05:00)
[2023-05-01] MEDS: HYDROmorphone 2 MG Tab PO PRN (05:33)
[2023-05-01] MEDS ORDERED: Water For Injection, Sterile 40 ML ONE (05:35)
[2023-05-01] MEDS: Levothyroxine 25 MCG Tab PO SCH (08:05)
[2023-05-01] MEDS: Ferrous Sulfate 325 MG Tab PO SCH ×2 (08:05→18:17)
[2023-05-01] MEDS: Pantoprazole 40 MG Vial IV SCH (08:05)
[2023-05-01] MEDS: Gabapentin 300 MG Cap PO SCH ×2 (08:05→20:44)
[2023-05-01] MEDS ORDERED: Non-Formulary Medication 1 Each (Magnesium Oxide [Magnesium] 500 MG Capsule) PO SCH (09:00)
[2023-05-01] MEDS: Morphine 30 MG Tab.ER PO PRN ×2 (09:00→20:34)
[2023-05-01] MEDS: Magnesium Oxide 400 MG Tab PO SCH (09:00)
[2023-05-01] MEDS: Formoterol/Mometasone 200-5 MCG 8.8 GM Inhaler IH SCH ×2 (09:29→20:43)
[2023-05-01 10:18] LABS: APPEARANCE,URINE CLEAR (CLEAR); BILIRUBIN,URINE NEGATIVE (NEGATIVE); COLOR,URINE YELLOW (YELLOW); GLUCOSE,URINE NEGATIVE (NEGATIVE); KETONES,URINE TRACE mg/dL (NEGATIVE); LEUKOCYTE ESTERASE,URINE NEGATIVE (NEGATIVE); NITRITE,URINE NEGATIVE (NEGATIVE); OCCULT BLOOD,URINE TRACE-INTACT (NEGATIVE); PROTEIN,URINE 30 mg/dL (NEGATIVE)
[2023-05-01 10:25] LABS: AMORPHOUS SEDIMENT,URINE RARE; BACTERIA,URINE RARE; EPITHELIAL CELLS,URINE NOT SEEN; MUCUS,URINE RARE; RBC,URINE 0-5 (0-5); WBC,URINE NOT SEEN (0-5)
[2023-05-01] MEDS: Albuterol/Ipratropium 3.0-0.5 MG/3 ML Neb Soln NEB SCH ×4 (10:56→23:08)
[2023-05-01] MEDS: cefTRIAXone 1 GM in Sodium Chloride 0.9% 50 ML IV SCH (11:53)
[2023-05-01] MEDS ORDERED: cefTRIAXone 1 GM in Sodium Chloride 0.9% 50 ML IV SCH (12:00)
[2023-05-01] MEDS: Doxycycline 100 MG in Sodium Chloride 0.9% 100 ML IV SCH (13:40)
[2023-05-01] MEDS: Rivaroxaban 10 MG Tab PO SCH (20:43)
[2023-05-02] MEDS: Doxycycline 100 MG in Sodium Chloride 0.9% 100 ML IV SCH ×2 (01:27→12:24)
[2023-05-02 06:30] LABS: HEMATOCRIT 29.8 % (38.4-49.7); HEMOGLOBIN 9.5 g/dL (12.9-16.9); MEAN CORPUSCULAR HEMOGLOBIN 25.5 pg (31.6-35.5); MEAN CORPUSCULAR HGB CONC 31.9 g/dL (31.6-35.5); MEAN CORPUSCULAR VOLUME 79.9 fL (81.4-99.0); RED BLOOD CELL COUNT 3.73 M/uL (4.14-5.76); WHITE BLOOD CELL COUNT,WBC 15.7 K/uL (3.2-11.0)
[2023-05-02 06:47] LABS: CALCIUM 8.8 mg/dL (8.5-10.1); CREATININE 0.6 mg/dL (0.8-1.3); EST CRCL DRUG DOSING (CG) 67.38 mL/min; POTASSIUM,K 3.6 mmol/L (3.6-5.2)
[2023-05-02 06:50] LABS: ANION GAP 8.6 mmol/L (5.0-14.0)
[2023-05-02] MEDS: Albuterol/Ipratropium 3.0-0.5 MG/3 ML Neb Soln NEB SCH ×5 (06:58→22:17)
[2023-05-02] MEDS: Morphine 30 MG Tab.ER PO PRN (07:24)
[2023-05-02] MEDS: Ferrous Sulfate 325 MG Tab PO SCH ×2 (07:25→17:37)
[2023-05-02] MEDS: Levothyroxine 25 MCG Tab PO SCH (07:25)
[2023-05-02] MEDS: Formoterol/Mometasone 200-5 MCG 8.8 GM Inhaler IH SCH ×2 (08:06→20:03)
[2023-05-02] MEDS: Magnesium Oxide 400 MG Tab PO SCH (09:08)
[2023-05-02] MEDS: Gabapentin 300 MG Cap PO SCH ×2 (09:08→20:04)
[2023-05-02] MEDS: Pantoprazole 40 MG Vial IV SCH (09:09)
[2023-05-02] MEDS: cefTRIAXone 1 GM in Sodium Chloride 0.9% 50 ML IV SCH (11:54)
[2023-05-02] MEDS: HYDROmorphone 2 MG Tab PO PRN ×2 (11:55→17:37)
[2023-05-02] MEDS: Rivaroxaban 10 MG Tab PO SCH (20:04)
[2023-05-02] MEDS: Morphine 30 MG Tab.ER PO SCH (20:05)
[2023-05-03] MEDS: Doxycycline 100 MG in Sodium Chloride 0.9% 100 ML IV SCH ×2 (01:13→13:13)
[2023-05-03] MEDS: HYDROmorphone 2 MG Tab PO PRN ×3 (01:17→15:22)
[2023-05-03 05:54] LABS: HEMATOCRIT 27.8 % (38.4-49.7); HEMOGLOBIN 8.8 g/dL (12.9-16.9); MEAN CORPUSCULAR HEMOGLOBIN 25.2 pg (31.6-35.5); MEAN CORPUSCULAR HGB CONC 31.7 g/dL (31.6-35.5); MEAN CORPUSCULAR VOLUME 79.7 fL (81.4-99.0); RED BLOOD CELL COUNT 3.49 M/uL (4.14-5.76); WHITE BLOOD CELL COUNT,WBC 17.6 K/uL (3.2-11.0)
[2023-05-03 06:13] LABS: CALCIUM 8.5 mg/dL (8.5-10.1); CREATININE 0.8 mg/dL (0.8-1.3); EST CRCL DRUG DOSING (CG) 50.54 mL/min; POTASSIUM,K 3.7 mmol/L (3.6-5.2)
[2023-05-03 06:34] LABS: ANION GAP 10.7 mmol/L (5.0-14.0)
[2023-05-03] MEDS: Albuterol/Ipratropium 3.0-0.5 MG/3 ML Neb Soln NEB SCH ×5 (07:17→22:06)
[2023-05-03] MEDS ORDERED: Levothyroxine 100 MCG, Levothyroxine 25 MCG PO SCH ×2 (07:30)
[2023-05-03] MEDS: Pantoprazole 40 MG Tab.CR PO SCH (07:57)
[2023-05-03] MEDS: Ferrous Sulfate 325 MG Tab PO SCH ×2 (07:57→16:08)
[2023-05-03] MEDS: Gabapentin 300 MG Cap PO SCH ×3 (07:57→20:05)
[2023-05-03] MEDS: Magnesium Oxide 400 MG Tab PO SCH ×2 (07:58→08:02)
[2023-05-03] MEDS: Formoterol/Mometasone 200-5 MCG 8.8 GM Inhaler IH SCH ×2 (08:00→20:05)
[2023-05-03] MEDS: Morphine 30 MG Tab.ER PO SCH ×2 (09:07→20:05)
[2023-05-03] MEDS: cefTRIAXone 1 GM in Sodium Chloride 0.9% 50 ML IV SCH (12:21)
[2023-05-03] MEDS: Rivaroxaban 10 MG Tab PO SCH (20:05)
[2023-05-03] MEDS: Doxycycline 100 MG Cap PO SCH (22:11)
[2023-05-04] MEDS: HYDROmorphone 2 MG Tab PO PRN ×2 (05:52→15:16)
[2023-05-04 06:11] LABS: HEMATOCRIT 25.6 % (38.4-49.7); HEMOGLOBIN 8.3 g/dL (12.9-16.9); MEAN CORPUSCULAR HEMOGLOBIN 25.5 pg (31.6-35.5); MEAN CORPUSCULAR HGB CONC 32.4 g/dL (31.6-35.5); MEAN CORPUSCULAR VOLUME 78.8 fL (81.4-99.0); RED BLOOD CELL COUNT 3.25 M/uL (4.14-5.76)
[2023-05-04 06:39] LABS: CALCIUM 8.3 mg/dL (8.5-10.1); CREATININE 0.6 mg/dL (0.8-1.3); EST CRCL DRUG DOSING (CG) 67.38 mL/min; POTASSIUM,K 3.9 mmol/L (3.6-5.2); TSH ULTRASENSITIVE 19.631 uIU/mL (0.358-3.740)
[2023-05-04 06:49] LABS: ANION GAP 9.9 mmol/L (5.0-14.0)
[2023-05-04] MEDS: Albuterol/Ipratropium 3.0-0.5 MG/3 ML Neb Soln NEB SCH ×4 (06:59→19:15)
[2023-05-04] MEDS ORDERED: Levothyroxine 100 MCG Tab PO SCH (07:30)
[2023-05-04] MEDS: Ferrous Sulfate 325 MG Tab PO SCH ×2 (07:43→16:57)
[2023-05-04] MEDS: Pantoprazole 40 MG Tab.CR PO SCH (07:43)
[2023-05-04] MEDS: Formoterol/Mometasone 200-5 MCG 8.8 GM Inhaler IH SCH ×2 (08:04→23:06)
[2023-05-04] MEDS: Morphine 30 MG Tab.ER PO SCH ×2 (09:49→23:06)
[2023-05-04] MEDS: Gabapentin 300 MG Cap PO SCH ×3 (09:50→23:06)
[2023-05-04] MEDS: Doxycycline 100 MG Cap PO SCH ×2 (09:50→23:07)
[2023-05-04] MEDS: Magnesium Oxide 400 MG Tab PO SCH (09:51)
[2023-05-04] MEDS: cefTRIAXone 1 GM in Sodium Chloride 0.9% 50 ML IV SCH (11:31)
[2023-05-04] MEDS ORDERED: LORazepam 0.5 MG Tab PO PRN (17:22)
[2023-05-04] MEDS: Rivaroxaban 10 MG Tab PO SCH (23:07)
[2023-05-05] MEDS: Albuterol/Ipratropium 3.0-0.5 MG/3 ML Neb Soln NEB SCH ×5 (01:33→20:50)
[2023-05-05] MEDS: HYDROmorphone 2 MG Tab PO PRN ×3 (05:17→22:55)
[2023-05-05 06:01] LABS: HEMATOCRIT 28.7 % (38.4-49.7); HEMOGLOBIN 9.3 g/dL (12.9-16.9); MEAN CORPUSCULAR HEMOGLOBIN 25.2 pg (31.6-35.5); MEAN CORPUSCULAR HGB CONC 32.4 g/dL (31.6-35.5); MEAN CORPUSCULAR VOLUME 77.8 fL (81.4-99.0); RED BLOOD CELL COUNT 3.69 M/uL (4.14-5.76); WHITE BLOOD CELL COUNT,WBC 19.3 K/uL (3.2-11.0)
[2023-05-05 06:25] LABS: CALCIUM 8.7 mg/dL (8.5-10.1); CREATININE 0.5 mg/dL (0.8-1.3); EST CRCL DRUG DOSING (CG) 80.86 mL/min; POTASSIUM,K 3.8 mmol/L (3.6-5.2); T4 FREE 1.22 ng/dL (0.76-1.46)
[2023-05-05 06:27] LABS: ANION GAP 8.8 mmol/L (5.0-14.0)
[2023-05-05] MEDS: Pantoprazole 40 MG Tab.CR PO SCH (07:32)
[2023-05-05] MEDS: Ferrous Sulfate 325 MG Tab PO SCH ×2 (07:32→16:39)
[2023-05-05] MEDS: Formoterol/Mometasone 200-5 MCG 8.8 GM Inhaler IH SCH ×2 (08:05→20:50)
[2023-05-05] MEDS: Cefdinir 300 MG Cap PO SCH ×2 (08:41→20:51)
[2023-05-05] MEDS: Gabapentin 300 MG Cap PO SCH ×3 (08:41→20:51)
[2023-05-05] MEDS: Magnesium Oxide 400 MG Tab PO SCH (08:41)
[2023-05-05] MEDS: Morphine 30 MG Tab.ER PO SCH ×2 (08:41→20:51)
[2023-05-05] MEDS: Doxycycline 100 MG Cap PO SCH ×2 (11:43→21:05)
[2023-05-05] MEDS: Rivaroxaban 10 MG Tab PO SCH (20:51)
[2023-05-06] MEDS: Albuterol/Ipratropium 3.0-0.5 MG/3 ML Neb Soln NEB SCH ×6 (00:17→23:18)
[2023-05-06 05:46] LABS: BASOPHILS ABSOLUTE AUTO 0.04 K/uL (0.00-0.10); BASOPHILS PERCENT AUTO 0.2 % (0.1-1.3); EOSINOPHILS ABSOLUTE AUTO 0.32 K/uL (0.00-0.40); EOSINOPHILS PERCENT AUTO 1.7 % (0.0-5.4); HEMATOCRIT 27.9 % (38.4-49.7); HEMOGLOBIN 8.9 g/dL (12.9-16.9); IMMATURE GRAN PERCENT AUTO 0.5 % (0.0-0.7); LYMPHOCYTES ABSOLUTE AUTO 0.73 K/uL (0.8-3.3); LYMPHOCYTES PERCENT AUTO 3.8 % (11.4-47.7); MEAN CORPUSCULAR HGB CONC 31.9 g/dL (31.6-35.5); MEAN CORPUSCULAR VOLUME 78.4 fL (81.4-99.0); MONOCYTES ABSOLUTE AUTO 1.22 K/uL (0.20-0.90); MONOCYTES PERCENT AUTO 6.4 % (3.3-12.6); NEUTROPHILS ABSOLUTE AUTO 16.59 K/uL (1.0-7.6); NEUTROPHILS PERCENT AUTO 87.4 % (40.0-78.1); PLATELET COUNT,PLT 380 K/uL (130-375); RED BLOOD CELL COUNT 3.56 M/uL (4.14-5.76)
[2023-05-06] MEDS: Pantoprazole 40 MG Tab.CR PO SCH (07:44)
[2023-05-06] MEDS: Ferrous Sulfate 325 MG Tab PO SCH ×2 (07:44→16:25)
[2023-05-06] MEDS: Formoterol/Mometasone 200-5 MCG 8.8 GM Inhaler IH SCH ×2 (08:09→20:08)
[2023-05-06] MEDS: Morphine 30 MG Tab.ER PO SCH ×2 (08:34→20:08)
[2023-05-06] MEDS: Cefdinir 300 MG Cap PO SCH ×2 (08:35→20:09)
[2023-05-06] MEDS: Gabapentin 300 MG Cap PO SCH ×3 (08:35→20:09)
[2023-05-06] MEDS: Magnesium Oxide 400 MG Tab PO SCH (08:36)
[2023-05-06] MEDS: Doxycycline 100 MG Cap PO SCH ×2 (09:59→21:08)
[2023-05-06] MEDS: HYDROmorphone 2 MG Tab PO PRN ×2 (10:00→23:17)
[2023-05-06] MEDS: Rivaroxaban 10 MG Tab PO SCH (20:09)
[2023-05-07] MEDS: Pantoprazole 40 MG Tab.CR PO SCH (07:11)
[2023-05-07] MEDS: Albuterol/Ipratropium 3.0-0.5 MG/3 ML Neb Soln NEB SCH ×5 (07:34→23:26)
[2023-05-07] MEDS: Formoterol/Mometasone 200-5 MCG 8.8 GM Inhaler IH SCH ×2 (08:00→20:23)
[2023-05-07] MEDS ORDERED: Ketorolac 30 MG/ML SDV IVPUSH ONE (08:25)
[2023-05-07 08:38] LABS: BASOPHILS ABSOLUTE AUTO 0.04 K/uL (0.00-0.10); BASOPHILS PERCENT AUTO 0.2 % (0.1-1.3); EOSINOPHILS ABSOLUTE AUTO 0.08 K/uL (0.00-0.40); EOSINOPHILS PERCENT AUTO 0.5 % (0.0-5.4); HEMATOCRIT 27.2 % (38.4-49.7); HEMOGLOBIN 8.8 g/dL (12.9-16.9); IMMATURE GRAN ABSOLUTE AUTO 0.09 K/uL (0.00-0.23); IMMATURE GRAN PERCENT AUTO 0.5 % (0.0-0.7); LYMPHOCYTES ABSOLUTE AUTO 0.42 K/uL (0.8-3.3); LYMPHOCYTES PERCENT AUTO 2.5 % (11.4-47.7); MEAN CORPUSCULAR HEMOGLOBIN 25.1 pg (31.6-35.5); MEAN CORPUSCULAR HGB CONC 32.4 g/dL (31.6-35.5); MEAN CORPUSCULAR VOLUME 77.5 fL (81.4-99.0); MONOCYTES ABSOLUTE AUTO 1.17 K/uL (0.20-0.90); NEUTROPHILS ABSOLUTE AUTO 14.83 K/uL (1.0-7.6); NEUTROPHILS PERCENT AUTO 89.3 % (40.0-78.1); PLATELET COUNT,PLT 411 K/uL (130-375); RED BLOOD CELL COUNT 3.51 M/uL (4.14-5.76); WHITE BLOOD CELL COUNT,WBC 16.6 K/uL (3.2-11.0)
[2023-05-07] MEDS: Morphine 30 MG Tab.ER PO SCH ×2 (08:52→20:26)
[2023-05-07] MEDS: Magnesium Oxide 400 MG Tab PO SCH (08:53)
[2023-05-07] MEDS: Ferrous Sulfate 325 MG Tab PO SCH ×2 (08:53→17:52)
[2023-05-07 08:54] LABS: CALCIUM 8.4 mg/dL (8.5-10.1); CREATININE 0.7 mg/dL (0.8-1.3); EST CRCL DRUG DOSING (CG) 57.76 mL/min; POTASSIUM,K 3.8 mmol/L (3.6-5.2)
[2023-05-07] MEDS: Gabapentin 300 MG Cap PO SCH ×3 (08:54→20:23)
[2023-05-07 09:04] LABS: ANION GAP 10.8 mmol/L (5.0-14.0)
[2023-05-07] MEDS: HYDROmorphone 2 MG Tab PO PRN (11:05)
[2023-05-07] MEDS ORDERED: Sodium Chloride 0.9% 500 ML IV SCH (12:00)
[2023-05-07 15:46] LABS: APPEARANCE,URINE CLEAR (CLEAR); BILIRUBIN,URINE NEGATIVE (NEGATIVE); COLOR,URINE YELLOW (YELLOW); GLUCOSE,URINE NEGATIVE (NEGATIVE); KETONES,URINE NEGATIVE (NEGATIVE); LEUKOCYTE ESTERASE,URINE NEGATIVE (NEGATIVE); NITRITE,URINE NEGATIVE (NEGATIVE); OCCULT BLOOD,URINE NEGATIVE (NEGATIVE); PH,URINE 5.5 (5.0-8.0); PROTEIN,URINE TRACE mg/dL (NEGATIVE); UROBILINOGEN,URINE 0.2 EU/dL (0.2-1.0)
[2023-05-07 15:52] LABS: AMORPHOUS SEDIMENT,URINE NOT SEEN; BACTERIA,URINE FEW; EPITHELIAL CELLS,URINE RARE; MUCUS,URINE FEW; RBC,URINE 0-5 (0-5); WBC,URINE 0-5 (0-5)
[2023-05-07] MEDS: Rivaroxaban 10 MG Tab PO SCH (20:23)
[2023-05-08] MEDS: HYDROmorphone 2 MG Tab PO PRN ×2 (04:07→14:15)
[2023-05-08 04:35] LABS: HEMATOCRIT 26.7 % (38.4-49.7); HEMOGLOBIN 8.6 g/dL (12.9-16.9); MEAN CORPUSCULAR HEMOGLOBIN 25.2 pg (31.6-35.5); MEAN CORPUSCULAR HGB CONC 32.2 g/dL (31.6-35.5); MEAN CORPUSCULAR VOLUME 78.3 fL (81.4-99.0); RED BLOOD CELL COUNT 3.41 M/uL (4.14-5.76); WHITE BLOOD CELL COUNT,WBC 12.7 K/uL (3.2-11.0)
[2023-05-08 05:02] LABS: C-REACTIVE PROTEIN 11.82 mg/dL (<0.50); CALCIUM 8.2 mg/dL (8.5-10.1); CREATININE 0.8 mg/dL (0.8-1.3); EST CRCL DRUG DOSING (CG) 50.54 mL/min; POTASSIUM,K 4.7 mmol/L (3.6-5.2)
[2023-05-08 05:10] LABS: ANION GAP 10.7 mmol/L (5.0-14.0)
[2023-05-08] MEDS ORDERED: Ketorolac 30 MG/ML SDV IVPUSH ONE (05:58)
[2023-05-08] MEDS: Albuterol/Ipratropium 3.0-0.5 MG/3 ML Neb Soln NEB SCH ×3 (07:13→14:42)
[2023-05-08] MEDS: Pantoprazole 40 MG Tab.CR PO SCH (07:38)
[2023-05-08] MEDS: Formoterol/Mometasone 200-5 MCG 8.8 GM Inhaler IH SCH (08:00)
[2023-05-08] MEDS: Morphine 30 MG Tab.ER PO SCH (08:36)
[2023-05-08] MEDS: Gabapentin 300 MG Cap PO SCH ×2 (08:37→14:01)
[2023-05-08] MEDS: Magnesium Oxide 400 MG Tab PO SCH (08:37)
[2023-05-08] MEDS: Ferrous Sulfate 325 MG Tab PO SCH ×2 (08:37→17:20)
[2023-05-08 18:09] VITALS: BP 100/57; PULSE 90
== END 2023-05-08 18:48 | disposition home health service (06) | DRG 720 ==
LOC: JP.ED 23:50 → JP.MS 05-01 03:14
PROVIDERS: ADMIT Hospitalist; ATTEND Internal Medicine
DX: A41.9 Sepsis, unspecified organism (principal); J18.9 Pneumonia, unspecified organism; J96.20 Acute and chronic respiratory failure, unspecified whether with hypoxia or hypercapnia; E43 Unspecified severe protein-calorie malnutrition; G62.0 Drug-induced polyneuropathy; T45.1X5A Adverse effect of antineoplastic and immunosuppressive drugs, initial encounter; K21.9 Gastro-esophageal reflux disease without esophagitis; I25.2 Old myocardial infarction; I10 Essential (primary) hypertension; I25.10 Atherosclerotic heart disease of native coronary artery without angina pectoris; F41.9 Anxiety disorder, unspecified; E86.0 Dehydration; C34.11 Malignant neoplasm of upper lobe, right bronchus or lung; G89.3 Neoplasm related pain (acute) (chronic); E03.2 Hypothyroidism due to medicaments and other exogenous substances; J44.9 Chronic obstructive pulmonary disease, unspecified; K86.1 Other chronic pancreatitis; R23.8 Other skin changes; S01.81XA Laceration without foreign body of other part of head, initial encounter; S70.01XA Contusion of right hip, initial encounter; R64 Cachexia; Z88.6 Allergy status to analgesic agent; Z88.1 Allergy status to other antibiotic agents; Z88.8 Allergy status to other drugs, medicaments and biological substances; Z86.16 Personal history of COVID-19; Z90.49 Acquired absence of other specified parts of digestive tract; Z99.81 Dependence on supplemental oxygen; Z11.52 Encounter for screening for COVID-19; Z86.711 Personal history of pulmonary embolism; Z79.01 Long term (current) use of anticoagulants; Z79.899 Other long term (current) drug therapy; Z79.890 Hormone replacement therapy; W01.0XXA Fall on same level from slipping, tripping and stumbling without subsequent striking against object, initial encounter
CPT/HCPCS: 0241U; 36415; 70450; 71045; 71045-26; 73502-26-RT; 73502-RT; 80048; 80053; 81001; 83605; 83690; 84439; 84443; 85025; 85027; 86140; 87040; 87070; 87077; 87205; 93005; 93010; 94640; 96372; 97110-GP; 97161-GP; 97165-GO; 97530-GP; 99284; 99285; A9270-GY; C1751; C9113; J0692; J0696; J1170; J1885; J2060; J2270; J3370; J3490; J7030; J7050; J7620

== ENCOUNTER 2023-05-23 07:51 | Emergency (ER) | payer BC, MEDICARE ==
[2023-05-23 08:09] LABS: BASOPHILS ABSOLUTE AUTO 0.04 K/uL (0.00-0.10); BASOPHILS PERCENT AUTO 0.2 % (0.1-1.3); HEMOGLOBIN 10.4 g/dL (12.9-16.9); IMMATURE GRAN ABSOLUTE AUTO 0.22 K/uL (0.00-0.23); IMMATURE GRAN PERCENT AUTO 0.9 % (0.0-0.7); LYMPHOCYTES PERCENT AUTO 1.6 % (11.4-47.7); MEAN CORPUSCULAR HEMOGLOBIN 24.8 pg (31.6-35.5); MEAN CORPUSCULAR HGB CONC 30.6 g/dL (31.6-35.5); MEAN CORPUSCULAR VOLUME 81.1 fL (81.4-99.0); MONOCYTES ABSOLUTE AUTO 0.78 K/uL (0.20-0.90); MONOCYTES PERCENT AUTO 3.1 % (3.3-12.6); NEUTROPHILS ABSOLUTE AUTO 23.65 K/uL (1.0-7.6); NEUTROPHILS PERCENT AUTO 94.2 % (40.0-78.1); PLATELET COUNT,PLT 421 K/uL (130-375); RED BLOOD CELL COUNT 4.19 M/uL (4.14-5.76); WHITE BLOOD CELL COUNT,WBC 25.1 K/uL (3.2-11.0)
[2023-05-23 08:28] LABS: BLOOD UREA NITROGEN,BUN 25 mg/dL (7-18); CALCIUM 10.4 mg/dL (8.5-10.1); CARBON DIOXIDE,CO2 29 mmol/L (21-32); CHLORIDE,CL 100 mmol/L (100-108); CREATININE 1.3 mg/dL (0.8-1.3); ESTIMATED GFR 59 mL/min (>60); GLUCOSE RANDOM 157 mg/dL (74-106); POTASSIUM,K 4.1 mmol/L (3.6-5.2); SODIUM,NA 140 mmol/L (140-148)
[2023-05-23] MEDS ORDERED: Sodium Chloride 0.9% 1,500 ML IV ONE (08:38)
[2023-05-23] MEDS ORDERED: Cefepime 2 GM in Sodium Chloride 0.9% 50 ML IV ONE (08:40)
[2023-05-23] MEDS ORDERED: Iopamidol 612 MG/ML 100 ML Bottle IV ONE (08:47)
[2023-05-23] MEDS ORDERED: Sodium Chloride 0.9% 80 ML IV SCH (09:00)
[2023-05-23 09:37] LABS: BASE EXCESS VENOUS 5.8 mm/L; CARBOXYHEMOGLOBIN 2.1 % (0.0-1.6); METHEMOGLOBIN 0.9 %; O2 SATURATION VENOUS 65.9; OXYHEMOGLOBIN 63.9 %; PCO2 VENOUS 51.8 mm/Hg; PH,VENOUS 7.394 (7.350-7.450); TOTAL HEMOGLOBIN 8.9 g/dL (13.5-18.0)
[2023-05-23 09:38] LABS: PO2 VENOUS 37.8 mm/Hg
[2023-05-23 09:49] LABS: INFLUENZA A NAA NEGATIVE (NEGATIVE); INFLUENZA B NAA NEGATIVE (NEGATIVE); RESPIRATORY SYNCYTIAL VIR NAA NEGATIVE (NEGATIVE)
[2023-05-23 09:57] LABS: CORONAVIRUS COVID-19 NAA POSITIVE (NEGATIVE)
[2023-05-23 10:44] LABS: APPEARANCE,URINE CLEAR (CLEAR); BILIRUBIN,URINE NEGATIVE (NEGATIVE); COLOR,URINE YELLOW (YELLOW); GLUCOSE,URINE NEGATIVE (NEGATIVE); KETONES,URINE NEGATIVE (NEGATIVE); LEUKOCYTE ESTERASE,URINE NEGATIVE (NEGATIVE); NITRITE,URINE NEGATIVE (NEGATIVE); OCCULT BLOOD,URINE NEGATIVE (NEGATIVE); PH,URINE 5.5 (5.0-8.0); PROTEIN,URINE 30 mg/dL (NEGATIVE)
[2023-05-23 11:05] LABS: AMORPHOUS SEDIMENT,URINE FEW; BACTERIA,URINE MODERATE; EPITHELIAL CELLS,URINE MANY; MUCUS,URINE MANY; RBC,URINE 0-5 (0-5); WBC,URINE 0-5 (0-5)
[2023-05-23] MEDS ORDERED: Sodium Chloride 0.9% 1,000 ML IV SCH (13:00)
[2023-05-23 15:31] VITALS: BP 158/73; PULSE 72
== END 2023-05-23 16:11 | disposition other institution (70) ==
LOC: JP.ED 07:51
DX: U07.1 COVID-19 (principal); J12.82 Pneumonia due to coronavirus disease 2019; I10 Essential (primary) hypertension; I25.10 Atherosclerotic heart disease of native coronary artery without angina pectoris; I25.2 Old myocardial infarction; K21.9 Gastro-esophageal reflux disease without esophagitis; Z86.16 Personal history of COVID-19; Z79.899 Other long term (current) drug therapy; Z88.6 Allergy status to analgesic agent; Z88.1 Allergy status to other antibiotic agents; Z88.8 Allergy status to other drugs, medicaments and biological substances
CPT/HCPCS: 0241U; 36415; 71260; 74177; 80048; 81001; 82803; 83605; 84145; 84484; 85025; 86140; 87040; 93005; 96365; 96367; 99285; J0692; J3370; J3490; J7030; J7050; Q9967